=== PATIENT | female | born 1960 | race Caucasian/White ===

== ENCOUNTER 2018-07-13 13:36 | Inpatient (IN) | payer MEDICARE, MEDICAID, SELFPAY ==
[2018-07-13 13:36] VITALS: BP 154/79; PULSE 78; RESP 18; TEMP 36.9; O2SAT 96
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
[2018-07-13 14:16] LABS: Lactate 0.9 mmol/L (0.6-1.4)
[2018-07-13 14:20] LABS: Abs Immature Grans 0.14 k/cumm (0.0-0.09); Basophils % 0.2; Eosinophils % 0.2; HCT 35.4 % (36.0-46.0); HGB 11.7 g/dL (12.0-15.5); Immature Grans % 0.6; Lymphocytes % 11.1; Mean Corp. HGB Concentration 33.1 g/dL (32.0-36.0); Mean Corpuscular Volume 99.7 fL (80-95); Mean Platelet Volume 8.8 fL (8.0-11.0); Monocytes % 10.9; Platelet Count 341 x1000/uL (130-400); RBC 3.55 m/cumm (4.00-5.20); RBC Distribution Width 13.1 % (11.7-14.6); White Blood Cell Count 23.68 k/cumm (4.4-10.8)
[2018-07-13] MEDS: PIPERACILLIN/TAZO 4.5 GM in Normal Saline 100 ML IVPB ×2 (14:21→21:20)
[2018-07-13] MEDS: Lactated Ringers 1,000 ML 125 ML IV (14:23)
[2018-07-13 14:24] LABS: Absolute Basophil Count 0.05 k/cumm (0.0-0.2); Absolute Eosinophil Count 0.05 k/cumm (0.0-0.7); Absolute Lymphocyte Count 2.63 k/cumm (1.2-3.4); Absolute Monocyte Count 2.58 k/cumm (0.11-0.7); Absolute Neutrophil Count 18.23 k/cumm (1.2-6.7)
[2018-07-13 14:36] LABS: ALT 14 U/L (12-78); AST 18 U/L (15-37); Albumin 2.7 g/dL (3.4-5.0); Alkaline Phosphatase 120 U/L (46-116); Anion Gap 8.6 mmol/L (3-11); BUN 14 mg/dL (7-18); Bilirubin, Total 0.6 mg/dL (0.2-1.0); CO2 25.4 mmol/L (21.0-32.0); CREATININE 0.79 mg/dL (0.55-1.02); Calcium 9.2 mg/dL (8.5-10.1); Chloride 97 mmol/L (98-107); Glucose 100 mg/dL (70-100); Potassium 4.4 mmol/L (3.5-5.1); Sodium 131 mmol/L (136-145); Total Protein 6.9 g/dL (6.4-8.2)
[2018-07-13 14:39] LABS: Diff Comment Agrees w/ Instrument
[2018-07-13] MEDS: VANCOMYCIN 1,500 MG in Normal Saline 500 ML 333.333 MG IVPB (14:58)
[2018-07-13 15:01] VITALS: BP 103/70; PULSE 71; RESP 18; TEMP 37.3; O2SAT 95
--- NOTE | 2018-07-13 15:22 | NUR.NOTE ---
Nursing Note: pt resting in bed listening to provided music by volunteers. no acute distress. IV abx infusing. awaiting bed placement inpatient.
[2018-07-13 15:29] VITALS: BP 103/70; PULSE 71; RESP 18; TEMP 37.3; O2SAT 95
[2018-07-13 16:02] VITALS: BP 131/92; PULSE 78; RESP 20; TEMP 37.3; O2SAT 97
[2018-07-13] MEDS: Acetaminophen 325 MG TAB PO (16:47)
[2018-07-13] MEDS: Enoxaparin 40 MG/0.4 ML SYR SC (16:48)
[2018-07-13] MEDS: Normal Saline Flush 10 ML SYR IVP ×4 (16:57→23:31)
[2018-07-13] MEDS: Normal Saline 1,000 ML 125 ML IV (17:40)
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
[2018-07-13] MEDS: Venlafaxine 75 MG TAB 150 MG PO (21:20)
[2018-07-13 23:47] VITALS: BP 148/106; PULSE 90; RESP 18; TEMP 37.4; O2SAT 94
[2018-07-14] VITALS (18 sets, daily range): BP systolic 86–135; BP diastolic 52–94; PULSE 73–92; RESP 13–20; TEMP 35.7–37.3; O2SAT 91–99
[2018-07-14] MEDS: Normal Saline Flush 10 ML SYR IVP ×6 (01:49→18:03)
--- NOTE | 2018-07-14 05:07 | NUR.NOTE ---
Nursing Note: 2245H 07/13/18 Informed patient about NPO. Patient stated she is constantly thirsty. Education regarding importance of NPO enforced, patient stated I will take my chances.
[2018-07-14] MEDS: PIPERACILLIN/TAZO 4.5 GM in Normal Saline 100 ML IVPB ×3 (05:50→22:15)
[2018-07-14 07:05] LABS: Abs Immature Grans 0.12 k/cumm (0.0-0.09); Absolute Eosinophil Count 0.08 k/cumm (0.0-0.7); Absolute Lymphocyte Count 2.37 k/cumm (1.2-3.4); Absolute Monocyte Count 1.98 k/cumm (0.11-0.7); Absolute Neutrophil Count 14.67 k/cumm (1.2-6.7); Basophils % 0.2; Eosinophils % 0.4; HCT 35.1 % (36.0-46.0); HGB 11.6 g/dL (12.0-15.5); Immature Grans % 0.6; Lymphocytes % 12.3; Mean Corpuscular Hemoglobin 32.9 pg (27.0-33.0); Mean Corpuscular Volume 99.4 fL (80-95); Mean Platelet Volume 9.4 fL (8.0-11.0); Monocytes % 10.3; Neutrophils % 76.2; Platelet Count 325 x1000/uL (130-400); RBC 3.53 m/cumm (4.00-5.20); White Blood Cell Count 19.25 k/cumm (4.4-10.8)
[2018-07-14 07:15] LABS: Absolute Basophil Count 0.04 k/cumm (0.0-0.2)
[2018-07-14 07:19] LABS: BUN 11 mg/dL (7-18); C-Reactive Protein 14.73 mg/dL (0.0-0.3); CREATININE 0.68 mg/dL (0.55-1.02); Chloride 96 mmol/L (98-107); Glucose 85 mg/dL (70-100); Magnesium 1.3 mg/dL (1.8-2.4); Potassium 3.9 mmol/L (3.5-5.1); Sodium 129 mmol/L (136-145)
--- NOTE | 2018-07-14 07:26 | MERGE_ITS ---
*[facility]* *[facility]* [address] [place] [address] Date of study: 07/14/2018 Transthoracic Echocardiography M-mode, complete 2D, complete spectral Doppler, and color Doppler *STUDY CONCLUSIONS* Impressions: No clear evidence of endocarditis, no significant valvular abnormality, murmur likely caused by AV sclerosis. Small mobile mass on MV, likely calcified chordae, cannot r/o vegetation. Summary: 1. Left ventricle: The cavity size was normal. Wall thickness was at the upper limits of normal. Systolic function was normal. The estimated ejection fraction was 60-65%. Wall motion was normal; there were no regional wall motion abnormalities. 2. Ascending aorta: The ascending aorta was at upper normal limits. 3. Mitral valve: There was a possible, small, multilobulated, echodense mobile mass on the atrial aspect of the anterior leaflet, associated with chordal structures. Likely calcified chordae, cannot rule out vegetation. 4. Right ventricle: The cavity size was at the upper limits of normal. Wall thickness was normal. Systolic function was normal. 5. Pulmonary arteries: Pulmonary systolic pressure was mildly increased. PA peak pressure: 38mm Hg (S). *PATIENT PRESENTATION* Height: 172.7cm ((68in) ) S/D Pressure: 116 / 84 Weight: 76.7kg ((168.6lb) ) BSA: 1.93m^2 Test start time: 07:35 AM. Test stop time: 08:20 AM. CONSULTING Laci Aquino PERFORMING Unknown PERFORMING [facility] [employer] TE[employer] RT Jessie (R)(CT), [facility] ORDERING KaliKatia Yelena A *PROCEDURE DATA* Procedure information: The patient was identified by two identifiers. This study was interpreted by [facility]. Pertinent images and digital data are archived for permanent storage and are available for subsequent review. No prior study was available for comparison. Study status: Routine. Transthoracic echocardiography. M-mode, complete 2D, complete spectral Doppler, and color Doppler. A Transthoracic Echocardiogram was performed. Scanning was performed from the parasternal, apical, subcostal, and suprasternal notch acoustic windows. Images were obtained using an [id number] cardiac ultrasound machine. Image quality was fair. Study completion: The patient tolerated the procedure well. History: PMH: Heart murmur. Suspected endocarditis. *CARDIAC ANATOMY* Left ventricle: The cavity size was normal. Wall thickness was at the upper limits of normal. There was a false tendon within the ventricle. Systolic function was normal. The estimated ejection fraction was 60-65%. Wall motion was normal; there were no regional wall motion abnormalities. Aortic valve: Trileaflet; mildly thickened leaflets. Mobility was not restricted. Doppler: Transvalvular velocity was within the normal range. There was no stenosis. There was no significant regurgitation. VTI ratio of LVOT to aortic valve: 0.75. Valve area (VTI): 2.4cm^2. Indexed valve area (VTI): 1.2cm^2/m^2. Peak velocity ratio of LVOT to aortic valve: 0.68. Valve area (Vmax): 2.2cm^2. Indexed valve area (Vmax): 1.1cm^2/m^2. Mean velocity ratio of LVOT to aortic valve: 0.8. Valve area (Vmean): 2.5cm^2. Indexed valve area (Vmean): 1.3cm^2/m^2. Mean gradient (S): 8.1mm Hg. Peak gradient (S): 17.7mm Hg. Aorta: Aortic root: The aortic root was at upper normal limits. Ascending aorta: The ascending aorta was at upper normal limits. Mitral valve: Mildly thickened leaflets. Mobility was not restricted. There was a possible, small, multilobulated, echodense mobile mass on the atrial aspect of the anterior leaflet, associated with chordal structures. Likely calcified chordae, cannot rule out vegetation. Doppler: Transvalvular velocity was within the normal range. There was no evidence for stenosis. There was trivial regurgitation. Valve area by pressure half-time: 4cm^2. Indexed valve area by pressure half-time: 2.1cm^2/m^2. Peak gradient (D): 4.5mm Hg. Left atrium: The atrium was at the upper limits of normal in size. Right ventricle: The cavity size was at the upper limits of normal. Wall thickness was normal. Systolic function was normal. Pulmonic valve: Poorly visualized. Doppler: Transvalvular velocity was within the normal range. There was no evidence for stenosis. There was no significant regurgitation. Peak gradient (S): 3.1mm Hg. Tricuspid valve: Structurally normal valve. Doppler: Transvalvular velocity was within the normal range. There was no evidence for stenosis. There was trivial regurgitation. Pulmonary artery: Poorly visualized. Pulmonary systolic pressure was mildly increased. Right atrium: The atrium was at the upper limits of normal in size. Pericardium: There was no pericardial effusion. Systemic veins: Inferior vena cava: Well visualized. The vessel was patent and normal in size. The respirophasic diameter changes were in the normal range (greater than or equal to 50%), consistent with normal central venous pressure. Baseline ECG: Normal sinus rhythm. Measurements Left ventricle Value Reference LV ID, ED, PLAX 5.2 cm 3.5 - 6.0 LV ID, ES, PLAX 3.2 cm 2.1 - 4.0 LV PW thickness, ED, PLAX 0.9 cm LV end-diastolic volume, 1-p A2C 82 ml LV ejection fraction, 1-p A2C 73 % LV end-diastolic volume, 1-p A4C 78 ml LV ejection fraction, 1-p A4C 71 % LV e', lateral 0.126 m/sec LV E/e', lateral 8 LV e', medial 0.104 m/sec LV E/e', medial 10 LV e', average 0.115 m/sec LV E/e', average 9 Ventricular septum Value Reference IVS thickness, ED, PLAX 1.0 cm LVOT Value Reference LVOT ID, A-P 2.0 cm LVOT area 3.2 cm^2 LVOT peak velocity, S 1.44 m/sec LVOT mean velocity, S 1.06 m/sec LVOT VTI, S 28.3 cm LVOT peak gradient, S 8.3 mm Hg LVOT mean gradient, S 5 mm Hg Stroke volume (SV), LVOT DP 90 ml Stroke index (SV/bsa), LVOT DP 46 ml/m^2 Aortic valve Value Reference Aortic valve peak velocity, S 2.1 m/sec Aortic valve mean velocity, S 1.33 m/sec Aortic valve VTI, S 38.0 cm Aortic mean gradient, S 8.1 mm Hg Aortic peak gradient, S 17.7 mm Hg VTI ratio, LVOT/AV 0.75 Aortic valve area, VTI 2.4 cm^2 Velocity ratio, peak, LVOT/AV 0.68 Aortic valve area, peak velocity 2.2 cm^2 Velocity ratio, mean, LVOT/AV 0.8 Aortic valve area, mean velocity 2.5 cm^2 Aortic valve area/bsa, mean velocity 1.3 cm^2/m^2 Aorta Value Reference Aortic root ID, ED 3.3 cm Ascending aorta ID, A-P, S 3.7 cm Left atrium Value Reference LA ID, A-P, ES 3.5 cm LA ID/bsa, A-P 1.8 cm/m^2 <=2.2 LA area, ES, A4C 19.3 cm^2 8.8 - 23.4 LA area, ES, A2C 16 cm^2 LA volume/bsa, ES, 1-p A4C 31 ml/m^2 LA volume, ES, 2-p 50 ml LA volume/bsa, ES, 2-p 26 ml/m^2 LA/aortic root ratio 1.05 Mitral valve Value Reference Mitral E-wave peak velocity 1.06 m/sec Mitral A-wave peak velocity 0.89 m/sec Mitral deceleration time 189 ms 150 - 230 Mitral pressure half-time 55 ms Mitral peak gradient, D 4.5 mm Hg Mitral E/A ratio, peak 1.19 Mitral valve area, PHT, DP 4 cm^2 Pulmonary veins Value Reference Pulmonary vein peak velocity, S 0.7 m/sec Pulmonary vein peak velocity, D 0.5 m/sec Pulmonary vein velocity ratio, peak, 1.41 S/D Pulmonary vein A-wave reversal peak 0.31 m/sec velocity Pulmonary vein A-wave reversal 130 ms duration Pulmonary arteries Value Reference PA pressure, S, DP (H) 38 mm Hg <=30 Tricuspid valve Value Reference Tricuspid regurg peak velocity 2.8 m/sec Tricuspid peak RV-RA gradient 31.3 mm Hg Right atrium Value Reference RA area, ES, A4C (H) 20.6 cm^2 8.3 - 19.5 Systemic veins Value Reference Estimated CVP 10 mm Hg Right ventricle Value Reference RV pressure, S, DP (H) 41 mm Hg <=30 Pulmonic valve Value Reference Pulmonic peak gradient, S 3.1 mm Hg Legend: (L) and (H) sandra values outside specified reference range. I have personally reviewed the images and have reviewed and edited the reported findings. Electronically signed by Edmond Appiah 07/14/2018 13:51
[2018-07-14 07:57] LABS: Diff Comment Agrees w/ Instrument; Polychromasia Present
[2018-07-14] MEDS: Normal Saline 1,000 ML 125 ML IV (08:51)
[2018-07-14] MEDS: Venlafaxine 75 MG TAB 150 MG PO ×2 (08:53→20:51)
[2018-07-14] MEDS: Acetaminophen 325 MG TAB PO ×2 (08:53→14:05)
[2018-07-14] MEDS: LORazepam 2 MG/ML VIAL 1 MG IVP (09:40)
--- NOTE | 2018-07-14 11:00 | DI.MRI_ITS ---
SYMPTOMS/DIAGNOSIS: TENOSYNOVITIS, SUSPECTED ABSCESS RT HAND/WRIST RIGHT HAND MRI: MRI examination of the hand was performed according to the usual protocol. There is marked motion artifact on all pulse sequences. The examination is nondiagnostic. On T 2 fat sat imaging there does appear to be diffuse increased signal in the region of the thenar eminence consistent with inflammatory process. Abscess neither excluded nor ruled in on this very limited examination.
[2018-07-14] MEDS: ELECTROLYTE-R SOLUTION 1,000 ML 30 ML IV (11:01)
--- NOTE | 2018-07-14 11:49 | NUR.NOTE ---
AT 1035 I CALLED MRI TO PLEASE BRING UP THE PT NOW AND DISCONTINUE THE MRI PER DR. TOLEDO. OR CALLED ME BACK ASKING FOR PT TO GO DIRECTLY FROM MRI TO THE OR. ADVISED THAT THE PRE-OP CHECKLIST AND CONSENT HAS NOT BEEN DONE DUE TO THE FACT THAT WE WERE NOT INFORMED OF AN OR TIME. IMMEDIATELY UPON PT RETURN TO UNIT, SENT PT TO OR REQUESTED. ADDIS FROM OR INFORMED THAT ANTIBIOTICS HAD BEEN PAUSED FOR THE MRI AND THAT PT HAD GOTTEN 1 MG OF LORAZEPAM FOR THE MRI. SHE WILL CHECK WITH MD ABOUT RESUMING THE ANTIBIOTICS ONCE SHE IS IN OR. Nursing Note:
--- NOTE | 2018-07-14 12:48 | ROE_ITS ---
DATE OF PROCEDURE: July 14, 2018 PREOPERATIVE DIAGNOSIS: Infectious flexor tenosynovitis, right thumb; possible deep space infection, right palm. POSTOPERATIVE DIAGNOSIS: Same. PROCEDURE: Incision and drainage of thumb, flexor tendon and deep space of the thumb and mid-palm of the right hand. ANESTHESIA: General, Dionisio Brown CRNA SURGEON: Blaine Cutler M.D. HOST/HOSTESS HEAD: Lulu Felton INDICATIONS: This is a 57-year-old white female who was admitted to the hospital yesterday because o f an infectious flexor tenosynovitis of the right thumb. I was concerned about extension to the deep spaces of the hand when I saw her in the Emergency Room yesterday. Despite double antibiotic admini stration overnight, she actually worsened. When I saw her earlier today she now had all of Kanavel's signs for her thumb. She was also experiencing significant pain with passive extension of her digit s, which was suggestive of extension of infection into the mid-palmar space of her right hand. Her w sandee blood cell count had also gone up overnight. I felt that her infection was progressing and need ed surgical drainage on an emergent basis. The risks and complications of the procedure were explain ed to the patient in detail preoperatively. PROCEDURE: The patient was taken to the Operating Room on 07/14/18. She was placed supine on the oper ating table and a general anesthetic was administered. The right hand was then prepped and draped f ree in the usual sterile fashion. I performed a Jennifer-type zigzag incision beginning over an area of drainage over the distal phalanx of the thumb, carried in a zigzag fashion across the flexion creases of the thumb, and then curved a round the ulnar side of the thenar eminence to the edge of the volar carpal ligament. Digital nerves were identified and protected. I gained access to the flexor sheath of the thumb. I incised the pr oximal andrae. I inserted an Angiocath into the sheath and then copiously irrigated the entire flexo r sheath of the thumb with Betadine and saline solution. Although there was not much pus that was ex pressed, there was a lot of necrotic tissue, especially around the distal draining sinus on the thumb . I debrided the necrotic tissue with a rongeur and sent a specimen for culture and sensitivity. I then developed the dissection further proximally into the palm. The deep thenar space was entered an d was clear of pus, but there was some boggy synovium found around the thumb flexor. I then entered the mid-palmar space; again boggy synovium around the flexor tendons, but no collection of pus. Both the thenar space and the deep mid-palmar space were copiously irrigated with Betadine and saline jason ution. The skin edges were then loosely approximated with interrupted #4-0 Nylon sutures. A bulky compressi ve dressing of fluff gauze 4x4's between her fingers and thumb was then applied and wrapped with a Ke rlix bandage. She was then placed in a volar fiberglass splint, held in place with a 3-inch Toan band age. She tolerated the procedure well. Her anesthesia was reversed without complications. She was discharged to the Recovery Room in good condition.
[2018-07-14] MEDS: MAGNESIUM SULFATE 4 GM/100 ML BAG IVPB (13:24)
--- NOTE | 2018-07-14 14:35 | CHAPLAIN ---
I had a short visit with Lisset. She had returned from the OR a short time ago and her hand was beginning to feel some pain in her hand. Angie said she doesn't know a lot of people in the area and her sister lives in [place]. I will check in with her again.
[2018-07-14] MEDS: Normal Saline 1,000 ML 1000 ML IV (16:13)
[2018-07-14 16:38] LABS: Vancomycin, Trough 22.5 ug/mL (10.0-20.0)
--- NOTE | 2018-07-14 17:56 | PDOC.CMIN ---
Care Management Initial Assess REASON FOR HOSPITALIZATION:: Tenosynovitis R Hand/Cellulitis Bilat Hands PAST MEDICAL HISTORY/PAST SURGICAL HISTORY:: Hypertension, TBI, appendectomy, previous section x2 PREVIOUS FUNCTIONAL STATUS/SOCIAL/FAMILY SUPPORTS:: Lisset resides alone in [place], [place]. She has a daughter, Doreen who resides in [place], [place]. CURRENT FUNCTIONAL STATUS:: Lisset was brought to the OR and unavailable for CM assessment. CM will continue to follow and review current status, and assess discharge considerations with Lisset when she is available. ADVANCE DIRECTIVES:: None on file at [facility]. Has patient been provided with information about the portal?: No Did the patient sign up for the portal?: No CODE STATUS:: Full Code INSURANCE COVERAGE / FINANCIAL ISSUES:: Medicaid. Medicare CURRENT HOME/COMMUNITY SERVICES/EQUIPMENT:: No current services or equipment. PRIMARY CARE PHYSICIAN:: Laci Aquino POTENTIAL DISCHARGE NEEDS:: Possible SNF coordination, OT/PT assessments, CM assessment, review of community based supports. Follow up appointments. PATIENT/FAMILY EDUCATION NEEDS:: Review of discharge instructions. ANTICIPATED BARRIERS TO DISCHARGE:: None identified. TRANSPORTATION:: TBD by disposition; likely private vehicle with family or [id number]. PLAN:: Lisset will continue to be monitored and assessed for further needs, CM will continue to follow and support discharge planning considerations.
[2018-07-14] MEDS: Ketorolac 30 MG/ML VIAL IVP ×2 (18:02→23:44)
--- NOTE | 2018-07-14 19:10 | INITIAL_ITS ---
Care Management Initial Assess REASON FOR HOSPITALIZATION:: Tenosynovitis R Hand/Cellulitis Bilat Hands PAST MEDICAL HISTORY/PAST SURGICAL HISTORY:: Hypertension, TBI, appendectomy, previous section x2 PREVIOUS FUNCTIONAL STATUS/SOCIAL/FAMILY SUPPORTS:: Lisset resides alone in [place], [place]. She has a daughter, Doreen who resides in [place], [place]. CURRENT FUNCTIONAL STATUS:: Lisset was brought to the OR and unavailable for CM assessment. CM will continue to follow and review current status, and assess discharge considerations with Lisset when she is available. ADVANCE DIRECTIVES:: None on file at [facility]. Has patient been provided with information about the portal?: No Did the patient sign up for the portal?: No CODE STATUS:: Full Code INSURANCE COVERAGE / FINANCIAL ISSUES:: Medicaid. Medicare CURRENT HOME/COMMUNITY SERVICES/EQUIPMENT:: No current services or equipment. PRIMARY CARE PHYSICIAN:: Laci Aquino POTENTIAL DISCHARGE NEEDS:: Possible SNF coordination, OT/PT assessments, CM assessment, review of community based supports. Follow up appointments. PATIENT/FAMILY EDUCATION NEEDS:: Review of discharge instructions. ANTICIPATED BARRIERS TO DISCHARGE:: None identified. TRANSPORTATION:: TBD by disposition; likely private vehicle with family or [id number]. PLAN:: Lisset will continue to be monitored and assessed for further needs, CM will continue to follow and support discharge planning considerations.
--- NOTE | 2018-07-14 21:24 | W.PM.PROGNOT ---
Date of Service Date of service: 07/14/18 Time of Service: 15:00 Assessment and Plan (1) Tenosynovitis of finger and hand: Current visit: Yes Status: Acute with cellulitis/disseminated skin infection, s/p I&D today. Defer wound care to Dr Cutler. Surprisingly, blood cultures show NGTD. Echo is suspicious for mitral valve vegetation. Continue vancomycin/zosyn (day 2) and IVF. Continue to trend CRP. (2) Endocarditis: Current visit: Yes Status: Suspected Murmur auscultated on exam - echo suspicious for mitral valve involvement. However, blood cultures have had no growth to date. Continue to monitor - and consider MARINA regardless. (3) Uncontrolled pain: Current visit: Yes Status: Acute Pain is better today. Continue toradol and prn moprhine. (4) Dehydration: Current visit: Yes Status: Acute Continue IVF (5) Leucocytosis: Current visit: Yes Status: Acute Improved today with antibiotics. Continue empiric vancomycin/zosyn. (6) Hypomagnesemia: Current visit: Yes Status: Acute Replete and monitor (7) Alcohol abuse: Current visit: Yes Status: Chronic On CIWA/vitamins. Monitor for withdrawal. (8) DVT prophylaxis: Current visit: Yes Status: Acute Lovenox (9) Discharge planning issues: Current visit: Yes Status: Acute Patient does not have electricity or hot water. Full code Subjective Interval history since last seen: Ms Carmichael is s/p emergent I&D of the R thumb, flexor tendon and deep space of the thumb and mid-palm of the R hand today. Post-operatively, she feels better, but continues to feel pain in the hand. She denies dizziness, chest pain, shortness of breath, nausea, vomiting. She states she feels stronger today and has less generalized pain. Exam Narrative Exam Narrative: General: Middle-aged female, looks much more comfortable today Neurological: A&Ox3, no focal deficits Psychiatric: calm, cooperative HEENT: EOMI, MMM Cardiovascular: RRR, + FELISA Lungs: CTAB Gastrointestinal: abdomen soft, nontender, nondistended Extremities: no e/c/c BLE's; R hand/wrist are dressed - c/d/i Objective Objective Clinical Data: Abnormal lab results 02/08/19 02/08/19 02/08/19 Range/Units 06:22 06:22 15:25 WBC 19.25 H (4.4-10.8) k/cumm RBC 3.53 L (4.00-5.20) m/cumm Hgb 11.6 L (12.0-15.5) g/dL Hct 35.1 L (36.0-46.0) % MCV 99.4 H (80-95) fL Absolute Neutrophils 14.67 H (1.2-6.7) k/cumm Absolute Monocytes 1.98 H (0.11-0.7) k/cumm Sodium 129 L (136-145) mmol/L Chloride 96 L (98-107) mmol/L Magnesium 1.3 L (1.8-2.4) mg/dL C-Reactive Protein 14.73 H (0.0-0.3) mg/dL Vancomycin Trough 22.5 H* (10.0-20.0) ug/mL Vital Signs Temperature 36.3 C L 07/14/18 19:55 Temperature Source Tympanic 07/14/18 19:55 Pulse 89 07/14/18 19:55 Pulse Rhythm Regular 07/14/18 08:30 Respiratory Rate 18 07/14/18 19:55 Respiratory Effort Non-Labored 07/14/18 08:30 Respiratory Depth Normal 07/14/18 08:30 Respiratory Pattern Normal 07/14/18 08:30 Blood Pressure 94/65 L 07/14/18 19:55 Blood Pressure Position Supine 07/13/18 13:36 Pulse Oximetry 97 07/14/18 19:55 Oxygen Delivery Method Room Air 07/14/18 19:55 Oxygen Flow Rate 0 07/14/18 19:55 Pain Level 6 07/14/18 18:03 Comment 07/14/18 15:30 Intake & Output 07/13/18 07/14/18 07/14/18 23:59 11:59 23:59 Intake Total 2420 / 2420 2546.250 / 5620.417 3074.167 / 5620.417 Output Total 1150 / 1150 2000 / 3300 1300 / 3300 Balance 1270 / 1270 546.250 / 2320.417 1774.167 / 2320.417 Weight 76.7 kg 75.8 kg Intake: IV 1630 / 1630 2046.250 / 3850.417 1804.167 / 3850.417 Oral 790 / 790 500 / 1770 1270 / 1770 Output: Urine 1150 / 1150 2000 / 3300 1300 / 3300 Other: Urine Color Yellow Yellow Yellow Urine Appearance Clear Clear Clear Urine Odor None Normal None Comment Void x1 in the toilet. Void x1 in the toilet. Emesis Description None Voiding Methods Toilet Toilet Toilet Laboratory Results WBC 19.25 k/cumm (4.4-10.8) H 07/14/18 06:22 RBC 3.53 m/cumm (4.00-5.20) L 07/14/18 06:22 Hgb 11.6 g/dL (12.0-15.5) L 07/14/18 06:22 Hct 35.1 % (36.0-46.0) L 07/14/18 06:22 MCV 99.4 fL (80-95) H 07/14/18 06:22 MCH 32.9 pg (27.0-33.0) 07/14/18 06:22 MCHC 33.0 g/dL (32.0-36.0) 07/14/18 06:22 RDW 13.0 % (11.7-14.6) 07/14/18 06:22 Plt Count 325 x1000/uL (130-400) 07/14/18 06:22 MPV 9.4 fL (8.0-11.0) 07/14/18 06:22 Immature Gran % 0.6 07/14/18 06:22 Neutrophils % 76.2 07/14/18 06:22 Lymphocytes % 12.3 07/14/18 06:22 Monocytes % 10.3 07/14/18 06:22 Eosinophils % 0.4 07/14/18 06:22 Basophils % 0.2 07/14/18 06:22 Absolute Neutrophils 14.67 k/cumm (1.2-6.7) H 07/14/18 06:22 Absolute Lymphocytes 2.37 k/cumm (1.2-3.4) 07/14/18 06:22 Absolute Monocytes 1.98 k/cumm (0.11-0.7) H 07/14/18 06:22 Absolute Eosinophils 0.08 k/cumm (0.0-0.7) 07/14/18 06:22 Absolute Basophils 0.04 k/cumm (0.0-0.2) 07/14/18 06:22 Differential Comment Agrees w/ instrument 07/14/18 06:22 RBC Morphology See below 07/14/18 06:22 Polychromasia Present 07/14/18 06:22 Sodium 129 mmol/L (136-145) L 07/14/18 06:22 Potassium 3.9 mmol/L (3.5-5.1) 07/14/18 06:22 Chloride 96 mmol/L (98-107) L 07/14/18 06:22 Carbon Dioxide 25.0 mmol/L (21.0-32.0) 07/14/18 06:22 Anion Gap 8.0 mmol/L (3-11) 07/14/18 06:22 BUN 11 mg/dL (7-18) 07/14/18 06:22 Creatinine 0.68 mg/dL (0.55-1.02) 07/14/18 06:22 Estimated GFR/1.73 m2 >= 60.00 (mL/min/1.73m2) 07/14/18 06:22 Glucose 85 mg/dL (70-100) 07/14/18 06:22 Lactate 0.9 mmol/L (0.6-1.4) 07/13/18 14:10 Calcium 9.0 mg/dL (8.5-10.1) 07/14/18 06:22 Magnesium 1.3 mg/dL (1.8-2.4) L 07/14/18 06:22 Total Bilirubin 0.6 mg/dL (0.2-1.0) 07/13/18 14:10 AST 18 U/L (15-37) 07/13/18 14:10 ALT 14 U/L (12-78) 07/13/18 14:10 Alkaline Phosphatase 120 U/L (46-116) H 07/13/18 14:10 C-Reactive Protein 14.73 mg/dL (0.0-0.3) H 07/14/18 06:22 Total Protein 6.9 g/dL (6.4-8.2) 07/13/18 14:10 Albumin 2.7 g/dL (3.4-5.0) L 07/13/18 14:10 Vancomycin Trough 22.5 ug/mL (10.0-20.0) H* 07/14/18 15:25 Echo: 1. Left ventricle: The cavity size was normal. Wall thickness was at the upper limits of normal. Systolic function was normal. The estimated ejection fraction was 60-65%. Wall motion was normal; there were no regional wall motion abnormalities. 2. Ascending aorta: The ascending aorta was at upper normal limits. 3. Mitral valve: There was a possible, small, multilobulated, echodense mobile mass on the atrial aspect of the anterior leaflet, associated with chordal structures. Likely calcified chordae, cannot rule out vegetation. 4. Right ventricle: The cavity size was at the upper limits of normal. Wall thickness was normal. Systolic function was normal. 5. Pulmonary arteries: Pulmonary systolic pressure was mildly increased. PA peak pressure: 38mm Hg (S).
[2018-07-15 03:40] VITALS: BP 116/80; PULSE 95; RESP 17; TEMP 36.8; O2SAT 98
[2018-07-15] MEDS: Ketorolac 30 MG/ML VIAL IVP ×3 (05:33→17:47)
[2018-07-15] MEDS: PIPERACILLIN/TAZO 4.5 GM in Normal Saline 100 ML IVPB ×3 (05:34→21:48)
[2018-07-15 07:54] LABS: Abs Immature Grans 0.06 k/cumm (0.0-0.09); Absolute Basophil Count 0.01 k/cumm (0.0-0.2); Absolute Eosinophil Count 0.06 k/cumm (0.0-0.7); Absolute Lymphocyte Count 1.44 k/cumm (1.2-3.4); Absolute Monocyte Count 0.94 k/cumm (0.11-0.7); Basophils % 0.1; Eosinophils % 0.6; HCT 32.2 % (36.0-46.0); HGB 10.5 g/dL (12.0-15.5); Immature Grans % 0.6; Lymphocytes % 14.1; Mean Corp. HGB Concentration 32.6 g/dL (32.0-36.0); Mean Corpuscular Hemoglobin 32.3 pg (27.0-33.0); Mean Corpuscular Volume 99.1 fL (80-95); Monocytes % 9.2; Neutrophils % 75.4; Platelet Count 326 x1000/uL (130-400); RBC 3.25 m/cumm (4.00-5.20); RBC Distribution Width 12.9 % (11.7-14.6); White Blood Cell Count 10.21 k/cumm (4.4-10.8)
[2018-07-15 08:14] LABS: Anion Gap 9.7 mmol/L (3-11); BUN 12 mg/dL (7-18); CO2 24.3 mmol/L (21.0-32.0); Calcium 8.4 mg/dL (8.5-10.1); Chloride 101 mmol/L (98-107); Glucose 93 mg/dL (70-100); Potassium 4.2 mmol/L (3.5-5.1); Sodium 135 mmol/L (136-145)
[2018-07-15 08:21] VITALS: BP 132/87; PULSE 89; RESP 18; TEMP 36.8; O2SAT 97
[2018-07-15 08:54] LABS: Folate 17.7 ng/mL (8.6-20.0); Vitamin B12 266 pg/mL (193-986)
[2018-07-15] MEDS: Venlafaxine 75 MG TAB 150 MG PO ×2 (09:08→19:19)
[2018-07-15] MEDS: Acetaminophen 325 MG TAB PO (09:08)
[2018-07-15] MEDS: Folic Acid 1 MG TAB PO (09:09)
[2018-07-15] MEDS: Multivitamin TAB 1 TAB PO (09:10)
[2018-07-15] MEDS: Thiamine 100 MG TAB PO (09:10)
[2018-07-15] MEDS: Docusate Sodium 100 MG CAP PO ×2 (09:10→19:20)
[2018-07-15] MEDS: Normal Saline Flush 10 ML SYR IVP ×6 (09:11→19:29)
--- NOTE | 2018-07-15 09:30 | PHARADMIT ---
Addendum entered by Ernst Ko III 07/21/18 16:11: Patient to go to [facility] later today. Original Note: Addendum entered by Ernst Ko III 07/20/18 16:07: Pharmacy Note Subjective [employer] noted no Endocarditis on MARINA. Objective BP-165/98 HR-93 K+3.6 WBC-11.02 H&H,Plts-OK Wgt-75.3 kg Assessment No med changes Plan May transfer to [facility] until a safe discharge paln can be determined. Original Note: Addendum entered by Ernst Ko III 07/19/18 13:57: Pharmacy Note Subjective Patient NPO tonight for a MARINA tomorrow, potential mass on mitral valve vs vegetation. Currently on Day#2 of Ancef 2gm following 4 days of Vanco/Zosyn. No growth from blood cullture x 120hrs. CIWA protocol has been dc'd. Right Hand continues to improve on Ancef per Objective VS-OK Pain: 8/10, K+4.5 H&H,Plts,WBC,SCr-OK Assessment CIWA vitamins continued Plan Patients' living situation may be an issue, CM working on the problem. Watch for MARINA results Original Note: Admission Pharmacy Clinical Review tenosynovitis R hand/cellulitis B hands Code Status Full Code Current Weight 75.7 kg Renally Cleared and Narrow Therapeutic Index Meds Crcl ~ 77.32 mL/min current meds okay QTc Value / Action Taken n/a BP Control, Fever BP 132/87 afebrile Electrolytes reviewed Na 135 DVT Prophylaxis enoxaparin is on hold until tomorrow, pt went to OR Opiate Usage / Scheduled Bowel Regimen Ordered PRN/ cherie docusate Plt/SCr for Heparin / Enoxaparin plt 326 SCr 0.70 INR for Warfarin n/a H/H stable, WBC/Bands h/h 10.5/32.2 wbc 10.21(much improved) Antibiotic appropriateness vanco and zosyn (day 3 starts this afternoon) Cultures and Sensitivities blood cultures- no growth @24hours sputum culture pending, gram stain had rare gram+ cocci in pairs Surgical ABX d/c within 24 hr n/a DM control / Insulin Dosing BG 93 none Heart Failure (Check EF%) (CAILIN's, B-Block, Diuretics) home meds (not ordered right now) IV to PO Switch n/a Home Meds Reviewed yes Home Meds Not Ordered amlodipine, atenolol, cephalexin(has other abx ordered), ergocalciferol, losartan Comments
[2018-07-15 16:14] VITALS: BP 147/91; PULSE 95; RESP 19; TEMP 35.4; O2SAT 97
--- NOTE | 2018-07-15 18:27 | PGE_ITS ---
Date of Service Date of service: 07/15/18 Time of Service: 18:16 Assessment and Plan (1) Tenosynovitis of finger and hand: Current visit: Yes Status: Acute S/p I&D on 07/14, with wound cultures positive for Group A Strep. For now continue broad spectrum antibiotics with Vancomycin and Zosyn day #3, continue to monitor culture results, and consider MARINA prior to finalizing antibiotic regimen and duration. Continue wound care as well. Monitor CRP. Pain control. 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 potential vegetation. Given patient's history and significance of her infection may benefit from MARINA. However, blood cultures remain negative. Plan on discussing with ID and Cardiology soon. (3) Leucocytosis: Current visit: Yes Status: Acute Resolved with debridement of wound and on antibiotic therapy. (4) Alcohol abuse: Current visit: No Status: Chronic Continue on CIWA protocol. Initiate standing Oxazepam. Ensure PPI therapy. Continue supplements with FA and thiamine as well. (5) DVT prophylaxis: Current visit: Yes Status: Acute Continue SC Lovenox. (6) Discharge planning issues: Current visit: Yes Status: Acute Needs follow-up with care management as patient lives in home without running water or electricity. Subjective Interval history since last seen: 57 year old female with a prior history of HTN and TBI, admitted from [facility] on 07/13 with a diagnosis of cellulitis of the hand. Ms. Abel presented to the ED with complaints of significant right hand, wrist, and arm pain. She reports that about 3 weeks prior she noticed a couple of splinters from firewood in the fingers of her left hand, which she was able to excise. She states she sterilized the blade prior to doing this. Since then, she noticed boils appearing on her right hand (5 in total) about 10 days ago. She started to see more of these boils appear on her Left hand - 4-5 days prior to her admission. She has been lancing them and putting neosporine on them. In t otal, she states she has lanced 7 of these boils. She reported onset of chills and myalgias, with extreme fatigue for approximately one week prior to being seen in the ED. Her initial evaluation revealed evidence of significant leukocytosis. She underwent an I&D by ortho of the right thumb, flexor tendor, and surrounding soft tissue, with noted necrosis of the area without significant purulence. Her wound culture is now growing Group A Strep, with Blood cultures that have remained negative. The patient appears improved. Owing to a slight murmur a TTE was obtained and with evidence of a possible small mobile mass on the mitral valve, interpreted as likely calcified chordae but without exclusion of a vegetation. MRI of the hand was limited due to motion. She remains afebrile. Exam Narrative Exam Narrative: General: Patient appears comfortable, NAD Neck: Supple CV: Regular, nontachycardic, S1S2, No rubs or gallops. 2-3/6 LLSB murmur appreciated. Pulmonary: Clear to auscultation bilaterally, no crackles, wheezing, or rhonchi Abdomen: + Bowel Sounds, soft, nontender, nondistended Vascular: No lower extremity edema Psych: Normal mood and affect. Objective Objective Clinical Data: Abnormal lab results 07/15/18 07/15/18 Range/Units 07:15 07:15 RBC 3.25 L (4.00-5.20) m/cumm Hgb 10.5 L (12.0-15.5) g/dL Hct 32.2 L (36.0-46.0) % MCV 99.1 H (80-95) fL Absolute Neutrophils 7.70 H (1.2-6.7) k/cumm Absolute Monocytes 0.94 H (0.11-0.7) k/cumm Sodium 135 L (136-145) mmol/L Calcium 8.4 L (8.5-10.1) mg/dL C-Reactive Protein 12.00 H (0.0-0.3) mg/dL Vital Signs Temperature 35.4 C L 07/15/18 16:14 Temperature Source Tympanic 07/15/18 16:14 Pulse 95 H 07/15/18 16:14 Pulse Rhythm Regular 07/15/18 08:10 Respiratory Rate 07/15/18 16:14 Respiratory Effort Non-Labored 07/15/18 08:10 Respiratory Depth Normal 07/15/18 08:10 Respiratory Pattern Normal 07/15/18 08:10 Blood Pressure 147/91 H 07/15/18 16:14 Blood Pressure Position Supine 07/13/18 13:36 Pulse Oximetry 97 07/15/18 16:14 Oxygen Delivery Method Room Air 07/15/18 16:14 Oxygen Flow Rate 0 07/15/18 16:14 Pain Level 8 07/15/18 17:47 Comment 07/14/18 15:30 Intake & Output 07/14/18 07/15/18 07/15/18 23:59 11:59 23:59 Intake Total 3074.167 / 5620.417 1856.25 / 2136.25 280 / 2136.25 Output Total 1300 / 3300 2400 / 2400 Balance 1774.167 / 2320.417 -543.75 / -263.75 280 / -263.75 Weight 75.7 kg Intake: IV 1804.167 / 3850.417 1156.25 / 1196.25 40 / 1196.25 Oral 1270 / 1770 700 / 940 240 / 940 Output: Urine 1300 / 3300 2400 / 2400 Other: Urine Color Yellow Yellow Urine Appearance Clear Clear Urine Odor None Normal Comment Void x1 in the toilet. Emesis Description None Voiding Methods Toilet Toilet Laboratory Results WBC 10.21 k/cumm (4.4-10.8) D 07/15/18 07:15 RBC 3.25 m/cumm (4.00-5.20) L 07/15/18 07:15 Hgb 10.5 g/dL (12.0-15.5) L 07/15/18 07:15 Hct 32.2 % (36.0-46.0) L 07/15/18 07:15 MCV 99.1 fL (80-95) H 07/15/18 07:15 MCH 32.3 pg (27.0-33.0) 07/15/18 07:15 MCHC 32.6 g/dL (32.0-36.0) 07/15/18 07:15 RDW 12.9 % (11.7-14.6) 07/15/18 07:15 Plt Count 326 x1000/uL (130-400) 07/15/18 07:15 MPV 9.0 fL (8.0-11.0) 07/15/18 07:15 Immature Gran % 0.6 07/15/18 07:15 Neutrophils % 75.4 07/15/18 07:15 Lymphocytes % 14.1 07/15/18 07:15 Monocytes % 9.2 07/15/18 07:15 Eosinophils % 0.6 07/15/18 07:15 Basophils % 0.1 07/15/18 07:15 Absolute Neutrophils 7.70 k/cumm (1.2-6.7) H 07/15/18 07:15 Absolute Lymphocytes 1.44 k/cumm (1.2-3.4) 07/15/18 07:15 Absolute Monocytes 0.94 k/cumm (0.11-0.7) H 07/15/18 07:15 Absolute Eosinophils 0.06 k/cumm (0.0-0.7) 07/15/18 07:15 Absolute Basophils 0.01 k/cumm (0.0-0.2) 07/15/18 07:15 Differential Comment Agrees w/ instrument 07/14/18 06:22 RBC Morphology See below 07/14/18 06:22 Polychromasia Present 07/14/18 06:22 Sodium 135 mmol/L (136-145) L 07/15/18 07:15 Potassium 4.2 mmol/L (3.5-5.1) 07/15/18 07:15 Chloride 101 mmol/L (98-107) 07/15/18 07:15 Carbon Dioxide 24.3 mmol/L (21.0-32.0) 07/15/18 07:15 Anion Gap 9.7 mmol/L (3-11) 07/15/18 07:15 BUN 12 mg/dL (7-18) 07/15/18 07:15 Creatinine 0.70 mg/dL (0.55-1.02) 07/15/18 07:15 Estimated GFR/1.73 m2 >= 60.00 (mL/min/1.73m2) 07/15/18 07:15 Glucose 93 mg/dL (70-100) 07/15/18 07:15 Lactate 0.9 mmol/L (0.6-1.4) 07/13/18 14:10 Calcium 8.4 mg/dL (8.5-10.1) L 07/15/18 07:15 Magnesium 2.0 mg/dL (1.8-2.4) 07/15/18 07:15 Total Bilirubin 0.6 mg/dL (0.2-1.0) 07/13/18 14:10 AST 18 U/L (15-37) 07/13/18 14:10 ALT 14 U/L (12-78) 07/13/18 14:10 Alkaline Phosphatase 120 U/L (46-116) H 07/13/18 14:10 C-Reactive Protein 12.00 mg/dL (0.0-0.3) H 07/15/18 07:15 Total Protein 6.9 g/dL (6.4-8.2) 07/13/18 14:10 Albumin 2.7 g/dL (3.4-5.0) L 07/13/18 14:10 Vitamin B12 266 pg/mL (193-986) 07/15/18 07:15 Folate 17.7 ng/mL (8.6-20.0) 07/15/18 07:15 Vancomycin Trough 22.5 ug/mL (10.0-20.0) H* 07/14/18 15:25
[2018-07-15] MEDS: Normal Saline 1,000 ML 125 ML IV (18:50)
[2018-07-15 19:07] VITALS: BP 126/82; PULSE 98; RESP 19; TEMP 36.7; O2SAT 97
--- NOTE | 2018-07-15 20:00 | PDOC.CMPRO ---
Care Management Progress Note S/O: Lisset was lying in bed when CM met with her, she engaged easily and was more than forthcoming with information. She reported her current situation at home; she has been struggling drastically to meet her basic needs, and after injuring herself it became impossible and she reports feeling she put herself in grave danger continuing to try and manage on her own. Lisset has a piece of land in [facility] she has been attempting to develop for years. Prior to moving to [place], she lived in [place] where she had built her own cabin on her own land that she owned. She sold her home and uprooted to [place] with the same premise in mind; to live off the grid. 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 She has a landline phone and rechargeable batteries with a generator and a small solar panel. She boils snow for water on her wood stove and accidentally spilt boiling water on herself resulting in her rudd. 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 Her last spent most of her assets and she reports only having her land now and struggles to pay her taxes. 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 Lisset has two daughters, Tila who resides in [place] and Doreen who resides in [place] but is currently in [place]. She has not seen Tila for three years and has not spoken to Logan since before Thanks. Lisset reviews a long list of what she calls bad decisions she reports being able to clearly see where she has made errors resulting in her current situation. She appears honest, overwhelmed and fearful. CM began an Ecomap and Genogram to help Lisset categorize her support network, financial stressors/supports, and identify service connection. BERNARD will continue this process with Lisset. Lisset was so pleased to have a shower, clean up, return to a clean bed and feel human again. She was gracious and appreciative for her care and having her pain managed as she reports being in agony for weeks. She was emotional-often crying as well as laughing appropriately and used good humor, well. A: 57 year old female admitted to [facility] 07/13/18 for Tenosynovitis R Hand/Cellulitis Bilat Hands P: Lisset will continue to be treated with IV ABX and closely monitored. She will have PT/OT consults as well. CM will continue to follow and work with Lisset on creating a comprehensive discharge plan; undetermined at this time. Lisset is agreeable to SNF if recommended as well as increased service supports at home.
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
[2018-07-15 23:16] VITALS: BP 119/85; PULSE 98; RESP 18; TEMP 36.3; O2SAT 96
[2018-07-16 03:42] VITALS: BP 131/88; PULSE 98; RESP 16; TEMP 36.5; O2SAT 97
[2018-07-16] MEDS: PIPERACILLIN/TAZO 4.5 GM in Normal Saline 100 ML IVPB ×3 (05:44→22:36)
[2018-07-16 07:18] LABS: Abs Immature Grans 0.05 k/cumm (0.0-0.09); Absolute Basophil Count 0.02 k/cumm (0.0-0.2); Absolute Eosinophil Count 0.13 k/cumm (0.0-0.7); Absolute Lymphocyte Count 1.71 k/cumm (1.2-3.4); Absolute Monocyte Count 1.01 k/cumm (0.11-0.7); Absolute Neutrophil Count 7.59 k/cumm (1.2-6.7); Basophils % 0.2; Eosinophils % 1.2; HCT 34.4 % (36.0-46.0); HGB 11.4 g/dL (12.0-15.5); Immature Grans % 0.5; Lymphocytes % 16.3; Mean Corp. HGB Concentration 33.1 g/dL (32.0-36.0); Mean Corpuscular Hemoglobin 32.9 pg (27.0-33.0); Mean Corpuscular Volume 99.4 fL (80-95); Mean Platelet Volume 8.7 fL (8.0-11.0); Monocytes % 9.6; Neutrophils % 72.2; Platelet Count 377 x1000/uL (130-400); RBC 3.46 m/cumm (4.00-5.20); White Blood Cell Count 10.51 k/cumm (4.4-10.8)
[2018-07-16 07:20] LABS: Anion Gap 8.8 mmol/L (3-11); BUN 8 mg/dL (7-18); CO2 26.2 mmol/L (21.0-32.0); CREATININE 0.68 mg/dL (0.55-1.02); Calcium 9.3 mg/dL (8.5-10.1); Chloride 101 mmol/L (98-107); Glucose 92 mg/dL (70-100); Magnesium 1.5 mg/dL (1.8-2.4); Potassium 4.2 mmol/L (3.5-5.1); Sodium 136 mmol/L (136-145)
[2018-07-16 07:45] VITALS: BP 136/89; PULSE 97; RESP 21; TEMP 37.6; O2SAT 95
[2018-07-16] MEDS: Docusate Sodium 100 MG CAP PO (07:51)
[2018-07-16] MEDS: Thiamine 100 MG TAB PO (07:57)
[2018-07-16] MEDS: Venlafaxine 75 MG TAB 150 MG PO ×2 (07:57→20:24)
[2018-07-16] MEDS: Multivitamin TAB 1 TAB PO (07:58)
[2018-07-16] MEDS: Pantoprazole 40 MG VIAL IVP (07:58)
[2018-07-16] MEDS: Normal Saline Flush 10 ML SYR IVP ×6 (07:59→21:38)
[2018-07-16] MEDS: Folic Acid 1 MG TAB PO (07:59)
[2018-07-16] MEDS: MAGNESIUM SULFATE 2 GM/50 ML BAG IVPB (09:35)
[2018-07-16 09:52] LABS: Vancomycin, Trough 20.8 ug/mL (10.0-20.0)
[2018-07-16 11:10] VITALS: BP 115/87; PULSE 103; RESP 18; TEMP 37.1; O2SAT 98
[2018-07-16] MEDS: Acetaminophen 325 MG TAB PO (15:07)
[2018-07-16] MEDS: Enoxaparin 40 MG/0.4 ML SYR SC (15:07)
[2018-07-16] MEDS: traMADol 50 MG TAB PO (15:22)
[2018-07-16 15:25] VITALS: BP 119/88; PULSE 90; RESP 18; TEMP 36.7; O2SAT 98
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
[2018-07-16] MEDS: Normal Saline 1,000 ML 20 ML IV (18:07)
--- NOTE | 2018-07-16 19:09 | PDOC.CMPRO ---
Care Management Progress Note S/O: Lisset continues to process her current home situation and needs. CM helped to organize Lisset's thoughts on paper and her white board. Lisset identified her top worry as coordinating a place for her dog, Dougie while she recovers. She reports that she has a friend checking on him a few times a day at this time. She also identified recently purchasing perishable foods that are in coolers outside of her home, and wanting to make a plan so they do not go to waste. She made a list of to do items central to securing her home as well as an item list of belongings she would want to bring with her in the event she goes to a SNF. CM reviewed need for continued IV ABX at this time and continued monitoring as well as likely PT/OT consults. CM will continue to follow. A: 57 year old female admitted to [facility] 07/13/18 for Tenosynovitis R Hand/Cellulitis Bilat Hands P: Lisset will continue to be treated with IV ABX and closely monitored. She will have PT/OT consults as well. CM will continue to follow and work with Lisset on creating a comprehensive discharge plan; undetermined at this time. Lisset is agreeable to SNF if recommended as well as increased service supports at home.
--- NOTE | 2018-07-16 19:13 | CMPROGNOTE_ITS ---
Care Management Progress Note S/O: Lisset continues to process her current home situation and needs. CM helped to organize Lisset's thoughts on paper and her white board. Lisset identified her top worry as coordinating a place for her dog, Dougie while she recovers. She reports that she has a friend checking on him a few times a day at this time. She also identified recently purchasing perishable foods that are in coolers outside of her home, and wanting to make a plan so they do not go to waste. She made a list of to do items central to securing her home as well as an item list of belongings she would want to bring with her in the event she goes to a SNF. CM reviewed need for continued IV ABX at this time and continued monitoring as well as likely PT/OT consults. CM will continue to follow. A: 57 year old female admitted to [facility] 07/13/18 for Tenosynovitis R Hand/Cellulitis Bilat Hands P: Lisset will continue to be treated with IV ABX and closely monitored. She will have PT/OT consults as well. CM will continue to follow and work with Lisset on creating a comprehensive discharge plan; undetermined at this time. Lisset is agreeable to SNF if recommended as well as increased service supports at home.
[2018-07-16 19:44] VITALS: BP 105/69; PULSE 105; RESP 17; TEMP 36.8; O2SAT 98
[2018-07-17 00:05] VITALS: BP 122/86; PULSE 106; RESP 19; TEMP 36.6; O2SAT 97
[2018-07-17] MEDS: Normal Saline Flush 10 ML SYR IVP ×7 (00:44→20:45)
[2018-07-17 03:30] VITALS: BP 133/84; PULSE 108; RESP 20; TEMP 36.5; O2SAT 97
[2018-07-17] MEDS: PIPERACILLIN/TAZO 4.5 GM in Normal Saline 100 ML IVPB ×2 (06:05→14:51)
[2018-07-17 07:18] LABS: Abs Immature Grans 0.06 k/cumm (0.0-0.09); Absolute Basophil Count 0.04 k/cumm (0.0-0.2); Absolute Eosinophil Count 0.16 k/cumm (0.0-0.7); Absolute Lymphocyte Count 1.93 k/cumm (1.2-3.4); Absolute Monocyte Count 1.02 k/cumm (0.11-0.7); Absolute Neutrophil Count 4.95 k/cumm (1.2-6.7); Basophils % 0.5; HCT 33.7 % (36.0-46.0); Immature Grans % 0.7; Lymphocytes % 23.7; Mean Corp. HGB Concentration 32.6 g/dL (32.0-36.0); Mean Corpuscular Hemoglobin 32.5 pg (27.0-33.0); Mean Corpuscular Volume 99.7 fL (80-95); Mean Platelet Volume 8.4 fL (8.0-11.0); Monocytes % 12.5; Neutrophils % 60.6; Platelet Count 359 x1000/uL (130-400); RBC 3.38 m/cumm (4.00-5.20); White Blood Cell Count 8.16 k/cumm (4.4-10.8)
[2018-07-17 07:25] VITALS: BP 136/93; PULSE 92; RESP 18; TEMP 37.1; O2SAT 98
[2018-07-17 07:32] LABS: Anion Gap 6.3 mmol/L (3-11); BUN 8 mg/dL (7-18); C-Reactive Protein 4.01 mg/dL (0.0-0.3); CO2 27.7 mmol/L (21.0-32.0); CREATININE 0.77 mg/dL (0.55-1.02); Calcium 9.1 mg/dL (8.5-10.1); Chloride 103 mmol/L (98-107); Glucose 96 mg/dL (70-100); Magnesium 1.8 mg/dL (1.8-2.4); Potassium 3.9 mmol/L (3.5-5.1); Sodium 137 mmol/L (136-145)
[2018-07-17] MEDS: Pantoprazole 40 MG VIAL IVP (08:40)
--- NOTE | 2018-07-17 09:19 | NUR.NOTE ---
pt is NPO for MARINA. vitamins and once time Potassium and magnesium will be given once pt is done with MARINA. Charge nurse is aware. Nursing Note:
[2018-07-17] MEDS: Thiamine 100 MG TAB PO (10:58)
[2018-07-17] MEDS: Multivitamin TAB 1 TAB PO (10:58)
[2018-07-17] MEDS: Magnesium Oxide 400 MG TAB PO (10:58)
[2018-07-17] MEDS: Potassium Chloride 20 MEQ TABCR PO (10:58)
[2018-07-17] MEDS: Folic Acid 1 MG TAB PO (10:58)
[2018-07-17] MEDS: traMADol 50 MG TAB PO ×2 (11:04→17:52)
[2018-07-17 11:19] VITALS: BP 133/76; PULSE 75; RESP 18; TEMP 37.3; O2SAT 99
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
[2018-07-17] MEDS: Enoxaparin 40 MG/0.4 ML SYR SC (15:25)
[2018-07-17 16:01] VITALS: BP 116/86; PULSE 107; RESP 20; TEMP 36.8; O2SAT 98
--- NOTE | 2018-07-17 16:25 | W.PM.PROGNOT ---
Date of Service Date of service: 07/17/18 Time of Service: 16:25 Assessment and Plan (1) Tenosynovitis of finger and hand: Current visit: Yes Status: Acute Assessment: Infectious flexor tenosynovitis of the thumb and fingers of the right hand, dramatically improved following incision and drainage. Cultures taken intraoperatively are growing group A strep. She does not need double antibiotics anymore, now that we have grown the offending organism. She should do fine with Ancef. Plan: Discontinue vancomycin and Zosyn. Will start Ancef 2 g every 8 hours. If she has no setbacks I think she can be transitioned to p.o. antibiotics over the next few days. I applied new dressings today a Xeroform gauze fluffed gauze 4 x 4's wrapped with a 4 inch Kerlix bandage. I applied a 3 inch Toan bandage but did not reapply the splint since she was moving her fingers and wrists are well. We will continue to follow with you. Subjective Interval history since last seen: Lisset is feeling dramatically better compared to Tuesday. She has some mild generalized soreness basically across her incisional line, but it is much less and the pain she had preop. She is able to move her fingers actively now without pain. Exam Narrative Exam Narrative: I remove her splint and dressings. There is been dramatic improvement in the appearance of her hand. There is no swelling in her fingers. The swelling in her thumb is reduced by at least 50% compared to preop. The incisional line is dry and clean. There is no drainage. Erythema in her thumb is essentially resolved. Swelling in her distal forearm and palm are gone. She had some transient numbness in the thumb and index finger postop but today sensation to light touch over the thumb and index finger is normal. Intraoperative cultures from 07/14/2018 are growing group A strep. White blood cell count is 8160 today. CRP has dropped from 14.73-4.01. Objective Objective Clinical Data: Abnormal lab results 07/17/18 07/17/18 Range/Units 06:54 06:54 RBC 3.38 L (4.00-5.20) m/cumm Hgb 11.0 L (12.0-15.5) g/dL Hct 33.7 L (36.0-46.0) % MCV 99.7 H (80-95) fL Absolute Monocytes 1.02 H (0.11-0.7) k/cumm C-Reactive Protein 4.01 H (0.0-0.3) mg/dL Vital Signs Temperature 36.8 C 07/17/18 16:01 Temperature Source Tympanic 07/17/18 16:01 Pulse 107 H 07/17/18 16:01 Pulse Rhythm Regular 07/17/18 09:06 Respiratory Rate 20 07/17/18 16:01 Respiratory Effort Non-Labored 07/17/18 09:06 Respiratory Depth Normal 07/17/18 09:06 Respiratory Pattern Normal 07/17/18 09:06 Blood Pressure 116/86 07/17/18 16:01 Blood Pressure Position Supine 07/13/18 13:36 Pulse Oximetry 98 07/17/18 16:01 Oxygen Delivery Method Room Air 07/17/18 16:01 Oxygen Flow Rate 0 07/17/18 16:01 Pain Level 8 07/17/18 13:37 Comment 07/17/18 03:30 Intake & Output 07/16/18 07/17/18 07/17/18 23:59 11:59 23:59 Intake Total 1532.834 / 2882.834 600 / 600 Output Total 400 / 2400 2700 / 2700 Balance 1132.834 / 482.834 -2100 / -2100 Weight 82.3 kg Intake: IV 652.834 / 1352.834 600 / 600 Oral 880 / 1530 Output: Urine 400 / 2400 2700 / 2700 Other: Urine Color Yellow Yellow Urine Appearance Clear Clear Urine Odor Normal Normal Comment pt gets up AD ADRIÁN to void. Stool Size Moderate Stool Characteristics Formed Brown Voiding Methods Toilet Toilet Toilet Laboratory Results WBC 8.16 k/cumm (4.4-10.8) 07/17/18 06:54 RBC 3.38 m/cumm (4.00-5.20) L 07/17/18 06:54 Hgb 11.0 g/dL (12.0-15.5) L 07/17/18 06:54 Hct 33.7 % (36.0-46.0) L 07/17/18 06:54 MCV 99.7 fL (80-95) H 07/17/18 06:54 MCH 32.5 pg (27.0-33.0) 07/17/18 06:54 MCHC 32.6 g/dL (32.0-36.0) 07/17/18 06:54 RDW 13.0 % (11.7-14.6) 07/17/18 06:54 Plt Count 359 x1000/uL (130-400) 07/17/18 06:54 MPV 8.4 fL (8.0-11.0) 07/17/18 06:54 Immature Gran % 0.7 07/17/18 06:54 Neutrophils % 60.6 07/17/18 06:54 Lymphocytes % 23.7 07/17/18 06:54 Monocytes % 12.5 07/17/18 06:54 Eosinophils % 2.0 07/17/18 06:54 Basophils % 0.5 07/17/18 06:54 Absolute Neutrophils 4.95 k/cumm (1.2-6.7) 07/17/18 06:54 Absolute Lymphocytes 1.93 k/cumm (1.2-3.4) 07/17/18 06:54 Absolute Monocytes 1.02 k/cumm (0.11-0.7) H 07/17/18 06:54 Absolute Eosinophils 0.16 k/cumm (0.0-0.7) 07/17/18 06:54 Absolute Basophils 0.04 k/cumm (0.0-0.2) 07/17/18 06:54 Differential Comment Agrees w/ instrument 07/14/18 06:22 RBC Morphology See below 07/14/18 06:22 Polychromasia Present 07/14/18 06:22 Sodium 137 mmol/L (136-145) 07/17/18 06:54 Potassium 3.9 mmol/L (3.5-5.1) 07/17/18 06:54 Chloride 103 mmol/L (98-107) 07/17/18 06:54 Carbon Dioxide 27.7 mmol/L (21.0-32.0) 07/17/18 06:54 Anion Gap 6.3 mmol/L (3-11) 07/17/18 06:54 BUN 8 mg/dL (7-18) 07/17/18 06:54 Creatinine 0.77 mg/dL (0.55-1.02) 07/17/18 06:54 Estimated GFR/1.73 m2 >= 60.00 (mL/min/1.73m2) 07/17/18 06:54 Glucose 96 mg/dL (70-100) 07/17/18 06:54 Lactate 0.9 mmol/L (0.6-1.4) 07/13/18 14:10 Calcium 9.1 mg/dL (8.5-10.1) 07/17/18 06:54 Magnesium 1.8 mg/dL (1.8-2.4) 07/17/18 06:54 Total Bilirubin 0.6 mg/dL (0.2-1.0) 07/13/18 14:10 AST 18 U/L (15-37) 07/13/18 14:10 ALT 14 U/L (12-78) 07/13/18 14:10 Alkaline Phosphatase 120 U/L (46-116) H 07/13/18 14:10 C-Reactive Protein 4.01 mg/dL (0.0-0.3) H 07/17/18 06:54 Total Protein 6.9 g/dL (6.4-8.2) 07/13/18 14:10 Albumin 2.7 g/dL (3.4-5.0) L 07/13/18 14:10 Vitamin B12 266 pg/mL (193-986) 07/15/18 07:15 Folate 17.7 ng/mL (8.6-20.0) 07/15/18 07:15 Vancomycin Trough 20.8 ug/mL (10.0-20.0) H* 07/16/18 09:25
--- NOTE | 2018-07-17 17:55 | PGE_ITS ---
Date of Service Date of service: 07/17/18 Time of Service: 17:54 Assessment and Plan (1) Tenosynovitis of finger and hand: Current visit: Yes Status: Acute S/p I&D on 07/14, with wound cultures positive for Group A Strep. Initially on Vancomycin and Zosyn for 4 days, changed to Ancef today by Ortho, which is appropriate. However, she will need a MARINA prior to finalizing antibiotic regimen and duration. Continue wound care. Monitor CRP. Pain control. 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 potential vegetation. Given patient's history and significance of her infection may benefit from MARINA. Blood cultures remain negative, which is unsual in a Group A Strep infection, especially with the severity of her case. Have discussed with ID who agrees to need for MARINA. Plan will be for 2 weeks of antibiotics if MARINA is negative. (3) Leucocytosis: Current visit: Yes Status: Acute Resolved with debridement of wound and on antibiotic therapy. (4) Alcohol abuse: Current visit: No Status: Chronic Continue on CIWA protocol. Initiated standing Oxazepam. On PPI therapy. Continue supplements with FA and thiamine as well. Patient reports heavy prior use, with current 2 glasses of wine or beer nightly. (5) DVT prophylaxis: Current visit: Yes Status: Acute Continue SC Lovenox. (6) Discharge planning issues: Current visit: Yes Status: Acute Needs follow-up with care management as patient lives in home without running water or electricity. Subjective Interval history since last seen: 57 year old female with a prior history of HTN and TBI, admitted from [facility] on 07/13 with a diagnosis of cellulitis of the hand. Ms. Abel presented to the ED with complaints of significant right hand, wrist, and arm pain. She reports that about 3 weeks prior she had noticed a couple of splinters from firewood in the fingers of her left hand, which she was able to excise. She states she sterilized the blade prior to doing this. Since then she has noticed boils appearing on her hands bilaterally, and had been lancing them and applying topical antibiotic ointment. In total, she states she has lanced 7 of these boils. She reported onset of chills and myalgias at home, with extreme fatigue for approximately one week prior to being seen in the ED. Her initial evaluation revealed evidence of significant leukocytosis, and likely cellulitis of the right hand. She underwent an I&D by ortho of the right thumb, flexor tendor, and surrounding soft tissue on 07/14, with noted necrosis of the area without significant purulence. Her wound culture is now growing Group A Strep, with Blood cultures that have remained negative. The patient appears overall improved but with continued pain. Owing to a slight murmur a TTE was obtained and with evidence of a possible small mobile mass on the mitral valve, interpreted as likely calcified chordae but without exclusion of a vegetation. MRI of the hand was limited due to motion. Surgical cultures are positive for Group A Strep. She remains afebrile. Exam Narrative Exam Narrative: General: Patient appears comfortable, NAD Neck: Supple CV: Regular, nontachycardic, S1S2, No rubs or gallops. 2-3/6 LLSB murmur appreciated. Pulmonary: Clear to auscultation bilaterally, no crackles, wheezing, or rhonchi Abdomen: + Bowel Sounds, soft, nontender, nondistended Vascular: No lower extremity edema Skin: Right hand with bandage in place, appears c/d/i Psych: Normal mood and affect. Objective Objective Clinical Data: Abnormal lab results 07/17/18 07/17/18 Range/Units 06:54 06:54 RBC 3.38 L (4.00-5.20) m/cumm Hgb 11.0 L (12.0-15.5) g/dL Hct 33.7 L (36.0-46.0) % MCV 99.7 H (80-95) fL Absolute Monocytes 1.02 H (0.11-0.7) k/cumm C-Reactive Protein 4.01 H (0.0-0.3) mg/dL Vital Signs Temperature 36.8 C 07/17/18 16:01 Temperature Source Tympanic 07/17/18 16:01 Pulse 107 H 07/17/18 16:01 Pulse Rhythm Regular 07/17/18 09:06 Respiratory Rate 20 07/17/18 16:01 Respiratory Effort Non-Labored 07/17/18 09:06 Respiratory Depth Normal 07/17/18 09:06 Respiratory Pattern Normal 07/17/18 09:06 Blood Pressure 116/86 07/17/18 16:01 Blood Pressure Position Supine 07/13/18 13:36 Pulse Oximetry 98 07/17/18 16:01 Oxygen Delivery Method Room Air 07/17/18 16:01 Oxygen Flow Rate 0 07/17/18 16:01 Pain Level 7 07/17/18 17:52 Comment 07/17/18 03:30 Intake & Output 07/16/18 07/17/18 07/17/18 23:59 11:59 23:59 Intake Total 1532.834 / 2882.834 600 / 651.667 51.667 / 651.667 Output Total 400 / 2400 2700 / 2700 Balance 1132.834 / 482.834 -2100 / -2048.333 51.667 / -2048.333 Weight 82.3 kg Intake: IV 652.834 / 1352.834 600 / 651.667 51.667 / 651.667 Oral 880 / 1530 Output: Urine 400 / 2400 2700 / 2700 Other: Urine Color Yellow Yellow Urine Appearance Clear Clear Urine Odor Normal Normal Comment pt gets up AD ADRIÁN to void. Stool Size Moderate Stool Characteristics Formed Brown Voiding Methods Toilet Toilet Toilet Laboratory Results WBC 8.16 k/cumm (4.4-10.8) 07/17/18 06:54 RBC 3.38 m/cumm (4.00-5.20) L 07/17/18 06:54 Hgb 11.0 g/dL (12.0-15.5) L 07/17/18 06:54 Hct 33.7 % (36.0-46.0) L 07/17/18 06:54 MCV 99.7 fL (80-95) H 07/17/18 06:54 MCH 32.5 pg (27.0-33.0) 07/17/18 06:54 MCHC 32.6 g/dL (32.0-36.0) 07/17/18 06:54 RDW 13.0 % (11.7-14.6) 07/17/18 06:54 Plt Count 359 x1000/uL (130-400) 07/17/18 06:54 MPV 8.4 fL (8.0-11.0) 07/17/18 06:54 Immature Gran % 0.7 07/17/18 06:54 Neutrophils % 60.6 07/17/18 06:54 Lymphocytes % 23.7 07/17/18 06:54 Monocytes % 12.5 07/17/18 06:54 Eosinophils % 2.0 07/17/18 06:54 Basophils % 0.5 07/17/18 06:54 Absolute Neutrophils 4.95 k/cumm (1.2-6.7) 07/17/18 06:54 Absolute Lymphocytes 1.93 k/cumm (1.2-3.4) 07/17/18 06:54 Absolute Monocytes 1.02 k/cumm (0.11-0.7) H 07/17/18 06:54 Absolute Eosinophils 0.16 k/cumm (0.0-0.7) 07/17/18 06:54 Absolute Basophils 0.04 k/cumm (0.0-0.2) 07/17/18 06:54 Differential Comment Agrees w/ instrument 07/14/18 06:22 RBC Morphology See below 07/14/18 06:22 Polychromasia Present 07/14/18 06:22 Sodium 137 mmol/L (136-145) 07/17/18 06:54 Potassium 3.9 mmol/L (3.5-5.1) 07/17/18 06:54 Chloride 103 mmol/L (98-107) 07/17/18 06:54 Carbon Dioxide 27.7 mmol/L (21.0-32.0) 07/17/18 06:54 Anion Gap 6.3 mmol/L (3-11) 07/17/18 06:54 BUN 8 mg/dL (7-18) 07/17/18 06:54 Creatinine 0.77 mg/dL (0.55-1.02) 07/17/18 06:54 Estimated GFR/1.73 m2 >= 60.00 (mL/min/1.73m2) 07/17/18 06:54 Glucose 96 mg/dL (70-100) 07/17/18 06:54 Lactate 0.9 mmol/L (0.6-1.4) 07/13/18 14:10 Calcium 9.1 mg/dL (8.5-10.1) 07/17/18 06:54 Magnesium 1.8 mg/dL (1.8-2.4) 07/17/18 06:54 Total Bilirubin 0.6 mg/dL (0.2-1.0) 07/13/18 14:10 AST 18 U/L (15-37) 07/13/18 14:10 ALT 14 U/L (12-78) 07/13/18 14:10 Alkaline Phosphatase 120 U/L (46-116) H 07/13/18 14:10 C-Reactive Protein 4.01 mg/dL (0.0-0.3) H 07/17/18 06:54 Total Protein 6.9 g/dL (6.4-8.2) 07/13/18 14:10 Albumin 2.7 g/dL (3.4-5.0) L 07/13/18 14:10 Vitamin B12 266 pg/mL (193-986) 07/15/18 07:15 Folate 17.7 ng/mL (8.6-20.0) 07/15/18 07:15 Vancomycin Trough 20.8 ug/mL (10.0-20.0) H* 07/16/18 09:25
--- NOTE | 2018-07-17 18:31 | PDOC.CMPRO ---
Care Management Progress Note S/O: Lisset was sleeping when CM attempted to meet with her; CM left message on the white board. Hong; RN reports Lisset completed a few of her tasks including asking a friend to care for her dog, and starting to figure out disposition options such as possibly staying with a friend. Dr. Cutler changed her dressing today, which Hong reported she was happy with. She was listening to music on her hospital labtop, sleeping-CM did not disturb her and will continue to follow. A: 57 year old female admitted to [facility] 07/13/18 for Tenosynovitis R Hand/Cellulitis Bilat Hands P: Lisset will continue to be treated with IV ABX and closely monitored. CM will continue to follow and work with Lisset on creating a comprehensive discharge plan; undetermined at this time.
[2018-07-17 19:33] VITALS: BP 111/72; PULSE 119; RESP 18; TEMP 37.5; O2SAT 97
[2018-07-17] MEDS: Venlafaxine 75 MG TAB 150 MG PO (20:01)
[2018-07-17] MEDS: Docusate Sodium 100 MG CAP PO (20:01)
[2018-07-18] VITALS (7 sets, daily range): BP systolic 124–143; BP diastolic 67–101; PULSE 43–114; RESP 15–19; TEMP 36.6–37.2; O2SAT 95–98
[2018-07-18] MEDS: Normal Saline Flush 10 ML SYR IVP ×4 (01:04→18:10)
[2018-07-18] MEDS: traMADol 50 MG TAB PO ×3 (04:50→20:10)
[2018-07-18] MEDS: Pantoprazole 40 MG VIAL IVP (07:20)
[2018-07-18] MEDS: Multivitamin TAB 1 TAB PO (07:24)
[2018-07-18] MEDS: Thiamine 100 MG TAB PO (07:25)
[2018-07-18] MEDS: Folic Acid 1 MG TAB PO (07:25)
[2018-07-18] MEDS: Venlafaxine 75 MG TAB 150 MG PO ×2 (07:25→20:10)
[2018-07-18] MEDS: Docusate Sodium 100 MG CAP PO ×2 (07:25→20:10)
[2018-07-18 07:32] LABS: Abs Immature Grans 0.09 k/cumm (0.0-0.09); Absolute Basophil Count 0.04 k/cumm (0.0-0.2); Absolute Eosinophil Count 0.14 k/cumm (0.0-0.7); Absolute Monocyte Count 0.95 k/cumm (0.11-0.7); Absolute Neutrophil Count 3.99 k/cumm (1.2-6.7); Basophils % 0.5; Eosinophils % 1.8; HCT 35.9 % (36.0-46.0); HGB 11.7 g/dL (12.0-15.5); Immature Grans % 1.2; Lymphocytes % 32.4; Mean Corp. HGB Concentration 32.6 g/dL (32.0-36.0); Mean Corpuscular Hemoglobin 32.5 pg (27.0-33.0); Mean Corpuscular Volume 99.7 fL (80-95); Mean Platelet Volume 8.5 fL (8.0-11.0); Monocytes % 12.3; Neutrophils % 51.8; Platelet Count 416 x1000/uL (130-400); White Blood Cell Count 7.71 k/cumm (4.4-10.8)
[2018-07-18 07:35] LABS: Anion Gap 9.7 mmol/L (3-11); BUN 7 mg/dL (7-18); CO2 25.3 mmol/L (21.0-32.0); CREATININE 0.78 mg/dL (0.55-1.02); Calcium 9.6 mg/dL (8.5-10.1); Chloride 104 mmol/L (98-107); Glucose 122 mg/dL (70-100); Magnesium 1.8 mg/dL (1.8-2.4); Potassium 4.5 mmol/L (3.5-5.1); Sodium 139 mmol/L (136-145)
--- NOTE | 2018-07-18 10:00 | PDOC.CMPRO ---
Care Management Progress Note S/O: A: 57 year old female admitted to [facility] 07/13/18 for Tenosynovitis R Hand/Cellulitis Bilat Hands P: Lisset will continue to be treated with IV ABX and closely monitored. CM will continue to follow and work with Lisset on creating a comprehensive discharge plan; undetermined at this time.
--- NOTE | 2018-07-18 10:04 | CMPROGNOTE_ITS ---
Care Management Progress Note S/O: CM met with Lisset for an extended period of time, she struggled to regulate and became weepy talking about her situation. She shared fears of having return home, and how traumatic it was for her the last few weeks struggling at home. CM supported Lisset, providing supportive listening and encouraging coping mechanisms. Lisset will benefit from a period of stability where her basic needs are met to enable her to manage the other facets of her life. CM left VM for Gregorio at [facility] requesting housing options as well. Lisset will have a MARINA scheduled for , per MD. This will inform needs of further treatment including IV ABX Tx. Initially on Vancomycin and Zosyn for 4 days, changed to Ancef today by Ortho, which is appropriate. However, she will need a MARINA prior to finalizing antibiotic regimen and duration. Continue wound care. Monitor CRP. Pain control. Blood cultures remain negative, which is unusual in a Group A Strep infection, especially with the severity of her case. Have discussed with ID who agrees to need for MARINA. A: 57 year old female admitted to [facility] 07/13/18 for Tenosynovitis R Hand/Celluliti s Bilat Hands P: Lisset will continue to be treated with IV ABX and closely monitored. CM will continue to follow and work with Lisset on creating a comprehensive discharge plan; undetermined at this time.
[2018-07-18] MEDS: Magnesium Oxide 400 MG TAB PO (10:24)
--- NOTE | 2018-07-18 10:44 | CMPROGNOTE_ITS ---
Care Management Progress Note S/O: A: 57 year old female admitted to [facility] 07/13/18 for Tenosynovitis R Hand/Cellulitis Bilat Hands P: Lisset will continue to be treated with IV ABX and closely monitored. CM will continue to follow and work with Lisset on creating a comprehensive discharge plan; undetermined at this time.
--- NOTE | 2018-07-18 14:29 | W.PM.PROGNOT ---
Date of Service Date of service: 07/18/18 Time of Service: 14:29 Assessment and Plan (1) Tenosynovitis of finger and hand: Current visit: Yes Status: Acute Assessment: Continued improvement following I&D of the deep spaces of the right hand. Has had no relapse since she was placed on Ancef. She is awaiting transesophageal echo on to better assess her heart valves. Plan: Continue present treatment. I will check her wound tomorrow. Subjective Patient reports: no new complaints, feels better and pain is less Exam Narrative Exam Narrative: She has good sensation to her fingers and thumb of the right hand.She has good active flexion of her fingers and thumbwithin the limits of her dressings. There is no breakthrough bleeding to the dressings. White blood cell count 7710 today. She has been afebrile for the last 2 days. Objective Objective Clinical Data: Abnormal lab results 07/18/18 07/18/18 Range/Units 07:10 07:10 RBC 3.60 L (4.00-5.20) m/cumm Hgb 11.7 L (12.0-15.5) g/dL Hct 35.9 L (36.0-46.0) % MCV 99.7 H (80-95) fL Plt Count 416 H (130-400) x1000/uL Absolute Monocytes 0.95 H (0.11-0.7) k/cumm Glucose 122 H (70-100) mg/dL Vital Signs Temperature 37.2 C 07/18/18 11:40 Temperature Source Tympanic 07/18/18 11:40 Pulse 100 H 07/18/18 11:40 Pulse Rhythm Regular 07/18/18 07:38 Respiratory Rate 18 07/18/18 11:40 Respiratory Effort Non-Labored 07/18/18 07:38 Respiratory Depth Normal 07/18/18 07:38 Respiratory Pattern Normal 07/18/18 07:38 Blood Pressure 140/90 07/18/18 11:40 Blood Pressure Position Supine 07/13/18 13:36 Pulse Oximetry 95 07/18/18 11:40 Oxygen Delivery Method Room Air 07/18/18 11:40 Oxygen Flow Rate 0 07/18/18 11:40 Pain Level 5 07/18/18 12:31 Comment 07/17/18 03:30 Intake & Output 07/17/18 07/18/18 07/18/18 23:59 11:59 23:59 Intake Total 871.667 / 1471.667 710 / 810 100 / 810 Output Total 800 / 3500 400 / 400 Balance 71.667 / -2028.333 310 / 410 100 / 410 Weight 77.5 kg Intake: IV 151.667 / 751.667 220 / 220 Oral 720 / 720 490 / 590 100 / 590 Output: Urine 800 / 3500 400 / 400 Other: Urine Color Light Rachel Yellow Urine Appearance Clear Clear Voiding Methods Toilet Toilet Laboratory Results WBC 7.71 k/cumm (4.4-10.8) 07/18/18 07:10 RBC 3.60 m/cumm (4.00-5.20) L 07/18/18 07:10 Hgb 11.7 g/dL (12.0-15.5) L 07/18/18 07:10 Hct 35.9 % (36.0-46.0) L 07/18/18 07:10 MCV 99.7 fL (80-95) H 07/18/18 07:10 MCH 32.5 pg (27.0-33.0) 07/18/18 07:10 MCHC 32.6 g/dL (32.0-36.0) 07/18/18 07:10 RDW 13.0 % (11.7-14.6) 07/18/18 07:10 Plt Count 416 x1000/uL (130-400) H 07/18/18 07:10 MPV 8.5 fL (8.0-11.0) 07/18/18 07:10 Immature Gran % 1.2 07/18/18 07:10 Neutrophils % 51.8 07/18/18 07:10 Lymphocytes % 32.4 07/18/18 07:10 Monocytes % 12.3 07/18/18 07:10 Eosinophils % 1.8 07/18/18 07:10 Basophils % 0.5 07/18/18 07:10 Absolute Neutrophils 3.99 k/cumm (1.2-6.7) 07/18/18 07:10 Absolute Lymphocytes 2.50 k/cumm (1.2-3.4) 07/18/18 07:10 Absolute Monocytes 0.95 k/cumm (0.11-0.7) H 07/18/18 07:10 Absolute Eosinophils 0.14 k/cumm (0.0-0.7) 07/18/18 07:10 Absolute Basophils 0.04 k/cumm (0.0-0.2) 07/18/18 07:10 Differential Comment Agrees w/ instrument 07/14/18 06:22 RBC Morphology See below 07/14/18 06:22 Polychromasia Present 07/14/18 06:22 Sodium 139 mmol/L (136-145) 07/18/18 07:10 Potassium 4.5 mmol/L (3.5-5.1) 07/18/18 07:10 Chloride 104 mmol/L (98-107) 07/18/18 07:10 Carbon Dioxide 25.3 mmol/L (21.0-32.0) 07/18/18 07:10 Anion Gap 9.7 mmol/L (3-11) 07/18/18 07:10 BUN 7 mg/dL (7-18) 07/18/18 07:10 Creatinine 0.78 mg/dL (0.55-1.02) 07/18/18 07:10 Estimated GFR/1.73 m2 >= 60.00 (mL/min/1.73m2) 07/18/18 07:10 Glucose 122 mg/dL (70-100) H 07/18/18 07:10 Lactate 0.9 mmol/L (0.6-1.4) 07/13/18 14:10 Calcium 9.6 mg/dL (8.5-10.1) 07/18/18 07:10 Magnesium 1.8 mg/dL (1.8-2.4) 07/18/18 07:10 Total Bilirubin 0.6 mg/dL (0.2-1.0) 07/13/18 14:10 AST 18 U/L (15-37) 07/13/18 14:10 ALT 14 U/L (12-78) 07/13/18 14:10 Alkaline Phosphatase 120 U/L (46-116) H 07/13/18 14:10 C-Reactive Protein 4.01 mg/dL (0.0-0.3) H 07/17/18 06:54 Total Protein 6.9 g/dL (6.4-8.2) 07/13/18 14:10 Albumin 2.7 g/dL (3.4-5.0) L 07/13/18 14:10 Vitamin B12 266 pg/mL (193-986) 07/15/18 07:15 Folate 17.7 ng/mL (8.6-20.0) 07/15/18 07:15 Vancomycin Trough 20.8 ug/mL (10.0-20.0) H* 07/16/18 09:25
--- NOTE | 2018-07-18 14:42 | PGE_ITS ---
Date of Service Date of service: 07/18/18 Time of Service: 14:39 Assessment and Plan (1) Tenosynovitis of finger and hand: Current visit: Yes Status: Acute S/p I&D on 07/[address] Cutler, with wound cultures positive for Group A Strep. Blood cultures remain negative at 96 hours. Initially on Vanco and Zosyn x4 days. Currenlty on day #2 of Ancef. MARINA pending, to be done 07/20/18. Antib iotic regimen will be finalized when MARINA results available. Continue IV Ancef, labs, trend CRP. 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 potential vegetation. Given patient's history and significance of her infection may benefit from MARINA. Blood cultures remain negative at 96 hours. MARINA as above. (3) Leucocytosis: Current visit: Yes Status: Acute Resolved with debridement of wound and on antibiotic therapy. (4) Alcohol abuse: Current visit: No Status: Chronic She has not been scoring on the CIWA protocol. Currently on scheduled Oxazepam. Continue PPI, Folate, and thiamine. Consider discontinuing CIWA within the next 24 hours as she does not appear to be experiencing withdrawal. (5) DVT prophylaxis: Current visit: Yes Status: Acute Continue SC Lovenox. (6) Discharge planning issues: Current visit: Yes Status: Acute She is a FULL CODE. Care management is involved and working on a safe discharge plan. This case was discussed with Dr. Perez who is in agreement. Subjective Interval history since last seen: Lisset Abel is a 57 year old female with a prior history of HTN and TBI, admitted from [facility] on 07/13 with a diagnosis of cellulitis of the hand. Ms. Abel presented to the ED with complaints of significant right hand, wrist, and arm pain. She reports that about 3 weeks prior she had noticed a couple of splinters from firewood in the fingers of her left hand, which she was able to excise. She states she sterilized the blade prior to doing this. Since then she has noticed boils appearing on her hands bilaterally, and had been lancing them and applying topical antibiotic ointment. In total, she states she has lanced 7 of these boils. She reported onset of chills and myalgias at home, with extreme fatigue for approximately one week prior to being seen in the ED. Her initial evaluation revealed evidence of significant leukocytosis, and likely cellulitis of the right hand. She underwent an I&D by ortho of the right thumb, flexor tendor, and surrounding soft tissue on 07/14, with noted necrosis of the area without significant purulence. Her wound culture is now growing Group A Strep, with Blood cultures that have remained negative. Today, she continues to have pain in her right hand, the morphine helps, she reports the pain is 7/10 at this time. She is otherwise doing well. She notices improvement in the swelling and erythema in her right hand. She denies fever, chills, diaphoresis, shortness of breath, coughing, wheezing, chest pain/pressure, palpitations. She is eating and drinking, no nausea, vomiting, diarrhea, no tremors or hallucinations. Exam Narrative Exam Narrative: General: Patient appears comfortable, sitting up in bed with RUE elevated, in NAD Neck: Supple, no JVD. CV: Regular, nontachycardic, S1S2, No rubs or gallops. 2-3/6 murmur at LLSB appreciated. Pulmonary: Respirations even and unlabored. lung sounds clear to auscultation bilaterally, no crackles, wheezing, or rhonchi Abdomen: + Bowel Sounds x4 quadrants, abdomen soft, nontender, nondistended, no masses appreciated. Skin: Right hand with bandage in place, appears c/d/i, some edema surrounding right thumb noted, erythema appears to have receded from ink border. Extremities: well perfused, no lower extremity edema, pedal pulses palpable. Psych: Normal mood and affect. Objective Objective Clinical Data: Abnormal lab results 07/18/18 07/18/18 Range/Units 07:10 07:10 RBC 3.60 L (4.00-5.20) m/cumm Hgb 11.7 L (12.0-15.5) g/dL Hct 35.9 L (36.0-46.0) % MCV 99.7 H (80-95) fL Plt Count 416 H (130-400) x1000/uL Absolute Monocytes 0.95 H (0.11-0.7) k/cumm Glucose 122 H (70-100) mg/dL Vital Signs Temperature 37.2 C 07/18/18 11:40 Temperature Source Tympanic 07/18/18 11:40 Pulse 100 H 07/18/18 11:40 Pulse Rhythm Regular 07/18/18 07:38 Respiratory Rate 18 07/18/18 11:40 Respiratory Effort Non-Labored 07/18/18 07:38 Respiratory Depth Normal 07/18/18 07:38 Respiratory Pattern Normal 07/18/18 07:38 Blood Pressure 140/90 07/18/18 11:40 Blood Pressure Position Supine 07/13/18 13:36 Pulse Oximetry 95 07/18/18 11:40 Oxygen Delivery Method Room Air 07/18/18 11:40 Oxygen Flow Rate 0 07/18/18 11:40 Pain Level 5 07/18/18 12:31 Comment 07/17/18 03:30 Intake & Output 07/17/18 07/18/18 07/18/18 23:59 11:59 23:59 Intake Total 871.667 / 1471.667 710 / 810 100 / 810 Output Total 800 / 3500 1000 / 1000 Balance 71.667 / -2028.333 -290 / -190 100 / -190 Weight 77.5 kg Intake: IV 151.667 / 751.667 220 / 220 Oral 720 / 720 490 / 590 100 / 590 Output: Urine 800 / 3500 1000 / 1000 Other: Urine Color Light Rachel Yellow Urine Appearance Clear Clear Voiding Methods Toilet Toilet Laboratory Results WBC 7.71 k/cumm (4.4-10.8) 07/18/18 07:10 RBC 3.60 m/cumm (4.00-5.20) L 07/18/18 07:10 Hgb 11.7 g/dL (12.0-15.5) L 07/18/18 07:10 Hct 35.9 % (36.0-46.0) L 07/18/18 07:10 MCV 99.7 fL (80-95) H 07/18/18 07:10 MCH 32.5 pg (27.0-33.0) 07/18/18 07:10 MCHC 32.6 g/dL (32.0-36.0) 07/18/18 07:10 RDW 13.0 % (11.7-14.6) 07/18/18 07:10 Plt Count 416 x1000/uL (130-400) H 07/18/18 07:10 MPV 8.5 fL (8.0-11.0) 07/18/18 07:10 Immature Gran % 1.2 07/18/18 07:10 Neutrophils % 51.8 07/18/18 07:10 Lymphocytes % 32.4 07/18/18 07:10 Monocytes % 12.3 07/18/18 07:10 Eosinophils % 1.8 07/18/18 07:10 Basophils % 0.5 07/18/18 07:10 Absolute Neutrophils 3.99 k/cumm (1.2-6.7) 07/18/18 07:10 Absolute Lymphocytes 2.50 k/cumm (1.2-3.4) 07/18/18 07:10 Absolute Monocytes 0.95 k/cumm (0.11-0.7) H 07/18/18 07:10 Absolute Eosinophils 0.14 k/cumm (0.0-0.7) 07/18/18 07:10 Absolute Basophils 0.04 k/cumm (0.0-0.2) 07/18/18 07:10 Differential Comment Agrees w/ instrument 07/14/18 06:22 RBC Morphology See below 07/14/18 06:22 Polychromasia Present 07/14/18 06:22 Sodium 139 mmol/L (136-145) 07/18/18 07:10 Potassium 4.5 mmol/L (3.5-5.1) 07/18/18 07:10 Chloride 104 mmol/L (98-107) 07/18/18 07:10 Carbon Dioxide 25.3 mmol/L (21.0-32.0) 07/18/18 07:10 Anion Gap 9.7 mmol/L (3-11) 07/18/18 07:10 BUN 7 mg/dL (7-18) 07/18/18 07:10 Creatinine 0.78 mg/dL (0.55-1.02) 07/18/18 07:10 Estimated GFR/1.73 m2 >= 60.00 (mL/min/1.73m2) 07/18/18 07:10 Glucose 122 mg/dL (70-100) H 07/18/18 07:10 Lactate 0.9 mmol/L (0.6-1.4) 07/13/18 14:10 Calcium 9.6 mg/dL (8.5-10.1) 07/18/18 07:10 Magnesium 1.8 mg/dL (1.8-2.4) 07/18/18 07:10 Total Bilirubin 0.6 mg/dL (0.2-1.0) 07/13/18 14:10 AST 18 U/L (15-37) 07/13/18 14:10 ALT 14 U/L (12-78) 07/13/18 14:10 Alkaline Phosphatase 120 U/L (46-116) H 07/13/18 14:10 C-Reactive Protein 4.01 mg/dL (0.0-0.3) H 07/17/18 06:54 Total Protein 6.9 g/dL (6.4-8.2) 07/13/18 14:10 Albumin 2.7 g/dL (3.4-5.0) L 07/13/18 14:10 Vitamin B12 266 pg/mL (193-986) 07/15/18 07:15 Folate 17.7 ng/mL (8.6-20.0) 07/15/18 07:15 Vancomycin Trough 20.8 ug/mL (10.0-20.0) H* 07/16/18 09:25
--- NOTE | 2018-07-18 15:03 | CHAPLAIN ---
Lisset was sitting up in bed when I visited. She showed me her changed bandage on her right wrist. She talked about looking on line at [employer] to begin looking into possibly selling her [address] [place] [address]. 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 She said she believes that going to a rehab center will give her some time to think through what her next steps should be. Lisset was very appreciative receiving purple prayer shawl. I didn't do anything to deserve this, she said. I explained that she didn't need to do anything to receive the shawl as a gift.
[2018-07-18] MEDS: Enoxaparin 40 MG/0.4 ML SYR SC (15:32)
[2018-07-18] MEDS: Atenolol 50 MG TAB PO (18:17)
[2018-07-19] VITALS (7 sets, daily range): BP systolic 98–139; BP diastolic 64–88; PULSE 82–94; RESP 16–20; TEMP 36.6–37.4; O2SAT 93–97
[2018-07-19] MEDS: Normal Saline Flush 10 ML SYR IVP ×5 (02:05→17:37)
[2018-07-19] MEDS: traMADol 50 MG TAB PO ×3 (02:05→19:30)
[2018-07-19 07:18] LABS: Abs Immature Grans 0.16 k/cumm (0.0-0.09); Absolute Basophil Count 0.07 k/cumm (0.0-0.2); Absolute Eosinophil Count 0.25 k/cumm (0.0-0.7); Absolute Monocyte Count 1.04 k/cumm (0.11-0.7); Absolute Neutrophil Count 5.66 k/cumm (1.2-6.7); Basophils % 0.7; Eosinophils % 2.3; HGB 11.4 g/dL (12.0-15.5); Immature Grans % 1.5; Lymphocytes % 32.8; Mean Corp. HGB Concentration 32.6 g/dL (32.0-36.0); Mean Corpuscular Hemoglobin 32.5 pg (27.0-33.0); Mean Corpuscular Volume 99.7 fL (80-95); Mean Platelet Volume 8.6 fL (8.0-11.0); Monocytes % 9.7; Platelet Count 412 x1000/uL (130-400); RBC 3.51 m/cumm (4.00-5.20); White Blood Cell Count 10.68 k/cumm (4.4-10.8)
[2018-07-19 07:35] LABS: Anion Gap 9.3 mmol/L (3-11); BUN 10 mg/dL (7-18); CO2 26.7 mmol/L (21.0-32.0); Calcium 9.4 mg/dL (8.5-10.1); Chloride 102 mmol/L (98-107); Glucose 94 mg/dL (70-100); Potassium 4.5 mmol/L (3.5-5.1); Sodium 138 mmol/L (136-145)
[2018-07-19 07:42] LABS: C-Reactive Protein 2.12 mg/dL (0.0-0.3)
[2018-07-19] MEDS: Pantoprazole 40 MG VIAL IVP (08:17)
[2018-07-19] MEDS: Venlafaxine 75 MG TAB 150 MG PO ×2 (08:26→19:30)
[2018-07-19] MEDS: Multivitamin TAB 1 TAB PO (08:27)
[2018-07-19] MEDS: Thiamine 100 MG TAB PO (08:27)
[2018-07-19] MEDS: Folic Acid 1 MG TAB PO (08:27)
[2018-07-19] MEDS: Docusate Sodium 100 MG CAP PO ×2 (08:27→19:31)
[2018-07-19] MEDS: Atenolol 50 MG TAB PO (08:27)
--- NOTE | 2018-07-19 12:36 | W.PM.PROGNOT ---
Date of Service Date of service: 07/19/18 Time of Service: 12:37 Assessment and Plan (1) Tenosynovitis of finger and hand: Current visit: Yes Status: Acute S/p I&D on 07/[address] Cutler, with wound cultures positive for Group A Strep. Blood cultures remain negative at 120 hours. CRP down to 2.12 today. Initially on Vanco and Zosyn x4 days. Currenlty on day #2 of Ancef (day #7 of total antibiotic course). MARINA pending, to be done 07/20/18. NPO after midnight. Antibiotic regimen will be finalized when MARINA results available. Continue IV Ancef, labs, trend CRP. 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 potential vegetation. Given patient's history and significance of her infection may benefit from MARINA. Blood cultures remain negative at 120 hours. MARINA as above. (3) Leucocytosis: Current visit: Yes Status: Acute Resolved with debridement of wound and on antibiotic therapy. Continue to monitor. (4) Alcohol abuse: Current visit: No Status: Chronic She has not been scoring on the CIWA protocol. Currently on scheduled Oxazepam, decrease from TID to HS. Continue PPI, Folate, and thiamine. Discontinue CIWA as she is not showing any signs of withdrawal. (5) DVT prophylaxis: Current visit: Yes Status: Acute Continue SC Lovenox. (6) Discharge planning issues: Current visit: Yes Status: Acute She is a FULL CODE. Care management is involved and working on a safe discharge plan. This case was discussed with Dr. Perez who is in agreement. Subjective Interval history since last seen: Lisset Abel is a 57 year old female with a prior history of HTN and TBI, admitted from [facility] on 07/13 with a diagnosis of cellulitis of the hand. Ms. Abel presented to the ED with complaints of significant right hand, wrist, and arm pain. She reports that about 3 weeks prior she had noticed a couple of splinters from firewood in the fingers of her left hand, which she was able to excise. She states she sterilized the blade prior to doing this. Since then she has noticed boils appearing on her hands bilaterally, and had been lancing them and applying topical antibiotic ointment. In total, she states she has lanced 7 of these boils. She reported onset of chills and myalgias at home, with extreme fatigue for approximately one week prior to being seen in the ED. Her initial evaluation revealed evidence of significant leukocytosis, and likely cellulitis of the right hand. She underwent an I&D by ortho of the right thumb, flexor tendor, and surrounding soft tissue on 07/14, with noted necrosis of the area without significant purulence. Her wound culture is now growing Group A Strep, with Blood cultures that have remained negative. Lisset is very tearful today, she is worried that she will have to return home to her trailer with no electricity and no running water, she does not know how she will get by at home with only 1 functioning hand. She continues to have pain in her right hand but she reports improvement. She notes that the swelling has improved. Other than her hand, she feels fine. She denies fever, chills, diaphoresis, shortness of breath, coughing, wheezing, chest pain/pressure, palpitations. She is eating and drinking, no nausea, vomiting, diarrhea, no tremors or hallucinations. Exam Narrative Exam Narrative: General: Patient appears comfortable, sitting up in bed with RUE elevated, in NAD Neck: Supple, no JVD. CV: Regular, nontachycardic, S1S2, No rubs or gallops. 2-3/6 murmur at LLSB appreciated. Pulmonary: Respirations even and unlabored. lung sounds clear to auscultation bilaterally, no rales, wheezing, or rhonchi Abdomen: + Bowel Sounds x4 quadrants, abdomen soft, nontender, nondistended, no masses appreciated. Skin: Right hand with bandage in place, c/d/i, no edema or erythema to fingers on right hand, capillary refill less than 3 seconds. Extremities: well perfused, no lower extremity edema, pedal pulses palpable. Psych: tearful. Objective Objective Clinical Data: Abnormal lab results 07/19/18 07/19/18 Range/Units 06:15 06:15 RBC 3.51 L (4.00-5.20) m/cumm Hgb 11.4 L (12.0-15.5) g/dL Hct 35.0 L (36.0-46.0) % MCV 99.7 H (80-95) fL Plt Count 412 H (130-400) x1000/uL Absolute Lymphocytes 3.50 H (1.2-3.4) k/cumm Absolute Monocytes 1.04 H (0.11-0.7) k/cumm C-Reactive Protein 2.12 H (0.0-0.3) mg/dL Vital Signs Temperature 36.6 C 07/19/18 07:35 Temperature Source Tympanic 07/19/18 07:35 Pulse 87 07/19/18 07:35 Pulse Rhythm Regular 07/19/18 07:45 Respiratory Rate 20 07/19/18 07:35 Respiratory Effort Non-Labored 07/19/18 07:45 Respiratory Depth Normal 07/19/18 07:45 Respiratory Pattern Normal 07/19/18 07:45 Blood Pressure 122/84 07/19/18 07:35 Blood Pressure Position Supine 07/13/18 13:36 Pulse Oximetry 96 07/19/18 07:35 Oxygen Delivery Method Room Air 07/19/18 07:35 Oxygen Flow Rate 0 07/19/18 07:35 Pain Level 8 07/19/18 10:36 Comment 07/17/18 03:30 Intake & Output 07/18/18 07/19/18 07/19/18 23:59 11:59 23:59 Intake Total 980 / 2710 780 / 1140 360 / 1140 Output Total 500 / 1500 1700 / 1700 Balance 480 / 1210 -920 / -560 360 / -560 Weight 75.9 kg Intake: IV 100 / 320 140 / 140 Oral 880 / 2390 640 / 1000 360 / 1000 Output: Urine 500 / 1500 1700 / 1700 Other: Urine Color Yellow Pale Yellow Urine Appearance Clear Clear Urine Odor Normal Normal Voiding Methods Toilet Toilet Laboratory Results WBC 10.68 k/cumm (4.4-10.8) D 07/19/18 06:15 RBC 3.51 m/cumm (4.00-5.20) L 07/19/18 06:15 Hgb 11.4 g/dL (12.0-15.5) L 07/19/18 06:15 Hct 35.0 % (36.0-46.0) L 07/19/18 06:15 MCV 99.7 fL (80-95) H 07/19/18 06:15 MCH 32.5 pg (27.0-33.0) 07/19/18 06:15 MCHC 32.6 g/dL (32.0-36.0) 07/19/18 06:15 RDW 13.0 % (11.7-14.6) 07/19/18 06:15 Plt Count 412 x1000/uL (130-400) H 07/19/18 06:15 MPV 8.6 fL (8.0-11.0) 07/19/18 06:15 Immature Gran % 1.5 07/19/18 06:15 Neutrophils % 53.0 07/19/18 06:15 Lymphocytes % 32.8 07/19/18 06:15 Monocytes % 9.7 07/19/18 06:15 Eosinophils % 2.3 07/19/18 06:15 Basophils % 0.7 07/19/18 06:15 Absolute Neutrophils 5.66 k/cumm (1.2-6.7) 07/19/18 06:15 Absolute Lymphocytes 3.50 k/cumm (1.2-3.4) H 07/19/18 06:15 Absolute Monocytes 1.04 k/cumm (0.11-0.7) H 07/19/18 06:15 Absolute Eosinophils 0.25 k/cumm (0.0-0.7) 07/19/18 06:15 Absolute Basophils 0.07 k/cumm (0.0-0.2) 07/19/18 06:15 Differential Comment Agrees w/ instrument 07/14/18 06:22 RBC Morphology See below 07/14/18 06:22 Polychromasia Present 07/14/18 06:22 Sodium 138 mmol/L (136-145) 07/19/18 06:15 Potassium 4.5 mmol/L (3.5-5.1) 07/19/18 06:15 Chloride 102 mmol/L (98-107) 07/19/18 06:15 Carbon Dioxide 26.7 mmol/L (21.0-32.0) 07/19/18 06:15 Anion Gap 9.3 mmol/L (3-11) 07/19/18 06:15 BUN 10 mg/dL (7-18) 07/19/18 06:15 Creatinine 0.80 mg/dL (0.55-1.02) 07/19/18 06:15 Estimated GFR/1.73 m2 >= 60.00 (mL/min/1.73m2) 07/19/18 06:15 Glucose 94 mg/dL (70-100) 07/19/18 06:15 Lactate 0.9 mmol/L (0.6-1.4) 07/13/18 14:10 Calcium 9.4 mg/dL (8.5-10.1) 07/19/18 06:15 Magnesium 2.0 mg/dL (1.8-2.4) 07/19/18 06:15 Total Bilirubin 0.6 mg/dL (0.2-1.0) 07/13/18 14:10 AST 18 U/L (15-37) 07/13/18 14:10 ALT 14 U/L (12-78) 07/13/18 14:10 Alkaline Phosphatase 120 U/L (46-116) H 07/13/18 14:10 C-Reactive Protein 2.12 mg/dL (0.0-0.3) H 07/19/18 06:15 Total Protein 6.9 g/dL (6.4-8.2) 07/13/18 14:10 Albumin 2.7 g/dL (3.4-5.0) L 07/13/18 14:10 Vitamin B12 266 pg/mL (193-986) 07/15/18 07:15 Folate 17.7 ng/mL (8.6-20.0) 07/15/18 07:15 Vancomycin Trough 20.8 ug/mL (10.0-20.0) H* 07/16/18 09:25
--- NOTE | 2018-07-19 14:00 | PDOC.CMPRO ---
- If Service Date Differs Date of service: 07/19/18 Time of Service: 14:00 Care Management Progress Note S/O: CM met with patient at the bedside she is alert and engaged. She will have a MARINA on which will determine length of antibiotic treatment. Referral to critical access hospital for assistance with housing. A: 57 year old female admitted to [facility] 07/13/18 for Tenosynovitis R Hand/Cellulitis Bilat Hands P: Lisset remains acute and will continue to be treated with IV ABX. Length of antibiotic therapy to be determine, MARINA to rule endocarditis on . Anticipate she will transition to SB1 vs SB2 pending type of antibiotic length of therapy and IV vs oral.
--- NOTE | 2018-07-19 14:17 | CMPROGNOTE_ITS ---
- If Service Date Differs Date of service: 07/19/18 Time of Service: 14:00 Care Management Progress Note S/O: CM met with patient at the bedside she is alert and engaged. She will have a MARINA on which will determine length of antibiotic treatment. Referral to [facility] for assistance with housing. A: 57 year old female admitted to [facility] 07/13/18 for Tenosynovitis R Hand/Cellulitis Bilat Hands P: Lisset remains acute and will continue to be treated with IV ABX. Length of antibiotic therapy to be determine, MARINA to rule endocarditis on . Anticipate she will transition to SB1 vs SB2 pending type of antibiotic length of therapy and IV vs oral.
[2018-07-19] MEDS: Enoxaparin 40 MG/0.4 ML SYR SC (17:15)
[2018-07-19] MEDS: Normal Saline 500 ML IV (17:34)
[2018-07-20] VITALS (11 sets, daily range): BP systolic 90–177; BP diastolic 61–126; PULSE 85–107; RESP 15–23; TEMP 36.1–37.3; O2SAT 93–98
[2018-07-20] MEDS: Normal Saline Flush 10 ML SYR IVP ×4 (00:17→14:45)
--- NOTE | 2018-07-20 02:58 | NUR.NOTE ---
Patient state she accidentally pulled her IV out while going to the bathroom, and she slide in her urgency to use the bathroom and hit her forehead to the door. On assessment patient is conscious alert, rational, oriented. Pt state we are making a big deal out of anything. Same reported to the charge nurse
--- NOTE | 2018-07-20 03:04 | NUR.NOTE ---
Patient is NPO for procedure in the morning protocol was explained and discussed with pt. Pt state she wants water to drink it was re-emphasis to her about her NPO status she state she understand what was explained but she still wants the water, and if same was not given to her she will go to the bathroom and drink it. Same was reported to the charge nurse. Patient was observe going to the bathroom and drinking water.
[2018-07-20 07:36] LABS: Abs Immature Grans 0.16 k/cumm (0.0-0.09); Absolute Basophil Count 0.08 k/cumm (0.0-0.2); Absolute Eosinophil Count 0.21 k/cumm (0.0-0.7); Absolute Lymphocyte Count 4.07 k/cumm (1.2-3.4); Absolute Monocyte Count 0.79 k/cumm (0.11-0.7); Absolute Neutrophil Count 5.71 k/cumm (1.2-6.7); Basophils % 0.7; Eosinophils % 1.9; HCT 36.6 % (36.0-46.0); HGB 11.8 g/dL (12.0-15.5); Immature Grans % 1.5; Lymphocytes % 36.9; Mean Corp. HGB Concentration 32.2 g/dL (32.0-36.0); Mean Corpuscular Hemoglobin 32.2 pg (27.0-33.0); Mean Corpuscular Volume 99.7 fL (80-95); Mean Platelet Volume 8.7 fL (8.0-11.0); Monocytes % 7.2; Neutrophils % 51.8; Platelet Count 404 x1000/uL (130-400); RBC 3.67 m/cumm (4.00-5.20); White Blood Cell Count 11.02 k/cumm (4.4-10.8)
[2018-07-20 07:50] LABS: BUN 10 mg/dL (7-18); CREATININE 0.87 mg/dL (0.55-1.02); Chloride 105 mmol/L (98-107); Glucose 103 mg/dL (70-100); Magnesium 1.7 mg/dL (1.8-2.4); Potassium 3.6 mmol/L (3.5-5.1); Sodium 143 mmol/L (136-145)
[2018-07-20] MEDS: Pantoprazole 40 MG VIAL IVP (09:45)
[2018-07-20] MEDS: Normal Saline 1,000 ML 150 ML IV ×3 (09:54→22:51)
--- NOTE | 2018-07-20 13:00 | MERGE_ITS ---
*[facility]* *[facility]* [address] [place] [address] Date of study: 07/20/2018 Transesophageal Echocardiography 2D, spectral Doppler, and color Doppler *STUDY CONCLUSIONS* Impressions: No evidence of endocarditis. Summary: 1. Left ventricle: Systolic function was normal. The estimated ejection fraction was 60-65%. Wall motion was normal; there were no regional wall motion abnormalities. 2. Right ventricle: The cavity size was normal. Systolic function was normal. *PATIENT PRESENTATION* Height: 172.7cm ((68in) ) S/D Pressure: 146 / 90 Weight: 75.8kg ((166.7lb) ) BSA: 1.92m^2 CONSULTING Laci Aquino PERFORMING Unknown PERFORMING [facility] RADIOPHONE OPERATOR RT Jessie (Mariia)(CT), [facility] ORDERING Katia Bass REFERRING Katia Bass *PROCEDURE DATA* Procedure information: The patient was identified by two identifiers. This study was interpreted by [facility]. Pertinent images and digital data are archived for permanent storage and are available for subsequent review. Study status: Routine. Diagnostic transesophageal echocardiography. 2D, spectral Doppler, and color Doppler. Consent: The risks, benefits, and alternatives to the procedure were explained to the patient and consent was verbally obtained. Barriers to education: No barriers to education identified. Initial setup. The patient was brought to the laboratory in the fasting state. Surface ECG leads, blood pressure measurements, and pulse oximetric signals were monitored. Sedation. Moderate sedation was administered by Anesthesiology. A Transesophageal echocardiogram was performed for endocarditis evaluation. Topical anesthesia was obtained using viscous lidocaine. A transesophageal probe was inserted without difficulty. Image quality was adequate. The transesophageal probe was removed. Study completion: The patient tolerated the procedure well. There was no blood loss or specimens removed during the procedure. There were no complications. History: PMH: Gas soft tissue infection. Mass on TTE. *CARDIAC ANATOMY* Left ventricle: Systolic function was normal. The estimated ejection fraction was 60-65%. Wall motion was normal; there were no regional wall motion abnormalities. Aortic valve: Trileaflet; mildly thickened leaflets. Cusp separation was normal. No evidence of vegetation. Doppler: There was no stenosis. There was no significant regurgitation. Aorta: There was no atheroma. There was no evidence for dissection. Aortic root: The aortic root was not dilated. Ascending aorta: The ascending aorta was normal in size. Aortic arch: The aortic arch was normal in size. Descending aorta: The descending aorta was normal in size. Mitral valve: Structurally normal valve. Leaflet separation was normal. No evidence of vegetation. Doppler: There was no evidence for stenosis. There was trivial regurgitation. Left atrium: The atrium was normal in size. No evidence of thrombus in the atrial cavity or appendage. The appendage was morphologically a left appendage, multilobulated, and of normal size. Emptying velocity was normal. Right ventricle: The cavity size was normal. Systolic function was normal. Pulmonic valve: Structurally normal valve. No evidence of vegetation. Doppler: There was no evidence for stenosis. There was no significant regurgitation. Tricuspid valve: Poorly visualized. Structurally normal valve. Leaflet separation was normal. No evidence of vegetation. Pulmonary artery: The main pulmonary artery was normal-sized. Right atrium: The atrium was normal in size. Pericardium: There was no pericardial effusion. I have personally reviewed the images and have reviewed and edited the reported findings. Electronically signed by Duy Rose 07/20/2018 14:10
--- NOTE | 2018-07-20 13:59 | W.PM.ENDDOP ---
Date of service: 07/20/18 Time of Service: 13:59 Endoscopy Report DATE OF PROCEDURE: 07/20/18 PRE-OP DIAGNOSIS: Endocarditis? POST-OP DIAGNOSIS: other (No endocarditis identified.) PROCEDURE: Transesophageal echo
--- NOTE | 2018-07-20 14:03 | W.PROCNOTE ---
Date of service: 07/20/18 Time of Service: 14:03 Procedure Note Date of procedure: 07/20/18 Procedure: Transesophageal echo Procedure Diagnosis: Endocarditis? Procedure Indications: Rule out endocarditis. Procedure Description: Informed consent obtained. Nursing and anesthesia present throughout procedure. Sedation as per anesthesia. Patient monitored hemodynamically as well procedure. No complications during or after procedure. No evidence of infective endocarditis noted. Please see full report in MERGE.
[2018-07-20] MEDS: Atenolol 50 MG TAB PO (14:46)
--- NOTE | 2018-07-20 15:58 | PDOC.CMPRO ---
Care Management Progress Note S/O: Lisset had MARINA completed today with findings; no evidence of infective endocarditis noted. She will likely enter [facility] with hope to coordinate safe discharge plan prior to discharge as she is unable to manage her home needs in her current condition. CM spoke with Psychiatry regarding Lisset's emotional response to her current situation; Dr. Mosher reported she would be agreeable to consult and could complete on 07/24/18. CM will continue to follow. Lisset continues to struggle emotionally to manage the complexities of her social situation, especially in relation to her medical condition. She is friendly in interaction though becomes forlorn when discussing planning. CM continues to support Lisset to categorize her worries and tasks needed to return to stability. CM requested Inpatient LARISA support 07/18/18 and 07/19/18 without response at this time. A: 57 year old female admitted to [facility] 07/13/18 for Tenosynovitis R Hand/Cellulitis Bilat Hands P: Lisset remains acute and will continue to be treated with IV ABX, she will transition to SB1 vs SB2 pending type of antibiotic, duration and frequency of therapy and IV-vs-Oral.
--- NOTE | 2018-07-20 16:00 | NUR.NOTE ---
Nursing Note: 07/20/18 @ 1425- A&Ox3. Returned from [facility]. Sipping on clears. States is hungry. Will order lunch. LS clear and denies nausea. Will medicated for pain in RT hand cellulitis. Wanting to play on computer. Currently sitting up in bed. See VS interevention. Will give Atenolol which was held this AM since was NPO for MARINA.
--- NOTE | 2018-07-20 16:05 | CMPROGNOTE_ITS ---
Care Management Progress Note S/O: Lisset had MARINA completed today with findings; no evidence of infective endocarditis noted. She will likely enter [facility] with hope to coordinate safe discharge plan prior to discharge as she is unable to manage her home needs in her current condition. CM spoke with Psychiatry regarding Lisset's emotional response to her current situation; Dr. Mosher reported she would be agreeable to consult and could complete on 07/24/18. CM will continue to follow. Lisset continues to struggle emotionally to manage the complexities of her social situation, especially in relation to her medical condition. She is friendly in interaction though becomes forlorn when discussing planning. CM continues to support Lisset to categorize her worries and tasks needed to return to stability. CM requested Inpatient LARISA support 07/18/18 and 07/19/18 without response at this time. A: 57 year old female admitted to [facility] 07/13/18 for Tenosynovitis R Hand/Cellulitis Bilat Hands P: Lisset remains acute and will continue to be treated with IV ABX, she will transition to SB1 vs SB2 pending type of antibiotic, duration and frequency of therapy and IV-vs-Oral.
--- NOTE | 2018-07-20 16:07 | PGE_ITS ---
Date of Service Date of service: 07/20/18 Time of Service: 16:06 Assessment and Plan (1) Tenosynovitis of finger and hand: Current visit: Yes Status: Acute S/p I&D on 07/[address] Cutler, with wound cultures positive for Group A Strep. Blood cultures negative. CRP trending down. Initially on Vanco and Zosyn x4 days. Currenlty on day #3 of Ancef (day #8 of total antibiotic course). MARINA shows no vegetation. Transition to oral antibiotics, will need 2 week course. Continue to trend CRP. 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 potential vegetation on TTE. Blood cultures negative. MARINA negative as above. (3) Leucocytosis: Current visit: Yes Status: Acute Resolved with debridement of wound and on antibiotic therapy. Continue to monitor. (4) Alcohol abuse: Current visit: No Status: Chronic She did not score on the CIWA protocol. CIWA discontinued. Oxazepam decreased to HS. Continue PPI, Folate, and thiamine. (5) DVT prophylaxis: Current visit: Yes Status: Acute Continue SC Lovenox. (6) Discharge planning issues: Current visit: Yes Status: Acute She is a FULL CODE. Care management is involved and working on a safe discharge plan. She will likely need to transition to a swing bed status prior to discharge home. This case was discussed with Dr. Perez who is in agreement. Subjective Interval history since last seen: Lisset Abel is a 57 year old female with a prior history of HTN and TBI, admitted from [facility] Emergency Dep[facility] on 07/13 with a diagnosis of cellulitis of the hand. Ms. Abel presented to the ED with complaints of significant right hand, wrist, and arm pain. She reports that about 3 weeks prior she had noticed a couple of splinters from firewood in the fingers of her left hand, which she was able to excise. She states she sterilized the blade prior to doing this. Since then she has noticed boils appearing on her hands bilaterally, and had been lancing them and applying topical antibiotic ointment. In total, she states she has lanced 7 of these boils. She reported onset of chills and myalgias at home, with extreme fatigue for approximately one week prior to being seen in the ED. Her initial evaluation revealed evidence of significant leukocytosis, and likely cellulitis of the right hand. She underwent an I&D by ortho of the right thumb, flexor tendor, and surrounding soft tissue on 07/14, with noted necrosis of the area without significant purulence. Her wound culture is now growing Group A Strep, with Blood cultures that have remained negative. Lisset was in better spirits today. She was awaiting her MARINA, which will determine her antibiotic course. She continues to have pain in her right hand, it has improved somewhat, she cannot use the right hand, the swelling has improved. She has healed scabs on the left hand from previous boils. She denies fever, chills, diaphoresis, shortness of breath, coughing, wheezing, chest pain/pressure, palpitations. She is eating and drinking, no nausea, vomiting, diarrhea, no tremors or hallucinations. Exam Narrative Exam Narrative: General: Patient appears comfortable, sitting up in bed with RUE elevated, in NAD Neck: Supple, no JVD. CV: Regular, nontachycardic, S1S2, No rubs or gallops. 2-3/6 murmur at LLSB appreciated. Pulmonary: Respirations even and unlabored. lung sounds clear to auscultation bilaterally, no rales, wheezing, or rhonchi Abdomen: + Bowel Sounds x4 quadrants, abdomen soft, nontender, nondistended, no masses appreciated. Skin: Right hand with bandage in place, c/d/i, no edema or erythema to fingers on right hand, capillary refill less than 3 seconds. Left hand with healing wounds. Extremities: well perfused, no lower extremity edema, pedal pulses palpable. Psych: appropriate mood and affect. Objective Objective Clinical Data: Abnormal lab results 07/20/18 07/20/18 Range/Units 07:10 07:10 WBC 11.02 H (4.4-10.8) k/cumm RBC 3.67 L (4.00-5.20) m/cumm Hgb 11.8 L (12.0-15.5) g/dL MCV 99.7 H (80-95) fL Plt Count 404 H (130-400) x1000/uL Absolute Lymphocytes 4.07 H (1.2-3.4) k/cumm Absolute Monocytes 0.79 H (0.11-0.7) k/cumm Anion Gap 14.0 H (3-11) mmol/L Glucose 103 H (70-100) mg/dL Magnesium 1.7 L (1.8-2.4) mg/dL Vital Signs Temperature 37.3 C 07/20/18 15:09 Temperature Source Tympanic 07/20/18 15:09 Pulse 93 H 07/20/18 15:09 Pulse Rhythm Regular 07/20/18 07:50 Respiratory Rate 20 07/20/18 15:09 Respiratory Effort Non-Labored 07/20/18 07:50 Respiratory Depth Normal 07/20/18 07:50 Respiratory Pattern Normal 07/20/18 07:50 Blood Pressure 165/98 H 07/20/18 15:09 Blood Pressure Position Supine 07/13/18 13:36 Pulse Oximetry 98 07/20/18 15:09 Oxygen Delivery Method Room Air 07/20/18 15:09 Oxygen Flow Rate 0 07/20/18 15:09 Pain Level 7 07/20/18 14:46 Comment 07/17/18 03:30 Intake & Output 07/19/18 07/20/18 07/20/18 23:59 11:59 23:59 Intake Total 1310.007 / 2090.007 120 / 975 855 / 975 Balance 1310.007 / 390.007 120 / 975 855 / 975 Weight 75.3 kg Intake: IV 270.007 / 410.007 120 / 845 725 / 845 Oral 1040 / 1680 130 / 130 Other: Urine Color Yellow Urine Appearance Clear Clear Urine Odor None Comment Pt voids ind. voided preop at 1250 Emesis Description None Voiding Methods Toilet Toilet Laboratory Results WBC 11.02 k/cumm (4.4-10.8) H 07/20/18 07:10 RBC 3.67 m/cumm (4.00-5.20) L 07/20/18 07:10 Hgb 11.8 g/dL (12.0-15.5) L 07/20/18 07:10 Hct 36.6 % (36.0-46.0) 07/20/18 07:10 MCV 99.7 fL (80-95) H 07/20/18 07:10 MCH 32.2 pg (27.0-33.0) 07/20/18 07:10 MCHC 32.2 g/dL (32.0-36.0) 07/20/18 07:10 RDW 13.0 % (11.7-14.6) 07/20/18 07:10 Plt Count 404 x1000/uL (130-400) H 07/20/18 07:10 MPV 8.7 fL (8.0-11.0) 07/20/18 07:10 Immature Gran % 1.5 07/20/18 07:10 Neutrophils % 51.8 07/20/18 07:10 Lymphocytes % 36.9 07/20/18 07:10 Monocytes % 7.2 07/20/18 07:10 Eosinophils % 1.9 07/20/18 07:10 Basophils % 0.7 07/20/18 07:10 Absolute Neutrophils 5.71 k/cumm (1.2-6.7) 07/20/18 07:10 Absolute Lymphocytes 4.07 k/cumm (1.2-3.4) H 07/20/18 07:10 Absolute Monocytes 0.79 k/cumm (0.11-0.7) H 07/20/18 07:10 Absolute Eosinophils 0.21 k/cumm (0.0-0.7) 07/20/18 07:10 Absolute Basophils 0.08 k/cumm (0.0-0.2) 07/20/18 07:10 Differential Comment Agrees w/ instrument 07/14/18 06:22 RBC Morphology See below 07/14/18 06:22 Polychromasia Present 07/14/18 06:22 Sodium 143 mmol/L (136-145) 07/20/18 07:10 Potassium 3.6 mmol/L (3.5-5.1) 07/20/18 07:10 Chloride 105 mmol/L (98-107) 07/20/18 07:10 Carbon Dioxide 24.0 mmol/L (21.0-32.0) 07/20/18 07:10 Anion Gap 14.0 mmol/L (3-11) H 07/20/18 07:10 BUN 10 mg/dL (7-18) 07/20/18 07:10 Creatinine 0.87 mg/dL (0.55-1.02) 07/20/18 07:10 Estimated GFR/1.73 m2 >= 60.00 (mL/min/1.73m2) 07/20/18 07:10 Glucose 103 mg/dL (70-100) H 07/20/18 07:10 Lactate 0.9 mmol/L (0.6-1.4) 07/13/18 14:10 Calcium 9.0 mg/dL (8.5-10.1) 07/20/18 07:10 Magnesium 1.7 mg/dL (1.8-2.4) L 07/20/18 07:10 Total Bilirubin 0.6 mg/dL (0.2-1.0) 07/13/18 14:10 AST 18 U/L (15-37) 07/13/18 14:10 ALT 14 U/L (12-78) 07/13/18 14:10 Alkaline Phosphatase 120 U/L (46-116) H 07/13/18 14:10 C-Reactive Protein 2.12 mg/dL (0.0-0.3) H 07/19/18 06:15 Total Protein 6.9 g/dL (6.4-8.2) 07/13/18 14:10 Albumin 2.7 g/dL (3.4-5.0) L 07/13/18 14:10 Vitamin B12 266 pg/mL (193-986) 07/15/18 07:15 Folate 17.7 ng/mL (8.6-20.0) 07/15/18 07:15 Vancomycin Trough 20.8 ug/mL (10.0-20.0) H* 07/16/18 09:25
[2018-07-20] MEDS: traMADol 50 MG TAB PO ×2 (16:16→22:03)
[2018-07-20] MEDS: Magnesium Oxide 400 MG TAB PO (16:17)
[2018-07-20] MEDS: Potassium Chloride 20 MEQ TABCR 40 MEQ PO (16:17)
[2018-07-20] MEDS: Enoxaparin 40 MG/0.4 ML SYR SC (16:18)
[2018-07-20] MEDS: Penicillin V POTASSIUM 500 MG TAB PO ×2 (17:23→23:25)
[2018-07-20] MEDS: Venlafaxine 75 MG TAB 150 MG PO (20:50)
[2018-07-21 00:05] VITALS: BP 137/90; PULSE 82; RESP 18; TEMP 37.2; O2SAT 98
[2018-07-21 03:35] VITALS: BP 122/80; PULSE 90; RESP 18; TEMP 37.2; O2SAT 97
[2018-07-21] MEDS: traMADol 50 MG TAB PO ×2 (05:02→13:29)
[2018-07-21] MEDS: Penicillin V POTASSIUM 500 MG TAB PO ×2 (05:03→11:04)
[2018-07-21] MEDS: Normal Saline 1,000 ML 150 ML IV ×2 (05:03→11:05)
[2018-07-21 07:19] LABS: Abs Immature Grans 0.12 k/cumm (0.0-0.09); Absolute Basophil Count 0.06 k/cumm (0.0-0.2); Absolute Eosinophil Count 0.19 k/cumm (0.0-0.7); Absolute Lymphocyte Count 3.46 k/cumm (1.2-3.4); Absolute Monocyte Count 0.99 k/cumm (0.11-0.7); Basophils % 0.6; HGB 11.2 g/dL (12.0-15.5); Immature Grans % 1.3; Lymphocytes % 36.7; Mean Corpuscular Hemoglobin 32.1 pg (27.0-33.0); Mean Corpuscular Volume 100.3 fL (80-95); Mean Platelet Volume 8.8 fL (8.0-11.0); Monocytes % 10.5; Neutrophils % 48.9; Platelet Count 405 x1000/uL (130-400); RBC 3.49 m/cumm (4.00-5.20); White Blood Cell Count 9.42 k/cumm (4.4-10.8)
[2018-07-21 07:42] LABS: Anion Gap 10.4 mmol/L (3-11); BUN 7 mg/dL (7-18); C-Reactive Protein 0.79 mg/dL (0.0-0.3); CO2 24.6 mmol/L (21.0-32.0); CREATININE 0.69 mg/dL (0.55-1.02); Chloride 105 mmol/L (98-107); Glucose 105 mg/dL (70-100); Magnesium 1.8 mg/dL (1.8-2.4); Potassium 4.6 mmol/L (3.5-5.1); Sodium 140 mmol/L (136-145)
[2018-07-21 07:44] VITALS: BP 106/65; PULSE 94; RESP 18; TEMP 36.1; O2SAT 97
[2018-07-21] MEDS: Pantoprazole 40 MG VIAL IVP (07:57)
[2018-07-21] MEDS: Normal Saline Flush 10 ML SYR IVP ×2 (07:58→16:19)
[2018-07-21] MEDS: Venlafaxine 75 MG TAB 150 MG PO (07:59)
[2018-07-21] MEDS: Atenolol 50 MG TAB PO (07:59)
[2018-07-21] MEDS: Multivitamin TAB 1 TAB PO (07:59)
[2018-07-21] MEDS: Thiamine 100 MG TAB PO (07:59)
[2018-07-21] MEDS: Folic Acid 1 MG TAB PO (07:59)
[2018-07-21] MEDS: Docusate Sodium 100 MG CAP PO (07:59)
[2018-07-21] MEDS: Magnesium Oxide 400 MG TAB PO (11:04)
[2018-07-21 11:34] VITALS: BP 94/66; PULSE 80; RESP 18; TEMP 36.5; O2SAT 93
--- NOTE | 2018-07-21 12:23 | W.PM.PROGNOT ---
Date of Service Date of service: 07/21/18 Time of Service: 12:23 Assessment and Plan (1) Tenosynovitis of finger and hand: Current visit: Yes Status: Acute Assessment: Flexor Tenosynovitis of the fingers and thumb of her right hand improving daily. She is now 1 week postop and I think the sutures can come out in a few days. If she still in the hospital on Tuesday I will take them out. Plan: Remove her sutures if she is still here Tuesday, otherwise will take them out in my office next week. Should continue p.o. antibiotics until her CRP is normal. Encouraged her to continue to mobilize her fingers. Subjective Patient reports: feels better and pain is less Exam Narrative Exam Narrative: Decision her right hand is healing well. Incision is dry. Flexion of her fingers is excellent.. Her thumb is still mildly swollen but the active flexion is improving. She can now do a pinch with the index finger. She has been converted to p.o. antibiotics. CRP is now down to 0.79 Objective Objective Clinical Data: Abnormal lab results 07/21/18 07/21/18 Range/Units 06:40 06:40 RBC 3.49 L (4.00-5.20) m/cumm Hgb 11.2 L (12.0-15.5) g/dL Hct 35.0 L (36.0-46.0) % MCV 100.3 H (80-95) fL Plt Count 405 H (130-400) x1000/uL Absolute Lymphocytes 3.46 H (1.2-3.4) k/cumm Absolute Monocytes 0.99 H (0.11-0.7) k/cumm Glucose 105 H (70-100) mg/dL C-Reactive Protein 0.79 H (0.0-0.3) mg/dL Vital Signs Temperature 36.1 C L 07/21/18 07:44 Temperature Source Tympanic 07/21/18 07:44 Pulse 94 H 07/21/18 07:44 Pulse Rhythm Regular 07/21/18 07:45 Respiratory Rate 18 07/21/18 07:44 Respiratory Effort 07/21/18 07:45 Respiratory Depth Normal 07/21/18 07:45 Respiratory Pattern Normal 07/21/18 07:45 Blood Pressure 106/65 07/21/18 07:44 Blood Pressure Position Supine 07/13/18 13:36 Pulse Oximetry 97 07/21/18 07:44 Oxygen Delivery Method Room Air 07/21/18 07:44 Oxygen Flow Rate 0 07/21/18 07:44 Pain Level 5 07/21/18 07:44 Comment 07/21/18 03:35 Intake & Output 07/20/18 07/21/18 07/21/18 23:59 11:59 23:59 Intake Total 2825 / 3045 2555 / 2555 Balance 2825 / 3045 2555 / 2555 Weight 78.7 kg Intake: IV 1974 / 2194 1835 / 1835 Oral 850 / 850 720 / 720 Other: Comment pt voiding independently in the toilet Denies difficulties. Voiding indep, flushing, urine not seen Stool Size Moderate Stool Characteristics Formed Brown Emesis Description None Voiding Methods Toilet Toilet Laboratory Results WBC 9.42 k/cumm (4.4-10.8) 07/21/18 06:40 RBC 3.49 m/cumm (4.00-5.20) L 07/21/18 06:40 Hgb 11.2 g/dL (12.0-15.5) L 07/21/18 06:40 Hct 35.0 % (36.0-46.0) L 07/21/18 06:40 MCV 100.3 fL (80-95) H 07/21/18 06:40 MCH 32.1 pg (27.0-33.0) 07/21/18 06:40 MCHC 32.0 g/dL (32.0-36.0) 07/21/18 06:40 RDW 13.0 % (11.7-14.6) 07/21/18 06:40 Plt Count 405 x1000/uL (130-400) H 07/21/18 06:40 MPV 8.8 fL (8.0-11.0) 07/21/18 06:40 Immature Gran % 1.3 07/21/18 06:40 Neutrophils % 48.9 07/21/18 06:40 Lymphocytes % 36.7 07/21/18 06:40 Monocytes % 10.5 07/21/18 06:40 Eosinophils % 2.0 07/21/18 06:40 Basophils % 0.6 07/21/18 06:40 Absolute Neutrophils 4.60 k/cumm (1.2-6.7) 07/21/18 06:40 Absolute Lymphocytes 3.46 k/cumm (1.2-3.4) H 07/21/18 06:40 Absolute Monocytes 0.99 k/cumm (0.11-0.7) H 07/21/18 06:40 Absolute Eosinophils 0.19 k/cumm (0.0-0.7) 07/21/18 06:40 Absolute Basophils 0.06 k/cumm (0.0-0.2) 07/21/18 06:40 Differential Comment Agrees w/ instrument 07/14/18 06:22 RBC Morphology See below 07/14/18 06:22 Polychromasia Present 07/14/18 06:22 Sodium 140 mmol/L (136-145) 07/21/18 06:40 Potassium 4.6 mmol/L (3.5-5.1) D 07/21/18 06:40 Chloride 105 mmol/L (98-107) 07/21/18 06:40 Carbon Dioxide 24.6 mmol/L (21.0-32.0) 07/21/18 06:40 Anion Gap 10.4 mmol/L (3-11) 07/21/18 06:40 BUN 7 mg/dL (7-18) 07/21/18 06:40 Creatinine 0.69 mg/dL (0.55-1.02) 07/21/18 06:40 Estimated GFR/1.73 m2 >= 60.00 (mL/min/1.73m2) 07/21/18 06:40 Glucose 105 mg/dL (70-100) H 07/21/18 06:40 Lactate 0.9 mmol/L (0.6-1.4) 07/13/18 14:10 Calcium 9.0 mg/dL (8.5-10.1) 07/21/18 06:40 Magnesium 1.8 mg/dL (1.8-2.4) 07/21/18 06:40 Total Bilirubin 0.6 mg/dL (0.2-1.0) 07/13/18 14:10 AST 18 U/L (15-37) 07/13/18 14:10 ALT 14 U/L (12-78) 07/13/18 14:10 Alkaline Phosphatase 120 U/L (46-116) H 07/13/18 14:10 C-Reactive Protein 0.79 mg/dL (0.0-0.3) H 07/21/18 06:40 Total Protein 6.9 g/dL (6.4-8.2) 07/13/18 14:10 Albumin 2.7 g/dL (3.4-5.0) L 07/13/18 14:10 Vitamin B12 266 pg/mL (193-986) 07/15/18 07:15 Folate 17.7 ng/mL (8.6-20.0) 07/15/18 07:15 Vancomycin Trough 20.8 ug/mL (10.0-20.0) H* 07/16/18 09:25
--- NOTE | 2018-07-21 15:39 | W.PM.DS.N ---
Date of service: 07/21/18 Time of Service: 15:41 DS: Diagnosis Discharge Diagnosis (1) Tenosynovitis of finger and hand: Status: Acute Discharge Plan Disposition Patient Disposition: [facility] SWING BED LEVEL 2 Condition: Improving Discharge Details Reason For Visit: TENOSYNOVITIS R HAND/CELLULITIS B HANDS Admit Date/Time: 07/13/18 14:52 Admit Provider: Katia Bass Attending Provider: Katia Bass Primary Care Provider: Laci Aquino [facility] Course Hospital Course: Lisset Abel is a 57 year old female with a prior history of HTN and TBI, admitted from [facility] Emergency Deparment on 07/13 with a diagnosis of cellulitis of the hand. Ms. Abel presented to the ED with complaints of significant right hand, wrist, and arm pain. She reports that about 3 weeks prior she had noticed a couple of splinters from firewood in the fingers of her left hand, which she was able to excise. She states she sterilized the blade prior to doing this. Since then she noticed boils appearing on her hands bilaterally, and had been lancing them and applying topical antibiotic ointment. In total, she states she has lanced 7 of these boils. She reported onset of chills and myalgias at home, with extreme fatigue for approximately one week prior to being seen in the ED. Her initial evaluation revealed evidence of significant leukocytosis, and likely cellulitis of the right hand. She underwent an I&D by Dr. Cutler ([facility]) of the right thumb, flexor tendor, and surrounding soft tissue on 07/14, with noted necrosis of the area without significant purulence. Her wound culture is now growing Group A Strep, with Blood cultures that have remained negative. She was initially treated with vancomycin and Zosyn, she transitioned to Ancef based on culture results. She had a TTE which made note of a potential mass that may be on the basis of a calcified chordae on the mitral valve vs. potential vegetation. She went on to have a MARINA which did not show vegetation. At that point, she transition to oral penicillin. She will need to complete a 14-day course of penicillin, she is currently on day #8. She was initially monitored on the CIWA protocol, she did not score for alcohol withdrawal. She was initially placed on standing Serax 3 times daily, this was decreased to just at bedtime and is now discontinued altogether. Lisset lives in a trailer with no running water, no electricity, and uses a wood stove for heat. It has been determined that it is an unsafe living situation for her to go back to, especially in the winter and with her right hand in its current condition. Of note, she recently was boiling 5 gallons of water for a bath and accidentally spilled it on herself, sustaining second and third-degree rudd which were successfully treated at home. The rudd along her left side and left leg are completely healed without signs of infection. Lisset will transition to swing bed level 2 while her management helps to assist her in finding an alternative living situation that is safe. She is followed by orthopedics, Dr. Cutler saw her today and notes improvement in her swelling of her right hand. He does note that her right thumb continues to have some swelling. He plans to remove her sutures on 07/24/2018. Her leukocytosis has resolved, her CRP is trending down very nicely. We will continue to trend her CRP on swing bed status. She transitions to swing bed status today. Home Meds and New Rx's Prescriptions: No Action atenolol 100 mg Tablet 100 mg PO DAILY RF: 0 amlodipine 10 mg Tablet 10 mg PO DAILY RF: 0 ergocalciferol (vitamin D2) [Vitamin D2] 50,000 unit Capsule 1.25 mg PO QWEEK RF: 0 losartan 100 mg Tablet 100 mg PO DAILY RF: 0 venlafaxine 25 MG tablet 150 mg PO BID RF: 0 Discharge Instructions Activity:: Activity as Tolerated Equipment/Supplies:: No Equipment Needed Diet:: heart healthy Exam Narrative Exam Narrative: General: Patient appears comfortable, sitting up in bed with RUE elevated, in NAD Neck: Supple, no JVD. CV: Regular, nontachycardic, S1S2, No rubs or gallops. 2-3/6 murmur at LLSB appreciated. Pulmonary: Respirations even and unlabored. lung sounds clear to auscultation bilaterally, no rales, wheezing, or rhonchi Abdomen: + Bowel Sounds x4 quadrants, abdomen soft, nontender, nondistended, no masses appreciated. Skin: Right hand with bandage in place, c/d/i, no edema or erythema to fingers on right hand, right thumb with mild edema, capillary refill less than 3 seconds. Left hand with healing wounds. Extremities: well perfused, no lower extremity edema, pedal pulses palpable. Psych: appropriate mood and affect. DS: Data Vitals/I&O Vitals and I&O: Vital Signs Temperature 36.5 C 07/21/18 11:34 Temperature Source Tympanic 07/21/18 11:34 Pulse 80 07/21/18 11:34 Pulse Rhythm Regular 07/21/18 07:45 Respiratory Rate 18 07/21/18 11:34 Respiratory Effort 07/21/18 07:45 Respiratory Depth Normal 07/21/18 07:45 Respiratory Pattern Normal 07/21/18 07:45 Blood Pressure 94/66 L 07/21/18 11:34 Blood Pressure Position Supine 07/13/18 13:36 Pulse Oximetry 93 L 07/21/18 11:34 Oxygen Delivery Method Room Air 07/21/18 11:34 Oxygen Flow Rate 0 07/21/18 11:34 Pain Level 6 07/21/18 13:29 Comment 07/21/18 03:35 Intake & Output 07/20/18 07/21/18 07/21/18 23:59 11:59 23:59 Intake Total 2825 / 3045 2555 / 3267.5 712.5 / 3267.5 Balance 2825 / 3045 2555 / 3267.5 712.5 / 3267.5 Weight 78.7 kg Intake: IV 1974 1835 / 1997.5 162.5 / 1997.5 Oral 850 / 850 720 / 1270 550 / 1270 Other: Comment pt voiding independently in the toilet Denies difficulties. Voiding indep, flushing, urine not seen Stool Size Moderate Stool Characteristics Formed Brown Emesis Description None Voiding Methods Toilet Toilet Completed studies during hospitalization [Text1]: 07/14/2018: mpressions: No clear evidence of endocarditis, no significant valvular abnormality, murmur likely caused by AV sclerosis. Small mobile mass on MV, likely calcified chordae, cannot r/o vegetation. Summary: 1. Left ventricle: The cavity size was normal. Wall thickness was at the upper limits of normal. Systolic function was normal. The estimated ejection fraction was 60-65%. Wall motion was normal; there were no regional wall motion abnormalities. 2. Ascending aorta: The ascending aorta was at upper normal limits. 3. Mitral valve: There was a possible, small, multilobulated, echodense mobile mass on the atrial aspect of the anterior leaflet, associated with chordal structures. Likely calcified chordae, cannot rule out vegetation. 4. Right ventricle: The cavity size was at the upper limits of normal. Wall thickness was normal. Systolic function was normal. 5. Pulmonary arteries: Pulmonary systolic pressure was mildly increased. PA peak pressure: 38mm Hg (S). RIGHT HAND MRI: MRI examination of the hand was performed according to the usual protocol. There is marked motion artifact on all pulse sequences. The examination is nondiagnostic. On T 2 fat sat imaging there does appear to be diffuse increased signal in the region of the thenar eminence consistent with inflammatory process. Abscess neither excluded nor ruled in on this very limited examination. 07/20/2018 MARINA: Impressions: No evidence of endocarditis. Summary: 1. Left ventricle: Systolic function was normal. The estimated ejection fraction was 60-65%. Wall motion was normal; there were no regional wall motion abnormalities. 2. Right ventricle: The cavity size was normal. Systolic function was normal. Labs on day of discharge: Labs from last 24 hours 07/21/18 07/21/18 06:40 06:40 WBC 9.42 RBC 3.49 L Hgb 11.2 L Hct 35.0 L MCV 100.3 H MCH 32.1 MCHC 32.0 RDW 13.0 Plt Count 405 H MPV 8.8 Immature Gran % 1.3 Neutrophils % 48.9 Lymphocytes % 36.7 Monocytes % 10.5 Eosinophils % 2.0 Basophils % 0.6 Absolute Neutrophils 4.60 Absolute Lymphocytes 3.46 H Absolute Monocytes 0.99 H Absolute Eosinophils 0.19 Absolute Basophils 0.06 Sodium 140 Potassium 4.6 D Chloride 105 Carbon Dioxide 24.6 Anion Gap 10.4 BUN 7 Creatinine 0.69 Estimated GFR/1.73 m2 >= 60.00 Glucose 105 H Calcium 9.0 Magnesium 1.8 C-Reactive Protein 0.79 H PFSH Medical History Hypertension (Chronic) TBI (traumatic brain injury) (Chronic) Surgical History Hx of appendectomy (Chronic) Previous section (Chronic) Family History Brother Stroke Mother Diabetes Lung cancer Father Hypertension Social History Smoking and Tabacco status: Never alcohol intake: current alcohol intake frequency: 0-2 drinks per day Alcohol type: beer and wine details: never had withdrawal or seizures substance use type: marijuana
--- NOTE | 2018-07-21 15:48 | PDOC.CMPRO ---
Care Management Progress Note Lisset will enter [facility] for OT to support regaining baseline functioning. Also with hope to coordinate safe discharge plan prior to discharge as she is unable to manage her home needs in her current condition. CM spoke with Psychiatry regarding Lisset's emotional response to her current situation; Dr. Mosher reported she would be agreeable to consult and could complete on 07/24/18. CM will continue to follow.
--- NOTE | 2018-07-21 15:54 | CMPROGNOTE_ITS ---
Care Management Progress Note Lisset will enter [facility] for OT to support regaining baseline functioning. Also with hope to coordinate safe discharge plan prior to discharge as she is unable to manage her home needs in her current condition. CM spoke with Psychiatry regarding Lisset's emotional response to her current situation; Dr. Mosher reported she would be agreeable to consult and could complete on 07/24/18. CM will continue to follow.
[2018-07-21 15:56] VITALS: BP 104/59; PULSE 90; RESP 18; TEMP 36.9; O2SAT 94
[2018-07-21] MEDS: Enoxaparin 40 MG/0.4 ML SYR SC (16:20)
--- NOTE | 2018-07-21 17:10 | NUR.NOTE ---
Nursing Note: patient was discharged to swing bed status
== END 2018-07-21 16:46 | disposition swing bed (61) | DRG 603 ==
LOC: ER 15:45 → MS 16:01
PROVIDERS: Internal Medicine Cardiovascular Disease; Nurse Practitioner; Orthopaedic Surgery; Admitting Provider Internal Medicine; Emergency Provider Student in an Organized Health Care Education/Training Program; PCP Internal Medicine; Visit Provider Internal Medicine
PROC: 0J9J0ZX Drainage of Right Hand Subcutaneous Tissue and Fascia, Open Approach, Diagnostic (ICD-10-PCS; CPT 26020; principal; 2018-07-14 10:00)
PROC: B246ZZ4 Ultrasonography of Right and Left Heart, Transesophageal (ICD-10-PCS; CPT 93312; principal; 2018-07-20 14:00)
DX: L03.115 Cellulitis of right lower limb (principal); M65.842 Other synovitis and tenosynovitis, left hand; B95.0 Streptococcus, group A, as the cause of diseases classified elsewhere; E86.0 Dehydration; M79.642 Pain in left hand; I10 Essential (primary) hypertension; Z87.820 Personal history of traumatic brain injury; R68.83 Chills (without fever); Z59.1 Inadequate housing; E83.42 Hypomagnesemia; F10.10 Alcohol abuse, uncomplicated
CPT/HCPCS: 26020; 29125; 93312; 36415; 80048; 80053; 87040; 87077; 93306; 96361; 96365; 96368; 99223; 99232; 99233; 99239; 99285; J1650; NC; 73218; 80202; 82607; 82746; 83605; 83735; 85025; 86140; 87070; 87205; 93320; 93325; 99284; J0690; J1885; J2060; J2405; J2543; J3475

== ENCOUNTER → 2018-07-17 11:00 | Outpatient (BNVA) | payer MEDICARE, MEDICAID, SELFPAY | PROVIDERS: PCP Internal Medicine; Visit Provider Internal Medicine Cardiovascular Disease | DX: R69 Illness, unspecified (principal) ==

== ENCOUNTER 2018-07-21 16:34 | Inpatient (IN) | payer MEDICARE, MEDICAID, SELFPAY ==
--- NOTE | 2018-07-21 14:01 | CM.SBPSYCH ---
SB Psychosocial/Act.Assessment - Hospital Admission Admission Date: 07/13/18 Admission From:: Home Diagnosis:: Tenosynovitis R Hand, Cellulitis Bilateral Hands - Swing Bed Admission Swing Bed Admit Date:: 07/21/18 Swing Bed Level of Care: Level 2/ICF (OT and Discharge planning needs) - Social Supports PREVIOUS FUNCTIONAL STATUS/SOCIAL/FAMILY SUPPORTS:: Lisset resides alone in [place], [place]. Lisset reports a support network of friends in [place] but none in [place]. Lisset has two daughters, Tila who resides in [place] and Doreen who resides in [place] but is currently in [facility]. She has not seen Tila for three years and has not spoken to Doreen since before . Lisset reviews a long list of what she calls bad decisions she reports being able to clearly see where she has made errors resulting in her current situation. - Prior to Admission Living Arrangements/Environment Prior to Admission:: Alone in trailer on her owned [place] in [place], [place]. Wood Heat, no electricity, no transportation, reports severe struggle to meet basic needs. - Education Highest Grade Completed:: Not assessed. 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 - : No 's Spouse: No - Benefits Financial: Medicare, Medicaid - Congregation Active Spiritism Member:: No Will Spiritism Members or Environmental Analyst Visit:: No - Advance Directives for Healthcare If no AD, do you want more information:: No - Community Community Supports/Involvement: None currently. - Interests Outdoor Activities:: Clearing land, fire wood, growing gardens; flower and food. Chores for her horse; [place]. 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 - Present Functional Status Communication:: Appropriate, A&Ox3 Behavior:: Forlorn, depressed. - Medical History PAST MEDICAL HISTORY/PAST SURGICAL HISTORY:: Hypertension, TBI, appendectomy, previous section x2 Past Psychiatric Treatment:: None known. - Admission Data Reason for Swing Bed Admission:: Recent accident effecting current level of functioning requring OT support. Stability complicated by past trauma, TBI and instability in relationships. Unsafe living environment-Lisset requires assistance in stabilization and planning for community based interventions. Discharge Plan:: LARISA, COA: Case Management support and attaching to community based services. Lisset will have Psychiatric Consult with Dr. Mosher. Plan will be to increase service supports and develop safety plan for discharge including exploring different residential/living options. Assessment: Appropriate for SWB2 due to complex medical/social situation and home setting. Fuel Conversion Technician: Racheal Michel Date Assessment was completed:: 07/21/18
--- NOTE | 2018-07-21 14:05 | CMSA_ITS ---
SB Psychosocial/Act.Assessment - Hospital Admission Admission Date: 07/13/18 Admission From:: Home Diagnosis:: Tenosynovitis R Hand, Cellulitis Bilateral Hands - Swing Bed Admission Swing Bed Admit Date:: 07/21/18 Swing Bed Level of Care: Level 2/ICF (OT and Discharge planning needs) - Social Supports PREVIOUS FUNCTIONAL STATUS/SOCIAL/FAMILY SUPPORTS:: Lisset resides alone in [place], [place]. Lisset reports a support network of friends in [place] but none in [place]. Lisset has two daughters, Tial who resides in [place] and oDreen who resides in [place] but is currently in [facility]. She has not seen Tila for three years and has not spoken to Doreen since before . Lisset reviews a long list of what she calls bad decisions she reports being able to clearly see where she has made errors resulting in her current situation. - Prior to Admission Living Arrangements/Environment Prior to Admission:: Alone in trailer on her owned [place] [address] [place] in [place], [place]. Wood Heat, no electricity, no transportation, reports severe struggle to meet basic needs. - Education Highest Grade Completed:: Not assessed. 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 - : No 's Spouse: No - Benefits Financial: Medicare, Medicaid - Zoroastrianism Active Shinto Member:: No Will Shinto Members or Food Clerk Visit:: No - Advance Directives for Healthcare If no AD, do you want more information:: No - Community Community Supports/Involvement: None currently. - Interests Outdoor Activities:: Clearing land, fire wood, growing gardens; flower and food. Chores for her horse; [place]. 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 - Present Functional Status Communication:: Appropriate, A&Ox3 Behavior:: Forlorn, depressed. - Medical History PAST MEDICAL HISTORY/PAST SURGICAL HISTORY:: Hypertension, TBI, appendectomy, previous section x2 Past Psychiatric Treatment:: None known. - Admission Data Reason for Swing Bed Admission:: Recent accident effecting current level of func tioning requring OT support. Stability complicated by past trauma, TBI and instability in relationships. Unsafe living environment-Lisset requires assistance in stabilization and planning for community based interventions. Discharge Plan:: LARSIA, COA: Case Management support and attaching to community based services. Lisset will have Psychiatric Consult with Dr. Mosher. Plan will be to increase service supports and develop safety plan for discharge including exploring different residential/living options. Assessment: Appropriate for SWB2 due to complex medical/social situation and home setting. Flight Control Manager: Racheal Michel Date Assessment was completed:: 07/21/18
--- NOTE | 2018-07-21 14:05 | CM.SWINGPC ---
Swingbed Plan of Care Plan of care: SWING BED PROGRAM ACTIVITIES/DISCHARGE PLAN OF CARE ACTIVITIES PLAN Date: 07/21/18 Identified Need: Community based service supports with specific attention to barriers. Intervention/Plan: LARISA construction ironworker meeting scheduled 07/24/18, COA, CHT meeting, possible presentation of patient to community partners Initials: [facility] DISCHARGE PLAN Date:07/21/18 Identified Need: Medication recommendations for management of emotional response. Intervention/Plan: Psychiatric Evaluation Initials: J LUIS
--- NOTE | 2018-07-21 14:11 | CMSCP_ITS ---
Swingbed Plan of Care Plan of care: SWING BED PROGRAM ACTIVITIES/DISCHARGE PLAN OF CARE ACTIVITIES PLAN Date: 07/21/18 Identified Need: Community based service supports with specific attention to barriers. Intervention/Plan: LARISA office worker meeting scheduled 07/24/18, COA, CHT meeting, possible presentation of patient to community partners Initials: [facility] DISCHARGE PLAN Date:07/21/18 Identified Need: Medication recommendations for management of emotional response. Intervention/Plan: Psychiatric Evaluation Initials: J LUIS
[2018-07-21 15:41] VITALS: BP 104/59; PULSE 90; RESP 20; TEMP 36.9; O2SAT 94
--- NOTE | 2018-07-21 16:00 | W.PM.HP.N ---
Date of service: 07/21/18 Time of Service: 16:00 Assessment and Plan (1) Tenosynovitis of finger and hand: Current visit: Yes Status: Acute Improving. S/p I&D on 07/[address] Cutler, with wound cultures positive for Group A Strep. Blood cultures negative. CRP trending down. She was initially treated with Vancomycin and Zosyn, transitioned to Ancef. After negative MARINA, she transitioned to oral penicillin and will require a full 14 day course of antibiotics, currently on day #8. Dr. Omayra templetonues to follow, he plans to remove sutures on 07/24/18. Continue current treatment. (2) DVT prophylaxis: Current visit: Yes Status: Acute Subcutaneous Lovenox. (3) Discharge planning issues: Current visit: Yes Status: Acute She is a FULL CODE. She will remain on swing bed 2 status while care management works on a safe disposition. This case was discussed with Dr. Perez who is in agreement. History of Present Illness Chief Complaint: Right hand pain Narrative: Lisset Abel is a 57 year old female with a prior history of HTN and TBI, admitted from [facility] Emergency Deparment on 07/13 with a diagnosis of cellulitis of the hand. Ms. Abel presented to the ED with complaints of significant right hand, wrist, and arm pain. She reports that about 3 weeks prior she had noticed a couple of splinters from firewood in the fingers of her left hand, which she was able to excise. She states she sterilized the blade prior to doing this. Since then she noticed boils appearing on her hands bilaterally, and had been lancing them and applying topical antibiotic ointment. In total, she states she has lanced 7 of these boils. She reported onset of chills and myalgias at home, with extreme fatigue for approximately one week prior to being seen in the ED. Her initial evaluation revealed evidence of significant leukocytosis, and likely cellulitis of the right hand. She underwent an I&D by Dr. Cutler ([facility]) of the right thumb, flexor tendor, and surrounding soft tissue on 07/14, with noted necrosis of the area without significant purulence. Her wound culture is now growing Group A Strep, with Blood cultures that have remained negative. She was initially treated with vancomycin and Zosyn, she transitioned to Ancef based on culture results. She had a TTE which made note of a potential mass that may be on the basis of a calcified chordae on the mitral valve vs. potential vegetation. She went on to have a MARINA which did not show vegetation. At that point, she transition to oral penicillin. She will need to complete a 14-day course of penicillin, she is currently on day #8. She was initially monitored on the CIWA protocol, she did not score for alcohol withdrawal. She was initially placed on standing Serax 3 times daily, this was decreased to just at bedtime and is now discontinued altogether. Lisset lives in a trailer with no running water, no electricity, and uses a wood stove for heat. It has been determined that it is an unsafe living situation for her to go back to, especially in the winter and with her right hand in its current condition. Of note, she recently was boiling 5 gallons of water for a bath and accidentally spilled it on herself, sustaining second and third-degree rudd which were successfully treated at home. The rudd along her left side and left leg are completely healed without signs of infection. Lisset will transition to swing bed level 2 while her management helps to assist her in finding an alternative living situation that is safe. She is followed by orthopedics, Dr. Cutler saw her today and notes improvement in her swelling of her right hand. He does note that her right thumb continues to have some swelling. He plans to remove her sutures on 07/24/2018. Her leukocytosis has resolved, her CRP is trending down very nicely. We will continue to trend her CRP on swing bed status. She transitions to swing bed status today. Review of Systems Review of Systems She continues to report some discomfort in her right hand, she reports the pain is improving. She denies any other concerns, no fever, chills, shortness of breath, coughing, wheezing, chest pain/pressure, palpitations, she is eating and drinking and tolerating her diet, no vomiting, diarrhea, nausea, constipation. She denies any lower extremity edema. Her only other concern is going back to her living situation, she is very fearful of returning to her home, she is aware that care management will continue to work with her on a safe disposition. [facility] Medical History Hypertension (Chronic) TBI (traumatic brain injury) (Chronic) Surgical History Hx of appendectomy (Chronic) Previous section (Chronic) Family History Brother Stroke Mother Diabetes Lung cancer Father Hypertension Social History Smoking and Tabacco status: Never alcohol intake: current alcohol intake frequency: 0-2 drinks per day Alcohol type: beer and wine details: never had withdrawal or seizures substance use type: marijuana Meds Home Medications Medication Instructions Recorded Confirmed Type venlafaxine 150 mg PO BID 11/06/17 07/21/18 History amlodipine 10 mg PO DAILY 07/13/18 07/21/18 History atenolol 100 mg PO DAILY 07/13/18 07/21/18 History ergocalciferol (vitamin D2) 1.25 mg PO QWEEK 07/13/18 07/21/18 History [Vitamin D2] losartan 100 mg PO DAILY 07/13/18 07/21/18 History Allergies Allergy/AdvReac Type Severity Reaction Status Date / Time No Known Allergies Allergy Unverified 11/06/17 10:47 Exam Narrative Exam Narrative: General: Patient appears comfortable, sitting up in bed with RUE elevated, in NAD Neck: Supple, no JVD. CV: Regular, nontachycardic, S1S2, No rubs or gallops. 2-3/6 murmur at LLSB appreciated. Pulmonary: Respirations even and unlabored. lung sounds clear to auscultation bilaterally, no rales, wheezing, or rhonchi Abdomen: + Bowel Sounds x4 quadrants, abdomen soft, nontender, nondistended, no masses appreciated. Skin: Right hand with bandage in place, c/d/i, no edema or erythema to fingers on right hand, right thumb with mild edema, capillary refill less than 3 seconds. Left hand with healing wounds. Extremities: well perfused, no lower extremity edema, pedal pulses palpable. Psych: appropriate mood and affect.
[2018-07-21] MEDS: Penicillin V POTASSIUM 500 MG TAB PO (17:43)
--- NOTE | 2018-07-21 19:15 | NUR.NOTE ---
Nursing Note: Assumed care of patient at 1500 this afternoon, When i went in to assess patient I knocked and introduced myself , she stated don't bother to knock, barge on in , wait your male, you are afraid you might see my T-t. This made me feel uncomfortable, rather than find another person to accompany me Josee Avendaño performed 1800 med pass for me.
[2018-07-21] MEDS: Docusate Sodium 100 MG CAP PO (20:08)
[2018-07-21] MEDS: Venlafaxine 75 MG TAB 150 MG PO (20:08)
[2018-07-22] MEDS: Penicillin V POTASSIUM 500 MG TAB PO ×4 (00:16→18:16)
[2018-07-22] MEDS: traMADol 50 MG TAB PO ×3 (02:56→16:20)
[2018-07-22] MEDS: Acetaminophen 325 MG TAB PO ×2 (06:29→18:16)
[2018-07-22 07:25] VITALS: BP 100/64; PULSE 88; RESP 18; TEMP 36; O2SAT 93
[2018-07-22] MEDS: Omeprazole 20 MG CAPCR PO (08:32)
[2018-07-22] MEDS: Venlafaxine 75 MG TAB 150 MG PO ×2 (08:32→20:56)
[2018-07-22] MEDS: Docusate Sodium 100 MG CAP PO ×2 (08:32→20:57)
[2018-07-22] MEDS: Atenolol 50 MG TAB PO (08:33)
[2018-07-22 16:11] VITALS: BP 124/63; PULSE 86; RESP 16; TEMP 36.8; O2SAT 96
[2018-07-22] MEDS: Enoxaparin 40 MG/0.4 ML SYR SC (16:16)
[2018-07-23] VITALS (8 sets, daily range): BP systolic 131–173; BP diastolic 92–114; PULSE 90–117; RESP 16–20; TEMP 36.4–37.4; O2SAT 94–100
[2018-07-23] MEDS: Penicillin V POTASSIUM 500 MG TAB PO ×3 (00:34→11:53)
[2018-07-23] MEDS: traMADol 50 MG TAB PO ×3 (00:34→23:49)
[2018-07-23] MEDS: Atenolol 50 MG TAB PO (09:12)
[2018-07-23] MEDS: Venlafaxine 75 MG TAB 150 MG PO ×2 (09:12→20:10)
[2018-07-23] MEDS: Docusate Sodium 100 MG CAP PO ×2 (09:12→20:10)
[2018-07-23] MEDS: Acetaminophen 325 MG TAB PO ×4 (09:13→23:49)
[2018-07-23] MEDS: Omeprazole 20 MG CAPCR PO (09:13)
[2018-07-23] MEDS: Ondansetron 4 MG/2 ML VIAL IVP (11:01)
[2018-07-23] MEDS: Normal Saline Flush 10 ML SYR ×2 (11:02→14:34)
[2018-07-23 11:16] LABS: Abs Immature Grans 0.11 k/cumm (0.0-0.09); Absolute Basophil Count 0.06 k/cumm (0.0-0.2); Absolute Eosinophil Count 0.22 k/cumm (0.0-0.7); Absolute Lymphocyte Count 1.44 k/cumm (1.2-3.4); Absolute Monocyte Count 0.86 k/cumm (0.11-0.7); Basophils % 0.5; HCT 38.5 % (36.0-46.0); HGB 12.7 g/dL (12.0-15.5); Mean Corpuscular Hemoglobin 32.7 pg (27.0-33.0); Mean Corpuscular Volume 99.2 fL (80-95); Mean Platelet Volume 8.8 fL (8.0-11.0); Monocytes % 7.8; Neutrophils % 75.7; Platelet Count 396 x1000/uL (130-400); RBC 3.88 m/cumm (4.00-5.20); RBC Distribution Width 12.8 % (11.7-14.6); White Blood Cell Count 11.04 k/cumm (4.4-10.8)
[2018-07-23 11:19] LABS: Absolute Neutrophil Count 8.36 k/cumm (1.2-6.7)
[2018-07-23 11:24] LABS: Anion Gap 9.5 mmol/L (3-11); BUN 12 mg/dL (7-18); CO2 29.5 mmol/L (21.0-32.0); CREATININE 0.86 mg/dL (0.55-1.02); Calcium 9.5 mg/dL (8.5-10.1); Chloride 101 mmol/L (98-107); Glucose 92 mg/dL (70-100); Magnesium 1.6 mg/dL (1.8-2.4); Potassium 4.4 mmol/L (3.5-5.1); Sodium 140 mmol/L (136-145)
[2018-07-23] MEDS: Mylanta Suspension 30 ML CUP PO (13:49)
[2018-07-23] MEDS: Lidocaine 2% Viscous 15 ML CUP PO (13:50)
[2018-07-23 14:17] LABS: Anion Gap 10.1 mmol/L (3-11); BUN 12 mg/dL (7-18); CO2 27.9 mmol/L (21.0-32.0); CREATININE 0.84 mg/dL (0.55-1.02); Chloride 100 mmol/L (98-107); Glucose 104 mg/dL (70-100); Potassium 4.8 mmol/L (3.5-5.1); Sodium 138 mmol/L (136-145)
[2018-07-23 14:18] LABS: Troponin I < 0.02 ng/mL (0.00-0.06)
[2018-07-23] MEDS: Pantoprazole 40 MG VIAL IVP (14:33)
--- NOTE | 2018-07-23 15:48 | W.PM.PROGNOT ---
Date of Service Date of service: 07/23/18 Time of Service: 15:50 Assessment and Plan (1) Atypical chest pain: Current visit: Yes Status: Acute My impression is that this is due to esophageal spasm (given nausea/vomiting), which nitroglycerin would have helped. I do not see any evidence of ischemia on EKG and patient's symptoms seem to correspond more with GI etiology. Just in case, we will recheck her troponin in am. For now, patient was placed on a PPI, GI cocktail Rx'ed; antiemetics rx'ed. N/v is possibly due to penicillin VK. (2) Tenosynovitis of finger and hand: Current visit: No Status: Acute Antibiotics are being changed to ceftin as it is possible that patient is not tolerating Pen VK. (3) Hypomagnesemia: Current visit: No Status: Acute Replete (4) Leucocytosis: Current visit: No Status: Acute Likely due to ongoing cellulitis of the hand. CRP is being repleted (5) Nausea & vomiting: Current visit: Yes Status: Acute As above Subjective Interval history since last seen: Ms Carmichael has been having diaphoresis, nausea, and vomiting today. She also reports dull chest pain substernally going up to her throat, but it felt different than reflux. It got better with nitroglycerin. She denies dizziness, shortness of breath, abdominal pain. She did have tremors today. Exam Narrative Exam Narrative: General: tremulous/anxious female, vomiting in front of me HEENT: EOMI, MMM Heart: RRR, +FELISA Lungs: very quiet rhonchi B GI: abdomen is soft, nontender, nondistended Extremities: no e/c/c BLE's; R wrist dressed - c/d/i Objective Objective Clinical Data: Abnormal lab results 07/23/18 07/23/18 07/23/18 Range/Units 11:10 11:10 13:58 WBC 11.04 H (4.4-10.8) k/cumm RBC 3.88 L (4.00-5.20) m/cumm MCV 99.2 H (80-95) fL Absolute Neutrophils 8.36 H (1.2-6.7) k/cumm Absolute Monocytes 0.86 H (0.11-0.7) k/cumm Glucose 104 H (70-100) mg/dL Magnesium 1.6 L (1.8-2.4) mg/dL Vital Signs Temperature 37.1 C 07/23/18 13:27 Temperature Source Tympanic 07/23/18 13:27 Pulse 114 H 07/23/18 13:27 Pulse Rhythm Regular 07/23/18 02:32 Respiratory Rate 16 07/23/18 11:22 Respiratory Effort 07/23/18 02:32 Respiratory Depth Normal 07/23/18 02:32 Respiratory Pattern Normal 07/23/18 02:32 Blood Pressure 160/96 H 07/23/18 13:27 Pulse Oximetry 98 07/23/18 13:27 Oxygen Delivery Method Room Air 07/23/18 13:27 Oxygen Flow Rate 0 07/23/18 13:27 Pain Level 4 07/23/18 14:33 Comment 07/23/18 13:27 Intake & Output 07/22/18 07/23/18 07/23/18 23:59 11:59 23:59 Intake Total 480 / 880 Output Total 650 / 1225 575 / 1225 Balance 480 / 430 -650 / -1225 -575 / -1225 Intake: Oral 480 / 880 Output: Urine 450 / 800 350 / 800 Emesis 200 / 425 225 / 425 Other: Urine Color Yellow Yellow Urine Appearance Clear Clear Clear Urine Odor None Comment Void x1 in the toilet. Stool Size Moderate Stool Characteristics Soft Formed Brown Emesis Description Bile Bile Mucous Mucous Voiding Methods Toilet Toilet Laboratory Results WBC 11.04 k/cumm (4.4-10.8) H 07/23/18 11:10 RBC 3.88 m/cumm (4.00-5.20) L 07/23/18 11:10 Hgb 12.7 g/dL (12.0-15.5) 07/23/18 11:10 Hct 38.5 % (36.0-46.0) 07/23/18 11:10 MCV 99.2 fL (80-95) H 07/23/18 11:10 MCH 32.7 pg (27.0-33.0) 07/23/18 11:10 MCHC 33.0 g/dL (32.0-36.0) 07/23/18 11:10 RDW 12.8 % (11.7-14.6) 07/23/18 11:10 Plt Count 396 x1000/uL (130-400) 07/23/18 11:10 MPV 8.8 fL (8.0-11.0) 07/23/18 11:10 Immature Gran % 1.0 07/23/18 11:10 Neutrophils % 75.7 07/23/18 11:10 Lymphocytes % 13.0 07/23/18 11:10 Monocytes % 7.8 07/23/18 11:10 Eosinophils % 2.0 07/23/18 11:10 Basophils % 0.5 07/23/18 11:10 Absolute Neutrophils 8.36 k/cumm (1.2-6.7) H 07/23/18 11:10 Absolute Lymphocytes 1.44 k/cumm (1.2-3.4) 07/23/18 11:10 Absolute Monocytes 0.86 k/cumm (0.11-0.7) H 07/23/18 11:10 Absolute Eosinophils 0.22 k/cumm (0.0-0.7) 07/23/18 11:10 Absolute Basophils 0.06 k/cumm (0.0-0.2) 07/23/18 11:10 Sodium 138 mmol/L (136-145) 07/23/18 13:58 Potassium 4.8 mmol/L (3.5-5.1) 07/23/18 13:58 Chloride 100 mmol/L (98-107) 07/23/18 13:58 Carbon Dioxide 27.9 mmol/L (21.0-32.0) 07/23/18 13:58 Anion Gap 10.1 mmol/L (3-11) 07/23/18 13:58 BUN 12 mg/dL (7-18) 07/23/18 13:58 Creatinine 0.84 mg/dL (0.55-1.02) 07/23/18 13:58 Estimated GFR/1.73 m2 >= 60.00 (mL/min/1.73m2) 07/23/18 13:58 Glucose 104 mg/dL (70-100) H 07/23/18 13:58 Calcium 10.0 mg/dL (8.5-10.1) 07/23/18 13:58 Magnesium 1.6 mg/dL (1.8-2.4) L 07/23/18 11:10 Troponin I < 0.02 ng/mL (0.00-0.06) 07/23/18 13:58 EKG: Sinus tachycardia, HR 114, peaked T weaves, no acute ischemia
[2018-07-23] MEDS: Magnesium Chloride 64 MG TABCR PO (20:10)
[2018-07-23] MEDS: Cefuroxime 500 MG TAB PO (20:10)
[2018-07-24] MEDS: traMADol 50 MG TAB PO ×2 (06:35→23:21)
[2018-07-24] MEDS: Acetaminophen 325 MG TAB PO ×2 (06:35→23:21)
[2018-07-24 07:26] LABS: C-Reactive Protein 1.18 mg/dL (0.0-0.3)
[2018-07-24 07:35] VITALS: BP 151/108; PULSE 103; RESP 20; TEMP 37.1; O2SAT 98
[2018-07-24] MEDS: Pantoprazole 40 MG VIAL IVP (10:02)
[2018-07-24] MEDS: Cefuroxime 500 MG TAB PO ×2 (10:03→20:12)
[2018-07-24] MEDS: Atenolol 50 MG TAB PO (10:03)
[2018-07-24] MEDS: Venlafaxine 75 MG TAB 150 MG PO ×2 (10:03→20:12)
[2018-07-24] MEDS: Magnesium Chloride 64 MG TABCR PO ×2 (10:03→20:11)
[2018-07-24] MEDS: Docusate Sodium 100 MG CAP PO ×2 (10:03→20:12)
--- NOTE | 2018-07-24 12:24 | PHARADMIT ---
Addendum entered by Ernst Ko III 07/26/18 12:42: Patient is ready for discharge, save some wound care, but is homeless. Care managers actively searching for a solution. VS-OK No labs BM yesterday. Original Note: Addendum entered by Ernst Ko III 07/25/18 10:36: Pharmacy Note Subjective Sutures have been removed, patient working with OT. OT notes patient is still unable to perform ADLs. Objective VS-OK No Labs Assessment PO Ceftin continues Plan CM working on housing issue, she has nowhere to live presently. Original Note: Addendum entered by Anastacia De La Cruz 07/24/18 12:29: Pharmacy Note Subjective Objective BP-151/108 HR-103 no labs Assessment penicillin changed to cefuroxime yesterday do to possible intolerance to penicillin (n/v?) Plan housing applications are being worked on per CM Original Note: pt changed to swingbed status the following information is from inpatient account prior to swinging: YUSEF AGEE Female : 1960 MedRec# [id number] 07/15/18 09:30 - Pharmacy Review by Anastacia De La Cruz Acct Num: [id number] : 1960 Patient Age: 57 Addendum entered by Ernst Ko III 07/21/18 16:11: Patient to go to SWING BED later today. Original Note: Addendum entered by Ernst Ko III 07/20/18 16:07: Pharmacy Note Subjective Cotton Tier noted no Endocarditis on MARINA. Objective BP-165/98 HR-93 K+3.6 WBC-11.02 H&H,Plts-OK Wgt-75.3 kg Assessment No med changes Plan May transfer to Swing Bed until a safe discharge paln can be determined. Original Note: Addendum entered by Ernst Ko III 07/19/18 13:57: Pharmacy Note Subjective Patient NPO tonight for a MARINA tomorrow, potential mass on mitral valve vs vegetation. Currently on Day#2 of Ancef 2gm following 4 days of Vanco/Zosyn. No growth from blood cullture x 120hrs. CIWA protocol has been dc'd. Right Hand continues to improve on Ancef per Objective VS-OK Pain: 8/10, K+4.5 H&H,Plts,WBC,SCr-OK Assessment CIWA vitamins continued Plan Patients' living situation may be an issue, CM working on the problem. Watch for MARINA results Original Note: Admission Pharmacy Clinical Review tenosynovitis R hand/cellulitis B hands Code Status Full Code Current Weight 75.7 kg Renally Cleared and Narrow Therapeutic Index Meds Crcl ~ 77.32 mL/min current meds okay QTc Value / Action Taken n/a BP Control, Fever BP 132/87 afebrile Electrolytes reviewed Na 135 DVT Prophylaxis enoxaparin is on hold until tomorrow, pt went to OR Opiate Usage / Scheduled Bowel Regimen Ordered PRN/ cherie docusate Plt/SCr for Heparin / Enoxaparin plt 326 SCr 0.70 INR for Warfarin n/a H/H stable, WBC/Bands h/h 10.5/32.2 wbc 10.21(much improved) Antibiotic appropriateness vanco and zosyn (day 3 starts this afternoon) Cultures and Sensitivities blood cultures- no growth @24hours sputum culture pending, gram stain had rare gram+ cocci in pairs Surgical ABX d/c within 24 hr n/a DM control / Insulin Dosing BG 93 none Heart Failure (Check EF%) (CAILIN's, B-Block, Diuretics) home meds (not ordered right now) IV to PO Switch n/a Home Meds Reviewed yes Home Meds Not Ordered amlodipine, atenolol, cephalexin(has other abx ordered), ergocalciferol, losartan Comments
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
--- NOTE | 2018-07-24 15:36 | CHAPLAIN ---
Lisset was sitting up, using the laptop when I visited. She said she was looking for a realtor as she believes she will sell her place and property in [facility] because it is becoming too difficult to live there without running water or electricity. Lisset meet with Sagrario Wilkins from [employer] and Lisset said she is being scheduled to meet with Dr. Mosher and someone from [place] [facility]. Lisset said she has decided she needs to now not operate out of fear, but begin to look forward to the changes she needs to make. She would like to return to [place] if possible, where she has some friends. She has lived alone on her property, without running water or electricity for seven years now, and she said it was never her intent to live here alone or to be without running water and electricity, but she was unable to build her cabin alone and her left shortly after they moved there.
[2018-07-25 05:55] VITALS: TEMP 36.3
[2018-07-25 07:48] VITALS: BP 117/83; PULSE 98; RESP 18; TEMP 36.7; O2SAT 93
[2018-07-25] MEDS: Docusate Sodium 100 MG CAP PO ×2 (09:10→20:03)
[2018-07-25] MEDS: Atenolol 50 MG TAB PO (09:10)
[2018-07-25] MEDS: Magnesium Chloride 64 MG TABCR PO ×2 (09:10→20:02)
[2018-07-25] MEDS: traMADol 50 MG TAB PO ×3 (09:10→21:18)
[2018-07-25] MEDS: Pantoprazole 40 MG TABCR PO (09:10)
[2018-07-25] MEDS: Acetaminophen 325 MG TAB PO ×3 (09:11→21:18)
[2018-07-25] MEDS: Venlafaxine 75 MG TAB 150 MG PO ×2 (09:11→20:02)
[2018-07-25] MEDS: Cefuroxime 500 MG TAB PO ×2 (09:20→20:02)
--- NOTE | 2018-07-25 10:06 | OT.INTREAT ---
Date of service: 07/25/18 Time of Service: 09:30 Occupational Therapy Notes Occupational Therapy Inpatient Treatment Note Date: 07/25/18 SUBJECTIVE: Pt was sitting in her bed working on her computer when OT arrived. She reports that she did not sleep well last night and that she had to change her sheets and clothes multiple times throughout the night. She was agreeable to OT session. OBJECTIVE: PAIN:no c/o pain FUNCTIONAL MOBILITY Rolling L/R: (I) Supine-sit: (I) Sit-supine: (I) Sit-stand: (I) Stand-sit: (I) Bed-Chair: (I) Chair-bed: (I) GROOMING: Standing at sink with decreased functional grasp in (R) hand OT provided pt with built up foam handle for toothbrush and pt was able to perform teeth brushing with (R) hand (I). She required min vc for grasp but was able to demonstrate this with increased (I). EATING: With use of built up foam handle pt was able to perform eating routine (I). ASSESSMENT: Pt is able to perform grooming and eating routine with increased (I) with built up foam handle. Pt would benefit from continued skilled OT intervention for initiation of (B) UE strengthening and functional activities for (R) hand. PLAN: Initiation of UE strengthening program TREATMENT CODES/TIME: [id number], 12 minutes (09:30) Annette Preston OTR/[facility]
--- NOTE | 2018-07-25 10:14 | OTTR_ITS ---
Date of service: 07/25/18 Time of Service: 09:30 Occupational Therapy Notes Occupational Therapy Inpatient Treatment Note Date: 07/25/18 SUBJECTIVE: Pt was sitting in her bed working on her computer when OT arrived. She reports that she did not sleep well last night and that she had to change her sheets and clothes multiple times throughout the night. She was agreeable to OT session. OBJECTIVE: PAIN:no c/o pain FUNCTIONAL MOBILITY Rolling L/R: (I) Supine-sit: (I) Sit-supine: (I) Sit-stand: (I) Stand-sit: (I) Bed-Chair: (I) Chair-bed: (I) GROOMING: Standing at sink with decreased functional grasp in (R) hand OT provided pt with built up foam handle for toothbrush and pt was able to perform teeth brushing with (R) hand (I). She required min vc for grasp but was able to demonstrate this with increased (I). EATING: With use of built up foam handle pt was able to perform eating routine (I). ASSESSMENT: Pt is able to perform grooming and eating routine with increased (I) with built up foam handle. Pt would benefit from continued skilled OT intervention for initiation of (B) UE strengthening and functional activities for (R) hand. PLAN: Initiation of UE strengthening program TREATMENT CODES/TIME: [id number], 12 minutes (09:30) Annette Preston OTR/[facility]
--- NOTE | 2018-07-25 11:57 | PDOC.CMPRO ---
Care Management Progress Note BERNARD faxed referral and discussed Lisset's case with Srinivas of [facility] to inquire if the facility could bill Lisset's insurance for services as recommended. Srinivas agreed to follow up with this tag writer tomorrow with a determination. Lisset reported anticipating a response from Sagrario from [employer] She reported leaving a message for Sagrario today and stated their meeting went well yesterday and she was hopeful [employer] could help connect her with resources and discuss other possible dispositions. [facility] reported Lisset's care through them has been primarily medical and she has not received any mental health or behavioral health services through her primary care provider; Laci Aquino MD. BERNARD notified Dr. Mosher who requested this information prior to consult.
--- NOTE | 2018-07-25 12:04 | CMPROGNOTE_ITS ---
Care Management Progress Note BERNARD faxed referral and discussed Lisset's case with Srinivas of [facility] to inquire if the facility could bill Lisset's insurance for services as recommended. Srinivas agreed to follow up with this health underwriter tomorrow with a determination. Lisset reported anticipating a response from Sagrario from [employer]. She reported leaving a message for Sagrario today and stated their meeting went well yesterday and she was hopeful [employer] could help connect her with resources and discuss other possible dispositions. [facility] reported Lisset's care through them has been primarily medical and she has not received any mental health or behavioral health services through her primary care provider; Laci Aquino MD. BERNARD notified Dr. Mosher who requested this information prior to consult.
[2018-07-25 20:18] VITALS: BP 134/100; PULSE 74; RESP 18; TEMP 36.5; O2SAT 93
--- NOTE | 2018-07-26 01:23 | NUR.NOTE ---
Nursing Note: Pt requested pain med , tylenol and tramadol given at 5 hrs. for pain rated 5 on her right hand. No further voiced complaints after. Pt able to moved affected hand in slow motion, which she reported of a big improvement. Will continue to observe.
[2018-07-26 07:35] VITALS: BP 116/83; PULSE 82; RESP 18; TEMP 37; O2SAT 99
[2018-07-26] MEDS: Acetaminophen 325 MG TAB PO ×2 (08:01→20:20)
[2018-07-26] MEDS: traMADol 50 MG TAB PO ×2 (08:01→20:20)
[2018-07-26 08:02] LABS: C-Reactive Protein 1.44 mg/dL (0.0-0.3)
[2018-07-26] MEDS: Magnesium Chloride 64 MG TABCR PO ×2 (08:02→20:19)
[2018-07-26] MEDS: Docusate Sodium 100 MG CAP PO ×2 (08:02→20:20)
[2018-07-26] MEDS: Venlafaxine 75 MG TAB 150 MG PO ×2 (08:02→20:20)
[2018-07-26] MEDS: Pantoprazole 40 MG TABCR PO (08:02)
[2018-07-26] MEDS: Cefuroxime 500 MG TAB PO ×2 (08:02→20:19)
[2018-07-26] MEDS: Atenolol 50 MG TAB PO (08:02)
--- NOTE | 2018-07-26 12:15 | OT.INTREAT ---
Date of service: 07/26/18 Time of Service: 11:50 Occupational Therapy Notes Occupational Therapy Inpatient Treatment Note Date: 07/26/18 SUBJECTIVE: Pt was walking around in room when OT arrived. She reports that she would like to leave the hospital and either go home or to a facility where she can receive outpatient care for her hand. OBJECTIVE: PAIN:no c/o pain THEREX: Pt performed the following therapeutic exercise regimen 10x each for (B) UE including: [place] foam cube squeezes bicep curls with 3# bicep curls with yellow thera band ER with scap retraction and yello wband standing bicep curls rows with yellow band extensions with yellow band ASSESSMENT/PLAN: Pt is functionally demonstrating (I) in ADL routines. She has decreased (R) thumb ROM which is limiting her functional grasp and release for (R) hand. OT educated pt on scar tissue mobilization and light edema reduction techniques for her (R) thumb. Due to weakness in pts (R) hand, OT does not feel that pt would be able to return home (I) and perform all functional activities in her home in a safe manner. Pt if she returns home would benefit from OT services for home assessment and outpatient referral for either OT/PT for (R) hand/thumb strengthening. Pt would benefit from strengthening to increases pts (I) in ADL/IADL routines. TREATMENT CODES/TIME: [id number], 12 minutes (11:50) Annette Preston OTR/[facility]
--- NOTE | 2018-07-26 12:25 | OTTR_ITS ---
Date of service: 07/26/18 Time of Service: 11:50 Occupational Therapy Notes Occupational Therapy Inpatient Treatment Note Date: 07/26/18 SUBJECTIVE: Pt was walking around in room when OT arrived. She reports that she would like to leave the hospital and either go home or to a facility where she can receive outpatient care for her hand. OBJECTIVE: PAIN:no c/o pain THEREX: Pt performed the following therapeutic exercise regimen 10x each for (B) UE including: [place] foam cube squeezes bicep curls with 3# bicep curls with yellow thera band ER with scap retraction and yello wband standing bicep curls rows with yellow band extensions with yellow band ASSESSMENT/PLAN: Pt is functionally demonstrating (I) in ADL routines. She has decreased (R) thumb ROM which is limiting her functional grasp and release for (R) hand. OT educated pt on scar tissue mobilization and light edema reduction techniques for her (R) thumb. Due to weakness in pts (R) hand, OT does not feel that pt would be able to return home (I) and perform all functional activities in her home in a safe manner. Pt if she returns home would benefit from OT services for home assessment and outpatient referral for either OT/PT for (R) hand/thumb strengthening. Pt would benefit from strengthening to increases pts (I) in ADL/IADL routines. TREATMENT CODES/TIME: [id number], 12 minutes (11:50) Annette Preston OTR/[facility]
--- NOTE | 2018-07-26 16:23 | PDOC.CMPRO ---
Care Management Progress Note CM provided official bed offer from [facility] to Lisset who thankfully accepted. She will transfer to the rehab for continued recovery tomorrow, 07/27/18 via RCT: tentatively planned for 1100. BERNARD spoke with Srinivas of Admissions who reported Lisset will be working with their social workers; Traci and Felicity. CM agreed to provide the following service planning for coordination of discharge considerations when Lisset returns home. Sagrario reported feeling Lisset would not be an appropriate fit for [facility] due to six month commitment. She did identify needs and appropriate services for discharge including MARCO A; listed below. -Options Counselor: COA: faxed referral [phone] -RCT: Under COA: twice monthly transportation for groceries, as well as medical appointments: needs coordination-will complete tomorrow morning when coordinating transport to H&R -MOW: VCIL: Packet provided-requires follow up for coordination upon discharge -[facility], PCP: [place] [facility] Coordination: Lisset (Currently at [facility] with Dr. Laci Iverson) completed release form-faxed to [place] and [facility] to provide new patient paperwork -Mariel In Action: Sagrario of [place] willing to outreach for wood stacking and shoveling when discharge plan in place -[facility]: Short term rehabilitation prior to returning home: 07/27/18 -Community Connections: Sagrario: [phone] -[facility] Care Management: Racheal: [phone]
--- NOTE | 2018-07-26 16:39 | CMPROGNOTE_ITS ---
Care Management Progress Note CM provided official bed offer from [facility] to Lisset who thankfully accepted. She will transfer to the rehab for continued recovery tomorrow, 07/27/18 via RCT: tentatively planned for 1100. BERNARD spoke with Srinivas of Admissions who reported Lisset will be working with their social workers; Traci and Felicity. CM agreed to provide the following service planning for coordination of discharge considerations when Lisset returns home. Sagrario reported feeling Lisset would not be an appropriate fit for [facility] due to six month commitment. She did identify needs and appropriate services for discharge including MARCO A; listed below. -Options Counselor: COA: faxed referral [phone] -RCT: Under COA: twice monthly transportation for groceries, as well as medical appointments: needs coordination-will complete tomorrow morning when coordinating transport to H&R -MOW: VCIL: Packet provided-requires follow up for coordination upon discharge -[facility], PCP: [place] [facility] Coordination: Lisset (Currently at [facility] with Dr. Laci Iverson) completed release form-faxed to [place] and [facility] to provide new patient paperwork -Mariel In Action: Sagrario of [place] willing to outreach for wood stacking and shoveling when discharge plan in place -[facility]: Short term rehabilitation prior to returning home: 07/27/18 -Community Connections: Sagrario: [phone] -[facility] Care Management: Racheal: [phone]
[2018-07-27 07:40] VITALS: BP 159/88; PULSE 87; RESP 20; TEMP 36.7; O2SAT 99
[2018-07-27] MEDS: Pantoprazole 40 MG TABCR PO (09:04)
[2018-07-27] MEDS: Venlafaxine 75 MG TAB 150 MG PO (09:04)
[2018-07-27] MEDS: Atenolol 50 MG TAB PO (09:04)
[2018-07-27] MEDS: Docusate Sodium 100 MG CAP PO (09:04)
[2018-07-27] MEDS: Magnesium Chloride 64 MG TABCR PO (09:05)
[2018-07-27] MEDS: Cefuroxime 500 MG TAB PO (09:05)
--- NOTE | 2018-07-27 09:25 | PDOC.CMDIS ---
LACE Index Scoring Tool - Questions: Length of Stay (in days): 14 or more Acuity (Admit via E.D.?): Yes E.D. Visits: 2 - Answers: Total Score: 12 Risk of Readmission: High Risk Care Management Discharge Reason for Hospitalization: Tenosynovitis of Right hand, Swing bed for recovery and stabilization. Discharge Plan: Lisset will transfer to [facility] for continued short term rehabiliation prior to returning home. CM relayed discharge planning needs, and coordinated increased service supports to begin now, and continue when Lisset returns home. CM provided MOW paperwork as well as Financial Asst packet. Options Counselor: COA: referral faxed. RCT: Under COA: twice monthly transportation for groceries, as well as medical appointments: need to coordinate. MOW: VCIL: Packet provided. [facility], PCP: [place] [facility] Coordination: Lisset (Currently at [facility] with Dr. Laci Iverson) completed release form to provide new patient paperwork and faxed to [place] and [facility]. Mariel In Action: Sagrario of [place]AR[place] willing to outreach for wood stacking and shoveling when discharge plan in place; notified Sagrario via email of discharge plan. Patient/Family Education Needs: Review of community based supports, discharge planning considerations, discussion around self care needs upon returning home. Services Needed at Discharge: Home Delivered Meals, Occupational Therapy, [facility] Facility ([facility] ), Transportation (RCT coordinated by this entry writer. )
--- NOTE | 2018-07-27 10:08 | CMDISCH_ITS ---
LACE Index Scoring Tool - Questions: Length of Stay (in days): 14 or more Acuity (Admit via E.D.?): Yes E.D. Visits: 2 - Answers: Total Score: 12 Risk of Readmission: High Risk Care Management Discharge Reason for Hospitalization: Tenosynovitis of Right hand, Swing bed for recovery and stabilization. Discharge Plan: Lisset will transfer to [facility] for continued short term rehabiliation prior to returning home. CM relayed discharge planning needs, and coordinated increased service supports to begin now, and continue when Lisset returns home. CM provided MOW paperwork as well as Financial Asst packet. Options Counselor: COA: referral faxed. RCT: Under COA: twice monthly transportation for groceries, as well as medical appointments: need to coordinate. MOW: VCIL: Packet provided. [facility], PCP: [place] [facility] Care Coordination: Lisset (Currently at [facility] with Dr. Laci Iverson) completed release form to provide new patient paperwork and faxed to [place] and [facility]. Mariel In Action: Sagrario of [place] willing to outreach for wood stacking and shoveling when discharge plan in place; notified Sagrario via email of discharge plan. Patient/Family Education Needs: Review of community based supports, discharge planning considerations, discussion around self care needs upon returning home. Services Needed at Discharge: Home Delivered Meals, Occupational Therapy, Assisted Facility ([facility] ), Transportation (RCT coordinated by this keno writer / runner. )
--- NOTE | 2018-07-27 11:22 | W.PM.DS.N ---
Date of service: 07/27/18 Time of Service: 11:23 DS: Diagnosis Discharge Diagnosis (1) Atypical chest pain: Status: Resolved Asessment and Plan: Due to esophagitis, noncardiac, resolved. (2) Tenosynovitis of finger and hand: Status: Acute Asessment and Plan: s/p I&D; wound cx with Group A Strep (3) Hypomagnesemia: Status: Resolved (4) Leucocytosis: Status: Acute (5) Nausea & vomiting: Status: Resolved Asessment and Plan: Self-limited; thought to be due to taking medications on empty stomach and possible intolerance of Penicillin VK. Discharge Plan Disposition Patient Disposition: SNF (LEVEL 1) [facility] Condition: Improving Discharge Details Reason For Visit: TENOSYNOVITIS OF RIGHT HAND Admit Date/Time: 07/21/18 16:34 Admit Provider: Sami Perez Attending Provider: Sami Perez Primary Care Provider: Laci Aquino [facility] Hospital Course: Ms Carmichael is a 58 year old female with PMHx of Hypertension, TBI, alcohol abuse, who was admitted to [facility] on 07/13/18 for tenosynovitis of R hand as well as multiple small abscesses throughout her B hands. She was initially treated with vancomycin and zosyn. She was evaluated by Dr Cutler of orthopedics and taken to the OR on 07/14/18 for I&D of her R hand/thumb. Her blood cultures remained negative, but the intraoperative cultures grew Group A strep. She had a TTE which was suspicious for a vegetation, though her blood cultures were negative. MARINA was obtained in follow up on 07/20/18 and was negative for endocarditis. Her antibiotics were then tailored to Ancef and then transitioned to oral Penicillin VK. She was admitted to [facility] level 2 on 07/21/18 while awaiting a safe disposition plan. Her antibiotics were changed to ceftin on 07/23 after she developed nausea, vomiting, and symptoms of esophagitis. She has not had a recurrence of symptoms since the change of antibiotics and there was no interruption in the antibiotic course. The sutures were removed on 07/24/18, revealing a nicely healing incision on R hand. She should remain on ceftin 500 mg PO BID until her CRP normalizes. We recommend that she have the next CRP checked in 07/31/18. She is being discharged to [facility] rehab for intensive OT. She is medically stable. She will need to follow up with Dr Cutler in 1 week. Home Meds and New Rx's Prescriptions: New acetaminophen [Tylenol] 325 mg Tablet 650 mg PO Q4H PRN PRN (Reason: fever or pain) Qty: 30 RF: 0 tramadol 50 mg Tablet 50 mg PO Q6H PRN PRNQty: 0 RF: 0 pantoprazole 40 mg Tablet,Delayed Release (Dr/Ec) 40 mg PO DAILY@0730 Qty: 0 RF: 0 docusate sodium [Colace] 100 mg Capsule 100 mg PO BID Qty: 60 RF: 0 cefuroxime axetil 500 mg Tablet 500 mg PO BID Qty: 0 RF: 0 magnesium chloride [Mag 64] 64 mg Tablet,Delayed Release (Dr/Ec) 64 mg PO BID Qty: 0 RF: 0 Continued atenolol 100 mg Tablet 100 mg PO DAILY RF: 0 amlodipine 10 mg Tablet 10 mg PO DAILY RF: 0 ergocalciferol (vitamin D2) [Vitamin D2] 50,000 unit Capsule 1.25 mg PO QWEEK RF: 0 venlafaxine 25 MG tablet 150 mg PO BID RF: 0 Discontinued losartan 100 mg Tablet 100 mg PO DAILY RF: 0 Discharge Instructions Instructions: Tenosynovitis (GEN) Additional Instructions: Continue antibiotics until told to stop by Dr Cutler. Follow up with Dr Cutler in 1 week. Labs on 07/31/18 to include CRP, CBC w/ diff, BMP, magnesium. Referrals: Blaine Cutler MD [ [facility] STAFF PHYSICIAN] - Activity:: Activity as Tolerated Equipment/Supplies:: No Equipment Needed Diet:: Low Sodium Discharge Orders Discharge Orders: Discharge Order (Routine); Ordered 07/27/18 Ordered By: Katia Bass Exam Narrative Exam Narrative: General: Middle aged female, very pleasant, sitting comfortably in bed HEENT: EOMI, MMM Heart: RRR, +FELISA Lungs: very quiet rhonchi B GI: abdomen is soft, nontender, nondistended Extremities: no e/c/c BLE's; R wrist without dressing - palmar incision healing nicely, very minimal redness noted; small abscesses on fingers and LLE completely resolved. DS: Data Vitals/I&O Vitals and I&O: Vital Signs Temperature 36.7 C 07/27/18 07:40 Temperature Source Temporal Artery Scan 07/27/18 07:40 Pulse 87 07/27/18 07:40 Pulse Rhythm Regular 07/27/18 09:29 Respiratory Rate 20 07/27/18 07:40 Respiratory Effort 07/27/18 09:29 Respiratory Depth Normal 07/27/18 09:29 Respiratory Pattern Normal 07/27/18 09:29 Blood Pressure 159/88 H 07/27/18 07:40 Pulse Oximetry 99 07/27/18 07:40 Oxygen Delivery Method Room Air 07/27/18 07:40 Oxygen Flow Rate 0 07/27/18 07:40 Pain Level 4 07/27/18 07:40 Comment 07/23/18 13:46 Intake & Output 07/26/18 07/26/18 07/27/18 11:59 23:59 11:59 Intake Total 1280 / 1280 250 / 250 Balance 1280 / 1280 250 / 250 Intake: Oral 1280 / 1280 250 / 250 Other: Urine Appearance Clear Comment Pt voiding independently in toilet. Voiding Methods Toilet MRI R hand 07/14/18: MRI examination of the hand was performed according to the usual protocol. There is marked motion artifact on all pulse sequences. The examination is nondiagnostic. On T 2 fat sat imaging there does appear to be diffuse increased signal in the region of the thenar eminence consistent with inflammatory process. Abscess neither excluded nor ruled in on this very limited examination. TTE 07/14/18: Impressions: No clear evidence of endocarditis, no significant valvular abnormality, murmur likely caused by AV sclerosis. Small mobile mass on MV, likely calcified chordae, cannot r/o vegetation. Summary: 1. Left ventricle: The cavity size was normal. Wall thickness was at the upper limits of normal. Systolic function was normal. The estimated ejection fraction was 60-65%. Wall motion was normal; there were no regional wall motion abnormalities. 2. Ascending aorta: The ascending aorta was at upper normal limits. 3. Mitral valve: There was a possible, small, multilobulated, echodense mobile mass on the atrial aspect of the anterior leaflet, associated with chordal structures. Likely calcified chordae, cannot rule out vegetation. 4. Right ventricle: The cavity size was at the upper limits of normal. Wall thickness was normal. Systolic function was normal. 5. Pulmonary arteries: Pulmonary systolic pressure was mildly increased. PA peak pressure: 38mm Hg (S). MARINA 07/20/18: No evidence of endocarditis. Summary: 1. Left ventricle: Systolic function was normal. The estimated ejection fraction was 60-65%. Wall motion was normal; there were no regional wall motion abnormalities. 2. Right ventricle: The cavity size was normal. Systolic function was normal. [facility] Medical History Hypertension (Chronic) TBI (traumatic brain injury) (Chronic) Surgical History Hx of appendectomy (Chronic) Previous section (Chronic) Family History Brother Stroke Mother Diabetes Lung cancer Father Hypertension Social History Smoking and Tabacco status: Never alcohol intake: current alcohol intake frequency: 0-2 drinks per day Alcohol type: beer and wine details: never had withdrawal or seizures substance use type: marijuana
--- NOTE | 2018-07-27 11:34 | DSE_ITS ---
Date of service: 07/27/18 Time of Service: 11:23 DS: Diagnosis Discharge Diagnosis (1) Atypical chest pain: Status: Resolved Asessment and Plan: Due to esophagitis, noncardiac, resolved. (2) Tenosynovitis of finger and hand: Status: Acute Asessment and Plan: s/p I&D; wound cx with Group A Strep (3) Hypomagnesemia: Status: Resolved (4) Leucocytosis: Status: Acute (5) Nausea & vomiting: Status: Resolved Asessment and Plan: Self-limited; thought to be due to taking medications on empty stomach and possible intolerance of Penicillin VK. Discharge Plan Disposition Patient Disposition: SNF (LEVEL 1) [facility] Condition: Improving Discharge Details Reason For Visit: TENOSYNOVITIS OF RIGHT HAND Admit Date/Time: 07/21/18 16:34 Admit Provider: Sami Perez Attending Provider: Sami Perez Primary Care Provider: Laci Aquino [facility] Course Hospital Course: Ms Carmichael is a 58 year old female with PMHx of Hypertension, TBI, alcohol abuse, who was admitted to [facility] on 07/13/18 for tenosynovitis of R hand as well as multiple small abscesses throughout her B hands. She was initially treated with vancomycin and zosyn. She was evaluated by Dr Cutler of orthopedics and taken to the OR on 07/14/18 for I&D of her R hand/thumb. Her blood cultures remained negative, but the intraoperative cultures grew Group A strep. She had a TTE which was suspicious for a vegetation, though her blood cultures were negative. MARINA was obtained in follow up on 07/20/18 and was negative for endocarditis. Her antibiotics were then tailored to Ancef and then transitioned to oral Penicillin VK. She was admitted to [facility] level 2 on 07/21/18 while awaiting a safe disposition plan. Her antibiotics were changed to ceftin on 07/23 after she developed nausea, vomiting, and symptoms of esophagitis. She has not had a recurrence of symptoms since the change of antibiotics and there was no interruption in the antibiotic course. The sutures were removed on 07/24/18, revealing a nicely healing incision on R hand. She should remain on ceftin 500 mg PO BID until her CRP normalizes. We recommend that she have the next CRP checked in 07/31/18. She is being discharged to [facility] and rehab for intensive OT. She is medically stable. She will need to follow up with Dr Cutler in 1 week. Home Meds and New Rx's Prescriptions: New acetaminophen [Tylenol] 325 mg Tablet 650 mg PO Q4H PRN PRN (Reason: fever or pain) Qty: 30 RF: 0 tramadol 50 mg Tablet 50 mg PO Q6H PRN PRNQty: 0 RF: 0 pantoprazole 40 mg Tablet,Delayed Release (Dr/Ec) 40 mg PO DAILY@0730 Qty: 0 RF: 0 docusate sodium [Colace] 100 mg Capsule 100 mg PO BID Qty: 60 RF: 0 cefuroxime axetil 500 mg Tablet 500 mg PO BID Qty: 0 RF: 0 magnesium chloride [Mag 64] 64 mg Tablet,Delayed Release (Dr/Ec) 64 mg PO BID Qty: 0 RF: 0 Continued atenolol 100 mg Tablet 100 mg PO DAILY RF: 0 amlodipine 10 mg Tablet 10 mg PO DAILY RF: 0 ergocalciferol (vitamin D2) [Vitamin D2] 50,000 unit Capsule 1.25 mg PO QWEEK RF: 0 venlafaxine 25 MG tablet 150 mg PO BID RF: 0 Discontinued losartan 100 mg Tablet 100 mg PO DAILY RF: 0 Discharge Instructions Instructions: Tenosynovitis (GEN) Additional Instructions: Continue antibiotics until told to stop by Dr Cutler. Follow up with Dr Cutler in 1 week. Labs on 07/31/18 to include CRP, CBC w/ diff, BMP, magnesium. Referrals: Blaine Cutler MD [ [facility] STAFF PHYSICIAN] - Activity:: Activity as Tolerated Equipment/Supplies:: No Equipment Needed Diet:: Low Sodium Discharge Orders Discharge Orders: Discharge Order (Routine); Ordered 07/27/18 Ordered By: Katia Bass Exam Narrative Exam Narrative: General: Middle aged female, very pleasant, sitting comfortably in bed HEENT: EOMI, MMM Heart: RRR, +FELISA Lungs: very quiet rhonchi B GI: abdomen is soft, nontender, nondistended Extremities: no e/c/c BLE's; R wrist without dressing - palmar incision healing nicely, very minimal redness noted; small abscesses on fingers and LLE completely resolved. DS: Data Vitals/I&O Vitals and I&O: Vital Signs Temperature 36.7 C 07/27/18 07:40 Temperature Source Temporal Artery Scan 07/27/18 07:40 Pulse 87 07/27/18 07:40 Pulse Rhythm Regular 07/27/18 09:29 Respiratory Rate 20 07/27/18 07:40 Respiratory Effort 07/27/18 09:29 Respiratory Depth Normal 07/27/18 09:29 Respiratory Pattern Normal 07/27/18 09:29 Blood Pressure 159/88 H 07/27/18 07:40 Pulse Oximetry 99 07/27/18 07:40 Oxygen Delivery Method Room Air 07/27/18 07:40 Oxygen Flow Rate 0 07/27/18 07:40 Pain Level 4 07/27/18 07:40 Comment 07/23/18 13:46 Intake & Output 07/26/18 07/26/18 07/27/18 11:59 23:59 11:59 Intake Total 1280 / 1280 250 / 250 Balance 1280 / 1280 250 / 250 Intake: Oral 1280 / 1280 250 / 250 Other: Urine Appearance Clear Comment Pt voiding independently in toilet. Voiding Methods Toilet MRI R hand 07/14/18: MRI examination of the hand was performed according to the usual protocol. There is marked motion artifact on all pulse sequences. The examination is nondiagnostic. On T 2 fat sat imaging there does appear to be diffuse increased signal in the region of the thenar eminence consistent with inflammatory process. Abscess neither excluded nor ruled in on this very limited examination. TTE 07/14/18: Impressions: No clear evidence of endocarditis, no significant valvular abnormality, murmur likely caused by AV sclerosis. Small mobile mass on MV, likely calcified chordae, cannot r/o vegetation. Summary: 1. Left ventricle: The cavity size was normal. Wall thickness was at the upper limits of normal. Systolic function was normal. The estimated ejection fraction was 60-65%. Wall motion was normal; there were no regional wall motion abnormalities. 2. Ascending aorta: The ascending aorta was at upper normal limits. 3. Mitral valve: There was a possible, small, multilobulated, echodense mobile mass on the atrial aspect of the anterior leaflet, associated with chordal structures. Likely calcified chordae, cannot rule out vegetation. 4. Right ventricle: The cavity size was at the upper limits of normal. Wall thickness was normal. Systolic function was normal. 5. Pulmonary arteries: Pulmonary systolic pressure was mildly increased. PA peak pressure: 38mm Hg (S). MARINA 07/20/18: No evidence of endocarditis. Summary: 1. Left ventricle: Systolic function was normal. The estimated ejection fraction was 60-65%. Wall motion was normal; there were no regional wall motion abnormalities. 2. Right ventricle: The cavity size was normal. Systolic function was normal. [facility] Medical History Hypertension (Chronic) TBI (traumatic brain injury) (Chronic) Surgical History Hx of appendectomy (Chronic) Previous section (Chronic) Family History Brother Stroke Mother Diabetes Lung cancer Father Hypertension Social History Smoking and Tabacco status: Never alcohol intake: current alcohol intake frequency: 0-2 drinks per day Alcohol type: beer and wine details: never had withdrawal or seizures substance use type: marijuana
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
== END 2018-07-27 12:04 | disposition skilled nursing facility (03) | DRG 558 ==
PROVIDERS: Nurse Practitioner; Admitting Provider Internal Medicine; PCP Internal Medicine; Visit Provider Internal Medicine
DX: M65.842 Other synovitis and tenosynovitis, left hand (principal); R07.89 Other chest pain; E83.42 Hypomagnesemia; D72.829 Elevated white blood cell count, unspecified; R11.2 Nausea with vomiting, unspecified; T36.0X5A Adverse effect of penicillins, initial encounter; I10 Essential (primary) hypertension; Z87.820 Personal history of traumatic brain injury; F10.10 Alcohol abuse, uncomplicated; Z59.1 Inadequate housing; B95.0 Streptococcus, group A, as the cause of diseases classified elsewhere
CPT/HCPCS: 36415; 80048; 97110; 97166; 97535; 99222; 99305; 99308; 99316; J1650; 83735; 84484; 85025; 86140; 93005; 93010; J2405

== ENCOUNTER 2018-07-29 14:24 | Outpatient (REF) | payer MEDICARE, MEDICAID, SELFPAY | END 2018-07-29 14:44 | LOC: LBN 14:24 | PROVIDERS: PCP Internal Medicine; Visit Provider Family Medicine | DX: R19.7 Diarrhea, unspecified (principal) | CPT/HCPCS: 87324 ==

== ENCOUNTER 2018-07-30 17:25 | Outpatient (REF) | payer MEDICARE, MEDICAID, SELFPAY | END 2018-07-30 17:45 | LOC: LBN 17:25 | PROVIDERS: PCP Internal Medicine; Visit Provider Family Medicine | DX: R50.9 Fever, unspecified (principal) | CPT/HCPCS: 87631 ==

== ENCOUNTER 2018-07-30 22:13 | Outpatient (REF) | payer MEDICARE, MEDICAID, SELFPAY | END 2018-07-30 22:33 | LOC: LBN 22:13 | PROVIDERS: PCP Internal Medicine; Visit Provider Family Medicine | DX: J11.1 Influenza due to unidentified influenza virus with other respiratory manifestations (principal) | CPT/HCPCS: 87449 ==

== ENCOUNTER 2018-08-01 11:27 | Outpatient (REF) | payer MEDICARE, MEDICAID, SELFPAY ==
[2018-08-01 11:35] LABS: Lactate-non-spesis 3.5 mmol/l (0.6-1.4)
[2018-08-01 11:46] LABS: Abs Immature Grans 0.11 k/cumm (0.0-0.09); Absolute Basophil Count 0.07 k/cumm (0.0-0.2); Absolute Eosinophil Count 0.35 k/cumm (0.0-0.7); Absolute Lymphocyte Count 2.03 k/cumm (1.2-3.4); Absolute Monocyte Count 1.66 k/cumm (0.11-0.7); Absolute Neutrophil Count 9.65 k/cumm (1.2-6.7); Anion Gap 15.4 mmol/L (3-11); BUN 9 mg/dL (7-18); Basophils % 0.5; CO2 19.6 mmol/L (21.0-32.0); CREATININE 0.97 mg/dL (0.55-1.02); Calcium 10.2 mg/dL (8.5-10.1); Chloride 99 mmol/L (98-107); Eosinophils % 2.5; Estimated GFR 58.78 (mL/min/1.73m2); Glucose 125 mg/dL (70-100); HCT 40.6 % (36.0-46.0); HGB 13.8 g/dL (12.0-15.5); Immature Grans % 0.8; Lymphocytes % 14.6; Magnesium 1.7 mg/dL (1.8-2.4); Mean Corpuscular Hemoglobin 31.3 pg (27.0-33.0); Mean Corpuscular Volume 92.1 fL (80-95); Mean Platelet Volume 10.6 fL (8.0-11.0); Neutrophils % 69.6; Potassium 3.5 mmol/L (3.5-5.1); RBC 4.41 m/cumm (4.00-5.20); RBC Distribution Width 13.3 % (11.7-14.6); Sodium 134 mmol/L (136-145); White Blood Cell Count 13.87 k/cumm (4.4-10.8)
[2018-08-01 12:05] LABS: Polychromasia Present
[2018-08-01 12:06] LABS: Platelet Count 542 x1000/uL (130-400)
[2018-08-01 12:27] LABS: ESR 44 MM/HR (0-30)
== END 2018-08-01 11:47 ==
LOC: LBN 11:27
PROVIDERS: PCP Internal Medicine; Visit Provider Family Medicine
DX: D72.829 Elevated white blood cell count, unspecified (principal); R50.9 Fever, unspecified; E83.42 Hypomagnesemia; I10 Essential (primary) hypertension; J11.1 Influenza due to unidentified influenza virus with other respiratory manifestations
CPT/HCPCS: 80048; 85652; 83605; 83735; 85025; 86140

== ENCOUNTER 2018-08-02 12:07 | Outpatient (REF) | payer MEDICARE, MEDICAID, SELFPAY ==
[2018-08-02 14:05] LABS: Anion Gap 12.1 mmol/L (3-11); BUN 6 mg/dL (7-18); C-Reactive Protein 3.82 mg/dL (0.0-0.3); CO2 20.9 mmol/L (21.0-32.0); CREATININE 0.87 mg/dL (0.55-1.02); Calcium 9.9 mg/dL (8.5-10.1); Chloride 101 mmol/L (98-107); Glucose 113 mg/dL (70-100); Magnesium 1.5 mg/dL (1.8-2.4); Potassium 4.9 mmol/L (3.5-5.1); Sodium 134 mmol/L (136-145)
[2018-08-02 14:22] LABS: HCT 39.9 % (36.0-46.0); HGB 13.4 g/dL (12.0-15.5); Mean Corp. HGB Concentration 33.6 g/dL (32.0-36.0); Mean Corpuscular Hemoglobin 31.5 pg (27.0-33.0); Mean Corpuscular Volume 93.7 fL (80-95); Mean Platelet Volume 10.6 fL (8.0-11.0); Platelet Count 602 x1000/uL (130-400); RBC 4.26 m/cumm (4.00-5.20); RBC Distribution Width 13.3 % (11.7-14.6); White Blood Cell Count 17.67 k/cumm (4.4-10.8)
[2018-08-02 14:36] LABS: Lactate-non-spesis 2.6 mmol/l (0.6-1.4)
[2018-08-02 15:41] LABS: ESR 33 MM/HR (0-30)
[2018-08-02 17:05] LABS: Abs Immature Grans 0.24 k/cumm (0.0-0.09); Absolute Basophil Count 0.09 k/cumm (0.0-0.2); Absolute Eosinophil Count 0.43 k/cumm (0.0-0.7); Absolute Lymphocyte Count 2.02 k/cumm (1.2-3.4); Absolute Monocyte Count 1.69 k/cumm (0.11-0.7); Absolute Neutrophil Count 13.05 k/cumm (1.2-6.7); Basophils % 0.5; Eosinophils % 2.5; Immature Grans % 1.4; Lymphocytes % 11.5; Monocytes % 9.6; Neutrophils % 74.5
[2018-08-02 17:59] LABS: Diff Comment Diff Reviewed; RBC Morphology Normal
== END 2018-08-02 12:27 ==
LOC: LBN 12:07
PROVIDERS: PCP Internal Medicine; Visit Provider Family Medicine
DX: J11.1 Influenza due to unidentified influenza virus with other respiratory manifestations (principal); R50.9 Fever, unspecified; D72.829 Elevated white blood cell count, unspecified
CPT/HCPCS: 80048; 85027; 85652; 83605; 83735; 85007; 86140

== ENCOUNTER 2018-08-07 12:22 | Outpatient (REF) | payer MEDICARE, MEDICAID, SELFPAY ==
[2018-08-07 13:48] LABS: Abs Immature Grans 1.51 k/cumm (0.0-0.09); HCT 40.1 % (36.0-46.0); HGB 13.1 g/dL (12.0-15.5); Mean Corp. HGB Concentration 32.7 g/dL (32.0-36.0); Mean Corpuscular Hemoglobin 31.2 pg (27.0-33.0); Mean Corpuscular Volume 95.5 fL (80-95); Mean Platelet Volume 10.3 fL (8.0-11.0); Platelet Count 585 x1000/uL (130-400); RBC Distribution Width 13.6 % (11.7-14.6); White Blood Cell Count 16.66 k/cumm (4.4-10.8)
[2018-08-07 15:00] LABS: Absolute Lymphocyte Count 4.33 k/cumm (1.2-3.4); Absolute Monocyte Count 1.17 k/cumm (0.11-0.7); Absolute Neutrophil Count 9.16 k/cumm (1.2-6.7); Atypical Lymphocytes % 4
[2018-08-07 15:01] LABS: Absolute Eosinophil Count 0.83 k/cumm (0.0-0.7); Diff Comment Manual Differential; Other Cells 0; Promyelocytes % 0 %
[2018-08-07 15:02] LABS: RBC Morphology Normal
[2018-08-07 16:13] LABS: Anion Gap 8.4 mmol/L (3-11); BUN 7 mg/dL (7-18); CO2 29.6 mmol/L (21.0-32.0); CREATININE 0.69 mg/dL (0.55-1.02); Calcium 9.2 mg/dL (8.5-10.1); Chloride 96 mmol/L (98-107); Glucose 95 mg/dL (70-100); Potassium 4.6 mmol/L (3.5-5.1); Sodium 134 mmol/L (136-145)
== END 2018-08-07 12:42 ==
LOC: LBN 12:22
PROVIDERS: PCP Internal Medicine; Visit Provider Family Medicine
DX: D72.829 Elevated white blood cell count, unspecified (principal); I10 Essential (primary) hypertension; F10.10 Alcohol abuse, uncomplicated
CPT/HCPCS: 80048; 85025

== ENCOUNTER → 2018-08-08 11:13 | Outpatient (BNVA) | payer MEDICARE, MEDICAID, SELFPAY | PROVIDERS: PCP Internal Medicine; Referring Provider Internal Medicine; Visit Provider Orthopaedic Surgery | DX: Z47.89 Encounter for other orthopedic aftercare (principal); M65.841 Other synovitis and tenosynovitis, right hand ==

== ENCOUNTER 2018-08-10 15:29 | Outpatient (CLI) | payer MEDICARE, MEDICAID, SELFPAY ==
[2018-08-10 16:00] LABS: Abs Immature Grans 1.25 k/cumm (0.0-0.09); HCT 41.6 % (36.0-46.0); HGB 13.6 g/dL (12.0-15.5); Mean Corp. HGB Concentration 32.7 g/dL (32.0-36.0); Mean Corpuscular Hemoglobin 31.2 pg (27.0-33.0); Mean Corpuscular Volume 95.4 fL (80-95); Mean Platelet Volume 8.9 fL (8.0-11.0); Platelet Count 468 x1000/uL (130-400); RBC 4.36 m/cumm (4.00-5.20); RBC Distribution Width 13.6 % (11.7-14.6)
[2018-08-10 16:29] LABS: White Blood Cell Count 25.87 k/cumm (4.4-10.8)
[2018-08-10 16:30] LABS: Absolute Eosinophil Count 0.52 k/cumm (0.0-0.7); Absolute Lymphocyte Count 4.92 k/cumm (1.2-3.4); Absolute Monocyte Count 1.29 k/cumm (0.11-0.7); Absolute Neutrophil Count 18.11 k/cumm (1.2-6.7); Atypical Lymphocytes % 5
[2018-08-10 16:31] LABS: Diff Comment Manual Differential; RBC Morphology Normal
== END 2018-08-10 15:49 ==
PROVIDERS: PCP Internal Medicine; Visit Provider Family Medicine
DX: I10 Essential (primary) hypertension (principal); K21.9 Gastro-esophageal reflux disease without esophagitis
CPT/HCPCS: 36415; 85025

== ENCOUNTER 2018-08-10 19:58 | Outpatient (REF) | payer MEDICARE, MEDICAID, SELFPAY ==
[2018-08-10 20:04] LABS: Bilirubin Negative (Negative); Blood Negative (Negative); Clarity Clear; Glucose Negative (Negative); Ketones Negative (Negative); Leukocyte Esterase Negative (Negative); Nitrite Negative (Negative); Urobilinogen 0.2 EU/dL (Up TO 0.2)
== END 2018-08-10 20:18 ==
LOC: LBN 19:58
PROVIDERS: PCP Internal Medicine; Visit Provider Family Medicine
DX: D72.829 Elevated white blood cell count, unspecified (principal); R50.9 Fever, unspecified
CPT/HCPCS: 81003

== ENCOUNTER 2018-08-11 09:05 | Outpatient (CLI) | payer MEDICARE, MEDICAID, SELFPAY ==
--- NOTE | 2018-08-11 13:35 | DI.CT_ITS ---
SYMPTOMS/DIAGNOSIS: PERSISTENT MULTIPLE STOOLS, LOW-GRADE TEMPERATURE, INCREASED WBC, ? INTRAABDOMINAL ABSCESS CT SCAN OF THE ABDOMEN AND PELVIS: CT scan of the abdomen and pelvis was performed following the uneventful administration of intravenous and oral contrast material. There are no priors for comparison. The visualized lung bases are clear. The liver is normal in size. No suspicious hepatic mass is seen. The portal, superior mesenteric and splenic veins are patent. The gallbladder is contracted. No biliary ductal dilatation is seen. No obvious stones are present. The pancreas, spleen and adrenal glands are unremarkable. The kidneys show normal and symmetric enhancement. No evidence of a solid renal mass or obstruction. There are hypodense lesions seen on the right kidney. They are too small for further characterization but likely reflect small cysts. The urinary bladder is intact. The reproductive organs are unremarkable. The abdominal aorta is of normal caliber. No aneurysmal dilatation is seen. No significant abdominal or pelvic adenopathy, ascites or pneumoperitoneum is present. The bowel shows no evidence of obstruction or inflammation. No findings to suggest an acute appendicitis are present. There is diverticulosis of the colon, but no evidence of acute diverticulitis. No pericolonic inflammatory changes are present. No acute osseous abnormality is identified. No focal fluid collection is seen in the abdomen to suggest an abscess. IMPRESSION: No evidence of an acute abdomen.
== END 2018-08-11 09:25 ==
PROVIDERS: PCP Family Medicine; Visit Provider Family Medicine
DX: R19.7 Diarrhea, unspecified (principal); R50.9 Fever, unspecified; D72.829 Elevated white blood cell count, unspecified; K57.30 Diverticulosis of large intestine without perforation or abscess without bleeding
CPT/HCPCS: 74177

== ENCOUNTER 2018-08-14 14:02 | Outpatient (REF) | payer MEDICARE, MEDICAID, SELFPAY ==
[2018-08-14 15:44] LABS: Abs Immature Grans 0.18 k/cumm (0.0-0.09); HCT 38.3 % (36.0-46.0); HGB 12.6 g/dL (12.0-15.5); Mean Corp. HGB Concentration 32.9 g/dL (32.0-36.0); Mean Corpuscular Hemoglobin 31.7 pg (27.0-33.0); Mean Corpuscular Volume 96.5 fL (80-95); Mean Platelet Volume 9.6 fL (8.0-11.0); Platelet Count 401 x1000/uL (130-400); RBC 3.97 m/cumm (4.00-5.20); RBC Distribution Width 13.6 % (11.7-14.6); White Blood Cell Count 19.33 k/cumm (4.4-10.8)
[2018-08-14 16:09] LABS: Absolute Eosinophil Count 0.39 k/cumm (0.0-0.7); Absolute Lymphocyte Count 4.83 k/cumm (1.2-3.4); Absolute Monocyte Count 0.77 k/cumm (0.11-0.7); Absolute Neutrophil Count 13.34 k/cumm (1.2-6.7); Atypical Lymphocytes % 3; Diff Comment Manual Differential; RBC Morphology Normal
[2018-08-15 11:28] LABS: Campylobacter PCR SEE COMMENTS; Salmonella PCR SEE COMMENTS; Shiga Toxin PCR SEE COMMENTS; Shigella/Enteroinvasive Ecoli SEE COMMENTS
== END 2018-08-14 14:22 ==
LOC: LBN 14:02
PROVIDERS: PCP Internal Medicine; Visit Provider Family Medicine
DX: D72.829 Elevated white blood cell count, unspecified (principal); F10.10 Alcohol abuse, uncomplicated; M65.842 Other synovitis and tenosynovitis, left hand; A04.72 Enterocolitis due to Clostridium difficile, not specified as recurrent
CPT/HCPCS: 36410; 87040; 87329; 87505; 85025; 87177

== ENCOUNTER 2018-08-17 09:45 | Outpatient (REF) | payer MEDICARE, MEDICAID, SELFPAY ==
[2018-08-17 10:09] LABS: Abs Immature Grans 0.07 k/cumm (0.0-0.09); Absolute Basophil Count 0.03 k/cumm (0.0-0.2); Absolute Eosinophil Count 0.34 k/cumm (0.0-0.7); Absolute Monocyte Count 1.14 k/cumm (0.11-0.7); Basophils % 0.2; Eosinophils % 2.7; HCT 38.4 % (36.0-46.0); HGB 12.7 g/dL (12.0-15.5); Immature Grans % 0.6; Lymphocytes % 21.3; Mean Corp. HGB Concentration 33.1 g/dL (32.0-36.0); Mean Corpuscular Hemoglobin 31.2 pg (27.0-33.0); Mean Corpuscular Volume 94.3 fL (80-95); Mean Platelet Volume 10.4 fL (8.0-11.0); Neutrophils % 66.2; Platelet Count 384 x1000/uL (130-400); RBC 4.07 m/cumm (4.00-5.20); RBC Distribution Width 13.6 % (11.7-14.6); White Blood Cell Count 12.68 k/cumm (4.4-10.8)
[2018-08-17 10:16] LABS: Absolute Neutrophil Count 8.39 k/cumm (1.2-6.7)
[2018-08-17 10:28] LABS: Anion Gap 2.4 mmol/L (3-11); BUN 13 mg/dL (7-18); CO2 27.6 mmol/L (21.0-32.0); CREATININE 0.73 mg/dL (0.55-1.02); Calcium 9.5 mg/dL (8.5-10.1); Chloride 97 mmol/L (98-107); Glucose 104 mg/dL (70-100); Sodium 127 mmol/L (136-145)
== END 2018-08-17 10:05 ==
LOC: LBN 09:45
PROVIDERS: PCP Internal Medicine; Visit Provider Family Medicine
DX: D72.829 Elevated white blood cell count, unspecified (principal); I10 Essential (primary) hypertension; A04.72 Enterocolitis due to Clostridium difficile, not specified as recurrent; K51.90 Ulcerative colitis, unspecified, without complications
CPT/HCPCS: 80048; 85025

== ENCOUNTER 2018-10-17 14:53 | Outpatient (REF) | payer MEDICARE, MEDICAID, SELFPAY ==
[2018-10-17 21:57] LABS: Abs Immature Grans 0.09 k/cumm (0.0-0.09); Absolute Lymphocyte Count 2.91 k/cumm (1.2-3.4); Absolute Monocyte Count 1.61 k/cumm (0.11-0.7); Basophils % 0.2; Eosinophils % 2.3; HCT 43.4 % (36.0-46.0); HGB 14.5 g/dL (12.0-15.5); Immature Grans % 0.4; Lymphocytes % 13.4; Mean Corp. HGB Concentration 33.4 g/dL (32.0-36.0); Mean Corpuscular Hemoglobin 31.5 pg (27.0-33.0); Mean Corpuscular Volume 94.1 fL (80-95); Mean Platelet Volume 11.2 fL (8.0-11.0); Monocytes % 7.4; Neutrophils % 76.3; Platelet Count 334 x1000/uL (130-400); RBC 4.61 m/cumm (4.00-5.20); RBC Distribution Width 14.6 % (11.7-14.6); White Blood Cell Count 21.69 k/cumm (4.4-10.8)
[2018-10-17 22:07] LABS: ALT 20 U/L (12-78); AST 18 U/L (15-37); Albumin 4.2 g/dL (3.4-5.0); Alkaline Phosphatase 136 U/L (46-116); Anion Gap 11.8 mmol/L (3-11); BUN 19 mg/dL (7-18); Bilirubin, Total 0.9 mg/dL (0.2-1.0); CO2 25.2 mmol/L (21.0-32.0); Chloride 96 mmol/L (98-107); Estimated GFR 41.92 (mL/min/1.73m2); Glucose 79 mg/dL (70-100); Lipase 97 U/L (73-393); Potassium 4.2 mmol/L (3.5-5.1); Sodium 133 mmol/L (136-145); Total Protein 7.1 g/dL (6.4-8.2)
[2018-10-17 22:39] LABS: Absolute Basophil Count 0.04 k/cumm (0.0-0.2); Absolute Neutrophil Count 16.55 k/cumm (1.2-6.7)
[2018-10-17 22:55] LABS: GGT 63 U/L (5-55)
[2018-10-17 23:11] LABS: Diff Comment Diff Reviewed
== END 2018-10-17 15:13 ==
LOC: NCHCN 14:53
PROVIDERS: PCP Internal Medicine; Visit Provider Specialist/Technologist Athletic Trainer
DX: R10.9 Unspecified abdominal pain (principal); R74.8 Abnormal levels of other serum enzymes
CPT/HCPCS: 80053; 83690; 82977; 85025

== ENCOUNTER 2018-10-18 16:34 | Inpatient (IN) | payer MEDICARE, MEDICAID, SELFPAY ==
[2018-10-18 16:34] VITALS: BP 94/61; PULSE 72; RESP 18; TEMP 36.5; O2SAT 96
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
[2018-10-18] MEDS: Dicyclomine 20 MG TAB PO (16:56)
[2018-10-18] MEDS: Normal Saline 1,000 ML 1000 ML IV ×2 (16:56→20:57)
[2018-10-18 17:06] LABS: Abs Immature Grans 0.07 k/cumm (0.0-0.09); Absolute Monocyte Count 1.47 k/cumm (0.11-0.7); Basophils % 0.1; HCT 39.4 % (36.0-46.0); HGB 13.7 g/dL (12.0-15.5); Immature Grans % 0.3; Lymphocytes % 17.4; Mean Corp. HGB Concentration 34.8 g/dL (32.0-36.0); Mean Corpuscular Hemoglobin 31.6 pg (27.0-33.0); Neutrophils % 73.2; Platelet Count 330 x1000/uL (130-400); RBC 4.33 m/cumm (4.00-5.20); RBC Distribution Width 14.5 % (11.7-14.6); White Blood Cell Count 21.04 k/cumm (4.4-10.8)
[2018-10-18 17:08] LABS: Absolute Basophil Count 0.02 k/cumm (0.0-0.2); Absolute Eosinophil Count 0.42 k/cumm (0.0-0.7); Absolute Lymphocyte Count 3.66 k/cumm (1.2-3.4); Lactate-non-spesis 1.9 mmol/l (0.6-1.4)
[2018-10-18 17:22] LABS: Ammonia 36 umol/L (11-32)
[2018-10-18 17:26] LABS: ALT 19 U/L (12-78); AST 13 U/L (15-37); Albumin 3.6 g/dL (3.4-5.0); Alkaline Phosphatase 124 U/L (46-116); Anion Gap 11.5 mmol/L (3-11); BUN 16 mg/dL (7-18); Bilirubin, Total 0.4 mg/dL (0.2-1.0); CO2 23.5 mmol/L (21.0-32.0); CREATININE 1.06 mg/dL (0.55-1.02); Chloride 93 mmol/L (98-107); Estimated GFR 53.06 (mL/min/1.73m2); Glucose 97 mg/dL (70-100); Lipase 105 U/L (73-393); Potassium 3.9 mmol/L (3.5-5.1); Sodium 128 mmol/L (136-145)
[2018-10-18] MEDS: Omnipaque 350 MG/ML 100 ML BTL IJ (18:19)
--- NOTE | 2018-10-18 18:22 | DI.CT_ITS ---
SYMPTOM/DIAGNOSIS: GENERALIZED LOW BAD PAIN CTA ABDOMEN AND PELVIS: CT angiography was performed with multi slice acquisition and multi planar and 3D reconstruction. CT angiography of the abdomen and pelvis was performed with intravenous infusion of 100 cc's of Omnipaque 350. Venous phase images were also obtained. Images obtained through the lung bases are unremarkable. Liver and spleen appear normal as does the pancreas. Gallbladder and bile ducts are CT normal. Tiny bilateral renal cortical cysts appear to be present. No evidence of urinary tract obstruction or calcification. Unremarkable appearance of the adrenals. No abdominal or pelvic adenopathy is seen. There are findings suggesting wall thickening of the sigmoid colon, question faint pericolonic fat edema. The findings are suspicious for diverticulitis versus colitis, please correlate clinically and colonoscopy may be obtained if clinically indicated. DEVELOPMENT ENG structures appear intact. Appendix is not specifically visualized but there is no evidence of appendicitis. Abdominal aorta is of normal diameter. Minimal wall calcification noted at a few sites. Celiac trunk, superior and inferior mesenteric arteries, and renal arteries are normal in appearance, no luminal narrowing. Common internal and external iliac arteries unremarkable. No abdominal wall hernia is seen. No abdominal or pelvic adenopathy. CONCLUSION: 1. No evidence of abdominal aortic aneurysm or vascular obstruction involving the major vessels. 2. Findings raising the possibility of sigmoid diverticulitis or colitis. Colonoscopy may be obtained for further evaluation if clinically appropriate.
--- NOTE | 2018-10-18 19:02 | DI.VRAD_ITS ---
EXAM: CT Angiography Abdomen and Pelvis With Contrast EXAM DATE/TIME: 10/18/2018 4:44 PM CLINICAL HISTORY: 58 years old, female; Abdominal pain; Localized; Patient HX: Patient sts pain in lower abdomen, patient had cdiff. ; Additional info: Mesentaric ischemia protocol per er doctor. TECHNIQUE: Imaging protocol: Axial computed tomographic angiography images of the abdomen and pelvis with intravenous contrast material. Coronal and sagittal reformatted images were created and reviewed. 3D rendering: MIP reconstructed images were created and reviewed. Radiation optimization: All CT scans at this facility use at least one of these dose optimization techniques: automated exposure control; mA and/or kV adjustment per patient size (includes targeted exams where dose is matched to clinical indication); or iterative reconstruction. Contrast material: OMNIPAQUE 350; Contrast volume: 100 ml; Contrast route: IV; COMPARISON: CT ABDOMEN PELVIS W 08/11/2018 1:31 PM FINDINGS: VASCULATURE: Aorta: There are mild scattered atherosclerotic calcifications of the abdominal aorta and its major branches, no abdominal aortic aneurysm or dissection. Celiac trunk and mesenteric arteries: No occlusion or significant stenosis. Renal arteries: No occlusion or significant stenosis. Right iliac arteries: No occlusion or significant stenosis. Left iliac arteries: No occlusion or significant stenosis. ABDOMEN: Liver: No mass. Gallbladder and bile ducts: Unremarkable. No calcified stones. No ductal dilation. Pancreas: Unremarkable. No mass. No ductal dilation. Spleen: Unremarkable. No splenomegaly. Adrenals: Unremarkable. No mass. Kidneys and ureters: Incidental note is made of bilateral extrarenal pelvises. No hydronephrosis. Ureters are normal in course and caliber. Subcentimeter hypodensities within the inferior right renal pole are too small to characterize, statistically most likely cysts. Stomach and bowel: Mild diverticulosis is present in the distal colon. There is mild nonfocal mural thickening of the sigmoid colon, however limited by under distention. This finding is decreased in prominence in the interval. No significant pericolonic inflammatory stranding, however with mild associated perivascular engorgement of the associated mesenteric vessels. Appendix: No evidence of appendicitis. PELVIS: Bladder: Unremarkable. No mass. Reproductive: Unremarkable as visualized. ABDOMEN and PELVIS: Intraperitoneal space: Unremarkable. No free air. No significant fluid collection. Bones/joints: No acute fracture or dislocation. Varying degrees of multilevel degenerative disk and facet changes of the spine are present.There is mild stool burden in the proximal colon with well-formed stool. No evidence of bowel obstruction. Soft tissues: Trace/small fat containing umbilical hernia. Lymph nodes: Unremarkable. No enlarged lymph nodes. IMPRESSION: 1. Mild diverticulosis of the distal colon with similar to improved it nonfocal mural thickening of the sigmoid colon. Favored to represent sequela of acute colitis, possibly diverticulitis, in the appropriate setting, however artifactual mural thickening secondary to underdistention is also on the differential. 2. No abdominal aortic aneurysm or dissection. Major branches are patent. Dictated and Authenticated by: Dionisio Ortiz MD. Ordering:CYNTHIA Solis MD
[2018-10-18] MEDS: CIPROFLOXACIN 400 MG/200 ML BAG 200 MG IVPB (19:29)
[2018-10-18] MEDS: metroNIDAZOLE 500 MG/100 ML BAG 100 MG IVPB (19:30)
[2018-10-18 19:34] VITALS: BP 101/68; PULSE 84; RESP 20; TEMP 37; O2SAT 97
[2018-10-18 20:21] VITALS: BP 114/77; PULSE 83; RESP 18; TEMP 36.7; O2SAT 97
[2018-10-18 20:27] LABS: Bilirubin Negative (Negative); Blood Negative (Negative); Clarity Clear; Glucose Negative (Negative); Ketones Negative (Negative); Leukocyte Esterase Negative (Negative); Nitrite Negative (Negative); Specific Gravity <= 1.005 (1.005-1.025); Urobilinogen 0.2 EU/dL (Up TO 0.2)
[2018-10-18 20:28] LABS: Procalcitonin < 0.1 ng/mL
[2018-10-18 20:33] VITALS: BP 101/68; PULSE 84; RESP 20; TEMP 37; O2SAT 97
[2018-10-18 20:46] LABS: *AMPHETAMINES SCREEN URINE Negative (Negative); *BARBITURATES SCREEN URINE Negative (Negative); *BENZODIAZEPINES SCREEN URINE Negative (Negative); Cannabinoids THC POSITIVE (Negative); Cocaine Screen,Urine Negative (Negative); METHADONE URINE SCREEN Negative (Negative); OPIATES URINE SCREEN Negative (Negative)
[2018-10-18 20:53] LABS: Tricyclic Antidepressants Negative (Negative)
--- NOTE | 2018-10-18 21:37 | NUR.NOTE ---
Nursing Note: Admitted in Rm 206, alert & orinted bur with odd affect behavior. Reported that she had vomitted in ER x 5, staff reported once only. 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 Drinks alcohol occasionally but smells alcohol on admission.Pt has flushy face all over the body and face. Has red spots on left under inner arm near armpit and left leg noticed. Seen pt scratching but refused a thorough assessment .Requested to have OJ but no diet order yet. NS bolus in progress. 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
--- NOTE | 2018-10-18 22:15 | W.PM.HP.N ---
Date of service: 10/18/18 Time of Service: 22:16 Assessment and Plan (1) Abdominal pain: Current visit: Yes Status: Acute bilateral lower abdominal pains w/ evidence of nonfocal colon wall thickening in the sigmoid colon; ddx includes diverticultis and colitis particularly concerned about C. difficile colitis given that her bowels have never been totally normal [facility]. I will put her on tapering doses of Vancomycin and will empirically treat her w/ iv Flagyl and Cipro pending results of her stool studies. If she is C. diff positive then we can dc her Cipro and focus on treating her for recurrence or continuation of her prior C. diff infection. We may need to give her Rifamamin or even a fecal transplant if she fails this second tapering course of Vancocin (2) Diarrhea: Current visit: Yes Status: Acute as above. (3) Essential hypertension: Current visit: No Status: Chronic continue her home meds however will need to watch her bp as it is already on the lower limits of normal. We may need to hold her amlodipine and even decrease her atenolol dose (4) Alcohol abuse: Current visit: No Status: Chronic she reports that she has not had an alcoholic drink in over a week d/t the nausea and abdominal pains. She denies any hx of acute alcohol withdrawal. However she also refused to quantify how much she drinks. Her hx of alcohol abuse is one that has been charted in the past. I will place her on CIWA monitoring but not prophylax her w/ benzodiazepines unless she shows signs of withdrawal History of Present Illness Chief Complaint: abdominal pain Narrative: 58-year-old female with a past medical history of traumatic brain injury, essential hypertension and recent hospitalization from July 21, 2018 until discharged on July 21, 2018 for treatment of tenosynovitis her right hand and bilateral hand cellulitis which is related to splinters in her fingers from handling of firewood. She also has a history of second-degree rudd on her left leg due to spilling of boiling water. Patient lives in a trailer in [facility] where she has no running water and electricity and uses wood stove for heat and for bowling of water. After she was hospitalized at [facility] for treatment of the cellulitis of her hands and she had a work-up for possible subacute bacterial endocarditis in which she underwent a TTE and MARINA. The TTE showed a potential mass on the basis of a calcified chordae on the mitral valve versus potential vegetation however the MARINA did not show vegetation. Blood cultures came back no growth. She was successfully treated with Ancef. She was eventually discharged to [facility]. While there she developed C. difficile colitis and was successfully treated with oral Vancomycin and her watery diarrhea resolved. However she now presents emergency department with complaints of 2 months of intermittent abdominal pain in the lower abdominal regions. Pain is gotten progressively worse over the last couple weeks. This has been accompanied by loose bowel movements, not watery diarrhea as she had w/ the C difficile infection but stools she describes as Tootsie rolls with mucous. She has had nausea and had one episode of vomiting today. There has been no melena nor hematochezia. She denies any rigors or fevers. In the emergency room she was evaluated by Dr. Will Cleaning where he noted that her abdominal exam showed her pain to be out of proportion to her physical findings. She had no rash and her vital signs are stable and she was afebrile. He performed a work-up that included routine labs including a CMP, CBC with differential, urinalysis, procalcitonin level, lipase, and blood lactate level. CMP demonstrated a mild hyponatremia of 128 with hypo-chloride EMEA of 93 and an anion gap of 11.5. Normal BUN of 16 creatinine 1.06. Glucose is normal at 97. LFTs were normal. Ammonia level was mildly elevated at 36. Procalcitonin is less than 0.1. Lipase was normal at 105. Blood lactate was elevated slightly at 1.9. Urine for drugs of abuse is positive for THC but otherwise negative. Stool for C. difficile toxin is pending at this time as his stool for bacterial pathogens and lactoferrin. CT scan of the abdomen and pelvis with contrast was performed to rule out ischemic colitis. CT of the abdomen and pelvis showed mild diverticulosis of the distal colon with nonfocal mural thickening of the sigmoid colon favored to represent sequelae of acute colitis possibly diverticulitis. However artifactual mural thickening secondary to under distention was also in the differential. Patient no abdominal aortic aneurysm no dissection in all the major visceral branches were patent. Treatment emergency room included IV fluids x2 L. She was given a dose of metronidazole and ciprofloxacin and Bentyl. Patient is now admitted to the hospital for treatment of colitis possible C. difficile colitis versus impending diverticulitis. Review of Systems Review of Systems All systems reviewed & are unremarkable except as noted in HPI and below Gastrointestinal Reports abdominal pain, Denies melena, Denies hematochezia, Reports loose stools, Reports nausea, Reports vomiting and Denies hematemesis [facility] Medical History Essential hypertension (Chronic) Alcohol abuse (Chronic) Hypertension (Chronic) TBI (traumatic brain injury) (Chronic) Surgical History Hx of appendectomy (Chronic) Previous section (Chronic) Family History Brother Stroke Mother Diabetes Lung cancer Father Hypertension Social History Smoking/Tobacco Use Status: Never Alcohol Intake: current Alcohol Intake frequency: 0-2 drinks per day Alcohol type: beer and wine Details: never had withdrawal or seizures Drug use: Socially Substance use type: marijuana Do you feel safe at home: Yes Do you feel safe in your relationship?: Yes Meds Home Medications Medication Instructions Recorded Confirmed Type venlafaxine 150 mg PO BID 11/06/17 10/18/18 History amlodipine 10 mg PO DAILY 07/13/18 10/18/18 History atenolol 100 mg PO DAILY 07/13/18 10/18/18 History ergocalciferol (vitamin D2) 1.25 mg PO QWEEK 07/13/18 10/18/18 History [Vitamin D2] acetaminophen [Tylenol] 650 mg PO Q4H PRN PRN #30 tab 07/27/18 10/18/18 Rx pantoprazole 40 mg PO DAILY@0730 #0 tab 07/27/18 10/18/18 Rx Allergies Allergy/AdvReac Type Severity Reaction Status Date / Time No Known Allergies Allergy Unverified 10/18/18 17:01 Exam Const General: cooperative, healthy appearing, comfortable, no acute distress and well groomed Nutritional Appearance: average body habitus Orientation: alert, awake and oriented x3 Neck Neck: normal visual inspection, full ROM, no lymphadenopathy, trachea midline, supple and no JVD Carotids: normal carotid upstroke Lymphatic: no lymphadenopathy noted Resp Effort & Inspection: normal respiratory effort and able to speak in complete sentences Auscultation: clear to auscultation bilaterally Cardio Jugular venous pressure: no JVD Palpation: normal PMI Rate: regular rate Rhythm: regular rhythm Heart Sounds: S1 normal, S2 normal and normal, physiologic split S2 Pulses: normal peripheral pulses GI Inspection: normal to inspection and non-distended Palpation: soft, no hepatosplenomegaly and tender in the LLQ and in the RLQ; with no rebound tenderness Percussion: normal to percussion Auscultation: normal bowel sounds General: No CVA tenderness Back/Spine/Pelvis Back: no CVA tenderness Cervical Spine: normal cervical lordosis Thoracic/Lumbar Spine: thoracic and lumbar spine normal to inspection Skin General skin exam: no rashes or lesions noted, elasticity normal and turgor normal Neuro General: alert, oriented x3, moves all extremities, normal light touch, pain and propioception and no focal motor deficits Cognition: normal cognition Speech: speech normal Motor: muscle tone normal throughout, strength 5/5 throughout and no movement abnormalities noted Sensory Exam: no sensory deficits noted Extrem General: normal to inspection, full ROM and normal capillary refill Psych Appearance: grossly normal and well kempt Mental Status: mental status grossly normal Speech and Movement: speech and movement normal Mood: congruent mood Affect: normal affect Attitude: cooperative Thought Process: normal Thought Content: normal Insight: insight good Judgment: judgment good Results Imaging Abdomen CT scan report/results: report reviewed CT scan - pelvis: report reviewed Labs : 10/18/18 16:49 10/18/18 16:49 Laboratory Results - last 24 hr 10/18/18 10/18/18 10/18/18 16:49 16:49 16:49 WBC RBC Hgb Hct MCV MCH MCHC RDW Plt Count MPV Immature Gran % Neutrophils % Lymphocytes % Monocytes % Eosinophils % Basophils % Absolute Neutrophils Absolute Lymphocytes Absolute Monocytes Absolute Eosinophils Absolute Basophils Sodium 128 L Potassium 3.9 Chloride 93 L Carbon Dioxide 23.5 Anion Gap 11.5 H BUN 16 Creatinine 1.06 H Estimated GFR/1.73 m2 53.06 Glucose 97 Lactate 1.9 H Calcium 9.0 Total Bilirubin 0.4 AST 13 L ALT 19 Alkaline Phosphatase 124 H Ammonia 36 H Total Protein 7.0 Albumin 3.6 Lipase 105 Procalcitonin Urine Color Urine Clarity Urine pH Ur Specific [place] Urine Protein Urine Ketones Urine Blood Urine Nitrite Urine Bilirubin Urine Urobilinogen Ur Leukocyte Esterase Urine Glucose Urine Opiates Screen Urine Methadone Screen Ur Barbiturates Screen Ur Tricyclics Screen Ur Amphetamines Screen U Benzodiazepines Scrn Urine Cocaine Screen Ur THC Screen 10/18/18 10/18/18 10/18/18 16:49 16:49 20:00 WBC 21.04 H RBC 4.33 Hgb 13.7 Hct 39.4 MCV 91.0 MCH 31.6 MCHC 34.8 RDW 14.5 Plt Count 330 MPV 10.0 Immature Gran % 0.3 Neutrophils % 73.2 Lymphocytes % 17.4 Monocytes % 7.0 Eosinophils % 2.0 Basophils % 0.1 Absolute Neutrophils 15.40 H Absolute Lymphocytes 3.66 H Absolute Monocytes 1.47 H Absolute Eosinophils 0.42 Absolute Basophils 0.02 Sodium Potassium Chloride Carbon Dioxide Anion Gap BUN Creatinine Estimated GFR/1.73 m2 Glucose Lactate Calcium Total Bilirubin AST ALT Alkaline Phosphatase Ammonia Total Protein Albumin Lipase Procalcitonin < 0.1 Urine Color Straw Urine Clarity Clear Urine pH 7.0 Ur Specific [place] <= 1.005 Urine Protein Negative Urine Ketones Negative Urine Blood Negative Urine Nitrite Negative Urine Bilirubin Negative Urine Urobilinogen 0.2 Ur Leukocyte Esterase Negative Urine Glucose Negative Urine Opiates Screen Urine Methadone Screen Ur Barbiturates Screen Ur Tricyclics Screen Ur Amphetamines Screen U Benzodiazepines Scrn Urine Cocaine Screen Ur THC Screen 10/18/18 20:00 WBC RBC Hgb Hct MCV MCH MCHC RDW Plt Count MPV Immature Gran % Neutrophils % Lymphocytes % Monocytes % Eosinophils % Basophils % Absolute Neutrophils Absolute Lymphocytes Absolute Monocytes Absolute Eosinophils Absolute Basophils Sodium Potassium Chloride Carbon Dioxide Anion Gap BUN Creatinine Estimated GFR/1.73 m2 Glucose Lactate Calcium Total Bilirubin AST ALT Alkaline Phosphatase Ammonia Total Protein Albumin Lipase Procalcitonin Urine Color Urine Clarity Urine pH Ur Specific [place] Urine Protein Urine Ketones Urine Blood Urine Nitrite Urine Bilirubin Urine Urobilinogen Ur Leukocyte Esterase Urine Glucose Urine Opiates Screen Negative Urine Methadone Screen Negative Ur Barbiturates Screen Negative Ur Tricyclics Screen Negative Ur Amphetamines Screen Negative U Benzodiazepines Scrn Negative Urine Cocaine Screen Negative Ur THC Screen Positive Last Vital Signs Temp 37 C 10/18/18 20:33 Pulse 84 10/18/18 20:33 Resp 20 10/18/18 20:33 BP 101/68 10/18/18 20:33 Pulse Ox 97 10/18/18 20:33
[2018-10-18 22:50] LABS: Lactate 1.5 mmol/L (0.6-1.4)
[2018-10-18] MEDS: Enoxaparin 40 MG/0.4 ML SYR SC (23:50)
[2018-10-18] MEDS: POTASSIUM CHLORIDE/0.9% NACL 1,000 ML 125 MEQ IV (23:50)
[2018-10-18] MEDS: Normal Saline Flush 10 ML SYR IVP (23:50)
[2018-10-18 23:55] VITALS: BP 111/75; PULSE 88; RESP 17; TEMP 37.2; O2SAT 96
[2018-10-19] MEDS: metroNIDAZOLE 500 MG/100 ML BAG 100 MG IVPB ×4 (01:44→20:05)
[2018-10-19 03:45] VITALS: BP 111/76; PULSE 86; RESP 18; TEMP 37.7; O2SAT 96
[2018-10-19 07:06] LABS: Lactate-non-spesis 0.7 mmol/l (0.6-1.4)
[2018-10-19 07:20] LABS: Abs Immature Grans 0.05 k/cumm (0.0-0.09); Absolute Basophil Count 0.03 k/cumm (0.0-0.2); Absolute Eosinophil Count 0.17 k/cumm (0.0-0.7); Absolute Lymphocyte Count 1.82 k/cumm (1.2-3.4); Absolute Neutrophil Count 10.06 k/cumm (1.2-6.7); Basophils % 0.2; Eosinophils % 1.3; HCT 42.1 % (36.0-46.0); HGB 14.3 g/dL (12.0-15.5); Immature Grans % 0.4; Mean Corpuscular Hemoglobin 31.1 pg (27.0-33.0); Mean Corpuscular Volume 91.5 fL (80-95); Monocytes % 6.9; Neutrophils % 77.2; Platelet Count 295 x1000/uL (130-400); RBC Distribution Width 14.5 % (11.7-14.6); White Blood Cell Count 13.03 k/cumm (4.4-10.8)
--- NOTE | 2018-10-19 07:33 | PDOC.CMIN ---
- If Service Date Differs Date of service: 10/19/18 Time of Service: 07:33 Care Management Initial Assess REASON FOR HOSPITALIZATION:: Abdominal pain and diarrhea PAST MEDICAL HISTORY/PAST SURGICAL HISTORY:: Medical History: Essential hypertension, Alcohol abuse, Hypertension ;TBI (traumatic brain injury). Surgical History: Hx of appendectomy. Previous section PREVIOUS FUNCTIONAL STATUS/SOCIAL/FAMILY SUPPORTS:: Lisset lives in a mobile home without running water or electricity. She has a wood stove and propane for heat and a generator for small amounts of electricity. Lisset states she has not been well for several months. She was hospitalized at [facility] at the beginning of the year and subsequently went to [facility] for a few weeks. According to her, she left too soon. She says she underestimated how difficult it would be to manage alone at home. She has a dog and a horse but was unable to care for the horse so a neighbor has been helping with that. Lisset says she has not been eating well and has not had the energy to clean the house or keep up with her chores. She lives alone but does have neighbors nearby who offer support and assistance. She also has 2 daughters but does not have a close relationship with them at this time. CURRENT FUNCTIONAL STATUS:: Lisset was sitting up in bed when CM came to visit. She states that she is still having a great deal of pain. She says her abdomen feels just like it did when she had c. difficile. She is worried about her dog who is deaf and blind and wants to return home as soon as possible. ADVANCE DIRECTIVES:: None on file at [facility] Has patient been provided with information about the portal?: No Did the patient sign up for the portal?: No CODE STATUS:: Full Code INSURANCE COVERAGE / FINANCIAL ISSUES:: Medicare / C&S. Medicaid CURRENT HOME/COMMUNITY SERVICES/EQUIPMENT:: None at this time PRIMARY CARE PHYSICIAN:: Laci Aquino POTENTIAL DISCHARGE NEEDS:: Lisset will likely need assistance when she leaves. Meals on Wheels may be beneficial as well as potential support services at home. PATIENT/FAMILY EDUCATION NEEDS:: Discharge plan, limitations, follow up plan of care and Ask Me Three ANTICIPATED BARRIERS TO DISCHARGE:: none identified at this time TRANSPORTATION:: to be determined PLAN:: Lisset is undergoing testing to determine if her clostridium difficile colitis has recurred. She is receiving both po and IV antibiotics. She will likely return home when ready and may need some support services such as Meals On Wheels. CM will continue to provide support to patient, family, care team and discharge plan of care.
[2018-10-19 07:40] LABS: Anion Gap 9.3 mmol/L (3-11); BUN 9 mg/dL (7-18); CO2 25.7 mmol/L (21.0-32.0); CREATININE 0.87 mg/dL (0.55-1.02); Calcium 9.1 mg/dL (8.5-10.1); Chloride 106 mmol/L (98-107); Glucose 104 mg/dL (70-100); Magnesium 1.6 mg/dL (1.8-2.4); Potassium 4.4 mmol/L (3.5-5.1); Sodium 141 mmol/L (136-145)
--- NOTE | 2018-10-19 07:43 | INITIAL_ITS ---
- If Service Date Differs Date of service: 10/19/18 Time of Service: 07:33 Care Management Initial Assess REASON FOR HOSPITALIZATION:: Abdominal pain and diarrhea PAST MEDICAL HISTORY/PAST SURGICAL HISTORY:: Medical History: Essential hypertension, Alcohol abuse, Hypertension ;TBI (traumatic brain injury). Surgical History: Hx of appendectomy. Previous section PREVIOUS FUNCTIONAL STATUS/SOCIAL/FAMILY SUPPORTS:: Lisset lives in a mobile home without running water or electricity. She has a wood stove and propane for heat and a generator for small amounts of electricity. Lisset states she has not been well for several months. She was hospitalized at [facility] at the beginning of the year and subsequently went to [facility] for a few weeks. According to her, she left too soon. She says she underestimated how difficult it would be to manage alone at home. She has a dog and a horse but was unable to care for the horse so a neighbor has been helping with that. Lisset says she has not been eating well and has not had the energy to clean the house or keep up with her chores. She lives alone but does have neighbors nearby who offer support and assistance. She also has 2 daughters but does not have a close relationship with them at this time. CURRENT FUNCTIONAL STATUS:: Lisset was sitting up in bed when CM came to visit. She states that she is still having a great deal of pain. She says her abdomen feels just like it did when she had c. difficile. She is worried about her dog who is deaf and blind and wants to return home as soon as possible. ADVANCE DIRECTIVES:: None on file at [facility] Has patient been provided with information about the portal?: No Did the patient sign up for the portal?: No CODE STATUS:: Full Code INSURANCE COVERAGE / FINANCIAL ISSUES:: Medicare / C&S. Medicaid CURRENT HOME/COMMUNITY SERVICES/EQUIPMENT:: None at this time PRIMARY CARE PHYSICIAN:: Laci Aquino POTENTIAL DISCHARGE NEEDS:: Lisset will likely need assistance when she leaves. Meals on Wheels may be beneficial as well as potential support services at home. PATIENT/FAMILY EDUCATION NEEDS:: Discharge plan, limitations, follow up plan of care and Ask Me Three ANTICIPATED BARRIERS TO DISCHARGE:: none identified at this time TRANSPORTATION:: to be determined PLAN:: Lisset is undergoing testing to determine if her clostridium difficile colitis has recurred. She is receiving both po and IV antibiotics. She will likely return home when ready and may need some support services such as Meals On Wheels. CM will continue to provide support to patient, family, care team and discharge plan of care.
[2018-10-19 08:02] VITALS: BP 127/94; PULSE 84; RESP 16; TEMP 37.3; O2SAT 95
[2018-10-19] MEDS: Venlafaxine 75 MG TAB 150 MG PO ×2 (08:15→20:04)
[2018-10-19] MEDS: amLODIPine 10 MG TAB PO (08:15)
[2018-10-19] MEDS: Pantoprazole 40 MG TABCR PO (08:16)
[2018-10-19] MEDS: Atenolol 50 MG TAB 100 MG PO (08:16)
[2018-10-19] MEDS: Normal Saline Flush 10 ML SYR IVP ×2 (08:17→21:39)
[2018-10-19] MEDS: MAGNESIUM SULFATE 2 GM/50 ML BAG IVPB (10:32)
[2018-10-19] MEDS: Acetaminophen 325 MG TAB PO ×2 (10:52→21:39)
--- NOTE | 2018-10-19 12:21 | W.PM.PROGNOT ---
Date of Service Date of service: 10/19/18 Time of Service: 12:21 Assessment and Plan (1) Abdominal pain: Current visit: Yes Status: Acute She continues to have significant pain across her lower abdomen. Evidence of nonfocal: Wall thickening in the sigmoid colon. With recent C. difficile colitis, this is likely ongoing C. difficile infection versus repeat infection. C. difficile PCR pending. Discontinue Cipro, continue oral vancomycin and Flagyl. Morphine for severe abdominal pain. Continue clear liquid diet for now. (2) Diarrhea: Current visit: Yes Status: Acute Continues to have multiple loose stools, currently watery and yellow. Evaluation and treatment as above. (3) Essential hypertension: Current visit: No Status: Chronic Blood pressure appropriate, 127/94 this morning. Continue home regimen with amlodipine and atenolol. Continue to monitor her pressure. (4) Alcohol abuse: Current visit: No Status: Chronic Currently scoring 3 on CIWA protocol. No signs of withdrawal in a recent hospitalization. Continue to monitor for alcohol withdrawal. (5) DVT prophylaxis: Current visit: Yes Status: Acute Subcutaneous Lovenox. (6) Discharge planning issues: Current visit: Yes Status: Acute She is a full code. She was [facility] at [facility]. She reports that she did not feel that she was ready to return home but insisted on discharge at the time. She may need rehab after her hospitalization. Consult PT. This case was discussed with Dr. Perez who is in agreement. Subjective Interval history since last seen: Lisset Abel reports that she was recently at [facility] and rehab after an extended stay here at [facility] for antibiotics. She reports that she was treated for C. difficile while at the rehab and was discharged from [facility] month ago. She reports that she continued to have loose stools at home and experience progressively worsening abdominal pain across her lower abdomen. She presented to the hospital when her abdominal pain became severe and she was having multiple loose stools per day. She reports that she had about 6 stools already today, they were soft formed with mucus but are now liquid and yellow. She reports that her abdominal pain continues to be severe across her lower abdomen. She was nauseated previously, she is not currently nauseated, no vomiting. She denies any other concerns such as shortness of breath, coughing, wheezing, chest pain, pressure, palpitations, dysuria or hematuria. She reports feeling guilty for being in the hospital again. She does not feel that she was ready to leave [facility] and rehab but insisted on going home at the time. Exam Narrative Exam Narrative: General: Awake and alert, sitting up in bed, appears comfortable, in no acute distress. HEENT: Normocephalic, atraumatic, face is flushed, EOMI, pupils equal and round, mucous membranes moist. Neck: Supple, no JVD. Respiratory: Respirations appear even and unlabored, lung sounds clear to auscultation throughout. Cardiovascular: Heart has regular rate and rhythm, no murmur appreciated. GI: Abdomen soft, nondistended, normoactive bowel sounds throughout all 4 quadrants, tender on palpation across lower abdomen. Extremities: Well-perfused, no clubbing, cyanosis or edema. Objective Objective Clinical Data: Abnormal lab results 10/18/18 10/18/18 10/18/18 Range/Units 16:49 16:49 16:49 WBC (4.4-10.8) k/cumm Absolute Neutrophils (1.2-6.7) k/cumm Absolute Lymphocytes (1.2-3.4) k/cumm Absolute Monocytes (0.11-0.7) k/cumm Sodium 128 L (136-145) mmol/L Chloride 93 L (98-107) mmol/L Anion Gap 11.5 H (3-11) mmol/L Creatinine 1.06 H (0.55-1.02) mg/dL Glucose (70-100) mg/dL Lactate 1.9 H (0.6-1.4) mmol/l Magnesium (1.8-2.4) mg/dL AST 13 L (15-37) U/L Alkaline Phosphatase 124 H (46-116) U/L Ammonia 36 H (11-32) umol/L 10/18/18 10/18/18 10/19/18 Range/Units 16:49 22:43 07:00 WBC 21.04 H (4.4-10.8) k/cumm Absolute Neutrophils 15.40 H (1.2-6.7) k/cumm Absolute Lymphocytes 3.66 H (1.2-3.4) k/cumm Absolute Monocytes 1.47 H (0.11-0.7) k/cumm Sodium (136-145) mmol/L Chloride (98-107) mmol/L Anion Gap (3-11) mmol/L Creatinine (0.55-1.02) mg/dL Glucose 104 H (70-100) mg/dL Lactate 1.5 H (0.6-1.4) mmol/l Magnesium 1.6 L (1.8-2.4) mg/dL AST (15-37) U/L Alkaline Phosphatase (46-116) U/L Ammonia (11-32) umol/L 10/19/18 Range/Units 07:00 WBC 13.03 H D (4.4-10.8) k/cumm Absolute Neutrophils 10.06 H (1.2-6.7) k/cumm Absolute Lymphocytes (1.2-3.4) k/cumm Absolute Monocytes 0.90 H (0.11-0.7) k/cumm Sodium (136-145) mmol/L Chloride (98-107) mmol/L Anion Gap (3-11) mmol/L Creatinine (0.55-1.02) mg/dL Glucose (70-100) mg/dL Lactate (0.6-1.4) mmol/l Magnesium (1.8-2.4) mg/dL AST (15-37) U/L Alkaline Phosphatase (46-116) U/L Ammonia (11-32) umol/L Vital Signs Temperature 37.3 C 10/19/18 08:02 Temperature Source Tympanic 10/19/18 08:02 Pulse 84 10/19/18 08:02 Pulse Rhythm Regular 10/18/18 23:30 Respiratory Rate 16 10/19/18 08:02 Respiratory Effort Non-Labored 10/19/18 08:34 Respiratory Depth Normal 10/19/18 08:34 Respiratory Pattern Normal 10/19/18 08:34 Blood Pressure 127/94 H 10/19/18 08:02 Blood Pressure Position Sitting 10/18/18 16:34 Pulse Oximetry 95 10/19/18 08:02 Oxygen Delivery Method Room Air 10/19/18 08:02 Oxygen Flow Rate 0 10/19/18 08:02 Pain Level 8 10/19/18 11:27 Comment 10/19/18 03:45 Intake & Output 10/18/18 10/19/18 10/19/18 23:59 11:59 23:59 Intake Total 2300 / 2300 1510.417 / 1510.417 Output Total 1250 / 1250 350 / 350 Balance 1050 / 1050 1160.417 / 1160.417 Weight 78.925 kg 72 kg Intake: IV 2300 / 2300 1070.417 / 1070.417 Oral 440 / 440 Output: Urine 1250 / 1250 350 / 350 Other: Urine Color Pale Yellow Urine Appearance Clear Clear Urine Odor Normal Normal Stool Occult Blood Negative Stool Size Small Stool Characteristics Hard Mucoid Voiding Methods Toilet Toilet Laboratory Results WBC 13.03 k/cumm (4.4-10.8) H D 10/19/18 07:00 RBC 4.60 m/cumm (4.00-5.20) 10/19/18 07:00 Hgb 14.3 g/dL (12.0-15.5) 10/19/18 07:00 Hct 42.1 % (36.0-46.0) 10/19/18 07:00 MCV 91.5 fL (80-95) 10/19/18 07:00 MCH 31.1 pg (27.0-33.0) 10/19/18 07:00 MCHC 34.0 g/dL (32.0-36.0) 10/19/18 07:00 RDW 14.5 % (11.7-14.6) 10/19/18 07:00 Plt Count 295 x1000/uL (130-400) 10/19/18 07:00 MPV 10.0 fL (8.0-11.0) 10/19/18 07:00 Immature Gran % 0.4 10/19/18 07:00 Neutrophils % 77.2 10/19/18 07:00 Lymphocytes % 14.0 10/19/18 07:00 Monocytes % 6.9 10/19/18 07:00 Eosinophils % 1.3 10/19/18 07:00 Basophils % 0.2 10/19/18 07:00 Absolute Neutrophils 10.06 k/cumm (1.2-6.7) H 10/19/18 07:00 Absolute Lymphocytes 1.82 k/cumm (1.2-3.4) 10/19/18 07:00 Absolute Monocytes 0.90 k/cumm (0.11-0.7) H 10/19/18 07:00 Absolute Eosinophils 0.17 k/cumm (0.0-0.7) 10/19/18 07:00 Absolute Basophils 0.03 k/cumm (0.0-0.2) 10/19/18 07:00 Sodium 141 mmol/L (136-145) D 10/19/18 07:00 Potassium 4.4 mmol/L (3.5-5.1) 10/19/18 07:00 Chloride 106 mmol/L (98-107) 10/19/18 07:00 Carbon Dioxide 25.7 mmol/L (21.0-32.0) 10/19/18 07:00 Anion Gap 9.3 mmol/L (3-11) 10/19/18 07:00 BUN 9 mg/dL (7-18) D 10/19/18 07:00 Creatinine 0.87 mg/dL (0.55-1.02) 10/19/18 07:00 Estimated GFR/1.73 m2 >= 60.00 (mL/min/1.73m2) 10/19/18 07:00 Glucose 104 mg/dL (70-100) H 10/19/18 07:00 Lactate 0.7 mmol/l (0.6-1.4) 10/19/18 05:35 Calcium 9.1 mg/dL (8.5-10.1) 10/19/18 07:00 Magnesium 1.6 mg/dL (1.8-2.4) L 10/19/18 07:00 Total Bilirubin 0.4 mg/dL (0.2-1.0) 10/18/18 16:49 AST 13 U/L (15-37) L 10/18/18 16:49 ALT 19 U/L (12-78) 10/18/18 16:49 Alkaline Phosphatase 124 U/L (46-116) H 10/18/18 16:49 Ammonia 36 umol/L (11-32) H 10/18/18 16:49 Total Protein 7.0 g/dL (6.4-8.2) 10/18/18 16:49 Albumin 3.6 g/dL (3.4-5.0) 10/18/18 16:49 Lipase 105 U/L (73-393) 10/18/18 16:49 Procalcitonin < 0.1 ng/mL 10/18/18 16:49 Urine Color Straw (Yellow) 10/18/18 20:00 Urine Clarity Clear 10/18/18 20:00 Urine pH 7.0 (5-8) 10/18/18 20:00 Ur Specific [place] <= 1.005 (1.005-1.025) 10/18/18 20:00 Urine Protein Negative mg/dL (Negative) 10/18/18 20:00 Urine Ketones Negative mg/dL (Negative) 10/18/18 20:00 Urine Blood Negative (Negative) 10/18/18 20:00 Urine Nitrite Negative (Negative) 10/18/18 20:00 Urine Bilirubin Negative (Negative) 10/18/18 20:00 Urine Urobilinogen 0.2 EU/dL (Up TO 0.2) 10/18/18 20:00 Ur Leukocyte Esterase Negative (Negative) 10/18/18 20:00 Urine Glucose Negative mg/dL (Negative) 10/18/18 20:00 Urine Opiates Screen Negative (Negative) 10/18/18 20:00 Urine Methadone Screen Negative (Negative) 10/18/18 20:00 Ur Barbiturates Screen Negative (Negative) 10/18/18 20:00 Ur Tricyclics Screen Negative (Negative) 10/18/18 20:00 Ur Amphetamines Screen Negative (Negative) 10/18/18 20:00 U Benzodiazepines Scrn Negative (Negative) 10/18/18 20:00 Urine Cocaine Screen Negative (Negative) 10/18/18 20:00 Ur THC Screen Positive (Negative) 10/18/18 20:00
[2018-10-19 12:26] VITALS: BP 128/88; PULSE 73; RESP 16; TEMP 37.4; O2SAT 97
[2018-10-19] MEDS: MORPHine 2 MG/ML SYR IVP ×3 (13:02→21:39)
--- NOTE | 2018-10-19 13:31 | PHARADMIT ---
Addendum entered by Lali Cannon 10/21/18 13:12: Pharmacy Note Subjective Re-current C.diff (2nd episode), declined PT today, not accurate recordings of bowel movements, not allowing nursing to view and not using toilet hat Objective VS ok, shoulder pain 01/13, CIWA zero, K+ 4.2, Mag 1.5 Assessment on Oral Vanco for C.Diff-CM making sure it's covered by insurance prior to discharge Starting oral Flagyl, Lactobacillis Protonix changed to Zantac (due to intestinal low changes) Mag 4gram IV x1 IVF's are NS w/20meq KCL @ 100ml/hr Plan possible discharge Original Note: Admission Pharmacy Clinical Review COLITIS Code Status Full Code Current Weight 72 kg Renally Cleared and Narrow Therapeutic Index Meds CRCL ~70ML/MIN QTc Value / Action Taken 465 BP Control, Fever 128/88 AFEBRILE Electrolytes reviewed OK DVT Prophylaxis ENOXAPARIN Opiate Usage / Scheduled Bowel Regimen Ordered PRN/NO Plt/SCr for Heparin / Enoxaparin 295/0.87 INR for Warfarin NA H/H stable, WBC/Bands 14.3/42.1 WBC 13.03 Antibiotic appropriateness VANCOMYCIN PO FOR RECURRENT CDIFF Cultures and Sensitivities LEUKOCYTES +, TOXIN C DIFF + Surgical ABX d/c within 24 hr NA DM control / Insulin Dosing NA Heart Failure (Check EF%) (CAILIN's, B-Block, Diuretics) NA IV to PO Switch Home Meds Reviewed OK Home Meds Not Ordered ALL ORDERED Comments
--- NOTE | 2018-10-19 16:13 | CHAPLAIN ---
Lisset and I remembered each other from when she was here in July. She was here as an inpatient, then swing bed before going to [facility] for four weeks. She said she went home too soon and wasn't able to keep up with things at home, and has been sick for a while before coming into the ER last night. She lives in a trailer without electricity and running water, but has a generator and gas for heat. Lisset loves the land she lives on but at times acknowledges that she can't keep with what needs to be done to take care of her place and herself. Her priorities have been her horse and her dog. They are being cared for by neighbors now, she said. Her sister is aware that she is here, but she hasn't told others. She has friends in [place] and the last time she was here she said she was considering moving back to [place], but would have to sell her property first. Today she said she wasn't feeling any better than when she arrived in the ER last night, but said she has learned not to wait so long to seek help.
[2018-10-19 16:25] VITALS: BP 123/89; PULSE 81; RESP 19; TEMP 37.2; O2SAT 96
[2018-10-19] MEDS: Enoxaparin 40 MG/0.4 ML SYR SC (21:38)
[2018-10-19] MEDS: POTASSIUM CHLORIDE/0.9% NACL 1,000 ML 125 MEQ IV (21:43)
[2018-10-19 23:28] LABS: Specimen Description Feces
[2018-10-20 00:34] VITALS: BP 116/69; PULSE 81; RESP 16; TEMP 37.3; O2SAT 97
[2018-10-20] MEDS: metroNIDAZOLE 500 MG/100 ML BAG 100 MG IVPB ×2 (01:38→08:14)
[2018-10-20] MEDS: POTASSIUM CHLORIDE/0.9% NACL 1,000 ML 125 MEQ IV (06:07)
[2018-10-20] MEDS: Acetaminophen 325 MG TAB PO ×2 (06:07→10:39)
[2018-10-20] MEDS: MORPHine 2 MG/ML SYR IVP ×2 (06:08→10:38)
[2018-10-20] MEDS: Normal Saline Flush 10 ML SYR IVP (06:08)
[2018-10-20 07:19] LABS: Abs Immature Grans 0.04 k/cumm (0.0-0.09); Absolute Basophil Count 0.03 k/cumm (0.0-0.2); Absolute Eosinophil Count 0.36 k/cumm (0.0-0.7); Absolute Lymphocyte Count 1.66 k/cumm (1.2-3.4); Absolute Monocyte Count 0.89 k/cumm (0.11-0.7); Absolute Neutrophil Count 10.27 k/cumm (1.2-6.7); Basophils % 0.2; Eosinophils % 2.7; HGB 14.1 g/dL (12.0-15.5); Immature Grans % 0.3; Lymphocytes % 12.5; Mean Corp. HGB Concentration 34.4 g/dL (32.0-36.0); Mean Corpuscular Hemoglobin 31.8 pg (27.0-33.0); Mean Corpuscular Volume 92.6 fL (80-95); Monocytes % 6.7; Neutrophils % 77.6; Platelet Count 313 x1000/uL (130-400); RBC 4.43 m/cumm (4.00-5.20); RBC Distribution Width 14.4 % (11.7-14.6); White Blood Cell Count 13.24 k/cumm (4.4-10.8)
[2018-10-20 07:23] LABS: Anion Gap 11.6 mmol/L (3-11); BUN 4 mg/dL (7-18); CO2 25.4 mmol/L (21.0-32.0); CREATININE 0.78 mg/dL (0.55-1.02); Calcium 9.1 mg/dL (8.5-10.1); Chloride 103 mmol/L (98-107); Glucose 122 mg/dL (70-100); Magnesium 1.5 mg/dL (1.8-2.4); Potassium 4.1 mmol/L (3.5-5.1); Sodium 140 mmol/L (136-145)
[2018-10-20 08:03] VITALS: BP 117/80; PULSE 80; RESP 16; TEMP 37.6; O2SAT 98
[2018-10-20] MEDS: Venlafaxine 75 MG TAB 150 MG PO ×2 (08:13→20:01)
[2018-10-20] MEDS: Atenolol 50 MG TAB 100 MG PO (08:13)
[2018-10-20] MEDS: Pantoprazole 40 MG TABCR PO (08:14)
[2018-10-20] MEDS: amLODIPine 10 MG TAB PO (08:14)
[2018-10-20 08:24] LABS: Result Positive
[2018-10-20] MEDS: MAGNESIUM SULFATE 2 GM/50 ML BAG IVPB (10:25)
[2018-10-20 11:06] LABS: Campylobacter PCR SEE COMMENTS; Salmonella PCR SEE COMMENTS; Shiga Toxin PCR SEE COMMENTS; Shigella/Enteroinvasive Ecoli SEE COMMENTS
[2018-10-20 11:33] VITALS: BP 120/90; PULSE 73; RESP 16; TEMP 36.9; O2SAT 95
--- NOTE | 2018-10-20 12:35 | W.PM.PROGNOT ---
Date of Service Date of service: 10/20/18 Time of Service: 12:36 Assessment and Plan (1) C. difficile colitis: Current visit: Yes Status: Acute C. Diff PCR positive. With recent C. difficile colitis, this is likely ongoing C. difficile infection versus repeat infection. C. difficile PCR positive. Cipro discontinued yesterday. Discontinue flagyl. Continue oral vancomycin. Discontinue morphine, trial norco for pain control- monitor overWith recent C. difficile colitis, this is likely ongoing C. difficile infection versus repeat infection. C. difficile PCR postive. Cipro discontinued yesterday. Discontinue flagyl. Continue oral vancomycin. Discontinue morphine, trial norco for pain control- monitor over night. Advance to regular diet as tolerated. (2) Abdominal pain: Current visit: Yes Status: Acute She continues to have pain across her lower abdomen. CT abdomen shows evidence of nonfocal wall thickening in the sigmoid colon. C.diff PCR positive. Treat as above. (3) Diarrhea: Current visit: Yes Status: Acute Continues to have multiple loose stools, remains watery. Evaluation and treatment as above. (4) Essential hypertension: Current visit: No Status: Chronic Blood pressure appropriate, 117/80 this morning. Continue home regimen with amlodipine and atenolol. Continue to monitor her pressure. (5) Alcohol abuse: Current visit: No Status: Chronic Currently scoring 2 on CIWA protocol. No signs of withdrawal on recent hospitalization. Continue to monitor for alcohol withdrawal. (6) DVT prophylaxis: Current visit: Yes Status: Acute Subcutaneous Lovenox. (7) Discharge planning issues: Current visit: Yes Status: Acute She is a full code. She was recently at [facility] and rehab after a lengthy hospitalization. She reports that she did not feel that she was ready to return home but insisted on discharge at the time. She may need rehab after her hospitalization. Continue PT. Care management is working on her discharge plan. This case was discussed with Dr. Perez who is in agreement. Subjective Interval history since last seen: Lisset Abel reports that she was recently at [facility] and rehab after an extended stay here at [facility] for antibiotics. She reports that she was treated for C. difficile while at the rehab and was [facility] from [facility]. She reports that she continued to have loose stools at home and experience progressively worsening abdominal pain across her lower abdomen. She presented to the hospital when her abdominal pain became severe and she was having multiple loose stools per day. She reports that she has had about 4 stools this morning, her stools are liquid and turning more brown than yellow today, she reports having stools every 1-2 hours. She continues to have abdominal pain across her lower abdomen for which she has been taking IV morphine. She denies any nausea or vomiting. She was able to tolerate toast today. She denies any other concerns such as shortness of breath, coughing, wheezing, chest pain, pressure, palpitations, dysuria or hematuria. Exam Narrative Exam Narrative: General: Awake and alert, sitting up in bed, appears comfortable, in no acute distress. HEENT: Normocephalic, atraumatic, face is flushed, EOMI, pupils equal and round, mucous membranes moist. Neck: Supple, no JVD. Respiratory: Respirations appear even and unlabored, lung sounds clear to auscultation throughout. Cardiovascular: Heart has regular rate and rhythm, no murmur appreciated. GI: Abdomen soft, nondistended, normal-hyperactive bowel sounds throughout all 4 quadrants, tender on palpation across lower abdomen. Extremities: Well-perfused, no clubbing, cyanosis or edema. Objective Objective Clinical Data: Abnormal lab results 10/19/18 10/20/18 10/20/18 Range/Units 03:20 06:45 06:45 WBC 13.24 H (4.4-10.8) k/cumm Absolute Neutrophils 10.27 H (1.2-6.7) k/cumm Absolute Monocytes 0.89 H (0.11-0.7) k/cumm Anion Gap 11.6 H (3-11) mmol/L BUN 4 L (7-18) mg/dL Glucose 122 H (70-100) mg/dL Magnesium 1.5 L (1.8-2.4) mg/dL Stl C.difficile Tox PCR Positive A Vital Signs Temperature 36.9 C 10/20/18 11:33 Temperature Source Tympanic 10/20/18 11:33 Pulse 73 10/20/18 11:33 Pulse Rhythm Regular 10/20/18 09:13 Respiratory Rate 16 10/20/18 11:33 Respiratory Effort 10/20/18 09:13 Respiratory Depth Normal 10/20/18 09:13 Respiratory Pattern Normal 10/20/18 09:13 Blood Pressure 120/90 10/20/18 11:33 Blood Pressure Position Sitting 10/18/18 16:34 Pulse Oximetry 95 10/20/18 11:33 Oxygen Delivery Method Room Air 10/20/18 11:33 Oxygen Flow Rate 0 10/20/18 11:33 Pain Level 8 10/20/18 10:39 Comment 10/19/18 03:45 Intake & Output 10/19/18 10/20/18 10/20/18 23:59 11:59 23:59 Intake Total 2309.583 / 3820.000 2067.917 / 2547.917 480 / 2547.917 Balance 2309.583 / 3470.000 2067.917 / 2547.917 480 / 2547.917 Weight 76 kg 76 kg Intake: IV 389.583 / 6556.069 2115.917 / 1417.917 Oral 1920 / 2360 650 / 1130 480 / 1130 Other: Urine Color Yellow Pale Yellow Urine Appearance Clear Clear Urine Odor None None Comment per patient verbalization per patient verbalization Stool Size Small Stool Characteristics Soft Liquid Formed Mucoid Voiding Methods Toilet Laboratory Results WBC 13.24 k/cumm (4.4-10.8) H 10/20/18 06:45 RBC 4.43 m/cumm (4.00-5.20) 10/20/18 06:45 Hgb 14.1 g/dL (12.0-15.5) 10/20/18 06:45 Hct 41.0 % (36.0-46.0) 10/20/18 06:45 MCV 92.6 fL (80-95) 10/20/18 06:45 MCH 31.8 pg (27.0-33.0) 10/20/18 06:45 MCHC 34.4 g/dL (32.0-36.0) 10/20/18 06:45 RDW 14.4 % (11.7-14.6) 10/20/18 06:45 Plt Count 313 x1000/uL (130-400) 10/20/18 06:45 MPV 10.0 fL (8.0-11.0) 10/20/18 06:45 Immature Gran % 0.3 10/20/18 06:45 Neutrophils % 77.6 10/20/18 06:45 Lymphocytes % 12.5 10/20/18 06:45 Monocytes % 6.7 10/20/18 06:45 Eosinophils % 2.7 10/20/18 06:45 Basophils % 0.2 10/20/18 06:45 Absolute Neutrophils 10.27 k/cumm (1.2-6.7) H 10/20/18 06:45 Absolute Lymphocytes 1.66 k/cumm (1.2-3.4) 10/20/18 06:45 Absolute Monocytes 0.89 k/cumm (0.11-0.7) H 10/20/18 06:45 Absolute Eosinophils 0.36 k/cumm (0.0-0.7) 10/20/18 06:45 Absolute Basophils 0.03 k/cumm (0.0-0.2) 10/20/18 06:45 Sodium 140 mmol/L (136-145) 10/20/18 06:45 Potassium 4.1 mmol/L (3.5-5.1) 10/20/18 06:45 Chloride 103 mmol/L (98-107) 10/20/18 06:45 Carbon Dioxide 25.4 mmol/L (21.0-32.0) 10/20/18 06:45 Anion Gap 11.6 mmol/L (3-11) H 10/20/18 06:45 BUN 4 mg/dL (7-18) L 10/20/18 06:45 Creatinine 0.78 mg/dL (0.55-1.02) 10/20/18 06:45 Estimated GFR/1.73 m2 >= 60.00 (mL/min/1.73m2) 10/20/18 06:45 Glucose 122 mg/dL (70-100) H 10/20/18 06:45 Lactate 0.7 mmol/l (0.6-1.4) 10/19/18 05:35 Calcium 9.1 mg/dL (8.5-10.1) 10/20/18 06:45 Magnesium 1.5 mg/dL (1.8-2.4) L 10/20/18 06:45 Total Bilirubin 0.4 mg/dL (0.2-1.0) 10/18/18 16:49 AST 13 U/L (15-37) L 10/18/18 16:49 ALT 19 U/L (12-78) 10/18/18 16:49 Alkaline Phosphatase 124 U/L (46-116) H 10/18/18 16:49 Ammonia 36 umol/L (11-32) H 10/18/18 16:49 Total Protein 7.0 g/dL (6.4-8.2) 10/18/18 16:49 Albumin 3.6 g/dL (3.4-5.0) 10/18/18 16:49 Lipase 105 U/L (73-393) 10/18/18 16:49 Procalcitonin < 0.1 ng/mL 10/18/18 16:49 Urine Color Straw (Yellow) 10/18/18 20:00 Urine Clarity Clear 10/18/18 20:00 Urine pH 7.0 (5-8) 10/18/18 20:00 Ur Specific [place] <= 1.005 (1.005-1.025) 10/18/18 20:00 Urine Protein Negative mg/dL (Negative) 10/18/18 20:00 Urine Ketones Negative mg/dL (Negative) 10/18/18 20:00 Urine Blood Negative (Negative) 10/18/18 20:00 Urine Nitrite Negative (Negative) 10/18/18 20:00 Urine Bilirubin Negative (Negative) 10/18/18 20:00 Urine Urobilinogen 0.2 EU/dL (Up TO 0.2) 10/18/18 20:00 Ur Leukocyte Esterase Negative (Negative) 10/18/18 20:00 Urine Glucose Negative mg/dL (Negative) 10/18/18 20:00 Stool Campylobacter PCR See comments 10/19/18 03:20 Stl C.difficile Tox PCR Positive A 10/19/18 03:20 Stool Salmonella PCR See comments 10/19/18 03:20 Stool Shigella PCR See comments 10/19/18 03:20 Urine Opiates Screen Negative (Negative) 10/18/18 20:00 Urine Methadone Screen Negative (Negative) 10/18/18 20:00 Ur Barbiturates Screen Negative (Negative) 10/18/18 20:00 Ur Tricyclics Screen Negative (Negative) 10/18/18 20:00 Ur Amphetamines Screen Negative (Negative) 10/18/18 20:00 U Benzodiazepines Scrn Negative (Negative) 10/18/18 20:00 Urine Cocaine Screen Negative (Negative) 10/18/18 20:00 Ur THC Screen Positive (Negative) 10/18/18 20:00 C.difficile Tox Source Feces 10/19/18 03:20 Shiga Toxin (PCR) See comments 10/19/18 03:20
--- NOTE | 2018-10-20 14:47 | PDOC.CMPRO ---
- If Service Date Differs Date of service: 10/20/18 Time of Service: 14:47 Care Management Progress Note S/O: CM met with Lisset at the bedside. She continues to have multiple loose bowel movements and requiring IV pain management. She is receiving oral antibiotics and IV. Her WBC has improved however continues to be elevated. She will transition to acute inpatient today while being treated and symptom management. Lisset would like to complete applications for subsidized housing, SASH and meals on wheels. She is disabled and source of income is SSI she would be eligible for disabled housing locally. She states she may be okay on her land for the summer however she will need housing for the winter. She denies a local support system, she states all her close supports live in [place]. She was able to find someone to stay with her dog. A:Lisset is a 58 year old female admitted with Colitis positive for C-Diff. P:Lisset transition to inpatient today. She has a PT consult. Anticipate she will return home with services for meals on wheels, SASH, and subsidized housing. She will plan to return home at time of discharge.
[2018-10-20] MEDS: HYDROcodone 5/Acetaminophen 325 TAB PO (15:29)
[2018-10-20 15:34] VITALS: BP 137/89; PULSE 70; RESP 18; TEMP 37; O2SAT 97
[2018-10-20] MEDS: POTASSIUM CHLORIDE/0.9% NACL 1,000 ML 100 MEQ IV (18:52)
[2018-10-20] MEDS: Enoxaparin 40 MG/0.4 ML SYR SC (21:41)
[2018-10-20 23:25] VITALS: BP 139/79; PULSE 86; RESP 17; TEMP 36.6; O2SAT 99
[2018-10-21] MEDS: HYDROcodone 5/Acetaminophen 325 TAB PO ×2 (00:19→06:17)
[2018-10-21] MEDS: POTASSIUM CHLORIDE/0.9% NACL 1,000 ML 100 MEQ IV (03:18)
[2018-10-21 03:55] VITALS: BP 128/90; PULSE 75; RESP 16; TEMP 37.3; O2SAT 95
[2018-10-21 07:13] VITALS: BP 145/81; PULSE 79; RESP 18; TEMP 37.2; O2SAT 96
[2018-10-21 07:28] LABS: Abs Immature Grans 0.05 k/cumm (0.0-0.09); Absolute Basophil Count 0.04 k/cumm (0.0-0.2); Absolute Eosinophil Count 0.42 k/cumm (0.0-0.7); Absolute Lymphocyte Count 2.37 k/cumm (1.2-3.4); Absolute Monocyte Count 0.95 k/cumm (0.11-0.7); Basophils % 0.4; Eosinophils % 3.8; HCT 42.3 % (36.0-46.0); HGB 14.2 g/dL (12.0-15.5); Immature Grans % 0.5; Lymphocytes % 21.4; Mean Corp. HGB Concentration 33.6 g/dL (32.0-36.0); Mean Corpuscular Volume 92.4 fL (80-95); Mean Platelet Volume 10.2 fL (8.0-11.0); Monocytes % 8.6; Neutrophils % 65.3; Platelet Count 314 x1000/uL (130-400); RBC 4.58 m/cumm (4.00-5.20); RBC Distribution Width 14.3 % (11.7-14.6); White Blood Cell Count 11.09 k/cumm (4.4-10.8)
[2018-10-21 07:31] LABS: Absolute Neutrophil Count 7.24 k/cumm (1.2-6.7)
[2018-10-21 07:38] LABS: Anion Gap 9.3 mmol/L (3-11); BUN 5 mg/dL (7-18); CO2 26.7 mmol/L (21.0-32.0); Calcium 9.3 mg/dL (8.5-10.1); Chloride 102 mmol/L (98-107); Glucose 83 mg/dL (70-100); Magnesium 1.5 mg/dL (1.8-2.4); Potassium 4.2 mmol/L (3.5-5.1); Sodium 138 mmol/L (136-145)
[2018-10-21] MEDS: Magnesium Oxide 400 MG TAB PO (08:31)
[2018-10-21] MEDS: Lactobacillus Acidophilus CAP 1 CAP PO ×2 (08:31→14:49)
[2018-10-21] MEDS: amLODIPine 10 MG TAB PO (08:31)
[2018-10-21] MEDS: Venlafaxine 75 MG TAB 150 MG PO (08:31)
[2018-10-21] MEDS: Atenolol 50 MG TAB 100 MG PO (08:31)
--- NOTE | 2018-10-21 08:53 | PT.INIE ---
Date of service: 10/20/18 Time of Service: 09:36 PT Notes Inpatient Physical Therapy Evaluation Date: 10/20/2018 Referring Doctor: Remedios Vera NP PT Orders: PT CONSULT: Generalized weakness, C. difficile, recent rehab stay Precautions: Fall. Contact precautions. Patient Profile/Admitting Diagnosis: 58-year-old female who presented to the ED on 10/18/2018 with chief complaints of abdominal pain. Patient has a past medical history of traumatic brain injury, essential hypertension and recent hospitalization from July 13, 2018 until discharged on July 21, 2018 for treatment of tenosynovitis of right hand and bilateral hand cellulitis which is related to splinters in her fingers from handling of firewood. She also has a history of second-degree rudd on her left leg due to spilling of boiling water. She was eventually discharged for continued rehabilitation to [facility] where she developed C. difficile colitis and was successfully treated with oral Vancomycin and her watery diarrhea resolved. At the ED on 10/18/2018 patient was diagnosed with enterocolitis with C. difficile infection. PMHX: Medical History Essential hypertension (Chronic) Alcohol abuse (Chronic) Hypertension (Chronic) TBI (traumatic brain injury) (Chronic) Surgical History Hx of appendectomy (Chronic) Previous section (Chronic) Social History/Home Situation: Patient lives in a trailer in [facility] where she has no running water and electricity and uses wood stove for heat and for bowling of water. She states she has animals that she takes care of. She was independent with all aspects of ADLs without the need for any assistive ambulatory device nor adaptive equipment. Current Functional Limitations: Need for assistance with ambulation task performance Equipment Owned/DME: None Subjective: Patient agreeable to a PT consult today. Patient states that she had a restless restless night last night because she has been using the bathroom frequently. She states that she would want to stay in the hospital for as long as she needs to to make sure that she is fully recovered to to go back home as she lives off the grid. She states she has not been eating since Tuesday. She reports pain and lower abdominal area that is intermittent. She states that she feels weak and would like to get stronger so she can tolerate going back home. Objective: General Observation: Patient seen sitting in bed at time of evaluation. Bilateral TEDs on legs. IV left daily Mental Status: Alert and oriented x3 Pain: 7/10 pain in the lower abdominal area ROM: Right Upper Extremity: Shoulder Flexion WFL. Shoulder abduction WFL. Elbow flexion WFL. Wrist flexion WFL. Functional opening and closing of hand WFL. Left Upper Extremity: Shoulder Flexion WFL. Shoulder abduction WFL. Elbow flexion WFL. Wrist flexion WFL. Functional opening and closing of hand WFL. Right Lower Extremity: Hip flexion WFL. Hip abduction WFL. Knee flexion WFL. Ankle dorsiflexion WFL. Ankle plantarflexion WFL. Left Lower Extremity: Hip flexion WFL. Hip abduction WFL. Knee flexion WFL. Ankle dorsiflexion WFL. Ankle plantarflexion WFL. Strength: Right Upper Extremity: Shoulder flexors 4+/5. Shoulder abductors 4+/5. Elbow flexors 4+5. Elbow extensors 4+/5. Bearing Maker strong. Left Upper Extremity: Shoulder flexors 4+/5. Shoulder abductors 4+/5. Elbow flexors 4+5. Elbow extensors 4+/5. Bearing Maker strong. Right Lower Extremity: Hip flexors 4/5. Hip abductors 45. Knee flexors 4/5. Knee extensors 45. Ankle dorsiflexors 4/5. Ankle plantarflexors 4/5. Left Lower Extremity:Hip flexors 4/5. Hip abductors 45. Knee flexors 4/5. Knee extensors 45. Ankle dorsiflexors 4/5. Ankle plantarflexors 4/5. Sensation: Patient reports tingling sensation on the tip of the distal phalanx of the second finger on the right. Intact as to pain and pressure to both LE Bed Mobility/Transfers: Rolling S Supine to sit S Sit to supine S Sit to stand S Stand to sit S Bed to chair S Chair to bed S Gait: Patient tolerates in room ambulation of 20 feet + 20 feet with mild discomfort in the lower abdominal area due to C. difficile infection. Patient does not need any assistive ambulatory device for short distance ambulation. Balance: Static Sitting: Normal Dynamic Sitting: Normal Static Standing: Good Dynamic Standing: Good Special Tests: Mobility Limitations Standardized Measure [facility]-PAC 6 clicks Basic Mobility Inpatient Short Form: Raw Score: 22 CMS Score: 21% deficit Informed Consent/Education: Patient instructed in purpose of PT consult and plan of care. Assessment: 58-year-old female with C. Difficile enterocolitis. Patient presents with clinical signs and symptoms consistent with current/admitting diagnoses that have resulted to mobility limitations, gait instability, generalized weakness, and impairment of motor control as demonstrated by the following impairment level findings: 1. Decreased strength to B LE major muscle groups 2. Impaired sitting/standing balance 3. Impaired activity tolerance Impairments are contributing to the following functional limitations: 1. Increased fall risk 2. Need for assistance with stair negotiation 3. Limited ability to participate in all aspects of ADLs due to decreased activity tolerance Patient is assessed as a [id number] Moderate complexity based on the following: History: 58-year-old female with significant history significant for traumatic brain injury and who lives off the [place]; previously independent with all aspects of ADLs; patient anxious about her ability to go back home in her current condition of weakness knowing that she does not have the comforts of having home appliances Examination: Underlying impairments and functional limitations as noted above Presentation:Evolving Decision Makin moderate complexity Goals: Goals X1 week 1. Supine-Sit independent 2. Sit-Supine independent 3. Sit-Stand independent 4. Stand-Sit independent 5. Bed-Chair independent 6. Chair-Bed independent 7. Independent gait on level surface without assistive ambulatory device for at least 300 feet without report of pain nor dyspnea 8. Independent stair negotiation without rails for at least 5 steps without report of pain nor dyspnea 9. Independent with home exercise program 10. Good static and dynamic standing balance/tolerance Plan of Care/Treatment Plan: 1x/day, 7 days/week x 1 week. Plan of care has been reviewed with the SUPERVISOR BLASTING providing the service under Physical Therapy direction. Initiate Physical Therapy intervention for strengthening, bed mobility, transfers, gait, stairs, balance training, use of assistive device. DISCHARGE RECOMMENDATIONS: Patient will benefit from home health PT services in order to progress mobility level using least restrictive assistive ambulatory device/using no device, assess home safety, identify additional equipment needs, and establish a functional maintenance program that will increase ability of patient to remain at home. TREATMENT CODE/TIME: 63831 for 34 minutes beginning at 9:36 AM. thank you very much for this referral. Brigida Nunes PT, DPT, CLT [facility]
[2018-10-21] MEDS: Cholestyramine/Aspartame PKT 1 EACH PO (10:05)
[2018-10-21] MEDS: MAGNESIUM SULFATE 4 GM/100 ML BAG IVPB (10:06)
[2018-10-21] MEDS: metroNIDAZOLE 500 MG TAB PO (11:21)
--- NOTE | 2018-10-21 11:36 | PT.INNT ---
Date of service: 10/21/18 Time of Service: 11:00 PT Notes pt declined treatment session today. I really dont need PT. I am fine, can move about without any troubles. I think I am going home later today.
[2018-10-21 11:37] VITALS: BP 131/81; PULSE 74; RESP 18; TEMP 36.6; O2SAT 95
--- NOTE | 2018-10-21 13:21 | DSE_ITS ---
Date of service: 10/21/18 Time of Service: 13:14 DS: Diagnosis Discharge Diagnosis (1) C. difficile colitis: Status: Acute (2) Abdominal pain: Status: Acute (3) Diarrhea: Status: Acute (4) Essential hypertension: Status: Chronic (5) Alcohol abuse: Status: Chronic (6) DVT prophylaxis: Status: Acute (7) Discharge planning issues: Status: Acute Discharge Plan Disposition Patient Disposition: HOME Condition: Improving Discharge Details Reason For Visit: COLITIS Admit Date/Time: 10/20/18 12:50 Admit Provider: Koby Bland Attending Provider: Koby Bland Primary Care Provider: Yessy Valverde Hospital Course Hospital Course: 58-year-old female with a past medical history of traumatic brain injury, essential hypertension and recent hospitalization from July 21, 2018 until discharged on July 21, 2018 for treatment of tenosynovitis her right hand and bilateral hand cellulitis which is related to splinters in her fingers from handling of firewood. She also has a history of second-degree rudd on her left leg due to spilling of boiling water. Patient lives in a trailer in [facility] where she has no running water and electricity and uses wood stove for heat and for bowling of water. After she was hospitalized at [facility] for treatment of the cellulitis of her hands and she had a work-up for possible subacute bacterial endocarditis in which she underwent a TTE and MAIRNA. The TTE showed a potential mass on the basis of a calcified chordae on the mitral valve versus potential vegetation however the MARINA did not show vegetation. Blood cultures came back no growth. She was successfully treated with Ancef. She was eventually discharged to [facility]. While there she developed C. difficile colitis and was successfully treated with oral Vancomycin and her watery diarrhea resolved. However she now presents emergency department with complaints of 2 months of intermittent abdominal pain in the lower abdominal regions. Pain is gotten progressively worse over the last couple weeks. This has been accompanied by loose bowel movements, not watery diarrhea as she had w/ the C difficile infection but stools she describes as Tootsie rolls with mucous. She has had nausea and had one episode of vomiting today. There has been no melena nor hematochezia. She denies any rigors or fevers. In the emergency room she was evaluated by Dr. Will Cleaning where he noted that her abdominal exam showed her pain to be out of proportion to her physical findings. She had no rash and her vital signs are stable and she was afebrile. He performed a work-up that included routine labs including a CMP, CBC with differential, urinalysis, procalcitonin level, lipase, and blood lactate level. CMP demonstrated a mild hyponatremia of 128 with hypo-chloride EMEA of 93 and an anion gap of 11.5. Normal BUN of 16 creatinine 1.06. Glucose is normal at 97. LFTs were normal. Ammonia level was mildly elevated at 36. Procalcitonin is less than 0.1. Lipase was normal at 105. Blood lactate was elevated slightly at 1.9. Urine for drugs of abuse is positive for THC but otherwise negative. Stool for C. difficile toxin is pending at this time as his stool for bacterial pathogens and lactoferrin. CT scan of the abdomen and pelvis with contrast was performed to rule out ischemic colitis. CT of the abdomen and pelvis showed mild diverticulosis of the distal colon with nonfocal mural thickening of the s igmoid colon favored to represent sequelae of acute colitis possibly diverticulitis. However artifactual mural thickening secondary to under distention was also in the differential. Patient no abdominal aortic aneurysm no dissection in all the major visceral branches were patent. Treatment emergency room included IV fluids x2 L. She was given a dose of metronidazole and ciprofloxacin and Bentyl. Patient is now admitted to the hospital for treatment of colitis possible C. difficile colitis versus impending diverticulitis. Today she is having frequent stool approx 10 x per day but more formed. She is c/o shoulder pain bilaterally but does endorse doing manual labor in the past couple of days working in the yard. She is on vancomycin 250 q 6 and will continue for the next 13 days. She was also started on flagyl PO and will have a 10 day course. We spoke about probiotics and eating yogurt daily along with taking questrian to help form stool. I also reccommended she stop taking omepr azole and will start her on an H2 maverick. She denies chest pain, SOB, nausea, vomiting. She is asking for something for pain so i will give her a couple of tabs of tramadol for pain. Home Meds and New Rx's Prescriptions: New Prevalite 4 gram Powder In Packet 4 gm PO BID Qty: 60 RF: 0 metronidazole 500 mg Tablet 500 mg PO Q8H Qty: 42 RF: 0 ranitidine HCl 150 mg Tablet 75 mg PO DAILY Qty: 30 RF: 0 vancomycin 250 mg Capsule 250 mg PO Q6H Qty: 52 RF: 0 acidophilus-pectin, citrus 25 million cell -100 mg Tablet 2 tab PO TID Qty: 90 RF: 0 tramadol 50 mg tablet 50 mg PO Q6H PRN (Reason: pain) Qty: 20 RF: 0 Continued atenolol 100 mg Tablet 100 mg PO DAILY RF: 0 amlodipine 10 mg Tablet 10 mg PO DAILY RF: 0 ergocalciferol (vitamin D2) [Vitamin D2] 50,000 unit Capsule 1.25 mg PO QWEEK RF: 0 acetaminophen [Tylenol] 325 mg Tablet 650 mg PO Q4H PRN PRN (Reason: fever or pain) Qty: 30 RF: 0 venlafaxine 25 MG tablet 150 mg PO BID RF: 0 Discontinued pantoprazole 40 mg Tablet,Delayed Release (Dr/Ec) 40 mg PO DAILY@0730 Qty: 0 RF: 0 Discharge Instructions Instructions: Probiotic (By mouth), Antibiotic Resistant Bacteria (GEN), Infectious Colitis (GEN) Additional Instructions: Follow up with your Primary doctor in 1 week. Stop taking omeprazole/pantaprazole, start taking Zantac Finish all antibiotics Eat 2 yogurts a day for at least 1 month. Take probiotic three times a day. Report to emergency room immediately if you start to have chest pain, shortness of breath, dizziness, bleeding, or fever. Stand Alone Forms: Nursing Discharge Form Referrals: Yessy Valverde [Primary Care Provider] - 10/27/18 2:35 pm Activity:: Activity as Tolerated Equipment/Supplies:: No Equipment Needed Diet:: As Tolerated Discharge Orders Discharge Orders: Discharge Order (Routine); Ordered 10/21/18 Ordered By: Valencia Rebolledo Exam Narrative Exam Narrative: General: Awake and alert, sitting up in bed, appears comfortable, in no acute distress. HEENT: Normocephalic, atraumatic, face is flushed, EOMI, pupils equal and round, mucous membranes moist. Neck: Supple, no JVD. Respiratory: Respirations appear even and unlabored, lung sounds clear to auscul tation throughout. Cardiovascular: Heart has regular rate and rhythm, no murmur appreciated. GI: Abdomen soft, nondistended, normal-hyperactive bowel sounds throughout all 4 quadrants, tender on palpation across lower abdomen. Extremities: Well-perfused, no clubbing, cyanosis or edema. DS: Data Vitals/I&O Vitals and I&O: Vital Signs Temperature 36.6 C 10/21/18 11:37 Temperature Source Tympanic 10/21/18 11:37 Pulse 74 10/21/18 11:37 Pulse Rhythm Regular 10/21/18 00:03 Respiratory Rate 18 10/21/18 11:37 Respiratory Effort 10/21/18 00:03 Respiratory Depth Normal 10/21/18 00:03 Respiratory Pattern Normal 10/21/18 00:03 Blood Pressure 131/81 10/21/18 11:37 Blood Pressure Position Sitting 10/18/18 16:34 Pulse Oximetry 95 10/21/18 11:37 Oxygen Delivery Method Room Air 10/21/18 11:37 Oxygen Flow Rate 0 10/21/18 11:37 Pain Level 8 10/21/18 06:17 Comment 10/21/18 03:55 Intake & Output 10/20/18 10/21/18 10/21/18 23:59 11:59 23:59 Intake Total 2252.083 / 4320.000 1400 / 1400 Output Total 300 / 300 Balance 2252.083 / 4320.000 1100 / 1100 Weight 76 kg 78.3 kg Intake: IV 752.083 / 2170.000 650 / 650 Oral 1500 / 2150 750 / 750 Output: Urine 300 / 300 Other: Urine Color Yellow Yellow Urine Appearance Clear Clear Urine Odor Normal Comment Patient up independantly, voiding multiple times throughout the day noted in hat this am; unsure of when pt voided Stool Size Moderate Moderate Stool Characteristics Liquid Soft Brown Voiding Methods Toilet Toilet Completed studies during hospitalization [Text1]: EXAM: CT Angiography Abdomen and Pelvis With Contrast EXAM DATE/TIME: 10/18/2018 4:44 PM CLINICAL HISTORY: 58 years old, female; Abdominal pain; Localized; Patient HX: Patient sts pain in lower abdomen, patient had cdiff. ; Additional info: Mesentaric ischemia protocol per er doctor. TECHNIQUE: Imaging protocol: Axial computed tomographic angiography images of the abdomen and pelvis with intravenous contrast material. Coronal and sagittal reformatted images were created and reviewed. 3D rendering: MIP reconstructed images were created and reviewed. Radiation optimization: All CT scans at this facility use at least one of these dose optimization techniques: automated exposure control; mA and/or kV adjustment per patient size (includes targeted exams where dose is matched to clinical indication); or iterative reconstruction. Contrast material: OMNIPAQUE 350; Contrast volume: 100 ml; Contrast route: IV; COMPARISON: CT ABDOMEN PELVIS W 08/11/2018 1:31 PM FINDINGS: VASCULATURE: Aorta: There are mild scattered atherosclerotic calcifications of the abdominal aorta and its major branches, no abdominal aortic aneurysm or dissection. Celiac trunk and mesenteric arteries: No occlusion or significant stenosis. Renal arteries: No occlusion or significant stenosis. Right iliac arteries: No occlusion or significant stenosis. Left iliac arteries: No occlusion or significant stenosis. ABDOMEN: Liver: No mass. Gallbladder and bile ducts: Unremarkable. No calcified stones. No ductal dilation. Pancreas: Unremarkable. No mass. No ductal dilation. Spleen: Unremarkable. No splenomegaly. Adrenals: Unremarkable. No mass. Kidneys and ureters: Incidental note is made of bilateral extrarenal pelvises. No hydronephrosis. Ureters are normal in course and caliber. Subcentimeter hypodensities within the inferior right renal pole are too small to characterize, statistically most likely cysts. Stomach and bowel: Mild diverticulosis is present in the distal colon. There is mild nonfocal mural thickening of the sigmoid colon, however limited by under distention. This finding is decreased in prominence in the interval. No significant pericolonic inflammatory stranding, however with mild associated perivascular engorgement of the associated mesenteric vessels. Appendix: No evidence of appendicitis. PELVIS: Bladder: Unremarkable. No mass. Reproductive: Unremarkable as visualized. ABDOMEN and PELVIS: Intraperitoneal space: Unremarkable. No free air. No significant fluid collection. Bones/joints: No acute fracture or dislocation. Varying degrees of multilevel degenerative disk and facet changes of the spine are present.There is mild stool burden in the proximal colon with well-formed stool. No evidence of bowel obstruction. Soft tissues: Trace/small fat containing umbilical hernia. Lymph nodes: Unremarkable. No enlarged lymph nodes. IMPRESSION: 1. Mild diverticulosis of the distal colon with similar to improved it nonfocal mural thickening of the sigmoid colon. Favored to represent sequela of acute colitis, possibly diverticulitis, in the appropriate setting, however artifactual mural thickening secondary to underdistention is also on the differential. 2. No abdominal aortic aneurysm or dissection. Major branches are patent. Labs on day of discharge: Labs from last 24 hours 10/21/18 10/21/18 06:21 06:21 WBC 11.09 H RBC 4.58 Hgb 14.2 Hct 42.3 MCV 92.4 MCH 31.0 MCHC 33.6 RDW 14.3 Plt Count 314 MPV 10.2 Immature Gran % 0.5 Neutrophils % 65.3 Lymphocytes % 21.4 Monocytes % 8.6 Eosinophils % 3.8 Basophils % 0.4 Absolute Neutrophils 7.24 H Absolute Lymphocytes 2.37 Absolute Monocytes 0.95 H Absolute Eosinophils 0.42 Absolute Basophils 0.04 Sodium 138 Potassium 4.2 Chloride 102 Carbon Dioxide 26.7 Anion Gap 9.3 BUN 5 L Creatinine 0.70 Estimated GFR/1.73 m2 >= 60.00 Glucose 83 Calcium 9.3 Magnesium 1.5 L [facility] Medical History Essential hypertension (Chronic) Alcohol abuse (Chronic) Hypertension (Chronic) TBI (traumatic brain injury) (Chronic) Surgical History Hx of appendectomy (Chronic) Previous section (Chronic) Family History Brother Stroke Mother Diabetes Lung cancer Father Hypertension Social History Smoking/Tobacco Use Status: Never Alcohol Intake: current Alcohol Intake frequency: 0-2 drinks per day Alcohol type: beer and wine Details: never had withdrawal or seizures Drug use: Socially Substance use type: marijuana Do you feel safe at home: Yes Do you feel safe in your relationship?: Yes
--- NOTE | 2018-10-21 15:04 | PDOC.CMDIS ---
- If Service Date Differs Date of service: 10/21/18 Time of Service: 15:04 LACE Index Scoring Tool - Questions: Length of Stay (in days): 4 - 6 Acuity (Admit via E.D.?): Yes E.D. Visits: 3 - Answers: Total Score: 10 Risk of Readmission: High Risk Care Management Discharge Reason for Hospitalization: Abdominal pain and diarrhea Discharge Plan: Lisset is being discharged home today on oral antibiotics to treat cdiff. CM contacted pharmacy and verified that vancomycin would be covered by insurance copay will be 1.25. CM coordinated a ride through [facility] to return home as well as obtain her prescriptions. CM faxed referrals to [facility] meals on wheels, [facility] assistance with home services and housing also to community connections to follow up applicaiton for hoursing and assistance with cleaning the home r/t recent infection of cdiff and no running water. Lisset is prepared to return home she is hopeful she will be able to find housing prior to winter months and is willing to work with community resources to identify housing. CM provided patient with housing applicaiton and will request trey follow up with her. Patient/Family Education Needs: Discharge instructions, follow up plan and referral to community resources including contact numbers for the services. Services Needed at Discharge: Home Delivered Meals
--- NOTE | 2018-10-21 15:11 | CMDISCH_ITS ---
- If Service Date Differs Date of service: 10/21/18 Time of Service: 15:04 LACE Index Scoring Tool - Questions: Length of Stay (in days): 4 - 6 Acuity (Admit via E.D.?): Yes E.D. Visits: 3 - Answers: Total Score: 10 Risk of Readmission: High Risk Care Management Discharge Reason for Hospitalization: Abdominal pain and diarrhea Discharge Plan: Lisset is being discharged home today on oral antibiotics to treat cdiff. CM contacted pharmacy and verified that vancomycin would be covered by insurance copay will be 1.25. CM coordinated a ride through [facility] to return home as well as obtain her prescriptions. CM faxed referrals to [facility] meals on wheels, [facility] assistance with home services and housing also to community connections to follow up applicaiton for hoursing and assistance with cleaning the home r/t recent infection of cdiff and no running water. Lisset is prepared to return home she is hopeful she will be able to find housing prior to winter months and is willing to work with community resources to identify housing. CM provided patient with housing applicaiton and will request trey follow up with her. Patient/Family Education Needs: Discharge instructions, follow up plan and referral to community resources including contact numbers for the services. Services Needed at Discharge: Home Delivered Meals
--- NOTE | 2018-10-23 16:56 | INDS_ITS ---
Date of service: 10/23/18 PT Notes Inpatient Physical Therapy Discharge Summary Dates: 10/23/2018 Dates of Service: 10/20/2018 only This is a clinical summary of care provided on the duration of dates listed above. No charge was made in the completion of this documentation. Referring Doctor: Remedios Vera NP PT Orders: PT CONSULT: Generalized weakness, C. difficile, recent rehab stay Precautions: Fall. Contact precautions. Patient Profile/Admitting Diagnosis: 58-year-old female who presented to the ED on 10/18/2018 with chief complaints of abdominal pain. Patient has a past medical history of traumatic brain injury, essential hypertension and recent hospitalization from July 13, 2018 until discharged on July 21, 2018 for treatment of tenosynovitis of right hand and bilateral hand cellulitis which is related to splinters in her fingers from handling of firewood. She also has a history of second-degree rudd on her left leg due to spilling of boiling water. She was eventually discharged for continued rehabilitation to [facility] where she developed C. difficile colitis and was successfully treated with oral Vancomycin and her watery diarrhea resolved. At the ED on 10/18/2018 patient was diagnosed with enterocolitis with C. difficile infection. PMHX: Medical History Essential hypertension (Chronic) Alcohol abuse (Chronic) Hypertension (Chronic) TBI (traumatic brain injury) (Chronic) Surgical History Hx of appendectomy (Chronic) Previous section (Chronic) Social History/Home Situation: Patient lives in a trailer in [facility] where she has no running water and electricity and uses wood stove for heat and for bowling of water. She states she has animals that she takes care of. She was independent with all aspects of ADLs without the need for any assistive ambulatory device nor adaptive equipment. Current Functional Limitations: Need for assistance with ambulation task performance Equipment Owned/DME: None Subjective: NT Objective: NT General Observation: NT Mental Status: NT Pain:NT ROM: Right Upper Extremity: Shoulder Flexion WFL. Shoulder abduction WFL. Elbow flexion WFL. Wrist flexion WFL. Functional opening and closing of hand WFL. Left Upper Extremity: Shoulder Flexion WFL. Shoulder abduction WFL. Elbow flexion WFL. Wrist flexion WFL. Functional opening and closing of hand WFL. Right Lower Extremity: Hip flexion WFL. Hip abduction WFL. Knee flexion WFL. Ankle dorsiflexion WFL. Ankle plantarflexion WFL. Left Lower Extremity: Hip flexion WFL. Hip abduction WFL. Knee flexion WFL. Ankle dorsiflexion WFL. Ankle plantarflexion WFL. Strength: Right Upper Extremity: Shoulder flexors 4+/5. Shoulder abductors 4+/5. Elbow flexors 4+5. Elbow extensors 4+/5. Hinging Machine Operator strong. Left Upper Extremity: Shoulder flexors 4+/5. Shoulder abductors 4+/5. Elbow flexors 4+5. Elbow extensors 4+/5. Hinging Machine Operator strong. Right Lower Extremity: Hip flexors 4/5. Hip abductors 45. Knee flexors 4/5. Knee extensors 45. Ankle dorsiflexors 4/5. Ankle plantarflexors 4/5. Left Lower Extremity:Hip flexors 4/5. Hip abductors 45. Knee flexors 4/5. Knee extensors 45. Ankle dorsiflexors 4/5. Ankle plantarflexors 4/5. Sensation: Patient reports tingling sensation on the tip of the distal phalanx of the second finger on the right. Intact as to pain and pressure to both LE Bed Mobility/Transfers: Rolling S Supine to sit S Sit to supine S Sit to stand S Stand to sit S Bed to chair S Chair to bed S Gait: Patient tolerates in room ambulation of 20 feet + 20 feet with mild discomfort in the lower abdominal area due to C. difficile infection. Patient does not need any assistive ambulatory device for short distance ambulation. Balance: Static Sitting: Normal Dynamic Sitting: Normal Static Standing: Good Dynamic Standing: Good Special Tests: Mobility Limitations Standardized Measure [facility] AM-PAC 6 clicks Basic Mobility Inpatient Short Form: Raw Score: 22 CMS Score: 21% deficit Assessment: 58-year-old female with C. Difficile enterocolitis. Patient presents with clinical signs and symptoms consistent with current/admitting diagnoses that have resulted to mobility limitations, gait instability, generalized weakness, and impairment of motor control as demonstrated by the following impairment level findings: 1. Decreased strength to B LE major muscle groups 2. Impaired sitting/standing balance 3. Impaired activity tolerance Impairments are contributing to the following functional limitations: 1. Increased fall risk 2. Need for assistance with stair negotiation 3. Limited ability to participate in all aspects of ADLs due to decreased activity tolerance Goals: Goals X1 week 1. Supine-Sit independent NOT MET 2. Sit-Supine independent NOT MET 3. Sit-Stand independent NOT MET 4. Stand-Sit independent NOT MET 5. Bed-Chair independent NOT MET 6. Chair-Bed independent NOT MET 7. Independent gait on level surface without assistive ambulatory device for at least 300 feet without report of pain nor dyspnea NOT MET 8. Independent stair negotiation without rails for at least 5 steps without report of pain nor dyspnea NOT MET 9. Independent with home exercise program NOT MET 10. Good static and dynamic standing balance/tolerance NOT MET DISCHARGE RECOMMENDATIONS: Patient will benefit from home health PT services in order to progress mobility level using least restrictive assistive ambulatory device/using no device, assess home safety, identify additional equipment needs, and establish a functional maintenance program that will increase ability of patient to remain at home. TREATMENT CODE/TIME: CA Thank you very much for this referral. Brigida Nunes PT, DPT, CLT [facility]
== END 2018-10-21 15:50 | disposition home or self-care (01) | DRG 372 ==
LOC: ER 19:53 → MS 20:13
PROVIDERS: Internal Medicine; Admitting Provider Internal Medicine; Emergency Provider Student in an Organized Health Care Education/Training Program; PCP Family Medicine; Visit Provider Internal Medicine
DX: A04.71 Enterocolitis due to Clostridium difficile, recurrent (principal); E87.1 Hypo-osmolality and hyponatremia; R10.30 Lower abdominal pain, unspecified; R19.7 Diarrhea, unspecified; F10.10 Alcohol abuse, uncomplicated; I10 Essential (primary) hypertension; Z87.820 Personal history of traumatic brain injury
CPT/HCPCS: 36415; 80048; 80053; 80307; 83690; 84145; 87329; 87505; 96361; 96374; 97162; 99223; 99232; 99239; 99285; J1650; 74174; 81003; 82140; 83605; 83630; 83735; 85025; 87324; 87798; 99284; G0378; J0744; J2270; J3475; J3490

== ENCOUNTER 2018-11-27 01:26 | Outpatient (CLI) | payer MEDICARE, MEDICAID, SELFPAY ==
--- NOTE | 2018-11-27 11:42 | DI.MAMMO_ITS ---
SYMPTOM/DIAGNOSIS: SCREENING, Z12.39 MAMMOGRAMS: Mammograms were interpreted according to the usual protocol including computer analysis with CAD system, tomosynthesis and C view imaging. The breasts are of moderate density with fairly symmetrical distribution of fibroglandular tissue. No dominant mass or clumped microcalcification is identified in either breast. Current examination is compared with previous examination of 07/2011 and allowing for differences in projection, there has been no gross interval change in appearance in comparison with the previous study. CONCLUSION: No specific evidence of malignancy at this time. Routine screening examinations are suggested at yearly intervals in this age group according to the ACS/ACR guidelines. Category 1. Breast density, Category B. MQSA ASSESSMENT OF FINDINGS: Negative. Category 1. Patient will receive a letter notifying them of these results. BI-RADS category B. There are scattered areas of fibroglandular density.
== END 2018-11-27 01:46 ==
PROVIDERS: PCP Family Medicine; Visit Provider Family Medicine
DX: Z12.31 Encounter for screening mammogram for malignant neoplasm of breast (principal)
CPT/HCPCS: 77063; 77067

== ENCOUNTER 2018-12-04 12:21 | Emergency (ER) | payer MEDICARE, MEDICAID, SELFPAY ==
[2018-12-04 12:16] VITALS: BP 107/77; PULSE 66; RESP 18; TEMP 36.8; O2SAT 100
[2018-12-04 13:39] LABS: Abs Immature Grans 0.01 k/cumm (0.0-0.09); Absolute Basophil Count 0.05 k/cumm (0.0-0.2); Absolute Lymphocyte Count 2.51 k/cumm (1.2-3.4); Absolute Neutrophil Count 5.65 k/cumm (1.2-6.7); Basophils % 0.5; Eosinophils % 1.1; HCT 41.7 % (36.0-46.0); HGB 14.4 g/dL (12.0-15.5); Immature Grans % 0.1; Lymphocytes % 27.5; Mean Corp. HGB Concentration 34.5 g/dL (32.0-36.0); Mean Corpuscular Hemoglobin 31.6 pg (27.0-33.0); Mean Corpuscular Volume 91.6 fL (80-95); Mean Platelet Volume 10.2 fL (8.0-11.0); Monocytes % 8.8; Platelet Count 266 x1000/uL (130-400); RBC 4.55 m/cumm (4.00-5.20); RBC Distribution Width 13.4 % (11.7-14.6); White Blood Cell Count 9.12 k/cumm (4.4-10.8)
[2018-12-04 13:51] LABS: ALT 31 U/L (12-78); AST 57 U/L (15-37); Albumin 3.9 g/dL (3.4-5.0); Alkaline Phosphatase 114 U/L (46-116); Anion Gap 15.7 mmol/L (3-11); BUN 8 mg/dL (7-18); CO2 23.3 mmol/L (21.0-32.0); CREATININE 0.69 mg/dL (0.55-1.02); Calcium 9.1 mg/dL (8.5-10.1); Chloride 99 mmol/L (98-107); Glucose 97 mg/dL (70-100); Potassium 3.3 mmol/L (3.5-5.1); Sodium 138 mmol/L (136-145); Total Protein 6.7 g/dL (6.4-8.2)
[2018-12-04 13:53] LABS: Magnesium 1.6 mg/dL (1.8-2.4)
--- NOTE | 2018-12-04 14:05 | ED.GENADUL_ITS ---
Discharge Plan Disposition Patient Disposition: HOME Condition: Stable Discharge Details Chief Complaint: Nausea/Vomit/Diar Clinical Impression: Diarrhea Primary Care Provider: Yessy Valverde ED Provider: Srinivas Wilson Home Meds and New Rx's Prescriptions: No Action atenolol 100 mg Tablet 100 mg PO DAILY RF: 0 amlodipine 10 mg Tablet 10 mg PO DAILY RF: 0 ergocalciferol (vitamin D2) [Vitamin D2] 50,000 unit Capsule 1.25 mg PO QWEEK RF: 0 acetaminophen [Tylenol] 325 mg Tablet 650 mg PO Q4H PRN PRN (Reason: fever or pain) Qty: 30 RF: 0 losartan 100 mg Tablet 100 mg PO DAILY RF: 0 Floranex 100 million cell Granules In Packet 1 packet PO QID RF: 0 venlafaxine 25 MG tablet 150 mg PO BID RF: 0 Discharge Instructions Additional Instructions: follow up with your primary care provider within 1-2 weeks if you have severe abdominal pain, chest pain or feel more ill return to the emergency department limit alcohol intake to 1-2 drinks daily Discharge Data Discharge Date/Time-TO BE ENTERED AT DEPARTURE: 12/04/18 17:30 Medical Decision Making <Valerie Reza MD - Last Filed: 12/12/18 20:00> Lisset Abel is a 58 y/o with history of alcohol abuse, C. difficile colitis, hypertension, depression who presented to the emergency department with multiple episodes of loose stools today. On exam patient is nontoxic-appearing, however she is slurring her speech consistent with mild alcohol intoxication. Concern for possible recurrence of C. difficile colitis, metabolic/electrolyte derangement, dehydration, other. Exam/history is not consistent with other acute emergent intra-abdominal process, sepsis, meningitis, acute emergent intracranial process. Plan for screening labs, IV fluid hydration. Will monitor and reassess. Patient walking about the emergency room without issue. Taking full lunch without issue. Labs show increased anion gap, hypokalemia, hypomagnesemia, elevated ethanol level. Will replete electrolytes, and continue IV fluid hydration. Patient has not had a bowel movement since being in the emergency department. Plan to repeat BMP for recheck of anion gap after second liter of fluid completed. Patient continues to be asymptomatic, ambulating about the emergency department without issue. Patient signed out to Dr. Wilson at time of shift change with repeat lab testing, IV fluid hydration, reassessment pending. Medical Records Medical records reviewed: Yes I reviewed the patient's medical records. <Srinivas Wilson MD - Last Filed: 12/04/18 17:22> pt remains stable, is clinically sober walking with stable gait, repeat anion gap normal. Will d/c with c diff order to bring back if diarrhea continues. Return precautions given HPI <Valerie Reza MD - Last Filed: 12/12/18 20:00> General Mode of arrival: EMS . Date/Time Provider Initiated Documentation: 12/04/18 12:28 . Limitations to Documentation: no limitations . Information obtained by: patient, RN notes reviewed and old records reviewed . HPI Narrative: Lisset Carmichael is a 58-year-old woman with a history of hypertension alcohol abuse, depression, C. difficile colitis in the past presenting to the emergency department with diarrhea. History obtained via patient and also upon record review. Patient reports that several months ago she suffered rudd to her legs and arms, which was complicated by cellulitis. Subsequent to antibiotic treatment for cellulitis she developed C. difficile colitis, which occurred 10/22. Patient reports that she had difficulty with her C. difficile treatment, and has not been compliant with her outpatient antibiotic regimen. Patient reports that she does not think she is supposed to be taking antibiotics anymore, however she never finished medications that were prescribed for her as an outpatient. Patient reports that since being diagnosed with C. difficile she has consistently had loose stool. Patient reports that today the consistency of her stool was more watery than usual, and she had at least 7 or 8 episodes. She denies fever, pain, vomiting. Has been eating and drinking as usual. Feels otherwise in her usual state of health. Related Data Home Medications Medication Instructions Recorded Confirmed venlafaxine 150 mg PO BID 11/06/17 12/04/18 amlodipine 10 mg PO DAILY 07/13/18 12/04/18 atenolol 100 mg PO DAILY 07/13/18 12/04/18 ergocalciferol (vitamin D2) 1.25 mg PO QWEEK 07/13/18 12/04/18 [Vitamin D2] acetaminophen [Tylenol] 650 mg PO Q4H PRN PRN #30 tab 07/27/18 12/04/18 Lactobacillus acidoph-L.bulgar 1 packet PO QID 12/04/18 12/04/18 [Floranex] losartan 100 mg PO DAILY 12/04/18 12/04/18 Previous Rx's Medication Instructions Recorded acetaminophen [Tylenol] 650 mg PO Q4H PRN PRN #30 tab 07/27/18 Allergies Allergy/AdvReac Type Severity Reaction Status Date / Time No Known Allergies Allergy Unverified 10/18/18 17:01 General Stated Complaint: Nausea/Vomit/Diar EDITH: 3 Review of Systems <Vlaerie Reza MD - Last Filed: 12/12/18 20:00> Review of Systems Constitutional: denies fevers Eyes: denies eye pain ENT: denies facial pain, dental pain, sore throat Cardiovascular: denies chest pain, edema Respiratory: denies SOB, cough GI: denies abdominal pain, vomiting, reports diarrhea : denies flank pain MSK: denies back pain, neck pain, arthralgias, myalgias Skin: denies rash Neuro: denies headaches, numbness, weakness PFSH <Valerie Reza MD - Last Filed: 12/12/18 20:00> Medical History Essential hypertension (Chronic) Alcohol abuse (Chronic) Hypertension (Chronic) TBI (traumatic brain injury) (Chronic) Social History Smoking/Tobacco Use Status: Never Alcohol Intake: current Alcohol Intake frequency: 3 or more drinks per day Alcohol type: beer and wine Details: never had withdrawal or seizures Drug use: Socially Substance use type: marijuana Do you feel safe at home: Yes Do you feel safe in your relationship?: Yes Exam <Valerie Reza MD - Last Filed: 12/12/18 20:00> Narrative Exam Narrative: Constitutional: well and [id number], pleasant, conversing normally HENT: head atraumatic/normocephalic/normal inspection, mucous membranes moist Eyes: conjunctiva normal, sclera normal, pupils 3mm b/l Neck: no stridor, normal ROM, trachea midline Chest: normal inspection Resp: normal work of breathing, LCTAB Cardio: normal rate, normal rhythm, no murmur appreciated GI: abdomen soft, non-tender, non-distended Back: normal inspection, no rash Skin: warm, dry, normal color, no rash Neuro: alert, not altered, grossly non-focal, normal tone Ext: no edema Psych: normal mood, normal affect, normal behavior Course <Valerie Reza MD - Last Filed: 12/12/18 20:00> Vital Signs Temperature 36.8 C 12/04/18 12:16 Pulse 66 12/04/18 12:16 Respiratory Rate 18 12/04/18 12:16 Blood Pressure 107/77 12/04/18 12:16 Pulse Oximetry 100 12/04/18 12:16 Temperature 36.8 C 12/04/18 12:16 Temperature Source Tympanic 12/04/18 12:16 Pulse 66 12/04/18 12:16 Respiratory Rate 18 12/04/18 12:16 Respiratory Effort Non-Labored 12/04/18 12:30 Blood Pressure 107/77 12/04/18 12:16 Blood Pressure Position Supine 12/04/18 12:16 Pulse Oximetry 100 12/04/18 12:16 Oxygen Delivery Method Room Air 12/04/18 12:16 Oxygen Flow Rate 0 12/04/18 12:16 Pain Level 8 12/04/18 12:16 Lab/Test Results Lab/Test Results: Laboratory Tests Range/Units 12/04/18 12:00 WBC (4.4-10.8) k/cumm 9.12 RBC (4.00-5.20) m/cumm 4.55 Hgb (12.0-15.5) g/dL 14.4 Hct (36.0-46.0) % 41.7 MCV (80-95) fL 91.6 MCH (27.0-33.0) pg 31.6 MCHC (32.0-36.0) g/dL 34.5 RDW (11.7-14.6) % 13.4 Plt Count (130-400) x1000/uL 266 MPV (8.0-11.0) fL 10.2 Immature Gran % 0.1 Neutrophils % 62.0 Lymphocytes % 27.5 Monocytes % 8.8 Eosinophils % 1.1 Basophils % 0.5 Absolute Neutrophils (1.2-6.7) k/cumm 5.65 Absolute Lymphocytes (1.2-3.4) k/cumm 2.51 Absolute Monocytes (0.11-0.7) k/cumm 0.80 H Absolute Eosinophils (0.0-0.7) k/cumm 0.10 Absolute Basophils (0.0-0.2) k/cumm 0.05 Sign Out <Valerie Reza MD - Last Filed: 12/12/18 20:00> Sign Out Data: Sign Out Comment: Patient signed out to Dr. Wilson at time of shift change with completion of IV fluid, repeat BMP, reassessment pending. Last updated by Valerie Reza MD at 12/04/18 16:41
[2018-12-04 14:11] LABS: ETHANOL BLOOD 294.6 mg/dL (<3)
[2018-12-04 14:18] LABS: Bilirubin Negative (Negative); Blood Negative (Negative); Clarity Sl Cloudy (Clear); Glucose Negative (Negative); Ketones Negative (Negative); Leukocyte Esterase Small (Negative); Nitrite Negative (Negative); Urobilinogen 0.2 EU/dL (Up TO 0.2)
[2018-12-04 14:27] LABS: C & S Indicated? No/Sq. Contamination; Epithelial Cells Many HPF (Negative)
[2018-12-04] MEDS: Potassium Chloride 20 MEQ TABCR 40 MEQ PO (15:49)
[2018-12-04] MEDS: Magnesium Oxide 400 MG TAB PO (15:49)
[2018-12-04] MEDS: Lactated Ringers 1,000 ML 1000 ML IV ×2 (15:49→16:51)
[2018-12-04 17:07] LABS: Anion Gap 10.5 mmol/L (3-11); BUN 6 mg/dL (7-18); CO2 27.5 mmol/L (21.0-32.0); CREATININE 0.68 mg/dL (0.55-1.02); Calcium 8.4 mg/dL (8.5-10.1); Chloride 104 mmol/L (98-107); Glucose 119 mg/dL (70-100); Potassium 3.5 mmol/L (3.5-5.1); Sodium 142 mmol/L (136-145)
[2018-12-04 17:53] VITALS: BP 107/77; PULSE 66; RESP 18; TEMP 36.8; O2SAT 100
== END 2018-12-04 17:30 | disposition home or self-care (01) ==
PROVIDERS: Student in an Organized Health Care Education/Training Program; Emergency Provider Emergency Medicine; PCP Family Medicine
DX: R19.7 Diarrhea, unspecified (principal); E87.6 Hypokalemia; E83.42 Hypomagnesemia; Z91.14 Patient's other noncompliance with medication regimen; I10 Essential (primary) hypertension; F10.10 Alcohol abuse, uncomplicated
CPT/HCPCS: 36415; 80048; 80053; 96360; 99283; 80320; 81003; 81015; 83735; 85025; 87324

== ENCOUNTER 2019-02-02 10:19 | Outpatient (REF) | payer MEDICARE, MEDICAID, SELFPAY ==
[2019-02-02 12:50] LABS: ALT 33 U/L (14-59); AST 27 U/L (15-37); Albumin 4.4 g/dL (3.4-5.0); Alkaline Phosphatase 138 U/L (46-116); Anion Gap 11.1 mmol/L (3-11); BUN 12 mg/dL (7-18); Bilirubin, Total 0.7 mg/dL (0.2-1.0); CO2 27.9 mmol/L (21.0-32.0); CREATININE 0.76 mg/dL (0.55-1.02); Calcium 9.7 mg/dL (8.5-10.1); Chloride 101 mmol/L (98-107); Glucose 95 mg/dL (70-100); Potassium 4.3 mmol/L (3.5-5.1); Sodium 140 mmol/L (136-145); Total Protein 7.4 g/dL (6.4-8.2)
== END 2019-02-02 10:39 ==
LOC: NCHCN 10:19
PROVIDERS: PCP Family Medicine; Visit Provider Family Medicine
DX: I10 Essential (primary) hypertension (principal)
CPT/HCPCS: 80053

== ENCOUNTER 2019-03-26 08:47 | Outpatient (CLI) | payer MEDICARE, MEDICAID, SELFPAY ==
--- NOTE | 2019-03-26 13:24 | DI.RAD_ITS ---
EXAM: XR ANKLE LT COMPLETE INDICATION: LT ANKLE PAIN, M25.572; CELLULITIS, L03.90. COMPARISON: No exams were available for comparison TECHNIQUE: 2D digital imaging was performed. FINDINGS: The bony structures are normally mineralized, joint spaces intact. Note is made of a small calcaneal spur. No soft tissue abnormality is seen.
--- NOTE | 2019-03-26 13:24 | DI.RAD_ITS ---
EXAM: XR FOOT LT COMPLETE INDICATION: LT ANKLE PAIN, M25.572; CELLULITIS, L03.90. COMPARISON: XR ANKLE LT COMPLETE from 03/26/2019 TECHNIQUE: 2D digital imaging was performed. FINDINGS: The bony structures are intact. There is no evidence of a localized area of soft tissue swelling or foreign body. No fracture or dislocation is seen.
== END 2019-03-26 09:07 ==
PROVIDERS: PCP Family Medicine; Visit Provider Family Medicine
DX: M25.572 Pain in left ankle and joints of left foot (principal); L03.116 Cellulitis of left lower limb; M77.32 Calcaneal spur, left foot
CPT/HCPCS: 73610; 73630

== ENCOUNTER 2019-05-04 12:04 | Emergency (ER) | payer MEDICARE, MEDICAID, SELFPAY ==
[2019-05-04 12:05] VITALS: BP 161/143; PULSE 111; RESP 18; TEMP 36.5; O2SAT 9
--- NOTE | 2019-05-04 12:30 | NUR.NOTE ---
Nursing Note: Ice bag x 2 and elevation with pillow of L foot provided. Pt requested and ice bath. Pt made aware this was not part of normal protocol and not encouraged when there may be a change in distal neuro perception. Pt currently smells of ETOH.
--- NOTE | 2019-05-04 12:45 | ED.GENADUL_ITS ---
Discharge Plan Disposition Patient Disposition: HOME Discharge Details Chief Complaint: Orthopedic Clinical Impression: Closed fracture of fifth metatarsal bone of left foot Primary Care Provider: Yessy Valverde ED Provider: Trey Reza Home Meds and New Rx's Prescriptions: Continued atenolol 100 mg Tablet 100 mg PO DAILY RF: 0 amlodipine 10 mg Tablet 10 mg PO DAILY RF: 0 ergocalciferol (vitamin D2) [Vitamin D2] 50,000 unit Capsule 1.25 mg PO QWEEK RF: 0 acetaminophen [Tylenol] 325 mg Tablet 650 mg PO Q4H PRN PRN (Reason: fever or pain) Qty: 30 RF: 0 Floranex 100 million cell Granules In Packet 1 packet PO QID RF: 0 venlafaxine 25 MG tablet 150 mg PO BID RF: 0 Discharge Instructions Instructions: Foot Fracture in Adults (ED) Additional Instructions: Please take ibuprofen over the counter. Take 600mg by mouth every 6 hours as needed for pain. Please use crutches and orthoshoe. Follow-up with orthopedics. Call for an appointment. Your blood pressure today was elevated. Be sure to follow-up with your primary care physician and discuss blood pressure. Return to the ER for any worsening or new concerning symptoms. Referrals: Yessy Valverde [Primary Care Provider] - Miles Gama MD [ [facility] STAFF PHYSICIAN] - Discharge Data Discharge Date/Time-TO BE ENTERED AT DEPARTURE: 05/04/19 14:18 Medical Decision Making 58-year-old female presents 4 days after mechanical fall with injury to her left foot. Foot is diffusely swollen and tender dorsolaterally. Recent ankle fracture. Ankle is also tender laterally. Neurovascular intact distally. X-ray of the left ankle reviewed and interpreted by radiology: Fifth metatarsal fracture X-ray of the left foot reviewed and interpreted by radiology: Moderately displaced mildly comminuted 5th metatarsal fracture I spoke with Dr. Gama, on-call orthopedics, who reviewed x-ray and agrees with treatment plan. Postop orthopedic shoe applied to splint. Plan for outpatient follow-up with orthopedics. HPI General Mode of arrival: EMS . Date/Time Provider Initiated Documentation: 05/04/19 12:39 . Limitations to Documentation: no limitations . Information obtained by: patient . HPI Narrative: 58-year-old female presents with chief complaint of left foot pain. Patient notes she tripped and fell 4 days ago and has had worsening pain and swelling of the foot. Pain is localized to her dorsal lateral foot and ankle. Pain is moderate and worse with ambulation and on palpation. She has been elevating her foot and applying ice and symptoms persisting. She is concerned about fracture. No other injuries during fall. Related Data Home Medications Medication Instructions Recorded Confirmed venlafaxine 150 mg PO BID 11/06/17 05/04/19 amlodipine 10 mg PO DAILY 07/13/18 05/04/19 atenolol 100 mg PO DAILY 07/13/18 05/04/19 ergocalciferol (vitamin D2) 1.25 mg PO QWEEK 07/13/18 05/04/19 [Vitamin D2] acetaminophen [Tylenol] 650 mg PO Q4H PRN PRN #30 tab 07/27/18 05/04/19 Floranex 1 packet PO QID 12/04/18 05/04/19 Previous Rx's Medication Instructions Recorded acetaminophen [Tylenol] 650 mg PO Q4H PRN PRN #30 tab 07/27/18 Allergies Allergy/AdvReac Type Severity Reaction Status Date / Time No Known Allergies Allergy Unverified 05/04/19 12:35 General Stated Complaint: Orthopedic EDITH: 3 Review of Systems Musculoskeletal Musculoskeletal: Reports as per HPI and Denies numbness Neurologic Neurologic: Denies focal weakness and Denies numbness PFSH Medical History Alcohol abuse (Chronic) Essential hypertension (Chronic) Hypertension (Chronic) TBI (traumatic brain injury) (Chronic) Surgical History Hx of appendectomy (Chronic) Previous section (Chronic) x2 Family History Brother Stroke Mother Diabetes Lung cancer nonsmoker Father Hypertension Social History Smoking/Tobacco Use Status: Never Alcohol Intake: current Alcohol Intake frequency: 3 or more drinks per day Alcohol type: beer and wine Details: never had withdrawal or seizures Drug use: Socially Substance use type: marijuana Do you feel safe at home: Yes Do you feel safe in your relationship?: Yes Exam Const General: cooperative and no acute distress Eyes Conjunctivae: normal conjunctivae Sclera: normal sclerae Cardio Rate: regular rate and not tachycardic Rhythm: regular rhythm Pulses: dorsalis pedis pulses present on the left 2+ Skin General skin exam: no rashes or lesions noted Trauma: no lacerations Neuro General: alert, awake, oriented x3 and tone normal Motor: other (Distal left foot motor intact) Sensory Exam: other (Distal left foot sensation intact) Extrem Left lower extremity: ankle Details: tenderness Location: of the lateral malleolus and swelling and foot Details: tenderness Location: of the dorsal foot and of the lateral foot, edema Location: diffusely, ecchymosis (Base of fourth and fifth toes) and motor-sensory exam Details: light-touch normal; no unusual warmth and no lacerations Course Vital Signs Vital signs: Vital Signs Temperature 36.5 C 05/04/19 12:05 Pulse 111 H 05/04/19 12:05 Respiratory Rate 18 05/04/19 12:05 Blood Pressure 161/143 H 05/04/19 12:05 Pulse Oximetry 9 L 05/04/19 12:05 Temperature 36.5 C 05/04/19 12:05 Temperature Source Skin 05/04/19 12:05 Pulse 111 H 05/04/19 12:05 Respiratory Rate 18 05/04/19 12:05 Respiratory Effort Non-Labored 05/04/19 12:29 Blood Pressure 161/143 H 05/04/19 12:05 Blood Pressure Position Sitting 05/04/19 12:05 Pulse Oximetry 9 L 05/04/19 12:05 Oxygen Delivery Method Room Air 05/04/19 12:05 Oxygen Flow Rate 0 05/04/19 12:05 Pain Level 9 05/04/19 12:29
[2019-05-04] MEDS: Ibuprofen 600 MG TAB PO (12:49)
--- NOTE | 2019-05-04 13:03 | DI.RAD_ITS ---
EXAM: XR ANKLE LT COMPLETE CLINICAL HISTORY: fall 4 days ago, pain and swelling TECHNIQUE: COMPARISON: XR FOOT LT COMPLETE from 05/04/2019 FINDINGS: Three views of the ankle and three views of foot were obtained. Is well maintained. No fracture see n involving the ankle. There is a mildly comminuted moderately displaced fracture of the midshaft of the 5th metatarsal. No additional fracture seen. IMPRESSION: Moderately displaced mildly comminuted 5th metatarsal fracture
== END 2019-05-04 14:18 | disposition home or self-care (01) ==
LOC: ER 13:44
PROVIDERS: Emergency Provider Student in an Organized Health Care Education/Training Program; PCP Family Medicine
DX: S92.352A Displaced fracture of fifth metatarsal bone, left foot, initial encounter for closed fracture (principal); W19.XXXA Unspecified fall, initial encounter; I10 Essential (primary) hypertension
CPT/HCPCS: 28470; 73610; 73630; E0114

== ENCOUNTER 2019-05-18 11:04 | Emergency (ER) | payer MEDICARE, MEDICAID, SELFPAY ==
[2019-05-18 11:13] VITALS: BP 165/114; PULSE 94; RESP 14; TEMP 36.4; O2SAT 99
[2019-05-18 11:21] LABS: Bilirubin Negative (Negative); Blood Negative (Negative); Clarity Clear (Clear); Glucose Negative (Negative); Ketones Negative (Negative); Leukocyte Esterase Trace (Negative); Nitrite Negative (Negative); Specific Gravity 1.015 (1.005-1.025); Urobilinogen 0.2 EU/dL (Up TO 0.2); pH 6.5 (5-8)
[2019-05-18 11:29] LABS: *AMPHETAMINES SCREEN URINE Negative (Negative); *BARBITURATES SCREEN URINE Negative (Negative); *BENZODIAZEPINES SCREEN URINE Negative (Negative); Cannabinoids THC POSITIVE (Negative); Cocaine Screen,Urine Negative (Negative); METHADONE URINE SCREEN Negative (Negative); OPIATES URINE SCREEN Negative (Negative)
[2019-05-18 11:32] LABS: Tricyclic Antidepressants Negative (Negative)
[2019-05-18 11:33] LABS: Bacteria Few HPF (Negative); C & S Indicated? Yes; Casts Negative LPF (Negative); Crystals Negative HPF (Negative); Epithelial Cells Few HPF (Negative); Mucus Negative (Negative); RBC Negative HPF (0-2)
--- NOTE | 2019-05-18 11:33 | ED.GENADUL_ITS ---
Discharge Plan Disposition Patient Disposition: OTHER Condition: Stable Discharge Details Chief Complaint: PsychEval Clinical Impression: Depression, Fracture of metatarsal of right foot, closed Primary Care Provider: Yessy Valverde ED Provider: Blaine Gibbs Home Meds and New Rx's Prescriptions: New venlafaxine 150 mg capsule,extended release 24hr 300 mg PO DAILY Qty: 14 RF: 0 Continued ergocalciferol (vitamin D2) [Vitamin D2] 50,000 unit Capsule 1.25 mg PO QWEEK RF: 0 acetaminophen [Tylenol] 325 mg Tablet 650 mg PO Q4H PRN PRN (Reason: fever or pain) Qty: 30 RF: 0 Floranex 100 million cell Granules In Packet 1 packet PO QID RF: 0 Acidophilus-Pectin Tablet,Chewable 2 tab PO TID RF: 0 aspirin 325 mg Tablet 325 mg PO DAILY Qty: 30 RF: 0 atenolol 100 mg Tablet 100 mg PO DAILY Qty: 30 RF: 0 ranitidine HCl 150 mg Tablet 75 mg PO DAILY 30 Days Qty: 15 RF: 0 tramadol 50 mg Tablet 50 mg PO DAILY Qty: 30 RF: 0 Discontinued venlafaxine 25 MG tablet 300 mg PO BID RF: 0 Discharge Instructions Instructions: Foot Fracture in Adults (ED), Depression (ED) Additional Instructions: You are medically stable for discharge from the emergency department. Please continue your regular medications. Wear walking boot or hard soled shoe until seen by orthopedics in follow-up for recheck of your metatarsal fractures of the right foot. The orthopedic office number is [phone]. Medical Decision Making 58-year-old female presents on referral from [facility]. She presented there today complaining of worsening depression over months time, acutely worse in the last few weeks due to of her dog, ongoing challenges with heating her home that is off grid, as well as persistent left foot pain due to metatarsal fractures at the end of April which he states seems worse since losing her walking boot. Medical screen examination including laboratory analysis performed: Labs reveal a white blood cell count of 14, hematocrit 41, platelets 266. Sodium 137, potassium 4.1, chloride 100, bicarb 25, BUN 18, creatinine 0.6. AST 19, ALT 17, TSH 0.6, urinalysis appears contaminated with trace leuk esterase, negative nitrates. U tox positive for THC. Ethyl alcohol 13 mg/dL. X-ray with persistent third, fourth, fifth metatarsal fractures on the left. This will require ongoing use of a walking boot or hard soled shoe for immobilization. Following interview with both assistant cross country coach and on-call mental health provider, patient has been accepted to [facility] in [place]. She is stable at this time and appropriate for transfer to crisis facility. They have requested 4 days worth of medications. I have prescribed her venlafaxine at 300mg once a day as she is unsure of total dose for the day, atenolol 100 mg/day, ranitidine 75 mg daily, tramadol 50 mg daily, aspirin 325 mg daily. Patient is stable and improved. We will arrange interfacility transfer. Lab Data Lab results reviewed: Yes I reviewed the patient's lab results. Labs: Laboratory Results - last 24 hr 05/18/19 05/18/19 05/18/19 11:10 11:10 11:52 WBC RBC Hgb Hct MCV MCH MCHC RDW Plt Count MPV Immature Gran % Neutrophils % Lymphocytes % Monocytes % Eosinophils % Basophils % Absolute Neutrophils Absolute Lymphocytes Absolute Monocytes Absolute Eosinophils Absolute Basophils Sodium 137 Potassium 4.1 Chloride 100 Carbon Dioxide 25.9 Anion Gap 11.1 H BUN 18 Creatinine 0.67 Estimated GFR/1.73 m2 >= 60.00 Glucose 84 Calcium 9.4 Total Bilirubin 0.6 AST 19 ALT 17 Alkaline Phosphatase 121 H Total Protein 7.7 Albumin 3.9 TSH 0.66 Urine Color Yellow Urine Clarity Clear Urine pH 6.5 Ur Specific [place] 1.015 Urine Protein Negative Urine Ketones Negative Urine Blood Negative Urine Nitrite Negative Urine Bilirubin Negative Urine Urobilinogen 0.2 Ur Leukocyte Esterase Trace H Urine RBC Negative Urine WBC 3-5 Ur Epithelial Cells Few Urine Crystals Negative Urine Bacteria Few Urine Casts Negative Urine Mucus Negative Ur Culture Indicated? Yes Urine Glucose Negative Salicylates Urine Opiates Screen Negative Urine Methadone Screen Negative Acetaminophen Ur Barbiturates Screen Negative Ur Tricyclics Screen Negative Ur Amphetamines Screen Negative U Benzodiazepines Scrn Negative Urine Cocaine Screen Negative Ur THC Screen Positive A Ethyl Alcohol 13.3 05/18/19 05/18/19 11:52 11:52 WBC 14.56 H RBC 4.36 Hgb 14.0 Hct 41.4 MCV 95.0 MCH 32.1 MCHC 33.8 RDW 13.5 Plt Count 266 MPV 9.5 Immature Gran % 0.3 Neutrophils % 78.2 Lymphocytes % 13.5 Monocytes % 6.5 Eosinophils % 1.4 Basophils % 0.1 Absolute Neutrophils 11.39 H Absolute Lymphocytes 1.97 Absolute Monocytes 0.95 H Absolute Eosinophils 0.20 Absolute Basophils 0.01 Sodium Potassium Chloride Carbon Dioxide Anion Gap BUN Creatinine Estimated GFR/1.73 m2 Glucose Calcium Total Bilirubin AST ALT Alkaline Phosphatase Total Protein Albumin TSH Urine Color Urine Clarity Urine pH Ur Specific [place] Urine Protein Urine Ketones Urine Blood Urine Nitrite Urine Bilirubin Urine Urobilinogen Ur Leukocyte Esterase Urine RBC Urine WBC Ur Epithelial Cells Urine Crystals Urine Bacteria Urine Casts Urine Mucus Ur Culture Indicated? Urine Glucose Salicylates < 2.8 L Urine Opiates Screen Urine Methadone Screen Acetaminophen < 2 L Ur Barbiturates Screen Ur Tricyclics Screen Ur Amphetamines Screen U Benzodiazepines Scrn Urine Cocaine Screen Ur THC Screen Ethyl Alcohol HPI General Mode of arrival: ambulatory . Date/Time Provider Initiated Documentation: 05/18/19 11:06 . Limitations to Documentation: no limitations . Information obtained by: patient . History of Present Illness 58 year old F presents to the emergency department with the chief complaint of Depression, thoughts of suicide, ongoing left foot pain, described as moderate, Quality is described as constant, and is localized to the left and lower extremity. Patient reports no radiation. Patient started experiencing this week(s) and it has been constant. No relieving factors improve symptom(s), No exacerbating factors reported . Patient notes other (Depressed with thoughts of committing overdose.). Patient did receive the following treatments prior to arrival, none Related Data Home Medications Medication Instructions Recorded Confirmed ergocalciferol (vitamin D2) 1.25 mg PO QWEEK 07/13/18 05/18/19 [Vitamin D2] acetaminophen [Tylenol] 650 mg PO Q4H PRN PRN #30 tab 07/27/18 05/18/19 Floranex 1 packet PO QID 12/04/18 05/18/19 Acidophilus-Pectin 2 tab PO TID 05/18/19 05/18/19 aspirin 325 mg PO DAILY #30 tab 05/18/19 atenolol 100 mg PO DAILY #30 tab 05/18/19 ranitidine HCl 75 mg PO DAILY 30 Days #15 tab 05/18/19 tramadol 50 mg PO DAILY #30 tab 05/18/19 venlafaxine 300 mg PO DAILY #14 cap 05/18/19 Previous Rx's Medication Instructions Recorded acetaminophen [Tylenol] 650 mg PO Q4H PRN PRN #30 tab 07/27/18 aspirin 325 mg PO DAILY #30 tab 05/18/19 atenolol 100 mg PO DAILY #30 tab 05/18/19 ranitidine HCl 75 mg PO DAILY 30 Days #15 tab 05/18/19 tramadol 50 mg PO DAILY #30 tab 05/18/19 venlafaxine 300 mg PO DAILY #14 cap 05/18/19 Allergies Allergy/AdvReac Type Severity Reaction Status Date / Time No Known Allergies Allergy Unverified 05/18/19 11:31 General Stated Complaint: PsychEval EDITH: 2 Review of Systems Narrative: States she has been taking her medications. No longer taking amlodipine. States rare alcohol use. 6 systems reviewed and otherwise negative [facility] Medical History Alcohol abuse (Chronic) Essential hypertension (Chronic) Hypertension (Chronic) TBI (traumatic brain injury) (Chronic) Family History Brother Stroke Mother Diabetes Lung cancer nonsmoker Father Hypertension Social History Smoking/Tobacco Use Status: Never Alcohol Intake: current Alcohol Intake frequency: 3 or more drinks per day Alcohol type: beer and wine Details: never had withdrawal or seizures Drug use: Socially Substance use type: marijuana Do you feel safe at home: No Do you feel safe in your relationship?: Yes Exam Narrative Exam Narrative: GEN: awake, alert, oriented 3. Pleasant, well groomed, interactive. HEAD: Normocephalic, atraumatic ENT: Mucous membranes moist, oropharynx unremarkable, External ear exam unremarkable EYES: PERRL, EOMI NECK: Full ROM, no KERI, no menigismus CHEST/RESP: Nontender, clear to auscultation bilateral, no wheeze/rhonchi/rales CARDIOVASCULAR: RRR, no murmur, rub gaby. 2+ Rad pulse bilateral ABDOMEN: Soft, nontender, no mass. +Bowel sounds EXT: Full ROM, lateral left foot pain with palpation, no rash Neuro: Grossly normal neurologic exam, conversant, interactive. Psych: Speech fluent, thoughts congruent, affect depressed Course Vital Signs Vital signs: Vital Signs Temperature 36.4 C L 05/18/19 11:13 Pulse 94 H 05/18/19 11:13 Respiratory Rate 14 05/18/19 11:13 Blood Pressure 165/114 H 05/18/19 11:13 Pulse Oximetry 99 05/18/19 11:13 Temperature 36.4 C L 05/18/19 11:13 Temperature Source Tympanic 05/18/19 11:13 Pulse 94 H 05/18/19 11:13 Respiratory Rate 14 05/18/19 11:13 Respiratory Effort Non-Labored 05/18/19 11:17 Blood Pressure 165/114 H 05/18/19 11:13 Blood Pressure Position Sitting 05/18/19 11:13 Pulse Oximetry 99 05/18/19 11:13 Oxygen Delivery Method Room Air 05/18/19 11:13 Oxygen Flow Rate 0 05/18/19 11:13 Pain Level 0 05/18/19 11:13 Lab/Test Results Lab/Test Results: Laboratory Tests Range/Units 05/18/19 05/18/19 11:10 11:10 Urine Color (Yellow) Yellow Urine Clarity (Clear) Clear Urine pH (5-8) 6.5 Ur Specific [place] (1.005-1.025) 1.015 Urine Protein (Negative) mg/dL Negative Urine Ketones (Negative) mg/dL Negative Urine Blood (Negative) Negative Urine Nitrite (Negative) Negative Urine Bilirubin (Negative) Negative Urine Urobilinogen (Up TO 0.2) EU/dL 0.2 Ur Leukocyte Esterase (Negative) Trace H Urine Glucose (Negative) mg/dL Negative Urine Opiates Screen (Negative) Negative Urine Methadone Screen (Negative) Negative Ur Barbiturates Screen (Negative) Negative Ur Tricyclics Screen (Negative) Negative Ur Amphetamines Screen (Negative) Negative U Benzodiazepines Scrn (Negative) Negative Urine Cocaine Screen (Negative) Negative Ur THC Screen (Negative) Positive A
--- NOTE | 2019-05-18 12:00 | DI.RAD_ITS ---
EXAM: XR FOOT LT COMPLETE INDICATION: Lateral foot pain,hx fracture NOV. COMPARISON: XR FOOT LT COMPLETE from 05/04/2019 TECHNIQUE: 2D digital imaging was performed. FINDINGS: There is a fracture at the distal metadiaphyseal region of the 3rd metatarsal. There is 1-2 millimet ers of lateral displacement of the distal fracture. There is a nondisplaced fracture involving the distal diaphysis of the 4th metatarsal bone. There is a comminuted angulated fracture of the distal diaphysis of the 5th metatarsal. These fractures appears subacute as there is mild callus formation about the fracture sites. There is soft tissue swelling of the midfoot. IMPRESSION: Subacute fractures involving the 3rd, 4th and 5th metatarsals. There has been no change in alignment of 5th metatarsal fracture compared to the prior examination. The 3rd and 4th fractures have now be come more apparent.
[2019-05-18 12:01] LABS: Abs Immature Grans 0.05 k/cumm (0.0-0.09); Absolute Lymphocyte Count 1.97 k/cumm (1.2-3.4); Basophils % 0.1; Eosinophils % 1.4; HCT 41.4 % (36.0-46.0); Immature Grans % 0.3; Lymphocytes % 13.5; Mean Corp. HGB Concentration 33.8 g/dL (32.0-36.0); Mean Corpuscular Hemoglobin 32.1 pg (27.0-33.0); Mean Platelet Volume 9.5 fL (8.0-11.0); Monocytes % 6.5; Neutrophils % 78.2; Platelet Count 266 x1000/uL (130-400); RBC 4.36 m/cumm (4.00-5.20); RBC Distribution Width 13.5 % (11.7-14.6); White Blood Cell Count 14.56 k/cumm (4.4-10.8)
[2019-05-18 12:03] LABS: Absolute Basophil Count 0.01 k/cumm (0.0-0.2); Absolute Monocyte Count 0.95 k/cumm (0.11-0.7); Absolute Neutrophil Count 11.39 k/cumm (1.2-6.7)
[2019-05-18 12:22] LABS: ALT 17 U/L (14-59); AST 19 U/L (15-37); Albumin 3.9 g/dL (3.4-5.0); Alkaline Phosphatase 121 U/L (46-116); Anion Gap 11.1 mmol/L (3-11); BUN 18 mg/dL (7-18); Bilirubin, Total 0.6 mg/dL (0.2-1.0); CO2 25.9 mmol/L (21.0-32.0); CREATININE 0.67 mg/dL (0.55-1.02); Calcium 9.4 mg/dL (8.5-10.1); Chloride 100 mmol/L (98-107); ETHANOL BLOOD 13.3 mg/dL (<3); Glucose 84 mg/dL (74-106); Potassium 4.1 mmol/L (3.5-5.1); Sodium 137 mmol/L (136-145); TSH 0.66 uIU/mL (0.36-3.74); Total Protein 7.7 g/dL (6.4-8.2)
[2019-05-18 12:41] LABS: Salicylate < 2.8 mg/dL (2.8-20.0)
[2019-05-18 12:58] LABS: Acetaminophen < 2 ug/mL (10-30)
--- NOTE | 2019-05-18 14:22 | PDOC.MHCN_ITS ---
Date of service: 05/18/19 Time of Service: 14:22 Mental Health Crisis Note Presenting Issue How did you arrive at the ED and why did you come: Lisset came ot he ER via [facility] after meeting with her counselor at her PCP office. He called for ambulance due to SI with plan and intent. Precipitating Factors Lisset endorses SI via o.d. of pills that she has the means and access to. She rated her SI on a scale of 0-10 at an 8 if she were to leave the hospital today. She denied HI. There are no signs of thought or language disorders. Disposition BEHAVIOR: Lisset is cooperative and friendly. She is seeking help and feels ready to receive it because she is scared of where he mind is going in the past year. She reports a known hx of depression. She identifies stressor's to include poor living environment right now due to her having a broken foot. She lives in a camper and heats her home with firewood and propane. She has to walk to get these fuels which has been extremely hard with a broken foot. She additionally recently lost her dog who has been her only automobile travel club counselor. Lisset feels hopeless and helpless. My life sucks. I'm fading away...disappearing and no one notices. I don't see it getting any better. She does not feel she can keep leaning on others for help and yet is at a stand still to do what she needs to, to get back on her feet. EYE CONTACT: Lisset makes good eye contact. MOOD: Her mood is sad and depressed. She presents as loosing all hope of things improving. AFFECT: Lisset's affect is tearful and emotional. APPETITE: Lisset reported that her appetite is andrew, food is gross. SLEEP(trouble falling/staying asleep: Lisset reported she wants to sleep all the time. Plan Lisset has been accepted at [facility] in [facility]. Provisional Diagnosis Depressive d/o unspecified Signature Clinician's Name/Title: Rizwana Nolan, MS Emergency Screener, [facility]
--- NOTE | 2019-05-18 16:45 | NUR.NOTE ---
Per Dr Gibbs and mental health, pt may change back into clothing. items given to pt to change without incident. Nursing Note:
--- NOTE | 2019-05-18 18:12 | NUR.NOTE ---
Addendum entered by Alicia Spring 05/18/19 18:13: Original Note: Nursing Note: Called [facility], [facility] and notified them that the patient had left. Alicia Spring.
== END 2019-05-18 18:11 | disposition other institution (70) ==
PROVIDERS: Emergency Provider Emergency Medicine; PCP Family Medicine
DX: S92.335A Nondisplaced fracture of third metatarsal bone, left foot, initial encounter for closed fracture (principal); S92.345A Nondisplaced fracture of fourth metatarsal bone, left foot, initial encounter for closed fracture; S92.355A Nondisplaced fracture of fifth metatarsal bone, left foot, initial encounter for closed fracture; X58.XXXA Exposure to other specified factors, initial encounter; F32.9 Major depressive disorder, single episode, unspecified; I10 Essential (primary) hypertension
CPT/HCPCS: 29515; 36415; 80053; 80307; 99284; 73630; 80320; 80329; 81003; 81015; 84443; 85025; 87086; L4361

== ENCOUNTER 2019-06-04 11:07 | Outpatient (CLI) | payer MEDICARE, MEDICAID, SELFPAY ==
--- NOTE | 2019-06-04 11:18 | DI.RAD_ITS ---
EXAM: XR FOOT LT COMPLETE INDICATION: f/u fracture. COMPARISON: XR FOOT LT COMPLETE from 05/18/2019 TECHNIQUE: 2D digital imaging was performed. FINDINGS: There has been no change in alignment of the fractures involving the 3rd, 4th and 5th metatarsals. T here is increased callus formation about the fracture sites consistent with interval healing. No new fractures or dislocations are present. There is soft tissue swelling about the foot.
== END 2019-06-04 11:27 ==
PROVIDERS: PCP Family Medicine; Referring Provider Family Medicine; Visit Provider Student in an Organized Health Care Education/Training Program
DX: S92.335A Nondisplaced fracture of third metatarsal bone, left foot, initial encounter for closed fracture (principal); S92.345A Nondisplaced fracture of fourth metatarsal bone, left foot, initial encounter for closed fracture; S92.355A Nondisplaced fracture of fifth metatarsal bone, left foot, initial encounter for closed fracture; M79.89 Other specified soft tissue disorders; I10 Essential (primary) hypertension; W19.XXXA Unspecified fall, initial encounter
CPT/HCPCS: 99213; 73630

== ENCOUNTER 2019-07-02 11:32 | Inpatient (IN) | payer MEDICARE, MEDICAID, SELFPAY ==
[2019-07-02] VITALS (7 sets, daily range): BP systolic 157–176; BP diastolic 95–140; PULSE 65–132; RESP 17–18; TEMP 36.8–37.1; O2SAT 96–100
[2019-07-02] MEDS: Normal Saline 1,000 ML 1000 ML IV ×2 (12:20→13:51)
[2019-07-02 12:26] LABS: Abs Immature Grans 0.04 k/cumm (0.0-0.09); Absolute Basophil Count 0.07 k/cumm (0.0-0.2); Absolute Eosinophil Count 0.14 k/cumm (0.0-0.7); Absolute Lymphocyte Count 2.76 k/cumm (1.2-3.4); Basophils % 0.6; Eosinophils % 1.2; HCT 47.7 % (36.0-46.0); HGB 15.8 g/dL (12.0-15.5); Immature Grans % 0.3 %; Lymphocytes % 24.1; Mean Corp. HGB Concentration 33.1 g/dL (32.0-36.0); Mean Corpuscular Hemoglobin 31.8 pg (27.0-33.0); Mean Platelet Volume 9.5 fL (8.0-11.0); Monocytes % 8.7; Neutrophils % 65.1; Platelet Count 415 x1000/uL (130-400); RBC 4.97 m/cumm (4.00-5.20); RBC Distribution Width 13.8 % (11.7-14.6); White Blood Cell Count 11.44 k/cumm (4.4-10.8)
[2019-07-02] MEDS: LORazepam 2 MG/ML VIAL 1 MG IVP (12:26)
[2019-07-02 12:28] LABS: Absolute Neutrophil Count 7.45 k/cumm (1.2-6.7)
[2019-07-02 12:37] LABS: *AMPHETAMINES SCREEN URINE Negative (Negative); *BARBITURATES SCREEN URINE Negative (Negative); *BENZODIAZEPINES SCREEN URINE Negative (Negative); Bilirubin Negative (Negative); Blood Negative (Negative); Cannabinoids THC POSITIVE (Negative); Clarity Clear (Clear); Cocaine Screen,Urine Negative (Negative); Glucose Negative (Negative); Ketones Negative (Negative); Leukocyte Esterase Trace (Negative); METHADONE URINE SCREEN Negative (Negative); Nitrite Negative (Negative); OPIATES URINE SCREEN Negative (Negative); Specific Gravity 1.015 (1.005-1.025); Urobilinogen 0.2 EU/dL (Up TO 0.2)
--- NOTE | 2019-07-02 12:40 | NUR.NOTE ---
patient given warm blanket and music therapy Nursing Note:
[2019-07-02 12:42] LABS: Tricyclic Antidepressants Negative (Negative)
[2019-07-02 12:44] LABS: ALT 17 U/L (14-59); AST 18 U/L (15-37); Albumin 4.5 g/dL (3.4-5.0); Alkaline Phosphatase 122 U/L (46-116); Anion Gap 11.4 mmol/L (3-11); BUN 15 mg/dL (7-18); Bilirubin, Total 0.5 mg/dL (0.2-1.0); CO2 28.6 mmol/L (21.0-32.0); CREATININE 0.78 mg/dL (0.55-1.02); Calcium 9.5 mg/dL (8.5-10.1); Chloride 100 mmol/L (98-107); ETHANOL BLOOD 40.1 mg/dL (<3); Glucose 90 mg/dL (74-106); Potassium 4.3 mmol/L (3.5-5.1); Sodium 140 mmol/L (136-145); TSH (W/Ref FT4) 1.17 uIU/mL (0.36-3.74); Total Protein 8.1 g/dL (6.4-8.2)
[2019-07-02 12:46] LABS: Bacteria Few HPF (Negative); C & S Indicated? No/Sq. Contamination; Casts Negative LPF (Negative); Crystals Negative HPF (Negative); Epithelial Cells Moderate HPF (Negative); Mucus Negative (Negative); Other Cells Few Transitional (Negative); RBC 0-2 HPF (0-2); WBC 0-2 HPF (0-5)
--- NOTE | 2019-07-02 12:51 | ED.GENADUL_ITS ---
Discharge Plan Disposition Patient Disposition: [facility] INPATIENT Condition: Good Discharge Details Chief Complaint: PsychEval Clinical Impression: At risk for suicide, Depression Admit Date/Time: 07/03/19 10:35 Admit Provider: Jesus Lopes Attending Provider: Srinivas Washington Primary Care Provider: Aidee Miranda ED Provider: Will Cleaning Hospital Course Hospital Course: 58-year-old female who was sent to the emergency room by [facility] behavioral health clinician because of depression with suicidal ideation on 07/02/2019. She apparently had an intermittent supply change to her Wellbutrin. She states that when she was able to take her Wellbutrin for a full week at a time she felt stable. Lately she has only been able to get a few doses at a time with long intervals in between where access to her medication was limited. The patient lives off the [facility] with a long on plowed driveway and has no reliable transportation. There have been issues with medication delivery and availability. In the emergency room she was hypertensive with a blood pressure of 170/120, otherwise no medical issues. She was not having any GI symptoms but because of her history of C. difficile colitis a specimen was sent and returned negative for C. difficile antigen and toxin. She was monitored for signs and symptoms of suicidal ideation and continued to feel suicidal throughout her stay. She was restarted on her usual outpatient medications. She is medically cleared for transfer to a psychiatric facility. She is being transferred to [facility]. Discharge Instructions Instructions: Depression (DC), Suicide Prevention for Adults (DC) Forms: Nursing Discharge Form Discharge Data Discharge Date/Time-TO BE ENTERED AT DEPARTURE: 07/02/19 22:10 Medical Decision Making <Valerie Reza MD - Last Filed: 07/05/19 21:14> Lisset Abel is a 58-year-old woman with a history of heavy alcohol use, hypertension, anxiety, depression who presented to the emergency department with suicidal thoughts. On exam patient is very well and nontoxic appearing. She is tachycardic. No lower extremity edema or posterior calf tenderness to pal pation. Patient has somewhat pressured speech, flight of ideas, mildly delusional thinking. No apparent hallucinations. She is calm and cooperative and oriented x3. Concern for dehydration as most likely cause for tachycardia. Concern for possible metabolic/lyte derangement. I do not suspect pulmonary embolism, myocarditis at this time. Doubt toxic ingestion. Exam/history is not consistent with sepsis, homicidality. Plan for EKG, screening labs, IV fluid hydration, mental health evaluation once medical screening completed. Patient received 2 L IV fluid, heart rate now 100. Patient with no new complaints upon reassessment. Plan for mental health evaluation. Patient signed out to Dr. Cleaning at time of shift change with mental health eval, dispo pending. Medical Records Medical records reviewed: Yes I reviewed the patient's medical records. Lab Data Lab results reviewed: Yes I reviewed the patient's lab results. Labs: Laboratory Tests Range/Units 07/02/19 07/02/19 07/02/19 12:07 12:07 12:15 WBC (4.4-10.8) k/cumm RBC (4.00-5.20) m/cumm Hgb (12.0-15.5) g/dL Hct (36.0-46.0) % MCV (80-95) fL MCH (27.0-33.0) pg MCHC (32.0-36.0) g/dL RDW (11.7-14.6) % Plt Count (130-400) x1000/uL MPV (8.0-11.0) fL Immature Gran % % Neutrophils % Lymphocytes % Monocytes % Eosinophils % Basophils % Absolute Neutrophils (1.2-6.7) k/cumm Absolute Lymphocytes (1.2-3.4) k/cumm Absolute Monocytes (0.11-0.7) k/cumm Absolute Eosinophils (0.0-0.7) k/cumm Absolute Basophils (0.0-0.2) k/cumm Sodium (136-145) mmol/L 140 Potassium (3.5-5.1) mmol/L 4.3 Chloride (98-107) mmol/L 100 Carbon Dioxide (21.0-32.0) mmol/L 28.6 Anion Gap (3-11) mmol/L 11.4 H BUN (7-18) mg/dL 15 Creatinine (0.55-1.02) mg/dL 0.78 Estimated GFR/1.73 m2 (mL/min/1.73m2) >= 60.00 Glucose (74-106) mg/dL 90 Calcium (8.5-10.1) mg/dL 9.5 Total Bilirubin (0.2-1.0) mg/dL 0.5 AST (15-37) U/L 18 ALT (14-59) U/L 17 Alkaline Phosphatase (46-116) U/L 122 H Total Protein (6.4-8.2) g/dL 8.1 Albumin (3.4-5.0) g/dL 4.5 TSH (0.36-3.74) uIU/mL 1.17 Urine Color (Yellow) Yellow Urine Clarity (Clear) Clear Urine pH (5-8) 7.0 Ur Specific Montgomery (1.005-1.025) 1.015 Urine Protein (Negative) mg/dL Negative Urine Ketones (Negative) mg/dL Negative Urine Blood (Negative) Negative Urine Nitrite (Negative) Negative Urine Bilirubin (Negative) Negative Urine Urobilinogen (Up TO 0.2) EU/dL 0.2 Ur Leukocyte Esterase (Negative) Trace H Urine RBC (0-2) HPF 0-2 Urine WBC (0-5) HPF 0-2 Ur Epithelial Cells (Negative) HPF Moderate Urine Crystals (Negative) HPF Negative Urine Bacteria (Negative) HPF Few Urine Casts (Negative) LPF Negative Urine Mucus (Negative) Negative Urine Other (Negative) Few transitional Ur Culture Indicated? No/sq. contamination Urine Glucose (Negative) mg/dL Negative Urine Opiates Screen (Negative) Negative Urine Methadone Screen (Negative) Negative Ur Barbiturates Screen (Negative) Negative Ur Tricyclics Screen (Negative) Negative Ur Amphetamines Screen (Negative) Negative U Benzodiazepines Scrn (Negative) Negative Urine Cocaine Screen (Negative) Negative Ur THC Screen (Negative) Positive A Ethyl Alcohol (<3) mg/dL 40.1 Range/Units 07/02/19 12:15 WBC (4.4-10.8) k/cumm 11.44 H RBC (4.00-5.20) m/cumm 4.97 Hgb (12.0-15.5) g/dL 15.8 H Hct (36.0-46.0) % 47.7 H MCV (80-95) fL 96.0 H MCH (27.0-33.0) pg 31.8 MCHC (32.0-36.0) g/dL 33.1 RDW (11.7-14.6) % 13.8 Plt Count (130-400) x1000/uL 415 H MPV (8.0-11.0) fL 9.5 Immature Gran % % 0.3 Neutrophils % 65.1 Lymphocytes % 24.1 Monocytes % 8.7 Eosinophils % 1.2 Basophils % 0.6 Absolute Neutrophils (1.2-6.7) k/cumm 7.45 H Absolute Lymphocytes (1.2-3.4) k/cumm 2.76 Absolute Monocytes (0.11-0.7) k/cumm 1.00 H Absolute Eosinophils (0.0-0.7) k/cumm 0.14 Absolute Basophils (0.0-0.2) k/cumm 0.07 Sodium (136-145) mmol/L Potassium (3.5-5.1) mmol/L Chloride (98-107) mmol/L Carbon Dioxide (21.0-32.0) mmol/L Anion Gap (3-11) mmol/L BUN (7-18) mg/dL Creatinine (0.55-1.02) mg/dL Estimated GFR/1.73 m2 (mL/min/1.73m2) Glucose (74-106) mg/dL Calcium (8.5-10.1) mg/dL Total Bilirubin (0.2-1.0) mg/dL AST (15-37) U/L ALT (14-59) U/L Alkaline Phosphatase (46-116) U/L Total Protein (6.4-8.2) g/dL Albumin (3.4-5.0) g/dL TSH (0.36-3.74) uIU/mL Urine Color (Yellow) Urine Clarity (Clear) Urine pH (5-8) Ur Specific [place] (1.005-1.025) Urine Protein (Negative) mg/dL Urine Ketones (Negative) mg/dL Urine Blood (Negative) Urine Nitrite (Negative) Urine Bilirubin (Negative) Urine Urobilinogen (Up TO 0.2) EU/dL Ur Leukocyte Esterase (Negative) Urine RBC (0-2) HPF Urine WBC (0-5) HPF Ur Epithelial Cells (Negative) HPF Urine Crystals (Negative) HPF Urine Bacteria (Negative) HPF Urine Casts (Negative) LPF Urine Mucus (Negative) Urine Other (Negative) Ur Culture Indicated? Urine Glucose (Negative) mg/dL Urine Opiates Screen (Negative) Urine Methadone Screen (Negative) Ur Barbiturates Screen (Negative) Ur Tricyclics Screen (Negative) Ur Amphetamines Screen (Negative) U Benzodiazepines Scrn (Negative) Urine Cocaine Screen (Negative) Ur THC Screen (Negative) Ethyl Alcohol (<3) mg/dL ECG Data Attestation: I personally reviewed and interpreted this ECG (s) as follows: Interpretation: EKG shows sinus tach at 119, normal axis, ST changes V1 and V2 consistent with prior 07/06/2016, subtle ST depression V3 through V5, no STEMI, nondiagnostic EKG <Will Cleaning DO - Last Filed: 07/02/19 21:19> Patient was signed out to me by my colleague Dr. Reza. Please refer to her documentation HPI and assessment for plan. Patient was signed out pending mental health evaluation. At this time mental health agrees that the patient would benefit from admission and placement help with her current issues. The patient remains voluntary. No beds are available tonight at outlying facilities, I did discuss the case with hospitalist , he agrees with the assessment and plan. The patient will be admitted to [facility] at this time. She remained stable. I have extensively reviewed the treatment plan with the patient. I have addressed all patient concerns at this time. I have also discussed the plan with the admitting physician and they agree with the current assessment and plan and have agreed to assume responsibility for the patient. All parties demonstrate verbal understanding and agreement with our assessment and plan at this time. HPI <Valerie Reza MD - Last Filed: 07/05/19 21:14> General Mode of arrival: EMS . Date/Time Provider Initiated Documentation: 07/02/19 11:45 . Limitations to Documentation: no limitations . Information obtained by: patient, RN notes reviewed and old records reviewed . HPI Narrative: Lisset Abel is a 58-year-old woman with a history of alcohol abuse, hypertension, depression, traumatic brain injury presenting to the emergency department with suicidal thoughts. Patient was initially seen by Dr. Amezquita as an outpatient today, who then sent patient to the emergency department for further evaluation for suicidality. Dr. Amezquita reports that patient was seen as an outpatient today for complaint of generally feeling unwell. He reported over the phone to me that patient was having suicidal thoughts, possible auditory hallucinations, and possible delusional thinking. He also reports significant socioeconomic issues including patient without transportation, patient not able to receive her meds regularly. Patient was sent from outpatient office to the emergency department by ambulance as patient did not have transportation. Patient reports to me that 1 year ago she had skin bumps and she was not sure whether they were splinters or not and cut into them at home. She subsequently developed cellulitis, was hospitalized for this, and then developed C. difficile. She states that she spent 4 weeks in rehab for this. Patient reports that since that time she has been having significant difficulties at home. She has been living alone in a friend's trailer with no electricity or running water. She has no car or other means of transportation. Patient reports that because of these difficulties she feels that life has no purpose and she does not care if she dies. She states that she is also very depressed about the doom sday clock and the fact that humanity is facing imminent extinction. Patient also states that she has a plan to kill herself either by using her gun or by taking a bunch of pills at once. Patient is key pposed to get her meds through [facility], however they do not deliver her medication, and so she goes for long stretches of time without her Wellbutrin. Patient reports that she generally feels much better when she is taking Wellbutrin. She states that she has not had her Wellbutrin for a few weeks because of this issue. Patient reports that she has a small painful bump on her left foot that is bothering her and also on her right fifth digit. She denies any other pain, fevers, vomiting, shortness of breath, cough, numbness, weakness, rash. She does note that she has had diarrhea for the past 2 days. She reports that she drinks 2 alcoholic drinks per night, states that her last drink was last night. She denies recreational drug use other than daily marijuana. She states that she has not attempted to harm herself, has not taken any medications other than as they are prescribed. Patient states that she has been eating and drinking regularly. Related Data Home Medications Medication Instructions Recorded Confirmed atenolol 100 mg PO DAILY 01/20/14 07/02/19 ergocalciferol (vitamin D2) 1.25 mg PO QWEEK 07/13/18 07/02/19 [Vitamin D2] Floranex 1 packet PO QID 12/04/18 07/02/19 Acidophilus-Pectin 2 tab PO TID 05/18/19 07/02/19 ranitidine HCl 75 mg PO DAILY 30 Days #15 tab 05/18/19 07/02/19 acetaminophen 500 mg tablet 500 mg PO Q6H PRN #90 tab 06/04/19 07/02/19 meloxicam 15 mg tablet 15 mg PO DAILY #30 tab 06/04/19 07/02/19 bupropion HCl [Wellbutrin SR] 150 mg PO BID 07/02/19 07/02/19 tramadol 50 mg PO Q6H PRN PRN 07/02/19 07/02/19 Previous Rx's Medication Instructions Recorded ranitidine HCl 75 mg PO DAILY 30 Days #15 tab 05/18/19 acetaminophen 500 mg tablet 500 mg PO Q6H PRN #90 tab 06/04/19 meloxicam 15 mg tablet 15 mg PO DAILY #30 tab 06/04/19 Allergies Allergy/AdvReac Type Severity Reaction Status Date / Time No Known Allergies Allergy Unverified 07/02/19 11:52 General Stated Complaint: PsychEval EDITH: 2 Review of Systems <Valerie Reza MD - Last Filed: 07/05/19 21:14> Narrative: Constitutional: denies fevers Eyes: denies eye pain ENT: denies ear pain, dental pain, sore throat Cardiovascular: denies chest pain Respiratory: denies SOB, cough GI: denies abdominal pain, vomiting, reports diarrhea : denies flank pain MSK: denies back pain, neck pain, arthralgias, myalgias Skin: denies rash, reports skin lesions as per HPI Neuro: denies headaches, numbness, weakness Psych: reports auditory hallucinations in the form of cricket chirping, suicidal thinking, denies hearing voices, visual hallucinations, homicidality, attempt to harm herself prior to arrival [facility] <Valerie Reza MD - Last Filed: 07/05/19 21:14> Medical History Alcohol abuse (Chronic) Essential hypertension (Chronic) Fracture of metatarsal of left foot, closed (Acute ~04/30/19) 3rd, 4th and 5th metatarsals Hypertension (Chronic) TBI (traumatic brain injury) (Chronic) Surgical History Hx of appendectomy (Chronic) Previous section (Chronic) x2 Family History Brother Stroke Mother Diabetes Lung cancer nonsmoker Father Hypertension Social History Smoking/Tobacco Use Status: Never Alcohol Intake: current Alcohol Intake frequency: 3 or more drinks per day Alcohol type: beer and wine Details: never had withdrawal or seizures Drug use: Socially Substance use type: marijuana Current gender identity: female Do you feel safe at home: No Do you feel safe in your relationship?: Yes Exam <Valerie Reza MD - Last Filed: 07/05/19 21:14> Narrative Exam Narrative: Constitutional: well and [id number], pleasant, conversing normally HENT: head atraumatic/normocephalic/normal inspection, mucous membranes somewhat dry Eyes: conjunctiva normal, sclera normal, pupils 3mm b/l Neck: no stridor, normal ROM, trachea midline Chest: normal inspection Resp: normal work of breathing, LCTAB Cardio: Tachycardic rate, normal rhythm, no murmur appreciated GI: abdomen soft, non-tender, non-distended Back: normal inspection, no rash Skin: warm, dry, normal color, no rash Neuro: alert, not altered, grossly non-focal, normal tone Ext: no edema, moving all extremities equally Psych: normal mood, normal affect, somewhat pressured speech, flight of ideas, mildly delusional thinking, no apparent hallucinations, suicidal thinking, no homicidal ideation Course <Valerie Reza MD - Last Filed: 07/05/19 21:14> Vital Signs Vital signs: Vital Signs Temperature 37.1 C 07/02/19 11:34 Pulse 132 H 07/02/19 11:34 Respiratory Rate 18 07/02/19 11:34 Blood Pressure 166/118 H 07/02/19 11:34 Pulse Oximetry 96 07/02/19 11:34 Temperature 37.1 C 07/02/19 11:34 Temperature Source Temporal Artery Scan 07/02/19 11:34 Pulse 132 H 07/02/19 11:34 Respiratory Rate 18 07/02/19 11:34 Respiratory Effort 07/02/19 11:42 Blood Pressure 166/118 H 07/02/19 11:34 Blood Pressure Position Sitting 07/02/19 11:34 Pulse Oximetry 96 07/02/19 11:34 Oxygen Delivery Method Room Air 07/02/19 11:34 Oxygen Flow Rate 0 07/02/19 11:34 Pain Level 0 07/02/19 11:34 Lab/Test Results Lab/Test Results: Laboratory Tests Range/Units 07/02/19 07/02/19 07/02/19 12:07 12:07 12:15 WBC (4.4-10.8) k/cumm RBC (4.00-5.20) m/cumm Hgb (12.0-15.5) g/dL Hct (36.0-46.0) % MCV (80-95) fL MCH (27.0-33.0) pg MCHC (32.0-36.0) g/dL RDW (11.7-14.6) % Plt Count (130-400) x1000/uL MPV (8.0-11.0) fL Immature Gran % % Neutrophils % Lymphocytes % Monocytes % Eosinophils % Basophils % Absolute Neutrophils (1.2-6.7) k/cumm Absolute Lymphocytes (1.2-3.4) k/cumm Absolute Monocytes (0.11-0.7) k/cumm Absolute Eosinophils (0.0-0.7) k/cumm Absolute Basophils (0.0-0.2) k/cumm Sodium (136-145) mmol/L 140 Potassium (3.5-5.1) mmol/L 4.3 Chloride (98-107) mmol/L 100 Carbon Dioxide (21.0-32.0) mmol/L 28.6 Anion Gap (3-11) mmol/L 11.4 H BUN (7-18) mg/dL 15 Creatinine (0.55-1.02) mg/dL 0.78 Estimated GFR/1.73 m2 (mL/min/1.73m2) >= 60.00 Glucose (74-106) mg/dL 90 Calcium (8.5-10.1) mg/dL 9.5 Total Bilirubin (0.2-1.0) mg/dL 0.5 AST (15-37) U/L 18 ALT (14-59) U/L 17 Alkaline Phosphatase (46-116) U/L 122 H Total Protein (6.4-8.2) g/dL 8.1 Albumin (3.4-5.0) g/dL 4.5 TSH (0.36-3.74) uIU/mL 1.17 Urine Color (Yellow) Yellow Urine Clarity (Clear) Clear Urine pH (5-8) 7.0 Ur Specific [place] (1.005-1.025) 1.015 Urine Protein (Negative) mg/dL Negative Urine Ketones (Negative) mg/dL Negative Urine Blood (Negative) Negative Urine Nitrite (Negative) Negative Urine Bilirubin (Negative) Negative Urine Urobilinogen (Up TO 0.2) EU/dL 0.2 Ur Leukocyte Esterase (Negative) Trace H Urine RBC (0-2) HPF 0-2 Urine WBC (0-5) HPF 0-2 Ur Epithelial Cells (Negative) HPF Moderate Urine Crystals (Negative) HPF Negative Urine Bacteria (Negative) HPF Few Urine Casts (Negative) LPF Negative Urine Mucus (Negative) Negative Urine Other (Negative) Few transitional Ur Culture Indicated? No/sq. contamination Urine Glucose (Negative) mg/dL Negative Urine Opiates Screen (Negative) Negative Urine Methadone Screen (Negative) Negative Ur Barbiturates Screen (Negative) Negative Ur Tricyclics Screen (Negative) Negative Ur Amphetamines Screen (Negative) Negative U Benzodiazepines Scrn (Negative) Negative Urine Cocaine Screen (Negative) Negative Ur THC Screen (Negative) Positive A Ethyl Alcohol (<3) mg/dL 40.1 Range/Units 07/02/19 12:15 WBC (4.4-10.8) k/cumm 11.44 H RBC (4.00-5.20) m/cumm 4.97 Hgb (12.0-15.5) g/dL 15.8 H Hct (36.0-46.0) % 47.7 H MCV (80-95) fL 96.0 H MCH (27.0-33.0) pg 31.8 MCHC (32.0-36.0) g/dL 33.1 RDW (11.7-14.6) % 13.8 Plt Count (130-400) x1000/uL 415 H MPV (8.0-11.0) fL 9.5 Immature Gran % % 0.3 Neutrophils % 65.1 Lymphocytes % 24.1 Monocytes % 8.7 Eosinophils % 1.2 Basophils % 0.6 Absolute Neutrophils (1.2-6.7) k/cumm 7.45 H Absolute Lymphocytes (1.2-3.4) k/cumm 2.76 Absolute Monocytes (0.11-0.7) k/cumm 1.00 H Absolute Eosinophils (0.0-0.7) k/cumm 0.14 Absolute Basophils (0.0-0.2) k/cumm 0.07 Sodium (136-145) mmol/L Potassium (3.5-5.1) mmol/L Chloride (98-107) mmol/L Carbon Dioxide (21.0-32.0) mmol/L Anion Gap (3-11) mmol/L BUN (7-18) mg/dL Creatinine (0.55-1.02) mg/dL Estimated GFR/1.73 m2 (mL/min/1.73m2) Glucose (74-106) mg/dL Calcium (8.5-10.1) mg/dL Total Bilirubin (0.2-1.0) mg/dL AST (15-37) U/L ALT (14-59) U/L Alkaline Phosphatase (46-116) U/L Total Protein (6.4-8.2) g/dL Albumin (3.4-5.0) g/dL TSH (0.36-3.74) uIU/mL Urine Color (Yellow) Urine Clarity (Clear) Urine pH (5-8) Ur Specific [place] (1.005-1.025) Urine Protein (Negative) mg/dL Urine Ketones (Negative) mg/dL Urine Blood (Negative) Urine Nitrite (Negative) Urine Bilirubin (Negative) Urine Urobilinogen (Up TO 0.2) EU/dL Ur Leukocyte Esterase (Negative) Urine RBC (0-2) HPF Urine WBC (0-5) HPF Ur Epithelial Cells (Negative) HPF Urine Crystals (Negative) HPF Urine Bacteria (Negative) HPF Urine Casts (Negative) LPF Urine Mucus (Negative) Urine Other (Negative) Ur Culture Indicated? Urine Glucose (Negative) mg/dL Urine Opiates Screen (Negative) Urine Methadone Screen (Negative) Ur Barbiturates Screen (Negative) Ur Tricyclics Screen (Negative) Ur Amphetamines Screen (Negative) U Benzodiazepines Scrn (Negative) Urine Cocaine Screen (Negative) Ur THC Screen (Negative) Ethyl Alcohol (<3) mg/dL Sign Out <Valerie Reza MD - Last Filed: 07/05/19 21:14> Sign Out Data: Sign Out Comment: Patient signed out to Dr. Cleaning at time of shift change with mental health evaluation, disposition pending Last updated by Valerie Reza MD at 07/02/19 17:22
--- NOTE | 2019-07-02 15:57 | CMSP_ITS ---
- If Service Date Differs Date of service: 07/02/19 Time of Service: 15:57 Care Management Safety Plan Chief Complaint: Lisset is a 58 year old female who comes to the ED via ambulance after meeting with Dr. Amezquita, her PCP at the [facility]. Dr. Amezquita reportedly sent her to the ED to be evaluated due to concerns for suicidality, possible auditory hallucinations, and possible delusional thinking. At the hospital, Lisset was found to be tachycardic. Once she has been medically cleared, she will be assessed by an [facility] screener and a disposition will be made at that time. If screener deems patient meets criteria for psychiatric stabilization, CM will facilitate interdepartmental huddle with [facility] screener for safety planning considerations and meet with patient to review [facility] policy and safety plan, establish individual wishes for treatment and maintain patient rights. In the interim; please note safety plan below to guide patient care while awaiting further assessment in the ED. SAFETY PLAN: 1. Will remain on suicide precautions and in paper clothes. 2. Will remain in room under direct supervision of one-on-one staff at all times provided by [employer], PHOTO LAB SPECIALIST, STUNNER extension course coordinator. 3. May have paper cups, plates, finger foods as well as a cardboard spoon with which to eat meals. 4. Follow [facility] Management of the Admitted Behavioral Health Patient policy. 5. Comfort bath system only. 6. No personal belongings 7. No visitors. 8. No telephone privileges at this time. 9. Due to VOLUNTARY status, if patient wishes to leave [facility], the [facility] idea worker must be contacted to evaluate patient prior to patient exiting the building. 10. If patient remains at [facility] and is moved to the [facility], television will be allowed at nursing discretion. If deemed appropriate for inpatient psychiatric care, safety plan will be established with patient, and care team, to adhere to patient goals, identify restrictions based on behavioral status, address nutrition, and determine allowed personal belongings, tools for hygiene and personal care. As well plan will determine level of activity including ambulation, level of supervision, visitors, and determine privileges based on level of acuity, behaviors and level of engagement by patient.
[2019-07-02] MEDS: Atenolol 25 MG TAB 100 MG PO (15:58)
--- NOTE | 2019-07-02 16:27 | NUR.NOTE ---
Nursing Note: Patient ate food.
--- NOTE | 2019-07-02 19:11 | NUR.NOTE ---
Nursing Note: Received report from Pam Aguila RN at this time and participated in huddle.
--- NOTE | 2019-07-02 19:39 | PDOC.MHPN2 ---
Date of service: 07/02/19 Time of Service: 18:30 Mental Health Progress Note Progress Note Progress Note: Presenting Issue: Patient presented to ED after referral from Dr. Daljit Amezquita with auditory hallucinations and SI with intent. Patient advised she wants to , and plans to take pills. She advised she didn't want to hurt herself, because shooting herself or cutting her wrists would make a mess, and she wouldn't want anyone to have to clean it up. She advised she could purchase illicit pills on the street. Precipitating Factors Patient advised she has a multitude of physical issues contributing to her anxiety, including cellulitis, C difficile, and a broken foot. She advised that she has no running water or electricity at her home, no transportation, and has no family or friends in this area. Patient advised that everyday life is taxing, and her anxiety fluctuates daily from low to unbearable. Disposition * Behavior: Patient cried as she described her home situation, and advised she feels overwhelmed mentally and physically. Patient is currently acting appropriately in her interactions with ED staff. *Eye Contact: Patient gave good eye contact, and was willing to discuss her situation at length. *Mood: Patient stated she is hopeless, and appeared anxious with a depressed mood. *Affect: Patient appeared overwhelmed, as indicated by her tearfulness and desire to not be a burden on anyone *Appetite: Patient had eaten half of a sandwich, and had had some water to drink. *Sleep(trouble falling/staying asleep): Patient didn't indicate that sleep was an issue for her. Plan(please elaborate and include that physician is consulted with plan and/or placement): A huddle with Dr. Cleaning, care management, and ED staff concluded in a concurrence that the patient is high risk and should remain hospitalized for the immediate future. Pt will remain in paper clothes, and not be allowed metal utensils. Pt can continue to use the [facility] provided tablet to listen to music and watch tv. Amber Michael [facility] Crisis Make sure that you are photocopying and submitting this to [facility] records Dept. to be scanned into chart.
--- NOTE | 2019-07-02 20:13 | CMPROGNOTE_ITS ---
Care Management Progress Note Chief Complaint: Lisset is a 58 year old female who comes to the ED via ambulance after meeting with Dr. Amezquita, her PCP at the [facility]. Dr. Amezquita reportedly sent her to the ED to be evaluated due to concerns for suicidality, possible auditory hallucinations, and possible delusional thinking. VOLUNTARY FOR INPATIENT PSYCHIATRIC STABILIZATION. Lisset has been appropriate in all interactions since arriving at [facility]; demonstrating appropriate coping and communication skills, articulated her needs and concerns and fully engaged during staff interactions. CM met with Lisset for more than an hour, addressing the barriers to stability in her home and community. She noted the outpouring of support from LARISA and COA and reported people even came to shovel her steps off. She reported Yancy marsh [employer] was able to secure propane for her tank on Tuesday evening. WILLIE (service connection), Food Stability(only one trip per mth/aging out of VCIL in July), Life [employer]ment (phone for landline, internet connection (generator getting fixed), radio (hers just broke) were all identified by Lisset as increasing her feelings of loneliness and helplessness as she is unable to connect with people and is struggling to meet her basic needs all alone in her remote home. With the compounding of her life stressors and barriers to meeting her basic needs, Lisset was unable to stabilize after returning home from [facility]. She reports she has not consistently had her medications (Wellbutrin) and has been spacing out doses because she is unable to attain them. She identified that the medication made a real difference in managing her emotions and feeling confident with managing the tasks in her life. Lisset would like to return to [facility] but verbalizes understanding of why she has been deemed in need of psychiatric stabilization. She shares that her poems talk of her plans to end her life and she has been struggling with ongoing suicidal ideation. Though not discussed with this press writer, she did relapse and had alcohol on board per urine test in the Emergency Department. Lisset is forthcoming and fully engaged with this press writer. She is voluntarily seeking placement and appropriately advocating for items to support her coping such as writing utensil and notebook and the phone to call her friend in [place] in the morning. She shows insight about the struggles she is currently dealing with and expresses hope about being able to make a plan moving forward. CM reviewed safety plan considerations with Lisset who was agreeable to plan outlined below. Huddle Participants: Silas CASH Golf Cart Assembler-reviewed post ania, Romana; SHREYA, Amber and Laruen [facility] Crisis Screeners, Dr. Cleaning and this press writer. Safety plan has been established with patient, and care team, to adhere to patient goals, identify restrictions based on behavioral status, address nutri tion, and determine allowed personal belongings, tools for hygiene and personal care. Determine level of activity including ambulation, level of supervision, visitors, and determine privileges based on behaviors and level of engagement. SAFETY PLAN: 1. Will remain on suicide precautions. In Paper Clothes. 2. Will remain under direct supervision of one-on-one staff at all times provided by [employer]; FABIÁN, RAUL director pharmacy services. 3. May have paper cups, plates, finger foods as well as a metal spoon with which to eat meals. [facility] staff will be responsible for accounting of utensils after meals. 4. Follow [facility] Management of the Admitted Behavioral Health Patient policy. 5. Shower permitted per RN discretion with escort to shower room. 6. Permitted to have patient own notebook, and pen. 7. Visitors-No visitors at this time 8. Activities: Television, remote, music tablet with wired earbuds. 9. Bathroom privileges without limitation. 10. Phone: incoming and outgoing phone calls permitted per RN discretion. 11. Due to VOLUNTARY status, if patient wishes to leave [facility], the [facility] mastic worker must be contacted to re-evaluate patient prior to patient exiting [facility]. Placement: Alexander [facility] reports bed availability at [facility]. Referrals faxed and under review. Per Lisset's wishes CM notified [facility] Crisis Screeners that Lisset is advocating for returning to [facility]. Amber reported anticipating bed placement tomorrow. Per discussion with Silas CASH Golf Cart Assembler; likely Lisset will admit to Transition Bed while awaiting placement. Lisset is currently voluntarily at [facility] and seeking inpatient admission when a bed becomes available. [facility] Frontline Cherry Pitter will continue seeking place ment. Please contact the Pocket Machine Operator Manager Automotive ([phone]) and [facility] Cherry Pitter ([phone]) for any needed changes in the Safety Plan. Safety plan has been provided to interdepartmental care team. - MH Services (Omit if N/A) Current MH Services: Psychiatric Inp (Voluntary seeking placement; Referrals faxed to [facility] and [facility])
--- NOTE | 2019-07-02 21:01 | HPE_ITS ---
Date of service: 07/02/19 Time of Service: 21:02 Assessment and Plan Assessment and plan (1) Depression: Status: Chronic Assessment and plan: Depression. Will await disposition to psych facility, prn Ativan for the moment, along with suicide precautions. HTN; Will follow back on Atenolol. May be element of withdrawal in play as well. EtOH: CIWA History of Present Illness History of Present Illness Chief Complaint: agitation Narrative: 58 female with h/o anxiety, depression, alcohol abuse. Apparently not taking meds regularly. Sent by PCP for increasing SI, hallucinations. Medically cleared, no psych bed availability, voluntary admission. In ER received 50 Atenolol for initial BP 170/120 (usually on 100 mg) and Ativan 1 mg IV. At this time patient has rambling story of a great variety of medical issues over the past year, but apparently none active at present. 1 mg IV. Denies SI at this time and states she feels safe here. Review of Systems All systems reviewed & are unremarkable except as noted in HPI and below PFSH Medical History Alcohol abuse (Chronic) Essential hypertension (Chronic) Fracture of metatarsal of left foot, closed (Acute ~04/30/19) 3rd, 4th and 5th metatarsals Hypertension (Chronic) TBI (traumatic brain injury) (Chronic) Surgical History Hx of appendectomy (Chronic) Previous section (Chronic) x2 Family History Brother Stroke Mother Diabetes Lung cancer nonsmoker Father Hypertension Social History Smoking/Tobacco Use Status: Never Alcohol Intake: current Alcohol Intake frequency: 3 or more drinks per day Alcohol type: beer and wine Details: never had withdrawal or seizures Drug use: Socially Substance use type: marijuana Current gender identity: female Do you feel safe at home: No Do you feel safe in your relationship?: Yes Meds Home Medications and Allergies Home Medications Medication Instructions Recorded Confirmed Type atenolol 100 mg PO DAILY 01/20/14 07/02/19 History ergocalciferol (vitamin D2) 1.25 mg PO QWEEK 07/13/18 07/02/19 History [Vitamin D2] Floranex 1 packet PO QID 12/04/18 07/02/19 History Acidophilus-Pectin 2 tab PO TID 05/18/19 07/02/19 History ranitidine HCl 75 mg PO DAILY 30 Days #15 tab 05/18/19 07/02/19 Rx acetaminophen 500 mg tablet 500 mg PO Q6H PRN #90 tab 06/04/19 07/02/19 Rx meloxicam 15 mg tablet 15 mg PO DAILY #30 tab 06/04/19 07/02/19 Rx bupropion HCl [Wellbutrin SR] 150 mg PO BID 07/02/19 07/02/19 History tramadol 50 mg PO Q6H PRN PRN 07/02/19 07/02/19 History venlafaxine 300 mg PO DAILY 07/02/19 07/02/19 History Allergies Allergy/AdvReac Type Severity Reaction Status Date / Time No Known Allergies Allergy Unverified 07/02/19 11:52 Exam Narrative Exam Narrative: 166/99 (verbal), 65, 18, 37.1. HEENT AT/NC; neck supple; lungs clear; heart RRR; abdomen soft and NT; extremities w/o edema; neuro ox3, somewhat pressured speech, non-focal. Results Labs Result diagrams: 07/02/19 12:15 07/02/19 12:15 Labs: Laboratory Results - last 24 hr 07/02/19 07/02/19 07/02/19 12:07 12:07 12:15 WBC RBC Hgb Hct MCV MCH MCHC RDW Plt Count MPV Immature Gran % Neutrophils % Lymphocytes % Monocytes % Eosinophils % Basophils % Absolute Neutrophils Absolute Lymphocytes Absolute Monocytes Absolute Eosinophils Absolute Basophils Sodium 140 Potassium 4.3 Chloride 100 Carbon Dioxide 28.6 Anion Gap 11.4 H BUN 15 Creatinine 0.78 Estimated GFR/1.73 m2 >= 60.00 Glucose 90 Calcium 9.5 Total Bilirubin 0.5 AST 18 ALT 17 Alkaline Phosphatase 122 H Total Protein 8.1 Albumin 4.5 TSH 1.17 Urine Color Yellow Urine Clarity Clear Urine pH 7.0 Ur Specific [place] 1.015 Urine Protein Negative Urine Ketones Negative Urine Blood Negative Urine Nitrite Negative Urine Bilirubin Negative Urine Urobilinogen 0.2 Ur Leukocyte Esterase Trace H Urine RBC 0-2 Urine WBC 0-2 Ur Epithelial Cells Moderate Urine Crystals Negative Urine Bacteria Few Urine Casts Negative Urine Mucus Negative Urine Other Few transitional Ur Culture Indicated? No/sq. contamination Urine Glucose Negative Urine Opiates Screen Negative Urine Methadone Screen Negative Ur Barbiturates Screen Negative Ur Tricyclics Screen Negative Ur Amphetamines Screen Negative U Benzodiazepines Scrn Negative Urine Cocaine Screen Negative Ur THC Screen Positive A Ethyl Alcohol 40.1 07/02/19 12:15 WBC 11.44 H RBC 4.97 Hgb 15.8 H Hct 47.7 H MCV 96.0 H MCH 31.8 MCHC 33.1 RDW 13.8 Plt Count 415 H MPV 9.5 Immature Gran % 0.3 Neutrophils % 65.1 Lymphocytes % 24.1 Monocytes % 8.7 Eosinophils % 1.2 Basophils % 0.6 Absolute Neutrophils 7.45 H Absolute Lymphocytes 2.76 Absolute Monocytes 1.00 H Absolute Eosinophils 0.14 Absolute Basophils 0.07 Sodium Potassium Chloride Carbon Dioxide Anion Gap BUN Creatinine Estimated GFR/1.73 m2 Glucose Calcium Total Bilirubin AST ALT Alkaline Phosphatase Total Protein Albumin TSH Urine Color Urine Clarity Urine pH Ur Specific [place] Urine Protein Urine Ketones Urine Blood Urine Nitrite Urine Bilirubin Urine Urobilinogen Ur Leukocyte Esterase Urine RBC Urine WBC Ur Epithelial Cells Urine Crystals Urine Bacteria Urine Casts Urine Mucus Urine Other Ur Culture Indicated? Urine Glucose Urine Opiates Screen Urine Methadone Screen Ur Barbiturates Screen Ur Tricyclics Screen Ur Amphetamines Screen U Benzodiazepines Scrn Urine Cocaine Screen Ur THC Screen Ethyl Alcohol Last Vital Signs Temp 37.1 C 07/02/19 11:34 Pulse 100 H 07/02/19 16:29 Resp 18 07/02/19 16:19 BP 170/120 H 07/02/19 16:29 Pulse Ox 100 07/02/19 16:19
--- NOTE | 2019-07-03 01:55 | NUR.NOTE ---
Nursing Note: 0000H per this RN prerogative, patient was allowed to use cellphone momentarily with RN supervision to let her daughter know she is safe in the hospital. Patient surrendered phone willingly after 25 minutes. Patient was also allowed her spring notebook and pen per her care plan.
[2019-07-03 07:47] VITALS: BP 154/101; PULSE 63; RESP 15; TEMP 37; O2SAT 98
[2019-07-03 10:00] VITALS: BP 154/109; PULSE 89; RESP 16; TEMP 36.6; O2SAT 96
--- NOTE | 2019-07-03 10:26 | CMPROGNOTE_ITS ---
Care Management Progress Note VOLUNTARY FOR INPATIENT PSYCHIATRIC STABILIZATION. Lsiset has been appropriate in all interactions since arriving at [facility]; demonstrating appropriate coping and communication skills, articulated her needs and concerns and fully engaged during staff interactions. Refer to note from 07/02/19 re: home setting life stressors and barriers to service connection. CM again requested for navigation support re: WILLIE re- activation through LARISA. CM reviewed safety plan considerations with Lisset who was agreeable to plan o utlined below. Lisset is advocating for having a book, Lisa; Service Worker and Valerie; RN requested adding to care plan. Huddle Participants: Tanya KNIGHT, Rizwana [facility]: Crisis Screener, and this service writer. Susie toure; RN, Ashtyn; SHREYACC were invited but unable to attend. Safety plan has been established with patient, and care team, to adhere to patient goals, identify restrictions based on behavioral status, address nutrition, and determine allowed personal belongings, tools for hygiene and personal care. Determine level of activity including ambulation, level of supervision, visitors, and determine privileges based on behaviors and level of engagement. SAFETY PLAN: 1. Will remain on suicide precautions. In Paper Clothes. 2. Will remain under direct supervision of one-on-one staff at all times provided by [employer]; FABIÁN, STUDIO COUCH FRAME BUILDER valve machine operator. 3. May have paper cups, plates, finger foods as well as a metal spoon with which to eat meals. [facility] staff will be responsible for accounting of utensils after meals. 4. Follow [facility] Management of the Admitted Behavioral Health Patient policy. 5. Shower permitted per RN discretion with escort to shower room. 6. Permitted to have patient own notebook, pen and books. 7. Visitors-No visitors at this time 8. Activities: Television, remote, music tablet with wired earbuds and patient's own cell phone and invoice machine operator. 9. Bathroom privileges without limitation. 10. Phone: incoming and outgoing phone calls permitted per RN discretion. 11. Due to VOLUNTARY status, if patient wishes to leave [facility], the [facility] ornamental iron worker must be contacted to re-evaluate patient prior to patient exiting the building. Placement: Referral continues to be reviewed by [facility] and [facility]. Rizwana reports no bed availability at other facilities at this time. 1430 [facility] called and requested stool assessment, activity assessment and CIWA scoring. BERNARD faxed to [facility]. Abbie reported MD would review at 1500 and then they would be in touch. 1630 BERNARD attempted to call. Rizwana [facility] called minutes later to report she was on the phone with Bruce when BERNARD called. She reported the facility did not anticipate accepting Lisset ballesteros but would be in contact tomorrow morning. Lisset is currently voluntarily at [facility] and seeking inpatient admission when a bed becomes available. [facility] Frontline Assistant Elementary Teacher will continue seeking placement. Please contact the Forestry Aide Mutuel Department Manager ([phone]) and [facility] Assistant Elementary Teacher ([phone]) for any needed changes in the Safety Plan. Safety plan has been provided to interdepartmental care team. - MH Services (Omit if N/A) Current MH Services: Psychiatric Inp (Voluntary for placement.)
--- NOTE | 2019-07-03 11:06 | W.INMHPGNOTE ---
Date of service: 07/03/19 Time of Service: 11:06 Mental Health Crisis Note Presenting Issue How did you arrive at the ED and why did you come: Kaleigh arrived to the ER yesterday via ambulance that was called by her PCP while she was there for an appointment. Precipitating Factors J endorses SI still today rating her SI on a scale of 0-10 at a 7. There are no observations of delusions today although she endorses that she is still hearing crickets. Disposition BEHAVIOR: Kaleigh states Sometimes I'm okay and sometimes I'm shitty. She is cooperative and engaged in conversation and had just had a shower. She is respectful and not a behavior issue. EYE CONTACT: Kaleigh makes good and appropriate eye contact. MOOD: Kaleigh's mood appears depressed and anxious. AFFECT: Her affect is normal mostly but very weepy at times. APPETITE: Kaleigh's appetite is good although she reports that the interest in eating is not there she is eating because she knows she should. SLEEP(trouble falling/staying asleep: Kaleigh reported only getting 3 hours of sleep last night. Plan Kaleigh is seeking a voluntary admission today. It is important that where ever she goes that [facility] is included in the d/c planning so that we can arrange for a case management appointment to assist with her day to day stressor's and try to lessen them. Signature Clinician's Name/Title: Rizwana Nolan MS, [facility] Emergency Services Clinician
[2019-07-03] MEDS: Atenolol 50 MG TAB 100 MG PO (11:20)
[2019-07-03] MEDS: buPROPion-CR 150 MG TABCR PO ×2 (11:22→20:01)
--- NOTE | 2019-07-03 13:46 | PHARADMIT ---
Admission Pharmacy Clinical Review depression Code Status Full Code Current Weight 76.204 kg Renally Cleared and Narrow Therapeutic Index Meds Crcl ~73.6 mL/min current meds okay QTc Value / Action Taken QTc 447 BP Control, Fever BP-154/109 afebrile Electrolytes reviewed within normal limits DVT Prophylaxis none Opiate Usage / Scheduled Bowel Regimen Ordered prn/none Plt/SCr for Heparin / Enoxaparin plt 415 SCr 0.78 INR for Warfarin n/a H/H stable, WBC/Bands h/h 15.8/47.7 wbc 11.44 Antibiotic appropriateness none Cultures and Sensitivities none Surgical ABX d/c within 24 hr n/a DM control / Insulin Dosing BG 90 none Heart Failure (Check EF%) (CAILIN's, B-Block, Diuretics) atenolol IV to PO Switch n/a Home Meds Reviewed multiple probiotics and antidepressants Home Meds Not Ordered acidophilus-pectin, floranex, ergocalciferol, ranitidine (75 mg dose, only 150 mg caps available in pharmacy so held as pt still has famotidine) Comments voluntary, waiting for placement CIWA ordered, pt's ETOH on admission was 40.1
--- NOTE | 2019-07-03 18:41 | PGE_ITS ---
Date of Service Date of service: 07/03/19 Time of Service: 18:42 Assessment and Plan Assessment and plan (1) Depression: Status: Chronic Assessment and plan: Patient has obvious depressive thoughts. She describes auditory hallucinations that include constant cricket sounds as well as a low humming sound that feels like impending doom. She is actively contemplating suicide. Continue on voluntary hold pending psychiatric placement. (2) Alcohol abuse: Status: Chronic Assessment and plan: Patient is known to have regular daily alcohol consumption. Continue CI [place] scoring. She is not actively withdrawing at this time. (3) Essential hypertension: Status: Chronic Assessment and plan: Blood pressures are running somewhat high. Will resume her atenolol as well as her other home meds. (4) Discharge planning issues: Status: Acute Assessment and plan: Will transition to acute inpatient admission as psychiatric bed is pending. Subjective Subjective Interval history since last seen: Patient is admitted with severe depression. She has suicidal ideation but no plans to commit suicide in the hospital or to inconvenience anyone else. She was quite graphic and slick about her overall feelings of worthlessness as well as a feeling that humanity is becoming extinct and that there is nothing left to live for. She would like a pain less . Exam Narrative Exam Narrative: On exam patient is able to ambulate around the room without dif ficulty. To use shows no evidence of any weakness or discomfort. Her face displays a full affect. She has no focal neurologic deficits. Objective Objective Clinical Data: Vital Signs Temperature 36.6 C 07/03/19 10:00 Temperature Source Tympanic 07/03/19 10:00 Pulse 89 07/03/19 10:00 Pulse Rhythm Regular 07/03/19 10:00 Respiratory Rate 16 07/03/19 10:00 Respiratory Effort Non-Labored 07/03/19 10:00 Respiratory Depth Normal 07/03/19 10:00 Respiratory Pattern Normal 07/03/19 10:00 Blood Pressure 154/109 H 07/03/19 10:00 Blood Pressure Position Sitting 07/02/19 11:34 Pulse Oximetry 96 07/03/19 10:00 Oxygen Delivery Method Room Air 07/03/19 10:00 Oxygen Flow Rate 0 07/03/19 10:00 Pain Level 0 07/02/19 11:34 Comment 07/03/19 07:47 Intake & Output 07/02/19 07/03/19 07/03/19 23:59 11:59 23:59 Intake Total 2009 240 / 640 400 / 640 Balance 2009 240 / 640 400 / 640 Weight 76.204 kg Intake: IV 2009 Oral 240 / 640 400 / 640 Other: Comment per patient Stool Size Small Stool Characteristics Soft Brown Laboratory Results WBC 11.44 k/cumm (4.4-10.8) H 07/02/19 12:15 RBC 4.97 m/cumm (4.00-5.20) 07/02/19 12:15 Hgb 15.8 g/dL (12.0-15.5) H 07/02/19 12:15 Hct 47.7 % (36.0-46.0) H 07/02/19 12:15 MCV 96.0 fL (80-95) H 07/02/19 12:15 MCH 31.8 pg (27.0-33.0) 07/02/19 12:15 MCHC 33.1 g/dL (32.0-36.0) 07/02/19 12:15 RDW 13.8 % (11.7-14.6) 07/02/19 12:15 Plt Count 415 x1000/uL (130-400) H 07/02/19 12:15 MPV 9.5 fL (8.0-11.0) 07/02/19 12:15 Immature Gran % 0.3 % 07/02/19 12:15 Neutrophils % 65.1 07/02/19 12:15 Lymphocytes % 24.1 07/02/19 12:15 Monocytes % 8.7 07/02/19 12:15 Eosinophils % 1.2 07/02/19 12:15 Basophils % 0.6 07/02/19 12:15 Absolute Neutrophils 7.45 k/cumm (1.2-6.7) H 07/02/19 12:15 Absolute Lymphocytes 2.76 k/cumm (1.2-3.4) 07/02/19 12:15 Absolute Monocytes 1.00 k/cumm (0.11-0.7) H 07/02/19 12:15 Absolute Eosinophils 0.14 k/cumm (0.0-0.7) 07/02/19 12:15 Absolute Basophils 0.07 k/cumm (0.0-0.2) 07/02/19 12:15 Sodium 140 mmol/L (136-145) 07/02/19 12:15 Potassium 4.3 mmol/L (3.5-5.1) 07/02/19 12:15 Chloride 100 mmol/L (98-107) 07/02/19 12:15 Carbon Dioxide 28.6 mmol/L (21.0-32.0) 07/02/19 12:15 Anion Gap 11.4 mmol/L (3-11) H 07/02/19 12:15 BUN 15 mg/dL (7-18) 07/02/19 12:15 Creatinine 0.78 mg/dL (0.55-1.02) 07/02/19 12:15 Estimated GFR/1.73 m2 >= 60.00 (mL/min/1.73m2) 07/02/19 12:15 Glucose 90 mg/dL (74-106) 07/02/19 12:15 Calcium 9.5 mg/dL (8.5-10.1) 07/02/19 12:15 Total Bilirubin 0.5 mg/dL (0.2-1.0) 07/02/19 12:15 AST 18 U/L (15-37) 07/02/19 12:15 ALT 17 U/L (14-59) 07/02/19 12:15 Alkaline Phosphatase 122 U/L (46-116) H 07/02/19 12:15 Total Protein 8.1 g/dL (6.4-8.2) 07/02/19 12:15 Albumin 4.5 g/dL (3.4-5.0) 07/02/19 12:15 TSH 1.17 uIU/mL (0.36-3.74) 07/02/19 12:15 Urine Color Yellow (Yellow) 07/02/19 12:07 Urine Clarity Clear (Clear) 07/02/19 12:07 Urine pH 7.0 (5-8) 07/02/19 12:07 Ur Specific [place] 1.015 (1.005-1.025) 07/02/19 12:07 Urine Protein Negative mg/dL (Negative) 07/02/19 12:07 Urine Ketones Negative mg/dL (Negative) 07/02/19 12:07 Urine Blood Negative (Negative) 07/02/19 12:07 Urine Nitrite Negative (Negative) 07/02/19 12:07 Urine Bilirubin Negative (Negative) 07/02/19 12:07 Urine Urobilinogen 0.2 EU/dL (Up TO 0.2) 07/02/19 12:07 Ur Leukocyte Esterase Trace (Negative) H 07/02/19 12:07 Urine RBC 0-2 HPF (0-2) 07/02/19 12:07 Urine WBC 0-2 HPF (0-5) 07/02/19 12:07 Ur Epithelial Cells Moderate HPF (Negative) 07/02/19 12:07 Urine Crystals Negative HPF (Negative) 07/02/19 12:07 Urine Bacteria Few HPF (Negative) 07/02/19 12:07 Urine Casts Negative LPF (Negative) 07/02/19 12:07 Urine Mucus Negative (Negative) 07/02/19 12:07 Urine Other Few transitional (Negative) 07/02/19 12:07 Ur Culture Indicated? No/sq. contamination 07/02/19 12:07 Urine Glucose Negative mg/dL (Negative) 07/02/19 12:07 Urine Opiates Screen Negative (Negative) 07/02/19 12:07 Urine Methadone Screen Negative (Negative) 07/02/19 12:07 Ur Barbiturates Screen Negative (Negative) 07/02/19 12:07 Ur Tricyclics Screen Negative (Negative) 07/02/19 12:07 Ur Amphetamines Screen Negative (Negative) 07/02/19 12:07 U Benzodiazepines Scrn Negative (Negative) 07/02/19 12:07 Urine Cocaine Screen Negative (Negative) 07/02/19 12:07 Ur THC Screen Positive (Negative) A 07/02/19 12:07 Ethyl Alcohol 40.1 mg/dL (<3) 07/02/19 12:15
[2019-07-03 21:26] VITALS: BP 159/115; PULSE 68; RESP 16; TEMP 37.2; O2SAT 95
[2019-07-03 23:50] VITALS: BP 160/116; PULSE 65; RESP 16; TEMP 36.6; O2SAT 99
[2019-07-04] MEDS: traMADol 50 MG TAB PO (00:36)
[2019-07-04 04:41] VITALS: BP 143/104
[2019-07-04 07:20] VITALS: BP 181/122; PULSE 65; RESP 18; TEMP 36.6; O2SAT 98
[2019-07-04] MEDS: Atenolol 50 MG TAB 100 MG PO (07:49)
[2019-07-04] MEDS: Meloxicam 15 MG TAB PO (07:50)
[2019-07-04] MEDS: buPROPion-CR 150 MG TABCR PO (07:50)
[2019-07-04 09:10] VITALS: BP 144/89; PULSE 67; RESP 18; O2SAT 99
--- NOTE | 2019-07-04 09:59 | W.PM.DS.N ---
Date of service: 07/04/19 Time of Service: 09:59 DS: Diagnosis Discharge Diagnosis (1) Depression: Status: Chronic Asessment and Plan: Resumed usual outpatient medications including Wellbutrin X are 150 mg twice daily. Effexor 300 mg daily was stopped at the patient's request. (2) Alcohol abuse: Status: Chronic Asessment and Plan: Monitored for signs and symptoms of withdrawal with CIWA scoring. Has not scored above 3. (3) Essential hypertension: Status: Chronic Asessment and Plan: Blood pressures have remained elevated. Restarted atenolol 100 mg daily. This may need to be uptitrated as an outpatient. Discharge Plan Disposition Patient Disposition: OTHER Condition: Good Discharge Details Chief Complaint: PsychEval Clinical Impression: At risk for suicide, Depression Reason For Visit: DEPRESSION Admit Date/Time: 07/03/19 10:35 Admit Provider: Jesus Lopes Attending Provider: Srinivas Washington Primary Care Provider: Aidee Miranda ED Provider: Will Cleaning Hospital Course Hospital Course: 58-year-old female who was sent to the emergency room by [facility] behavioral health clinician because of depression with suicidal ideation on 07/02/2019. She apparently had an intermittent supply change to her Wellbutrin. She states that when she was able to take her Wellbutrin for a full week at a time she felt stable. Lately she has only been able to get a few doses at a time with long intervals in between where access to her medication was limited. The patient [place] off the [facility] with a long on plowed driveway and has no reliable transportation. There have been issues with medication delivery and availability. In the emergency room she was hypertensive with a blood pressure of 170/120, otherwise no medical issues. She was not having any GI symptoms but because of her history of C. difficile colitis a specimen was sent and returned negative for C. difficile antigen and toxin. She was monitored for signs and symptoms of suicidal ideation and continued to feel suicidal throughout her stay. She was restarted on her usual outpatient medications. She is medically cleared for transfer to a psychiatric facility. She is being transferred to [facility]. Home Meds and New Rx's Prescriptions: Continued meloxicam 15 mg tablet 15 mg PO DAILY Qty: 30 RF: 2 acetaminophen 500 mg tablet 500 mg PO Q6H PRN (Reason: pain) Qty: 90 RF: 2 atenolol 100 MG tablet 100 mg PO DAILY RF: 0 ergocalciferol (vitamin D2) [Vitamin D2] 50,000 unit Capsule 1.25 mg PO QWEEK RF: 0 Floranex 100 million cell Granules In Packet 1 packet PO QID RF: 0 Acidophilus-Pectin Tablet,Chewable 2 tab PO TID RF: 0 ranitidine HCl 150 mg Tablet 75 mg PO DAILY 30 Days Qty: 15 RF: 0 tramadol 50 mg tablet 50 mg PO Q6H PRN PRNRF: 0 bupropion HCl [Wellbutrin SR] 150 mg Tablet Sustained-Release 12 Hr 150 mg PO BID RF: 0 Discontinued venlafaxine 150 mg Capsule,Extended Release 24hr 300 mg PO DAILY RF: 0 Discharge Instructions Instructions: Depression (DC), Suicide Prevention for Adults (DC) Activity:: Activity as Tolerated Equipment/Supplies:: No Equipment Needed Diet:: As Tolerated Discharge Orders Discharge Orders: Discharge Order (Routine); Ordered 07/04/19 Ordered By: Srinivas Washington DS: Summary Status at Discharge Functional status at discharge: independent ambulation Overall status at discharge: patient is back to baseline Mental Status: mental status grossly normal Speech and Movement: speech and movement normal Mood: congruent mood Affect: normal affect Time Spent with Patient providing and/or coordinating discharge services: Less than 30 minutes Exam Narrative Exam Narrative: Exam on the day of transfer patient is sitting up and eating breakfast in a normal manner with no subjective or objective signs of distress. Psych Mental Status: mental status grossly normal Speech and Movement: speech and movement normal Mood: congruent mood Affect: normal affect DS: Data Vitals/I&O Vitals and I&O: Vital Signs Temperature 36.6 C 07/04/19 07:20 Temperature Source Tympanic 07/04/19 07:20 Pulse 67 07/04/19 09:10 Pulse Rhythm Regular 07/04/19 01:00 Respiratory Rate 18 07/04/19 09:10 Respiratory Effort 07/04/19 01:00 Respiratory Depth Normal 07/04/19 01:00 Respiratory Pattern Normal 07/04/19 01:00 Blood Pressure 144/89 H 07/04/19 09:10 Blood Pressure Position Sitting 07/02/19 11:34 Pulse Oximetry 99 07/04/19 09:10 Oxygen Delivery Method Room Air 07/04/19 09:10 Oxygen Flow Rate 0 07/04/19 09:10 Pain Level 0 07/04/19 09:10 Comment 07/04/19 04:41 Intake & Output 07/03/19 07/03/19 07/04/19 11:59 23:59 11:59 Intake Total 240 / 640 400 / 640 480 / 480 Balance 240 / 640 400 / 640 480 / 480 Intake: Oral 240 / 640 400 / 640 480 / 480 Other: Comment voiding independently into the toilet as per patient. per patient Stool Size Small Stool Characteristics Soft Brown Voiding Methods Toilet Toilet [facility] Medical History Alcohol abuse (Chronic) Essential hypertension (Chronic) Fracture of metatarsal of left foot, closed (Acute ~04/30/19) 3rd, 4th and 5th metatarsals Hypertension (Chronic) TBI (traumatic brain injury) (Chronic) Surgical History Hx of appendectomy (Chronic) Previous section (Chronic) x2 Family History Brother Stroke Mother Diabetes Lung cancer nonsmoker Father Hypertension Social History Smoking/Tobacco Use Status: Never Alcohol Intake: current Alcohol Intake frequency: 3 or more drinks per day Alcohol type: beer and wine Details: never had withdrawal or seizures Drug use: Socially Substance use type: marijuana Current gender identity: female Do you feel safe at home: No Do you feel safe in your relationship?: Yes
--- NOTE | 2019-07-04 11:08 | PDOC.MHCN_ITS ---
Mental Health Crisis Note Presenting Issue How did you arrive at the ED and why did you come: Viral came in with SI and anxiety Disposition BEHAVIOR: Clt's behavior is cooperative. EYE CONTACT: Viral's eye contact was good. MOOD: Viral endorses that she is anxious. AFFECT: Viral said she felt scared. I met with the Senior Mechanical Technician doing to the transport and let them she was feeling anxious about the transport. Senior Mechanical Technician thanked me for giving them the heads up. APPETITE: Good SLEEP(trouble falling/staying asleep: Viral was reported sleeping a great deal. Plan Viral was picked up the Senior Mechanical Technician and she will transported today to [place].
--- NOTE | 2019-07-04 17:38 | CMDISCH_ITS ---
LACE Index Scoring Tool - Questions: Length of Stay (in days): 1 Acuity (Admit via E.D.?): Yes E.D. Visits: 6 - Answers: Total Score: 8 Risk of Readmission: Low Risk Care Management Discharge Reason for Hospitalization: Depression Discharge Plan: CM completed [address] [employer] [facility] and faxed to Sabrina Whitney at [facility] as well as provided to RenataO. Lisset will transfer to [facility] in [facility] via [facility] coordinated by [facility] and funded by [facility]. CM will continue to support Lisset in service connection when she returns to the community. Patient/Family Education Needs: Review discharge instructions, discuss Ask Me Three. Services Needed at Discharge: Psychiatric Facility ([facility]), Transportation ([facility] coordinated by [facility] and funded by [facility] ) - MH Services (Omit if N/A) Current MH Services: Psychiatric Inp ([facility])
== END 2019-07-04 11:03 | disposition other institution (70) | DRG 881 ==
LOC: ER 21:19 → MS 22:14
PROVIDERS: Student in an Organized Health Care Education/Training Program; Admitting Provider General Practice; Emergency Provider Student in an Organized Health Care Education/Training Program; PCP Physician Assistant Medical; Visit Provider Family Medicine
DX: F32.9 Major depressive disorder, single episode, unspecified (principal); R45.851 Suicidal ideations; R44.0 Auditory hallucinations; F10.10 Alcohol abuse, uncomplicated; I10 Essential (primary) hypertension; T43.296A Underdosing of other antidepressants, initial encounter; Z91.138 Patient's unintentional underdosing of medication regimen for other reason; Z75.1 Person awaiting admission to adequate facility elsewhere
CPT/HCPCS: 36415; 80053; 80307; 93005; 96361; 96374; 99222; 99232; 99238; 99285; 80320; 81003; 81015; 84443; 85025; 87324; 93010; 99218; 99284; G0378; J2060

== ENCOUNTER 2019-11-01 14:34 | Outpatient (REF) | payer MEDICARE, MEDICAID, SELFPAY ==
[2019-11-01 20:53] LABS: Abs Immature Grans 0.04 k/cumm (0.0-0.09); Absolute Basophil Count 0.02 k/cumm (0.0-0.2); Absolute Lymphocyte Count 1.42 k/cumm (1.2-3.4); Absolute Monocyte Count 1.05 k/cumm (0.11-0.7); Absolute Neutrophil Count 6.38 k/cumm (1.2-6.7); Basophils % 0.2; HCT 43.8 % (36.0-46.0); HGB 14.8 g/dL (12.0-15.5); Immature Grans % 0.4 %; Lymphocytes % 15.9; Mean Corp. HGB Concentration 33.8 g/dL (32.0-36.0); Mean Corpuscular Hemoglobin 31.2 pg (27.0-33.0); Mean Corpuscular Volume 92.2 fL (80-95); Mean Platelet Volume 10.5 fL (8.0-11.0); Monocytes % 11.8; Neutrophils % 71.7; Platelet Count 242 x1000/uL (130-400); RBC 4.75 m/cumm (4.00-5.20); RBC Distribution Width 15.1 % (11.7-14.6); White Blood Cell Count 8.91 k/cumm (4.4-10.8)
[2019-11-01 21:47] LABS: ALT 25 U/L (14-59); AST 23 U/L (15-37); Albumin 4.1 g/dL (3.4-5.0); Alkaline Phosphatase 76 U/L (46-116); Anion Gap 7.8 mmol/L (3-11); BUN 12 mg/dL (7-18); Bilirubin, Total 0.6 mg/dL (0.2-1.0); CO2 28.2 mmol/L (21.0-32.0); CREATININE 0.81 mg/dL (0.55-1.02); Calcium 9.3 mg/dL (8.5-10.1); Chloride 103 mmol/L (98-107); Glucose 91 mg/dL (74-106); Potassium 4.5 mmol/L (3.5-5.1); Sodium 139 mmol/L (136-145); Total Protein 6.5 g/dL (6.4-8.2); Vitamin B12 247 pg/mL (193-986)
== END 2019-11-01 14:54 ==
LOC: NCHCN 14:34
PROVIDERS: PCP Internal Medicine; Visit Provider Nurse Practitioner Family
DX: F10.20 Alcohol dependence, uncomplicated (principal); F32.9 Major depressive disorder, single episode, unspecified; F41.9 Anxiety disorder, unspecified; I10 Essential (primary) hypertension
CPT/HCPCS: 80053; 82607; 85025

== ENCOUNTER 2019-11-19 17:09 | Inpatient (IN) | payer MEDICARE, MEDICAID, SELFPAY ==
[2019-11-19] VITALS (32 sets, daily range): BP systolic 118–158; BP diastolic 82–107; PULSE 77–93; RESP 13–23; TEMP 36.6–37.1; O2SAT 94–99
--- NOTE | 2019-11-19 17:45 | DI.CT_ITS ---
EXAM: CT HEAD WO CLINICAL HISTORY: right sided paralysis, transient. TECHNIQUE: Imaging Protocol: Axial computed tomography images with coronal and sagittal reformatted images were created and reviewed COMPARISON: CT HEAD WITHOUT CONTRAST from 07/06/2016 FINDINGS: Ventricles and Extra axial spaces: Normal in size and morphology for the patient's age. Hemorrhage: None. Cerebral parenchyma: Mild atrophy. Mild white matter changes consistent with small vessel disease. Midline shift: None. Brainstem/Cerebellum: Normal. Calvarium: Normal. Visualized Paranasal sinuses/Mastoids: Clear. IMPRESSION: No acute abnormality. RADIATION DOSE DELIVERED: 764.44mGy.cm Total DLP 764.44mGy.cm Total DLP DATA REPOSITORY: All CT scans at this facility are submitted to the National Radiology Data Registry (NRDR) Dose Index Registry (DIR) with the [employer] (ACR). RADIATION OPTIMIZATION: All CT scans at this facility use at least one of these dose optimization te chniques: automated exposure control; mA and/or kV adjustment per patient size (includes targeted exa ms where dose is matched to clinical indication); or iterative reconstruction.
--- NOTE | 2019-11-19 17:45 | DI.RAD_ITS ---
EXAM: XR CHEST 2V PA LATERAL CLINICAL HISTORY: weakness TECHNIQUE: 2D digital imaging was performed. COMPARISON: CR CHEST 2 VIEWS PA,LAT from 07/06/2016 FINDINGS: MEDIASTINUM: Normal. HEART: Normal. PULMONARY VASCULATURE: Normal. LUNGS: Clear. PLEURAL SPACE: No pleural effusion or pneumothorax. BONE:Degenerative disc changes in the spine IMPRESSION: No acute pulmonary findings. DATA REPOSITORY: RADIATION DOSE DELIVERED:
[2019-11-19 18:01] LABS: Abs Immature Grans 0.03 k/cumm (0.0-0.09); Absolute Lymphocyte Count 1.18 k/cumm (1.2-3.4); Basophils % 0.1; HCT 43.3 % (36.0-46.0); Immature Grans % 0.2 %; Lymphocytes % 8.2; Mean Corp. HGB Concentration 34.6 g/dL (32.0-36.0); Mean Corpuscular Hemoglobin 31.8 pg (27.0-33.0); Mean Corpuscular Volume 91.7 fL (80-95); Mean Platelet Volume 10.6 fL (8.0-11.0); Monocytes % 8.5; Platelet Count 224 x1000/uL (130-400); RBC 4.72 m/cumm (4.00-5.20); RBC Distribution Width 14.7 % (11.7-14.6); White Blood Cell Count 14.41 k/cumm (4.4-10.8)
[2019-11-19 18:02] LABS: Absolute Basophil Count 0.01 k/cumm (0.0-0.2); Absolute Monocyte Count 1.22 k/cumm (0.11-0.7); Absolute Neutrophil Count 11.96 k/cumm (1.2-6.7)
--- NOTE | 2019-11-19 18:06 | ED.GENADUL_ITS ---
Discharge Plan Disposition Condition: Improving Discharge Details Chief Complaint: CVA/TIA Admit Date/Time: 11/20/19 11:43 Admit Provider: Jesus Lopes Attending Provider: Koby Bland Primary Care Provider: Daljit Amezquita ED Provider: Valerie Reza Discharge Instructions Activity:: Activity as Tolerated Equipment/Supplies:: No Equipment Needed Diet:: Normal Diet Discharge Orders Discharge Orders: Discharge Order (Routine); Ordered 11/23/19 Ordered By: Koby Bland Discharge Data Discharge Date/Time-TO BE ENTERED AT DEPARTURE: 11/19/19 20:45 Medical Decision Making Lisset Carmichael is a 59-year-old woman with history of hypertension, heavy alcohol use who presented to the emergency department with sudden onset right- sided weakness of the arm and the leg for 10 minutes once last week and again this afternoon, patient currently asymptomatic. On exam patient is well and nontoxic-appearing. Flushed appearance of her face which she reports is chronic and unchanged. Neurologic exam is nonfocal. Concern for TIA versus other. Exam/history is not consistent with sepsis, acute coronary syndrome, meningitis/encephalitis, subarachnoid hemorrhage. Plan for EKG, CT head, screening labs. Will monitor and reassess. Labs reviewed. CT head negative. Plan for admission for TIA Clinical Impression: intermittent right sided weakness Disposition: [facility] in Medical Records Medical records reviewed: Yes I reviewed the patient's medical records. Imaging Data Radiologic Study: Attestation: I personally reviewed and interpreted this imaging study as follows: Radiologist's impression: EXAM: CT HEAD WO CLINICAL HISTORY: right sided paralysis, transient. TECHNIQUE: Imaging Protocol: Axial computed tomography images with coronal and sagittal reformatted images were created and reviewed COMPARISON: CT HEAD WITHOUT CONTRAST from 07/06/2016 FINDINGS: Ventricles and Extra axial spaces: Normal in size and morphology for the patient's age. Hemorrhage: None. Cerebral parenchyma: Mild atrophy. Mild white matter changes consistent with small vessel disease. Midline shift: None. Brainstem/Cerebellum: Normal. Calvarium: Normal. Visualized Paranasal sinuses/Mastoids: Clear. IMPRESSION: No acute abnormality. Lab Data Lab results reviewed: Yes I reviewed the patient's lab results. ECG Data Attestation: I personally reviewed and interpreted this ECG (s) as follows: Interpretation: EKG shows sinus rhythm at 85, normal axis, no STEMI, nondiagnostic EKG HPI General Mode of arrival: EMS . Date/Time Provider Initiated Documentation: 11/19/19 17:45 . Limitations to Documentation: no limitations . Information obtained by: patient, RN notes reviewed and old records reviewed . HPI Narrative: Lisset Carmichael is a 59-year-old man with a history of hypertension, heavy alcohol use, depression presenting to the emergency department with right-sided weakness. Patient reports that approximately 1 week ago she had sudden onset weakness of her right arm and right leg, causing her to fall. Patient reports that she did not have any other symptoms during this episode, and weakness lasted approximately 10 minutes. Patient reports that she had been doing well without symptoms since that time until today. Patient reports that she was mowing the lawn at approximately 4:00 when she again had sudden onset of right arm and right leg weakness. Patient reports that weakness again lasted for approximately 10 minutes and resolved fully. Patient reports that she currently feels asymptomatic. She denies any further localized weakness, numbness, fever, cough, shortness of breath, vomiting, diarrhea. Patient reports that she has been eating and drinking normally. Patient reports that she drinks 2-3 alcoholic beverages per day and uses marijuana. She denies other recreational drug use. Patient denies having similar symptoms in the past. Related Data Home Medications Medication Instructions Recorded Confirmed ergocalciferol (vitamin D2) 1.25 mg PO QWEEK 07/13/18 11/24/19 [Vitamin D2] Acidophilus-Pectin 1 tab PO DAILY 05/18/19 11/24/19 acetaminophen 500 mg tablet 500 mg PO Q6H PRN #90 tab 06/04/19 11/24/19 chlorpromazine 300 mg PO HS 11/19/19 11/24/19 cyanocobalamin (vitamin B-12) 1,000 mcg PO DAILY 11/19/19 11/24/19 [Vitamin B-12] sertraline 150 mg PO DAILY 11/19/19 11/24/19 thiamine HCl (vitamin B1) [Vitamin 100 mg PO DAILY 11/19/19 11/24/19 B-1] atenolol 50 mg PO DAILY 11/20/19 11/24/19 bupropion HCl [Wellbutrin SR] 150 mg PO BID #1 tab 11/23/19 11/24/19 folic acid 1 mg PO DAILY #30 tab 11/23/19 11/24/19 magnesium gluconate 500 mg PO BID #60 tab 11/23/19 11/24/19 multivitamin [Multiple Vitamins] 1 tab PO DAILY #30 tab 11/23/19 11/24/19 Previous Rx's Medication Instructions Recorded acetaminophen 500 mg tablet 500 mg PO Q6H PRN #90 tab 06/04/19 bupropion HCl [Wellbutrin SR] 150 mg PO BID #1 tab 11/23/19 folic acid 1 mg PO DAILY #30 tab 11/23/19 magnesium gluconate 500 mg PO BID #60 tab 11/23/19 multivitamin [Multiple Vitamins] 1 tab PO DAILY #30 tab 11/23/19 Allergies Allergy/AdvReac Type Severity Reaction Status Date / Time lisinopril Allergy Mild throat Unverified 11/24/19 16:32 closed up General Stated Complaint: CVA/TIA EDITH: 2 Review of Systems Narrative: Constitutional: denies fevers Eyes: denies eye pain ENT: denies ear pain, dental pain, sore throat Cardiovascular: denies chest pain Respiratory: denies SOB, cough GI: denies abdominal pain, vomiting, diarrhea : denies flank pain MSK: denies back pain, neck pain, arthralgias, myalgias Skin: denies rash Neuro: denies headaches, numbness, reports weakness as per HPI [facility] Medical History (Updated 11/26/19 @ 12:41 by Jena Mosher MD) Alcohol abuse (Chronic) Essential hypertension (Chronic) Fracture of metatarsal of left foot, closed (Resolved ~04/30/19) 3rd, 4th and 5th metatarsals Hypertension (Chronic) TBI (traumatic brain injury) (Chronic) Surgical History Hx of appendectomy (Chronic) Previous section (Chronic) x2 Family History Brother Stroke Mother Diabetes Lung cancer nonsmoker Father Hypertension Social History Smoking/Tobacco Use Status: Never Alcohol Intake: current Alcohol Intake frequency: 3 or more drinks per day Alcohol type: beer and wine Details: never had withdrawal or seizures Drug use: Socially Substance use type: marijuana Details: patient states last alcohol beverage was prior to last admission Current gender identity: female Do you feel safe at home: No Do you feel safe in your relationship?: Yes Additional Social history: patient states she falls alot. Exam Narrative Exam Narrative: Constitutional: well and [id number], pleasant, conver sing normally HENT: head atraumatic/normocephalic, flushed face, mucous membranes moist Eyes: conjunctiva normal, sclera normal, pupils 3mm b/l Neck: no stridor, normal ROM, trachea midline Resp: normal work of breathing, LCTAB Cardio: normal rate, normal rhythm, no murmur appreciated GI: abdomen soft, non-tender, non-distended Back: normal inspection, no rash Skin: warm, dry, normal color, no rash Neuro: alert, not altered, switchboard and control room operator 2-12, motor 5/5 b/l upper and lower exts, no pronator drift, normal finger to nose, normal heel to carter, normal tone Ext: no edema Psych: normal mood, normal affect, normal behavior Course Vital Signs Vital signs: Vital Signs Temperature 37.1 C 11/19/19 17:09 Pulse 85 11/19/19 17:09 Blood Pressure 158/107 H 11/19/19 17:09 Pulse Oximetry 98 11/19/19 17:09 Temperature 37.1 C 11/19/19 17:09 Temperature Source Temporal Artery Scan 11/19/19 17:09 Pulse 82 11/19/19 17:46 Pulse 89 11/19/19 17:50 Respiratory Rate 17 11/19/19 17:50 Respiratory Effort Non-Labored 11/19/19 17:27 Respiratory Depth Normal 11/19/19 17:27 Respiratory Pattern Normal 11/19/19 17:27 Blood Pressure 155/100 H 11/19/19 17:46 Blood Pressure Mean 113 11/19/19 17:46 Blood Pressure Position Sitting 11/19/19 17:09 Pulse Oximetry 99 11/19/19 17:50 Oxygen Delivery Method Room Air 11/19/19 17:09 Oxygen Flow Rate 0 11/19/19 17:09 Pain Level 0 11/19/19 17:09 Lab/Test Results Lab/Test Results: Laboratory Tests Range/Units 11/19/19 16:55 WBC (4.4-10.8) k/cumm 14.41 H RBC (4.00-5.20) m/cumm 4.72 Hgb (12.0-15.5) g/dL 15.0 Hct (36.0-46.0) % 43.3 MCV (80-95) fL 91.7 MCH (27.0-33.0) pg 31.8 MCHC (32.0-36.0) g/dL 34.6 RDW (11.7-14.6) % 14.7 H Plt Count (130-400) x1000/uL 224 MPV (8.0-11.0) fL 10.6 Immature Gran % % 0.2 Neutrophils % 83.0 Lymphocytes % 8.2 Monocytes % 8.5 Eosinophils % 0.0 Basophils % 0.1 Absolute Neutrophils (1.2-6.7) k/cumm 11.96 H Absolute Lymphocytes (1.2-3.4) k/cumm 1.18 L Absolute Monocytes (0.11-0.7) k/cumm 1.22 H Absolute Eosinophils (0.0-0.7) k/cumm 0.00 Absolute Basophils (0.0-0.2) k/cumm 0.01
[2019-11-19 18:10] LABS: Prothrombin Time 10.5 sec (9.3-11.0)
[2019-11-19 18:16] LABS: ALT 25 U/L (14-59); AST 30 U/L (15-37); Albumin 4.4 g/dL (3.4-5.0); Alkaline Phosphatase 86 U/L (46-116); Anion Gap 9.9 mmol/L (3-11); BUN 13 mg/dL (7-18); Bilirubin, Total 0.8 mg/dL (0.2-1.0); CO2 27.1 mmol/L (21.0-32.0); CREATININE 0.86 mg/dL (0.55-1.02); Calcium 9.5 mg/dL (8.5-10.1); Chloride 99 mmol/L (98-107); Glucose 71 mg/dL (74-106); Potassium 3.9 mmol/L (3.5-5.1); Sodium 136 mmol/L (136-145); Total Protein 7.2 g/dL (6.4-8.2)
[2019-11-19 18:23] LABS: Troponin I < 0.05 ng/mL (<0.06)
--- NOTE | 2019-11-19 18:23 | DI.VRAD_ITS ---
PROCEDURE INFORMATION: Exam: CT Head Without Contrast Exam date and time: 11/19/2019 6:08 PM Age: 59 years old Clinical indication: Weakness, extremity; Patient HX: Right sided paralysis, transient TECHNIQUE: Imaging protocol: Computed tomography of the head without contrast. COMPARISON: CT HEAD WITHOUT CONTRAST 07/06/2016 9:36 PM FINDINGS: Brain: There is no acute intracranial hemorrhage, mass effect or midline shift. No large acute territorial infarct identified. There are patchy regions of hypodensity in the periventricular and subcortical white matter, likely on the basis of chronic microvascular ischemic disease. Ventricles: The ventricles and sulci are prominent in size, which is likely related to global cerebral volume loss. Bones/joints: Unremarkable. No acute fracture. Sinuses: Visualized sinuses are unremarkable. No fluid levels. Mastoid air cells: Visualized mastoid air cells are well aerated. Soft tissues: Unremarkable. IMPRESSION: No acute intracranial hemorrhage, mass effect or midline shift. Dictated and Authenticated by: Domi Nelson MD. Ordering:ORALIA Padilla MD
--- NOTE | 2019-11-19 18:25 | DI.VRAD_ITS ---
PROCEDURE INFORMATION: Exam: XR Chest, 2 Views Exam date and time: 11/19/2019 6:12 PM Age: 59 years old Clinical indication: Other: Weakness TECHNIQUE: Imaging protocol: XR of the chest Views: 2 views. COMPARISON: CR CHEST 2 VIEWS PA,LAT 07/06/2016 9:19 PM FINDINGS: Lungs: Unremarkable. No consolidation. Pleural space: Unremarkable. No pleural effusion. No pneumothorax. Heart/Mediastinum: Unremarkable. No cardiomegaly. Bones/joints: Note acute displaced rib fracture. IMPRESSION: No acute findings. Dictated and Authenticated by: Domi Nelson MD. Ordering:ORAILA Padilla MD
[2019-11-19 18:40] LABS: Bilirubin Negative (Negative); Blood Negative (Negative); Clarity Clear (Clear); Glucose Negative (Negative); Ketones Negative (Negative); Leukocyte Esterase Trace (Negative); Nitrite Negative (Negative); Urobilinogen 0.2 EU/dL (Up TO 0.2)
[2019-11-19 19:01] LABS: Bacteria Few HPF (Negative); C & S Indicated? No/Sq. Contamination; Crystals Negative HPF (Negative); Epithelial Cells Many HPF (Negative); Mucus Negative (Negative); RBC Negative HPF (0-2)
[2019-11-19 19:08] LABS: Magnesium 1.7 mg/dL (1.8-2.4)
--- NOTE | 2019-11-19 19:47 | W.PM.HP.N ---
Date of service: 11/19/19 Time of Service: 19:47 Assessment and Plan Assessment and plan (1) TIA (transient ischemic attack): Status: Acute Assessment and plan: TIA. The stereotyped spell stamps this as no doubt atherothrombotic in origin. Will begin ASA, treat HTN, check lipid profile, but begin statin in any case. Will check carotid U/S and maintain on telemetry History of Present Illness History of Present Illness Chief Complaint: transient right hemiparesis Narrative: 59 female with h/o HTN, untreated. Reports three stereotyped episode over past week, most recent today, consisting of 10 minutes of right hemiparesis. No ALBRIGHT, speech disturbance or visual change. In ER has been asymptomatic and w/u of note for neg head CT. Admitted for TIA management. Review of Systems All systems reviewed & are unremarkable except as noted in HPI and below PFSH Social History Smoking/Tobacco Use Status: Never Alcohol Intake: current Alcohol Intake frequency: 3 or more drinks per day Alcohol type: beer and wine Details: never had withdrawal or seizures Drug use: Socially Substance use type: marijuana Current gender identity: female Do you feel safe at home: No Do you feel safe in your relationship?: Yes Additional Social history: patient states she falls alot. Meds Home Medications and Allergies Home Medications Medication Instructions Recorded Confirmed Type ergocalciferol (vitamin D2) 1.25 mg PO QWEEK 07/13/18 11/19/19 History [Vitamin D2] Acidophilus-Pectin 1 tab PO DAILY 05/18/19 11/19/19 History acetaminophen 500 mg tablet 500 mg PO Q6H PRN #90 tab 06/04/19 11/19/19 Rx bupropion HCl [Wellbutrin SR] 300 mg PO BID 07/02/19 11/19/19 History chlorpromazine 300 mg PO DAILY 11/19/19 11/19/19 History cyanocobalamin (vitamin B-12) 1,000 mcg PO DAILY 11/19/19 11/19/19 History [Vitamin B-12] sertraline 150 mg PO DAILY 11/19/19 11/19/19 History thiamine HCl (vitamin B1) [Vitamin 100 mg PO DAILY 11/19/19 11/19/19 History B-1] Allergies Allergy/AdvReac Type Severity Reaction Status Date / Time No Known Allergies Allergy Unverified 11/19/19 17:17 Exam Narrative Exam Narrative: 148/102; 86; 37.1, 19, 98% RA. HEENT atraumatic; neck supple w/o bruit; lungs clear; heart RRR w/o MRHG; abdomen soft and NT; extremities w/o edema; neuro OLx3, CN PERRL, EOMI, [place] full no facial asymettry; motor 5/5; sensory intact touch; toes downgoing Results Labs Result diagrams: 11/19/19 16:55 11/19/19 16:55 Labs: Laboratory Results - last 24 hr 11/19/19 11/19/19 11/19/19 16:55 16:55 16:55 WBC 14.41 H RBC 4.72 Hgb 15.0 Hct 43.3 MCV 91.7 MCH 31.8 MCHC 34.6 RDW 14.7 H Plt Count 224 MPV 10.6 Immature Gran % 0.2 Neutrophils % 83.0 Lymphocytes % 8.2 Monocytes % 8.5 Eosinophils % 0.0 Basophils % 0.1 Absolute Neutrophils 11.96 H Absolute Lymphocytes 1.18 L Absolute Monocytes 1.22 H Absolute Eosinophils 0.00 Absolute Basophils 0.01 PT 10.5 INR 1.0 Sodium 136 Potassium 3.9 Chloride 99 Carbon Dioxide 27.1 Anion Gap 9.9 BUN 13 Creatinine 0.86 Estimated GFR/1.73 m2 >= 60.00 Glucose 71 L Calcium 9.5 Magnesium Total Bilirubin 0.8 AST 30 ALT 25 Alkaline Phosphatase 86 Troponin I < 0.05 Total Protein 7.2 Albumin 4.4 Urine Color Urine Clarity Urine pH Ur Specific [place] Urine Protein Urine Ketones Urine Blood Urine Nitrite Urine Bilirubin Urine Urobilinogen Ur Leukocyte Esterase Urine RBC Urine WBC Ur Epithelial Cells Urine Crystals Urine Bacteria Urine Mucus Ur Culture Indicated? Urine Glucose 11/19/19 11/19/19 18:08 18:25 WBC RBC Hgb Hct MCV MCH MCHC RDW Plt Count MPV Immature Gran % Neutrophils % Lymphocytes % Monocytes % Eosinophils % Basophils % Absolute Neutrophils Absolute Lymphocytes Absolute Monocytes Absolute Eosinophils Absolute Basophils PT INR Sodium Potassium Chloride Carbon Dioxide Anion Gap BUN Creatinine Estimated GFR/1.73 m2 Glucose Calcium Magnesium 1.7 L Total Bilirubin AST ALT Alkaline Phosphatase Troponin I Cancelled Total Protein Albumin Urine Color Yellow Urine Clarity Clear Urine pH 7.0 Ur Specific [place] 1.010 Urine Protein Negative Urine Ketones Negative Urine Blood Negative Urine Nitrite Negative Urine Bilirubin Negative Urine Urobilinogen 0.2 Ur Leukocyte Esterase Trace H Urine RBC Negative Urine WBC 5-10 Ur Epithelial Cells Many Urine Crystals Negative Urine Bacteria Few Urine Mucus Negative Ur Culture Indicated? No/sq. contamination Urine Glucose Negative Last Vital Signs Temp 37.1 C 11/19/19 17:09 Pulse 81 11/19/19 19:01 Resp 19 11/19/19 19:10 BP 148/102 H 11/19/19 19:01 Pulse Ox 95 11/19/19 19:10 COVID-19 Screening In the past 14 days, have you traveled [place] of [place] Had IN PERSON contact w/suspected or confirmed C-19 person: No
[2019-11-19] MEDS: Atorvastatin 40 MG TAB PO (21:41)
[2019-11-19] MEDS: Aspirin 325 MG TAB PO (21:42)
[2019-11-19] MEDS: buPROPion-CR 150 MG TABCR 300 MG PO (21:42)
[2019-11-19] MEDS: Lisinopril 10 MG TAB 5 MG PO (21:43)
[2019-11-19 22:05] LABS: Anion Gap 9.9 mmol/L (3-11); BUN 12 mg/dL (7-18); CO2 26.1 mmol/L (21.0-32.0); CREATININE 0.77 mg/dL (0.55-1.02); Chloride 101 mmol/L (98-107); Glucose 86 mg/dL (74-106); Potassium 3.4 mmol/L (3.5-5.1); Sodium 137 mmol/L (136-145)
[2019-11-20] VITALS (75 sets, daily range): BP systolic 112–175; BP diastolic 66–106; PULSE 57–141; RESP 13–26; TEMP 36.5–37.4; O2SAT 94–100
--- NOTE | 2019-11-20 | DI.MRI_ITS ---
EXAM: MR ANGIO NECK WO CLINICAL HISTORY: tia. TECHNIQUE: 2D and 3D [id number] studies were performed. COMPARISON: No exams were available for comparison FINDINGS: Common Carotid: There is motion at the level of the proximal common carotid arteries. Right: Normal. Left: Normal. External Carotid: Right: Normal. Left: Normal. Internal Carotid: Right: No significant stenosis. Left: No significant stenosis. Vertebral Artery: Left vertebral artery is dominant. Right: Normal. Left: Normal. IMPRESSION: Normal MRA of the neck. DATA REPOSITORY:
--- NOTE | 2019-11-20 | DI.US_ITS ---
EXAM: US CAROTID CLINICAL HISTORY: TIA. TECHNIQUE: Ultrasound carotids performed using grayscale, color-flow, and spectral Doppler imaging. COMPARISON: No exams were available for comparison FINDINGS: RIGHT CAROTID ARTERY: Plaque: None seen. Velocity elevation: None. LEFT CAROTID ARTERY: Plaque: Minimal. Velocity elevation: None. VERTEBRAL ARTERIES: Antegrade flow. Measurements: R Bulb: 33.1cm/s PS / 10cm/s ED R CCA: 79.1cm/s PS / 21.2cm/s ED R ECA: 63.1cm/s PS / 12.1cm/s ED R ICA Prox: 40.5cm/s PS /16.3cm/s ED R ICA Mid: 67.8cm/s PS / 28.4cm/s ED R ICA Distal: 71cm/s PS /22.6cm/s ED R Vert: 33.7cm/s PS / 8.4cm/s ED R SVR: 0.9 R DVR: 1.07 L Bulb: 39.4cm/s PS /14.7cm/s ED L CCA: 53.1cm/s PS / 11cm/s ED L ECA: 40.5cm/s PS /7.4cm/s ED L ICA Prox:41.5cm/s PS / 21cm/s ED L ICA Mid: 59.4cm/sPS / 23.1cm/s ED L ICA Distal: 66.8cm/s PS / 26.8cm/s ED L Vert: 36.8cm/s PS / 12.1cm/s ED L SVR: 1.26 L DVR: 2.44 IMPRESSION: No evidence for hemodynamically significant carotid stenosis. Criteria for Carotid Stenosis: Normal: ICA PSV <125 cm/s no plaque or intimal thickening is visible. <50% stenosis: ICA PSV <125 cm/s and plaque or intimal thickening is visible. 50-69% stenosis: ICA PSV is 125-250 cm/s and plaque is visible. >70% stenosis to near occlusion: ICA PSV >250 cm/s with visible plaque and luminal narrowing. DATA REPOSITORY:
[2019-11-20 07:20] LABS: Abs Immature Grans 0.03 k/cumm (0.0-0.09); Absolute Basophil Count 0.02 k/cumm (0.0-0.2); Absolute Lymphocyte Count 1.05 k/cumm (1.2-3.4); Absolute Monocyte Count 1.02 k/cumm (0.11-0.7); Basophils % 0.2; HGB 15.4 g/dL (12.0-15.5); Immature Grans % 0.3 %; Lymphocytes % 10.8; Mean Corp. HGB Concentration 34.2 g/dL (32.0-36.0); Mean Corpuscular Hemoglobin 31.4 pg (27.0-33.0); Mean Corpuscular Volume 91.8 fL (80-95); Mean Platelet Volume 9.9 fL (8.0-11.0); Monocytes % 10.5; Neutrophils % 78.2; Platelet Count 201 x1000/uL (130-400); RBC Distribution Width 14.8 % (11.7-14.6); White Blood Cell Count 9.72 k/cumm (4.4-10.8)
[2019-11-20] MEDS: buPROPion-CR 150 MG TABCR 300 MG PO (07:20)
[2019-11-20] MEDS: Normal Saline Flush 10 ML SYR IVP ×2 (07:20→14:51)
[2019-11-20 07:39] LABS: Calculated LDL 77 mg/dL (<100); Cholesterol 210 mg/dL (<200); HDL Cholesterol 122 mg/dL (40-60); Triglyceride 57 mg/dL (<150)
[2019-11-20] MEDS: Thiamine 100 MG TAB PO (07:40)
[2019-11-20] MEDS: Aspirin 325 MG TAB PO (07:40)
[2019-11-20] MEDS: Sertraline 50 MG TAB 150 MG PO (07:40)
[2019-11-20] MEDS: Lactobacillus Acidophilus CAP 1 CAP PO (07:40)
[2019-11-20] MEDS: Cyanocobalamin 500 MCG TAB 1000 MCG PO (07:40)
--- NOTE | 2019-11-20 07:43 | INITIAL_ITS ---
- If Service Date Differs Date of service: 11/20/19 Time of Service: 14:00 Care Management Initial Assess REASON FOR HOSPITALIZATION:: TIA PAST MEDICAL HISTORY/PAST SURGICAL HISTORY:: Alcohol abuse, essential hypertension, fracture of metatarsal of left foot closed, hypertension, TBI, appendectomy, previous section PREVIOUS FUNCTIONAL STATUS/SOCIAL/FAMILY SUPPORTS:: Lisset resides in a mobile home without running water or electricity. She has a wood stove and propane for heat and a generator for small amounts of electricity. Lisset has struggled with ongoing mental health, EVA and medical issues over the past few years. She lives alone but does have neighbors nearby who offer support and assistance. She also has two daughters but does not have a close relationship with them at this time. CURRENT FUNCTIONAL STATUS:: Lisset was being brought back from imaging. She has been medicated due to withdrawal and seizure as well as anxiety around imaging. CM continues to follow. ADVANCE DIRECTIVES:: None on file at [facility] Has patient been provided with info about the portal/API?: No Did the patient sign up for the portal?: No CODE STATUS:: Full Code INSURANCE COVERAGE / FINANCIAL ISSUES:: Medicare. Medicaid PRIMARY CARE PHYSICIAN:: Daljit Amezquita POTENTIAL DISCHARGE NEEDS:: Review of community based supports and service connection, follow up appointment with PCP. PATIENT/FAMILY EDUCATION NEEDS:: Discharge plan, limitations, follow up plan of care and Ask Me Three ANTICIPATED BARRIERS TO DISCHARGE:: None identified at this time. TRANSPORTATION:: TBD by disposition; RCT or with a friend. PLAN:: Lisset continues to have a work up for TIA at this time. CM continues to follow and support discharge planning considerations.
--- NOTE | 2019-11-20 09:45 | DI.CT_ITS ---
EXAM: CT HEAD - STROKE PROTOCOL CLINICAL HISTORY: stroke protocol. TECHNIQUE: Imaging Protocol: Axial computed tomography images with coronal and sagittal reformatted images were created and reviewed COMPARISON: No exams were available for comparison FINDINGS: Ventricles and Extra axial spaces: Normal in size and morphology for the patient's age. Hemorrhage: None. Cerebral parenchyma: Mild atrophy. No evidence of acute infarct. Midline shift: None. Brainstem/Cerebellum: Normal. Calvarium: Normal. Visualized Paranasal sinuses/Mastoids: Clear. Soft Tissues: Unremarkable. IMPRESSION: No acute intracranial process. RADIATION DOSE DELIVERED: 789.1mGy.cm Total DLP DATA REPOSITORY: All CT scans at this facility are submitted to the National Radiology Data Registry (NRDR) Dose Index Registry (DIR) with the [employer] (ACR). RADIATION OPTIMIZATION: All CT scans at this facility use at least one of these dose optimization te chniques: automated exposure control; mA and/or kV adjustment per patient size (includes targeted exa ms where dose is matched to clinical indication); or iterative reconstruction.
--- NOTE | 2019-11-20 10:25 | W.PM.PROGNOT ---
Date of Service Date of service: 11/20/19 Time of Service: 10:00 Assessment and Plan Assessment and plan (1) Alcohol withdrawal seizure: Status: Suspected Assessment and plan: This is a most likely cause of her acute transient loss of consciousness this morning associated with urinary incontinence and postictal state. She is now fully alert and oriented to person place time circumstance and shows no acute focal deficits. Patient be monitored in the intensive care unit and started on alcohol withdrawal protocol per KAYLEE while we continue work-up of potential TIAs. Patient relates a history of at least 2 possibly 3 episodes of which she has had transient right-sided weakness that lasted several minutes with no residual deficit. None of these were associated with loss of consciousness according to her and no associated facial numbness or tingling or visual disturbance. We will proceed with completion of her work-up for TIA including MRI and MRA of the brain as well as MRA of the cervical vessels as well as an echocardiogram and carotid Doppler scan. We will keep her on aspirin and atorvastatin 40 mg. I have since discontinued her Wellbutrin as this may be complicating her seizure problem. At this time I am not going to put her on antiepileptic drugs but will put her on Librium prophylactically for alcohol withdrawal along with PRN dosing of diazepam. Patient be given a banana bag and then switched to oral thiamine and folic acid and multivitamin. Qualifiers: Complication of substance-induced condition: uncomplicated Qualified Code(s): F10.230 - Alcohol dependence with withdrawal, uncomplicated (2) TIA (transient ischemic attack): Status: Suspected Assessment and plan: As above (3) Alcohol abuse: Status: Chronic Assessment and plan: As above (4) Depression: Status: Chronic Assessment and plan: Continue sertraline but discontinue Wellbutrin in light of her probable seizure Qualifiers: Depression Type: unspecified Qualified Code(s): F32.9 - Major depressive disorder, single episode, unspecified (5) Essential hypertension: Status: Chronic Assessment and plan: Resume her atenolol with close monitoring of her blood pressure. Subjective Subjective Interval history since last seen: 59-year-old female who was admitted last night with allegedly TIAs associated with right hemiparesis. She has a history of alcohol abuse and hypertension. She normally drinks 3 drinks of screwdrivers per day consisting of at least 2 shots of vodka per drink. Patient presented to the emergency department yesterday after having had her second episode in which she had sudden onset of right-sided arm and leg weakness that lasted for about 10 minutes. This happened while she was mowing the lawn yesterday. There was no associated headache fever chills or loss of consciousness. She reportedly had a similar episode a week prior to this. She does have a history of depression for which she is on Wellbutrin as well as sertraline. She had previous admission in July 02 2019 through July 04, 2019 because suicidal ideation and depression. Subsequently was transferred to [facility] for inpatient psychiatric care. Work-up in the emergency department clued routine labs EKG and noncontrast CT scan of her head as well as a chest x-ray. Chest x-ray and CT scan of her head showed no acute abnormalities. CBC showed a mild leukocytosis with no anemia no thrombocytopenia and no macrocytosis. Labs were remarkable for mild hypokalemia and hypomagnesemia. Troponin level was normal. EKG demonstrated normal sinus rhythm no acute ischemic ST or T wave changes. Patient was admitted to the medical/surgical floor on telemetry for evaluation of possible TIA. She was started on a statin as well as aspirin and orders were placed for carotid ultrasound. I since ordered an MRI and MRA of her brain and MRA of her cervical vessels as well as an echocardiogram. During team meeting this morning the patient became acutely unresponsive and telemetry monitoring demonstrated a supraventricular tachycardia that actually appears to be sinus tachycardia rate of 146 bpm this rhythm change prompted nursing staff to check on the patient with a found the patient slumped over in her chair with her eyes open but the patient was unresponsive. Patient was incontinent of urine. Patient was assisted back to bed vital signs showed stable oxygen saturation as well as hypertension systolic blood pressure in the 170-180 range and diastolic pressure 100-110 and her tachycardia decreased down into the 110s to low 100s. Patient became gradually more alert and responsive. She was oriented to place time and circumstance. She admits to drinking at least 3 mixed drinks a night but denies any prior history of acute alcohol withdrawal seizures. When I came into the room nursing staff was lifting her back into the bed and there appeared to be no tonic-clonic movement. Stat CT scan of her head was ordered and has since come back negative for any intracranial bleed. MRI and MRA scan of her brain is pending at this time is is her echocardiogram and carotid Doppler scan. Patient is been transferred to the intensive care unit for close monitoring for further seizures. She been placed on CIWA protocol and started on program dose of Librium along with PRN Valium per CIWA protocol. She has been started on folic acid multivitamin and thiamine and given IV fluids. EEG will be ordered. Exam Narrative Exam Narrative: Middle-age female with plethoric appearance to her face. HEENT is unremarkable. Neck is supple nontender no JVD normal carotid pulses no bruits no thyromegaly no cervical lymphadenopathy. Lungs are clear to auscultation. Heart regular rate and rhythm without appreciable murmur rub or gallop. Abdomen soft nontender NABS no palpable masses. Extremities without peripheral cyanosis or edema. Neurologic exam no facial asymmetry no dysarthric speech full extraocular motions intact pupils equally reactive. No numbness or tingling of her face legs or arms. She has normal hand market risk specialist strength normal arm strength normal strength with pedal pushes including dorsiflexion and plantarflexion as well as normal hip flexion and extension. Genitalia rectal exam deferred. Objective Objective Clinical Data: Abnormal lab results 11/19/19 11/19/19 11/19/19 Range/Units 06:50 16:55 16:55 WBC 14.41 H (4.4-10.8) k/cumm RDW 14.7 H (11.7-14.6) % Absolute Neutrophils 11.96 H (1.2-6.7) k/cumm Absolute Lymphocytes 1.18 L (1.2-3.4) k/cumm Absolute Monocytes 1.22 H (0.11-0.7) k/cumm Potassium (3.5-5.1) mmol/L Glucose 71 L (74-106) mg/dL Magnesium (1.8-2.4) mg/dL Total Cholesterol 210 H (<200) mg/dL Ur Leukocyte Esterase (Negative) 11/19/19 11/19/19 11/19/19 Range/Units 18:08 18:25 21:33 WBC (4.4-10.8) k/cumm RDW (11.7-14.6) % Absolute Neutrophils (1.2-6.7) k/cumm Absolute Lymphocytes (1.2-3.4) k/cumm Absolute Monocytes (0.11-0.7) k/cumm Potassium 3.4 L (3.5-5.1) mmol/L Glucose (74-106) mg/dL Magnesium 1.7 L (1.8-2.4) mg/dL Total Cholesterol (<200) mg/dL Ur Leukocyte Esterase Trace H (Negative) 11/20/19 Range/Units 06:50 WBC (4.4-10.8) k/cumm RDW 14.8 H (11.7-14.6) % Absolute Neutrophils 7.60 H (1.2-6.7) k/cumm Absolute Lymphocytes 1.05 L (1.2-3.4) k/cumm Absolute Monocytes 1.02 H (0.11-0.7) k/cumm Potassium (3.5-5.1) mmol/L Glucose (74-106) mg/dL Magnesium (1.8-2.4) mg/dL Total Cholesterol (<200) mg/dL Ur Leukocyte Esterase (Negative) Vital Signs Temperature 37 C 11/20/19 07:03 Temperature Source Tympanic 11/20/19 07:03 Pulse 83 11/20/19 07:03 Pulse Rhythm Regular 11/20/19 07:19 Pulse 84 11/19/19 20:16 Respiratory Rate 18 11/20/19 07:03 Respiratory Effort Non-Labored 11/20/19 07:19 Respiratory Depth Normal 11/20/19 07:19 Respiratory Pattern Normal 11/20/19 07:19 Blood Pressure 143/98 H 11/20/19 07:03 Blood Pressure Mean 109 11/19/19 20:16 Blood Pressure Position Sitting 11/19/19 17:09 Pulse Oximetry 97 11/20/19 07:03 Oxygen Delivery Method Room Air 11/20/19 07:03 Oxygen Flow Rate 0 11/20/19 07:03 Pain Level 0 11/20/19 07:19 Comment 11/20/19 07:19 Intake & Output 11/19/19 11/19/19 11/20/19 11:59 23:59 11:59 Intake Total 1270 / 1270 Output Total 850 / 850 Balance 420 / 420 Weight 74.843 kg Intake: Oral 1270 / 1270 Output: Urine 850 / 850 Other: Urine Color Light Rachel Urine Appearance Clear Clear Voiding Methods Toilet Laboratory Results WBC 9.72 k/cumm (4.4-10.8) D 11/20/19 06:50 RBC 4.90 m/cumm (4.00-5.20) 11/20/19 06:50 Hgb 15.4 g/dL (12.0-15.5) 11/20/19 06:50 Hct 45.0 % (36.0-46.0) 11/20/19 06:50 MCV 91.8 fL (80-95) 11/20/19 06:50 MCH 31.4 pg (27.0-33.0) 11/20/19 06:50 MCHC 34.2 g/dL (32.0-36.0) 11/20/19 06:50 RDW 14.8 % (11.7-14.6) H 11/20/19 06:50 Plt Count 201 x1000/uL (130-400) 11/20/19 06:50 MPV 9.9 fL (8.0-11.0) 11/20/19 06:50 Immature Gran % 0.3 % 11/20/19 06:50 Neutrophils % 78.2 11/20/19 06:50 Lymphocytes % 10.8 11/20/19 06:50 Monocytes % 10.5 11/20/19 06:50 Eosinophils % 0.0 11/20/19 06:50 Basophils % 0.2 11/20/19 06:50 Absolute Neutrophils 7.60 k/cumm (1.2-6.7) H 11/20/19 06:50 Absolute Lymphocytes 1.05 k/cumm (1.2-3.4) L 11/20/19 06:50 Absolute Monocytes 1.02 k/cumm (0.11-0.7) H 11/20/19 06:50 Absolute Eosinophils 0.00 k/cumm (0.0-0.7) 11/20/19 06:50 Absolute Basophils 0.02 k/cumm (0.0-0.2) 11/20/19 06:50 PT 10.5 sec (9.3-11.0) 11/19/19 16:55 INR 1.0 (0.9-1.1) 11/19/19 16:55 Sodium 137 mmol/L (136-145) 11/19/19 21:33 Potassium 3.4 mmol/L (3.5-5.1) L 11/19/19 21:33 Chloride 101 mmol/L (98-107) 11/19/19 21:33 Carbon Dioxide 26.1 mmol/L (21.0-32.0) 11/19/19 21:33 Anion Gap 9.9 mmol/L (3-11) 11/19/19 21:33 BUN 12 mg/dL (7-18) 11/19/19 21:33 Creatinine 0.77 mg/dL (0.55-1.02) 11/19/19 21:33 Estimated GFR/1.73 m2 >= 60.00 (mL/min/1.73m2) 11/19/19 21:33 Glucose 86 mg/dL (74-106) 11/19/19 21:33 Calcium 9.0 mg/dL (8.5-10.1) 11/19/19 21:33 Magnesium 1.7 mg/dL (1.8-2.4) L 11/19/19 18:08 Total Bilirubin 0.8 mg/dL (0.2-1.0) 11/19/19 16:55 AST 30 U/L (15-37) 11/19/19 16:55 ALT 25 U/L (14-59) 11/19/19 16:55 Alkaline Phosphatase 86 U/L (46-116) 11/19/19 16:55 Troponin I Cancelled 11/19/19 18:08 Total Protein 7.2 g/dL (6.4-8.2) 11/19/19 16:55 Albumin 4.4 g/dL (3.4-5.0) 11/19/19 16:55 Triglycerides 57 mg/dL (<150) 11/19/19 06:50 Total Cholesterol 210 mg/dL (<200) H 11/19/19 06:50 LDL Cholesterol, Calc 77 mg/dL (<100) 11/19/19 06:50 HDL Cholesterol 122 mg/dL (40-60) 11/19/19 06:50 Urine Color Yellow (Yellow) 11/19/19 18:25 Urine Clarity Clear (Clear) 11/19/19 18:25 Urine pH 7.0 (5-8) 11/19/19 18:25 Ur Specific [place] 1.010 (1.005-1.025) 11/19/19 18:25 Urine Protein Negative mg/dL (Negative) 11/19/19 18:25 Urine Ketones Negative mg/dL (Negative) 11/19/19 18:25 Urine Blood Negative (Negative) 11/19/19 18:25 Urine Nitrite Negative (Negative) 11/19/19 18:25 Urine Bilirubin Negative (Negative) 11/19/19 18: Urine Urobilinogen 0.2 EU/dL (Up TO 0.2) 11/19/19 18:25 Ur Leukocyte Esterase Trace (Negative) H 11/19/19 18:25 Urine RBC Negative HPF (0-2) 11/19/19 18:25 Urine WBC 5-10 HPF (0-5) 11/19/19 18:25 Ur Epithelial Cells Many HPF (Negative) 11/19/19 18:25 Urine Crystals Negative HPF (Negative) 11/19/19 18:25 Urine Bacteria Few HPF (Negative) 11/19/19 18:25 Urine Mucus Negative (Negative) 11/19/19 18:25 Ur Culture Indicated? No/sq. contamination 11/19/19 18:25 Urine Glucose Negative mg/dL (Negative) 11/19/19 18:25
--- NOTE | 2019-11-20 10:45 | RESPIRATORY ---
0950 I took over this pt from RT Laurence Vaca. Pt was on a non-rebreather at 15 Lpm, SpO2 100%, RR 18. Nursing supervisor electronic testing Remedios Dong, ICU nurse Helena Jacobs and I brought the pt down to for a stat head CT. From , we transported the pt to the ICU. Pt remained stable and responded appropriately to all questions and prompts throughout the time I was with her. Once pt was situated in the ICU and evaluated, pt was titrated to room air, maintaining SpO2 of 96%.
[2019-11-20 11:51] LABS: ALT 25 U/L (14-59); AST 30 U/L (15-37); Albumin 4.3 g/dL (3.4-5.0); Alkaline Phosphatase 87 U/L (46-116); Bilirubin, Direct 0.29 mg/dL (0.00-0.20); Bilirubin, Total 0.8 mg/dL (0.2-1.0); Total Protein 6.7 g/dL (6.4-8.2)
[2019-11-20 11:59] LABS: Troponin I < 0.05 ng/mL (<0.06)
[2019-11-20 12:09] LABS: COVID-19 RT-PCR UVMMC Result Negative (Negative)
[2019-11-20 12:12] LABS: Bilirubin Negative (Negative); Blood Negative (Negative); Clarity Sl Cloudy (Clear); Glucose Negative (Negative); Ketones Negative (Negative); Leukocyte Esterase Trace (Negative); Nitrite Negative (Negative); Urobilinogen 0.2 EU/dL (Up TO 0.2); pH 7.5 (5-8)
[2019-11-20] MEDS: diazePAM 2 MG TAB PO (12:19)
[2019-11-20] MEDS: Pantoprazole 40 MG TABCR PO (12:19)
[2019-11-20] MEDS: chlordiazePOXIDE 25 MG CAP 50 MG PO ×3 (12:19→20:12)
[2019-11-20] MEDS: Atenolol 50 MG TAB PO (12:20)
[2019-11-20] MEDS: Enoxaparin 40 MG/0.4 ML SYR SC (12:20)
[2019-11-20 12:23] LABS: Epithelial Cells Moderate HPF (Negative); Other Cells Rare Renal (Negative); RBC Negative HPF (0-2); WBC 0-2 HPF (0-5)
[2019-11-20 12:24] LABS: Bacteria Moderate HPF (Negative); C & S Indicated? No/Sq. Contamination; Casts Negative LPF (Negative); Crystals Negative HPF (Negative); Mucus Negative (Negative)
[2019-11-20 12:25] LABS: BUN 12 mg/dL (7-18); CREATININE 0.93 mg/dL (0.55-1.02); Calcium 9.1 mg/dL (8.5-10.1); Chloride 101 mmol/L (98-107); Glucose 142 mg/dL (74-106); Magnesium 1.7 mg/dL (1.8-2.4); Potassium 3.9 mmol/L (3.5-5.1); Sodium 137 mmol/L (136-145)
[2019-11-20 12:43] LABS: *AMPHETAMINES SCREEN URINE Negative (Negative); *BARBITURATES SCREEN URINE Negative (Negative); *BENZODIAZEPINES SCREEN URINE Negative (Negative); Cannabinoids THC POSITIVE (Negative); Cocaine Screen,Urine Negative (Negative); METHADONE URINE SCREEN Negative (Negative); OPIATES URINE SCREEN Negative (Negative); Tricyclic Antidepressants POSITIVE (Negative)
--- NOTE | 2019-11-20 13:15 | W.NUTRFU ---
Date of service: 11/20/19 Time of Service: 13:16 Nutritional Follow up NOTE: 59 year old female admitted with TIA. PMH: HTN. Following Heart Healthy Diet with > 75% of meal completion. Not at risk for nutritional decline at this time. Time Spent in Nutritional Counseling and Treatment: 0
--- NOTE | 2019-11-20 13:35 | DI.MRI_ITS ---
EXAM: MR BRAIN WO CLINICAL HISTORY: tia. TECHNIQUE: Multiplanar multisequence MRI of the brain was performed. CONTRAST MATERIAL: Noncontrast COMPARISON: CT CT HEAD - STROKE PROTOCOL from 11/20/2019 FINDINGS: VENTRICLES AND EXTRA AXIAL SPACES: Normal in size and morphology for the patient's age. HEMORRHAGE: None. CEREBRAL PARENCHYMA: [id number] atrophy. There are few tiny scattered high signal lesions in t he white matter, nonspecific but could be related to sequela of chronic microvascular changes. No fo cus of restricted diffusion to suggest acute infarct. No space-occupying lesion identified. MIDLINE SHIFT: None. BRAINSTEM/CEREBELLUM: Normal. CALVARIUM: Normal. VISUALIZED PARANASAL SINUSES/MASTOIDS: Clear. OTHER FINDINGS: The orbits and pituitary are unremarkable as visualized.. IMPRESSION: Mild to moderate atrophy and white matter changes which could be secondary to microvascular disease. No evidence of acute infarct.. DATA REPOSITORY:
--- NOTE | 2019-11-20 13:40 | DI.MRI_ITS ---
EXAM: MR ANGIO BRAIN WO CLINICAL HISTORY: TIA. TECHNIQUE: Multiplanar multisequence MRA of the brain was performed. COMPARISON: None. FINDINGS: Carotid Arteries: Petrous: Normal. Cavernous: Normal. Cerebral: Normal. Middle Cerebral Arteries: Right: No aneurysm or significant stenosis. Left: No aneurysm or significant stenosis. Anterior Cerebral Arteries: Right: No aneurysm or significant stenosis. Left: No aneurysm or significant stenosis. Vertebral Arteries: Right: Diminutive and atretic distally. Left: Dominant. No aneurysm or significant stenosis. . Basilar Artery: No aneurysm or significant stenosis. Small Vessels: No evidence of beading. IMPRESSION: MRA of the mo[place] of [place] is within normal limits. DATA REPOSITORY:
--- NOTE | 2019-11-20 13:41 | DI.US_ITS ---
APPROVED REPORT EXAM: Comprehensive 2D, Doppler, and color-flow Echocardiogram Patient Location: In-Patient Room/Bed: ICU Designer/Writer: Michelle Martinez RDCS (AE) Indications: TIA Other Information Study Quality: Good Conclusion Left Ventricle : The left ventricle is normal size. The left ventricular systolic function is normal. The left ventricular ejection fraction is within the normal range. There is normal left ventricular wall thickness. There is normal LV segmental wall motion. The left ventricular diastolic function is normal. LVEF is 55-60%. Right Ventricle : The right ventricle is normal size. The right ventricular systolic function is norm al. The RVSP is 25 mmHg. Atria : The left atrium size is normal. The right atrium size is normal. Valves: There are no hemodynamically significant valvular lesions Great Vessels : IVC is normal in size and collapses >50% with inspiration. Please see remainder of report for additional details. Compared to echocardiogram from 07/14/2018: There is no significant change. Wall motion Left Ventricle The left ventricle is normal size. The left ventricular systolic function is normal. The left ventric ular ejection fraction is within the normal range. There is normal left ventricular wall thickness. T here is normal LV segmental wall motion. The left ventricular diastolic function is normal. There is no ventricular septal defect visualized. LVEF is 55-60%. Right Ventricle The right ventricle is normal size. The right ventricular systolic function is normal. The RVSP is 25 mmHg. Atria The left atrium size is normal. The right atrium size is normal. The interatrial septum is intact wit h no evidence for an atrial septal defect. Aortic Valve The Aortic valve is sclerotic. Aortic valve is trileaflet. There is no aortic valvular stenosis. No a ortic regurgitation is present. Mitral Valve The mitral valve is normal in structure. There is a small echodense mass on the anterior leaflet of t he mitral valve this was seen in prior study. No evidence of mitral valve stenosis. Trace mitral regu rgitation. Tricuspid Valve The tricuspid valve is normal in structure. There is no tricuspid valve stenosis. Trace tricuspid reg urgitation. Pulmonic Valve The pulmonary valve is normal in structure. There is no pulmonic valvular stenosis. There is no pulmo bran valvular regurgitation. Great Vessels The aortic root is normal in size. The ascending aorta is mildly dilated. Aortic arch is normal in ca liber. IVC is normal in size and collapses >50% with inspiration. Pericardium There is no pericardial effusion. There is no pleural effusion. 2D Dimensions IVSD d PLAX 0.90 cm F: 0.6-1.0 LV Vol A2C d MOD 86.7 mL LVPW d PLAX 0.93 cm F: 0.6 - 1.0 LV Vol A4C d MOD 93.5 mL LVID d PLAX 5.22 cm F: 3.8 - 5.2 LA vol/ BSA A2C s A-L 27.2 mL/m2 LVDs 3.45 cm F: 2.2 - 3.5 LA vol/ BSA A4C s A-L 24.6 mL/m2 Ao Root d 3.15 cm F: 2.7 - 3.3 LA Vol/ BSA Biplane s A-L 27.1 mL/m2 RA Area A4C 14.63 cm2 LA Area A4C s MOD 17.38 cm2 RA Vol/ BSA A4C s A-L 21.6 mL/m2 LA Area A2C s MOD 17.49 cm2 Ao Asc Diam d 3.36 cm F: 2.3 - 3.1 LV EF A4C MOD 54.4 % LV EF Teichholz 61.5 % LV EF A2C MOD 57.8 % LVEF (Tam's) 56.49 % F: 54 - 74 LV EF Biplane MOD 56.5 % LV Volume 70.14 mL F: 46 - 106 SV 51.76 mL LV Volume Index 37.30 mL/m2 F: 29 - 61 SV Index 27.48 mL/m2 LV Vol Biplane MOD 91.6 mL FS 33.25 % M-Mode TAPSE 2.55 cm (M/F) >1.7 LV Diastology MV E' medial 0.068 (>0.07 m/s) E/A Ratio 1.3 LV E/e MED 13.85 (<14) MV E Vmax 0.95 (0.4-1.3 m/s) MV E' lateral 0.119 (>0.1 m/s) MV A Vmax 0.75 (0.4-1.3 m/s) LV E/e LAT 7.95 (<14) MV E/A Ratio 1.27 MV E/E' medial 13.90 MV E/E' lateral 8.00 Aortic Valve LVOT Area 3.23 cm2 AoV Area Vmax 2.46 cm2 LVOT Vmax 1.14 m/s AoV Area/ BSA (Vmax) 1.31 cm2/m2 LVOT Mean Salvador. 0.71 m/s BAYRON Mean Salvador. 2.29 cm2 LVOT Peak Grad 5.2 mmHg BAYRON Mean Salvador. Index 1.21 cm2/m2 LVOT Mean Grad 2.4 mmHg LVOT VTI 0.239 m LVOT Diam s 2.00 cm AoV Vmax 1.50 m/s Velocity Ratio 0.76 AoV Mean Salvador. 1.01 m/s AoV Peak Grad 9.0 mmHg LVOT SV 77.25 mL AoV Mean Grad 4.6 mmHg AoV VTI 0.310 m AoV Area VTI 2.49 cm2 AoV Area/ BSA (VTI) 1.32 cm/m2 Mitral Valve MV DT 162 (160-240 msec) MV PHT 47 msec MV Area PHT 4.69 cm2 Pulmonary Valve PV Vmax 0.98 (0.5-1.5 m/s) RVOT Peak Gr. 2.40 mmHg PV Peak Grad 3.9 mmHg RVOT Mean Gr. 1.15 mmHg PV Mean Grad 2.0 mmHg RVOT VTI 0.161 m PV VTI 0.193 m RVOT Vmax 0.78 m/s Tricuspid Valve TR Peak Grad 22.0 mmHg TR Vmax 2.35 m/s RA Pressure 3.00 mmHg RVSP (TR) 25.0 mmHg
--- NOTE | 2019-11-20 14:03 | NUR.NOTE ---
Nursing Note: At 1020, pt. was transferred to the ICU. At 1022, bedside report was given to Aggie Rushing RN. Responsibility of care assumed by MANAGER UTILITY at that time.
[2019-11-20] MEDS: DEXTROSE 5%-0.45% SALINE 1,000 ML 75 ML IV (14:51)
--- NOTE | 2019-11-20 14:54 | NUR.NOTE ---
Nursing Note: 1240 patient able to walk to stretcher to x1 assist to go to MRI/Echo/ultrasound. This nurse accompanied patient. Throughout the time off the unit the patient transferred x1 assist walking x1. Able to maintain steady gait with minimal assistance, pt reported no pain, dizziness, SOB or any other concerns at this time. When pt arrived back to ICU with this nurse she ambulated from stretcher to bed x1 minimal assist. Pt now in bed, VS taken, recorded and stable. Currently on phone with her sister, no concerns reported to this nurse by the patient at this time. Returned to unit at approx 1450.
--- NOTE | 2019-11-20 15:44 | RESPIRATORY ---
11/20/2019 0945-Responded to a Code Blue that was called in this pt's room. Pt was found to be unresponsive. 10 Breaths were given via BVM at 15 LPM as pt had labored breathing. A non-rebreather was placed on pt at 15 LPM . SPO2 100%. RR 18.
--- NOTE | 2019-11-20 15:56 | PHA.REVIEW ---
Pharmacy Admission Review - Admission Clinical Review lisinopril Allergy (Mild, Unverified 11/19/19 21:51) throat closed up Height 5 ft 8 in Weight 74.843 kg - Renal Dosing Renal Dosing: BUN 12 mg/dL (7-18) 11/20/19 06:50 Creatinine 0.93 mg/dL (0.55-1.02) 11/20/19 06:50 Medications needing adjustments: Reviewed (Crcl ~64.8 mL/min current meds okay) - Anticoagulation Anticoagulation: Hgb 15.4 g/dL (12.0-15.5) 11/20/19 06:50 Hct 45.0 % (36.0-46.0) 11/20/19 06:50 Plt Count 201 x1000/uL (130-400) 11/20/19 06:50 INR 1.0 (0.9-1.1) 11/19/19 16:55 Creatinine 0.93 mg/dL (0.55-1.02) 11/20/19 06:50 DVT Prohphylaxis: Reviewed Medications: Enoxaparin - Opiate Usage Evaluate Pain Scale/Pains Meds: N/A - Relevant Labs Sodium 137 mmol/L (136-145) 11/20/19 06:50 Potassium 3.9 mmol/L (3.5-5.1) 11/20/19 06:50 Chloride 101 mmol/L (98-107) 11/20/19 06:50 Magnesium 1.7 mg/dL (1.8-2.4) L 11/20/19 06:50 Electrolytes, C-Reactive P, ESR: Intervened (sent provider message about mag replacement) - DM Control DM Control: Glucose 142 mg/dL (74-106) H 11/20/19 06:50 Insulin Dosing: N/A - Heart Failure/WI Heart Failure/WI: Troponin I < 0.05 ng/mL (<0.06) 11/20/19 11:25 EF%, CAILIN's, B-Blockers, Diuretics: Reviewed (atenolol) - BP Control BP Control: Blood Pressure [Right Arm] 142/95 Blood Pressure 126/88 Blood Pressure 154/105 Blood Pressure 129/81 Blood Pressure 149/93 If elevated: N/A - Qtc Review If Elevated: N/A (QTc 471 has chlorpromazine ordered) - IV to PO Switch IV Medications: N/A - Home Meds Home Med List reviewed: Intervened (pts own meds brought in- fixed home med list (added atenolol and fixed dose of bupropion). Bupropion may decrease the metabolism of chlorpromazine. Consider an alternative for one of the meds or decreased dosing to avoid toxicity.) Relevent Home Meds Not ordered & why?: bupropion (discontinued due to seizure per progress note), ergocalciferol - Current meds Current Medication Order Review: Intervened (discontinued duplicate med order and one time med order (one dose was given). Fixed bupropion dose to match home med list (okay by provider).) - Comments Comments/Follow Ups: Watch BG (has IVF w/ dextrose), mag levels, and for QT prolonging meds or meds that may increase seizure risk. Pt's own chlorpromazine in pharmacy, please send up daily.
[2019-11-20] MEDS: MULTIVITAMIN 10 ML, THIAMINE 100 MG, FOLIC ACID 1 MG in DEXTROSE 5%-0.45% SALINE 1,000 ML 75 ML IV (16:20)
[2019-11-20] MEDS: Atorvastatin 40 MG TAB PO (20:12)
[2019-11-21] VITALS (32 sets, daily range): BP systolic 101–155; BP diastolic 75–100; PULSE 51–81; RESP 12–22; TEMP 36.3–37.4; O2SAT 97–98
[2019-11-21] MEDS: DEXTROSE 5%-0.45% SALINE 1,000 ML 75 ML IV (02:32)
[2019-11-21 07:02] LABS: HCT 42.3 % (36.0-46.0); HGB 14.2 g/dL (12.0-15.5); Mean Corp. HGB Concentration 33.6 g/dL (32.0-36.0); Mean Corpuscular Hemoglobin 31.1 pg (27.0-33.0); Mean Corpuscular Volume 92.8 fL (80-95); Mean Platelet Volume 10.2 fL (8.0-11.0); Platelet Count 200 x1000/uL (130-400); RBC 4.56 m/cumm (4.00-5.20); RBC Distribution Width 15.1 % (11.7-14.6); White Blood Cell Count 9.95 k/cumm (4.4-10.8)
[2019-11-21 07:19] LABS: ALT 20 U/L (14-59); AST 21 U/L (15-37); Albumin 3.7 g/dL (3.4-5.0); Alkaline Phosphatase 74 U/L (46-116); Anion Gap 9.6 mmol/L (3-11); BUN 10 mg/dL (7-18); Bilirubin, Direct 0.19 mg/dL (0.00-0.20); Bilirubin, Total 0.6 mg/dL (0.2-1.0); CO2 25.4 mmol/L (21.0-32.0); CREATININE 0.75 mg/dL (0.55-1.02); Chloride 103 mmol/L (98-107); Glucose 90 mg/dL (74-106); Magnesium 1.6 mg/dL (1.8-2.4); Potassium 3.8 mmol/L (3.5-5.1); Sodium 138 mmol/L (136-145); Total Protein 6.1 g/dL (6.4-8.2)
[2019-11-21] MEDS: Folic Acid 1 MG TAB PO (08:51)
[2019-11-21] MEDS: Cyanocobalamin 500 MCG TAB 1000 MCG PO (08:51)
[2019-11-21] MEDS: Multivitamin TAB 1 TAB PO (08:51)
[2019-11-21] MEDS: Enoxaparin 40 MG/0.4 ML SYR SC (08:51)
[2019-11-21] MEDS: Thiamine 100 MG TAB PO (08:51)
[2019-11-21] MEDS: Sertraline 50 MG TAB 150 MG PO (08:52)
[2019-11-21] MEDS: Lactobacillus Acidophilus CAP 1 CAP PO (08:52)
[2019-11-21] MEDS: Atenolol 50 MG TAB PO (08:53)
[2019-11-21] MEDS: Pantoprazole 40 MG TABCR PO (08:53)
[2019-11-21] MEDS: chlordiazePOXIDE 25 MG CAP 50 MG PO (08:53)
[2019-11-21] MEDS: Aspirin 325 MG TAB PO (08:53)
[2019-11-21 09:16] LABS: Prolactin 96.6 ng/mL (See Table)
--- NOTE | 2019-11-21 10:03 | PDOC.CMPRO ---
Care Management Progress Note S/O: Lisset continues to be closely monitored at this time, she had an EEG today, and was transferred back to the Med/Surg floor. Lisset reported returning home in August from [facility] [place]. She reports she has been working at [employer] and has bought a car. She is hopeful she can secure an apartment at [facility] and reports she has completed the application. CM continues to follow. A: 59 year old female admitted to [facility] for TIA, Alcohol withdrawal seizure P: Anticipate Lisset will return home when ready per MD. She will reconnect with community based supports and transport via [facility] or via private vehicle with a friend, CM continues to follow.
--- NOTE | 2019-11-21 11:50 | W.PM.PROGNOT ---
Date of Service Date of service: 11/21/19 Time of Service: 11:50 Assessment and Plan Assessment and plan (1) Alcohol withdrawal seizure: Status: Suspected Assessment and plan: Discontinue IV fluids. Continue IV thiamine and multivitamin and folic acid. Continue Librium at a tapered dose and monitor her per CIWA scale with PRN dosing of Valium. Patient can be transferred out of intensive care unit to the medical/surgical floor without telemetry Qualifiers: Complication of substance-induced condition: uncomplicated Qualified Code(s): F10.230 - Alcohol dependence with withdrawal, uncomplicated (2) Alcohol abuse: Status: Chronic Assessment and plan: As above. Will need referral for outpatient alcohol counseling such as AA (3) TIA (transient ischemic attack): Status: Ruled-out Assessment and plan: Negative MRI and MRA of the brain as well as negative carotid ultrasound and echocardiogram. No further work-up planned other than the EEG (4) Depression: Status: Chronic Assessment and plan: Continue sertraline but discontinue Wellbutrin in light of her probable seizure Qualifiers: Depression Type: unspecified Qualified Code(s): F32.9 - Major depressive disorder, single episode, unspecified (5) Essential hypertension: Status: Chronic Assessment and plan: Resume her atenolol with close monitoring of her blood pressure. Subjective Subjective Interval history since last seen: Patient is doing better from her alcohol withdrawal. Her CIWA score is 0. She has been more lethargic but awakens easily. I going to decrease her scheduled doses of Librium from 50 mg 4 times daily down to 25 mg 4 times daily. She has had no further seizures since she is been started on the Librium. Her EEG is pending at this time. Work-up for TIA was negative including MRI and MRA of the brain as well as carotid duplex scan and echocardiogram. 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 Exam Narrative Exam Narrative: Middle-age female lying in bed semi-amaro position she is somewhat sleepy but easily aroused and seems to be oriented to person place time circumstance. Lungs are clear to auscultation Heart regular rate and rhythm. Abdomen soft and nontender. Neurologic exam is grossly intact no focal motor or sensory deficits. She has no tremors no fasciculations Objective Objective Clinical Data: Abnormal lab results 11/20/19 11/20/1920 Range/Units 06:50 06:50 11:30 RDW (11.7-14.6) % Glucose 142 H (74-106) mg/dL Magnesium 1.7 L (1.8-2.4) mg/dL Conjugated Bilirubin 0.29 H (0.00-0.20) mg/dL Total Protein (6.4-8.2) g/dL Urine Protein (Negative) mg/dL Ur Leukocyte Esterase (Negative) Ur Tricyclics Screen Positive A (Negative) Ur THC Screen Positive A (Negative) 11/20/19 11/21/19 11/21/19 Range/Units 11:30 06:20 06:20 RDW 15.1 H (11.7-14.6) % Glucose (74-106) mg/dL Magnesium 1.6 L (1.8-2.4) mg/dL Conjugated Bilirubin (0.00-0.20) mg/dL Total Protein 6.1 L (6.4-8.2) g/dL Urine Protein 30 H (Negative) mg/dL Ur Leukocyte Esterase Trace H (Negative) Ur Tricyclics Screen (Negative) Ur THC Screen (Negative) Vital Signs Temperature 36.8 C 11/21/19 08:34 Temperature Source Temporal Artery Scan 11/21/19 08:34 Pulse 75 11/21/19 09:01 Pulse Rhythm Regular 11/20/19 07:19 Pulse 77 11/21/19 09:01 Respiratory Rate 14 11/21/19 09:01 Respiratory Effort Non-Labored 11/21/19 08:34 Respiratory Depth Normal 11/21/19 08:34 Respiratory Pattern Normal 11/21/19 08:34 Blood Pressure 123/77 11/21/19 09:01 Blood Pressure Mean 89 11/21/19 09:01 Blood Pressure Position Sitting 11/21/19 04:34 Pulse Oximetry 96 11/20/19 20:27 Oxygen Delivery Method Room Air 11/21/19 04:34 Oxygen Flow Rate 0 11/21/19 04:34 Pain Level 0 11/21/19 08:34 Comment 11/20/19 07:19 Intake & Output 11/20/19 11/20/19 11/21/19 11:59 23:59 11:59 Intake Total 1270 / 2943.75 1673.75 / 2943.75 1642.5 / 1642.5 Output Total 850 / 1350 500 / 1350 1400 / 1400 Balance 420 / 1593.75 1173.75 / 1593.75 242.5 / 242.5 Weight 74.843 kg 74.8 kg Intake: IV 1073.75 / 1073.75 422.5 / 422.5 Oral 1270 / 1870 600 / 1870 1220 / 1220 Output: Urine 850 / 1350 500 / 1350 1400 / 1400 Other: Urine Color Yellow Yellow Yellow Urine Appearance Sediment Sediment Clear Comment solitario patent draining clear yellow urine Solitario in place Stool Size Large Stool Characteristics Soft Formed Brown Voiding Methods Toilet Laboratory Results WBC 9.95 k/cumm (4.4-10.8) 11/21/19 06:20 RBC 4.56 m/cumm (4.00-5.20) 11/21/19 06:20 Hgb 14.2 g/dL (12.0-15.5) 11/21/19 06:20 Hct 42.3 % (36.0-46.0) 11/21/19 06:20 MCV 92.8 fL (80-95) 11/21/19 06:20 MCH 31.1 pg (27.0-33.0) 11/21/19 06:20 MCHC 33.6 g/dL (32.0-36.0) 11/21/19 06:20 RDW 15.1 % (11.7-14.6) H 11/21/19 06:20 Plt Count 200 x1000/uL (130-400) 11/21/19 06:20 MPV 10.2 fL (8.0-11.0) 11/21/19 06:20 Immature Gran % 0.3 % 11/20/19 06:50 Neutrophils % 78.2 11/20/19 06:50 Lymphocytes % 10.8 11/20/19 06:50 Monocytes % 10.5 11/20/19 06:50 Eosinophils % 0.0 11/20/19 06:50 Basophils % 0.2 11/20/19 06:50 Absolute Neutrophils 7.60 k/cumm (1.2-6.7) H 11/20/19 06:50 Absolute Lymphocytes 1.05 k/cumm (1.2-3.4) L 11/20/19 06:50 Absolute Monocytes 1.02 k/cumm (0.11-0.7) H 11/20/19 06:50 Absolute Eosinophils 0.00 k/cumm (0.0-0.7) 11/20/19 06:50 Absolute Basophils 0.02 k/cumm (0.0-0.2) 11/20/19 06:50 PT 10.5 sec (9.3-11.0) 11/19/19 16:55 INR 1.0 (0.9-1.1) 11/19/19 16:55 Sodium 138 mmol/L (136-145) 11/21/19 06:20 Potassium 3.8 mmol/L (3.5-5.1) 11/21/19 06:20 Chloride 103 mmol/L (98-107) 11/21/19 06:20 Carbon Dioxide 25.4 mmol/L (21.0-32.0) 11/21/19 06:20 Anion Gap 9.6 mmol/L (3-11) 11/21/19 06:20 BUN 10 mg/dL (7-18) 11/21/19 06:20 Creatinine 0.75 mg/dL (0.55-1.02) 11/21/19 06:20 Estimated GFR/1.73 m2 >= 60.00 (mL/min/1.73m2) 11/21/19 06:20 Glucose 90 mg/dL (74-106) D 11/21/19 06:20 Calcium 9.0 mg/dL (8.5-10.1) 11/21/19 06:20 Phosphorus 3.0 mg/dL (2.6-4.7) 11/21/19 06:20 Magnesium 1.6 mg/dL (1.8-2.4) L 11/21/19 06:20 Total Bilirubin 0.6 mg/dL (0.2-1.0) 11/21/19 06:20 Conjugated Bilirubin 0.19 mg/dL (0.00-0.20) 11/21/19 06:20 AST 21 U/L (15-37) 11/21/19 06:20 ALT 20 U/L (14-59) 11/21/19 06:20 Alkaline Phosphatase 74 U/L (46-116) 11/21/19 06:20 Troponin I < 0.05 ng/mL (<0.06) 11/20/19 11:25 Total Protein 6.1 g/dL (6.4-8.2) L 11/21/19 06:20 Albumin 3.7 g/dL (3.4-5.0) 11/21/19 06:20 Triglycerides 57 mg/dL (<150) 11/19/19 06:50 Total Cholesterol 210 mg/dL (<200) H 11/19/19 06:50 LDL Cholesterol, Calc 77 mg/dL (<100) 11/19/19 06:50 HDL Cholesterol 122 mg/dL (40-60) 11/19/19 06:50 Urine Color Yellow (Yellow) 11/20/19 11:30 Urine Clarity Sl cloudy (Clear) 11/20/19 11:30 Urine pH 7.5 (5-8) 11/20/19 11:30 Ur Specific [place] 1.020 (1.005-1.025) 11/20/19 11:30 Urine Protein 30 mg/dL (Negative) H 11/20/19 11:30 Urine Ketones Negative mg/dL (Negative) 11/20/19 11:30 Urine Blood Negative (Negative) 11/20/19 11:30 Urine Nitrite Negative (Negative) 11/20/19 11:30 Urine Bilirubin Negative (Negative) 11/20/19 11:30 Urine Urobilinogen 0.2 EU/dL (Up TO 0.2) 11/20/19 11:30 Ur Leukocyte Esterase Trace (Negative) H 11/20/19 11:30 Urine RBC Negative HPF (0-2) 11/20/19 11:30 Urine WBC 0-2 HPF (0-5) 11/20/19 11:30 Ur Epithelial Cells Moderate HPF (Negative) 11/20/19 11:30 Urine Crystals Negative HPF (Negative) 11/20/19 11:30 Urine Bacteria Moderate HPF (Negative) 11/20/19 11:30 Urine Casts Negative LPF (Negative) 11/20/19 11:30 Urine Mucus Negative (Negative) 11/20/19 11:30 Urine Other Rare renal (Negative) 11/20/19 11:30 Ur Culture Indicated? No/sq. contamination 11/20/19 11:30 Urine Glucose Negative mg/dL (Negative) 11/20/19 11:30 Urine Opiates Screen Negative (Negative) 11/20/19 11:30 Urine Methadone Screen Negative (Negative) 11/20/19 11:30 Ur Barbiturates Screen Negative (Negative) 11/20/19 11:30 Ur Tricyclics Screen Positive (Negative) A 11/20/19 11:30 Ur Amphetamines Screen Negative (Negative) 11/20/19 11:30 U Benzodiazepines Scrn Negative (Negative) 11/20/19 11:30 Urine Cocaine Screen Negative (Negative) 11/20/19 11:30 Ur THC Screen Positive (Negative) A 11/20/19 11:30 Ethyl Alcohol Cancelled 11/20/19 11:25 COVID-19 PCR Negative (Negative) 11/19/19 20:33 Nasopharyn COVID-19 PCR Not Applicable 11/19/19 20:33 Ref Test Perform Site [facility] 11/19/19 20:33
--- NOTE | 2019-11-21 16:34 | PDOC.EEG_ITS ---
Neurology EEG EEG: [facility] Department of Neurology INPATIENT EEG REPORT Date of Recordin11/21/19 Interpreting Physician: Dr. Raquel Sidhu Reason for study: Ms. Abel is a 59 year-old woman admitted for acute 10min episodes of right hemiparesis who subsequently had a seizure while inpatient, thought to be due to ETOH withdrawal. Current Medications: Current Medications Acetaminophen (Tylenol) 500 mg PO Q6H PRN PRN PRN Reason: pain Acidophilus/Pectin (Acidophilus) 1 cap PO DAILY [facility] Last Admin: 11/21/19 08:52 Dose: 1 cap Documented by: Aspirin () 325 mg PO DAILY [facility] Last Admin: 11/21/19 08:53 Dose: 325 mg Documented by: Atenolol (Tenormin) 50 mg PO DAILY [facility] Last Admin: 11/21/19 08:53 Dose: 50 mg Documented by: Atorvastatin Calcium (Lipitor) 40 mg PO QPM [facility] Last Admin: 11/20/19 20:12 Dose: 40 mg Documented by: Chlordiazepoxide HCl (Librium) 25 mg PO QID [facility] Last Admin: 11/21/19 15:15 Dose: Not Given Documented by: Cyanocobalamin (Vitamin B-12) 1,000 mcg PO DAILY [facility] Last Admin: 11/21/19 08:51 Dose: 1,000 mcg Documented by: Diazepam (Valium Injection) 0 mg IVP DIRECTED PRN Dimethicone/Zinc Oxide (Rebecca Protect Cream) 0 gm TP PRN PRN Enoxaparin Sodium (Lovenox) 40 mg SC DAILY [facility] Last Admin: 11/21/19 08:51 Dose: 40 mg Documented by: Folic Acid (Folate) 1 mg PO DAILY [facility] Stop: 11/27/19 08:31 Last Admin: 11/21/19 08:51 Dose: 1 mg Documented by: IV Miscellaneous Supplies () 1 each IV DIRECTED [facility] Multivitamins () 1 tab PO DAILY [facility] Stop: 11/27/19 08:31 Last Admin: 11/21/19 08:51 Dose: 1 tab Documented by: Oxazepam (Serax) 0 mg PO DIRECTED PRN Last Admin: 11/20/19 15:57 Dose: 15 mg Documented by: Pantoprazole Sodium (Protonix) 40 mg PO DAILY@0730 [facility] Last Admin: 11/21/19 08:53 Dose: 40 mg Documented by: Chlorpromazine 50 Mg (Tabs) 6 each PO HS [facility] Last Admin: 11/20/19 20:13 Dose: 6 each Documented by: Sertraline HCl (Zoloft) 150 mg PO DAILY [facility] Last Admin: 11/21/19 08:52 Dose: 150 mg Documented by: Sodium Chloride (Saline Flush 10 Ml Syringe) 0 ml IVP PRN PRN Last Admin: 11/20/19 14:51 Dose: 20 ml Documented by: Thiamine HCl () 100 mg PO DAILY [facility] Last Admin: 11/21/19 08:51 Dose: 100 mg Documented by: METHODS: A 21 channel digitized electroencephalogram was performed in the [facility] Med/Surg Floor or ICU. The 10/20 international system of electrode placement was used and bipolar and referential electrode montages were recorded. In addition to EEG the patient was monitored for EKG and lateral/vertical eye movements. Activation procedures of photic stimulation and hyperventilation were performed if applicable. Video was used during activation procedures and during events where applicable. The duration of the recording was 30 minutes. DESCRIPTION OF EEG: The patient was noted to be awake,drowsy, and asleep during the recording. During maximal wakefulness a 9-Hz posterior background rhythm was present which was well-modulated, symmetrical, reactive to eye opening, and of moderate voltage. With eye opening the background activity changed to a low voltage mixture of alpha, beta, and occasional theta range frequencies. Faster frequencies were present in the bilateral anterior head regions. There was a normal anterior-posterior voltage gradient. During drowsiness, there was attenuation of the posterior dominant background rhythm and vertex waves. Stage II sleep was present with symmetrical sleep spindles, K-complexes, and vertex waves. There was excessive diffuse beta activity throughout the recording consistent with medication affect from benzodiazepines. Activating Procedures: Photic stimulation was performed which produced a symmetrical posterior driving response at various flash frequencies. Hyperventilation was performed with moderate effort and produced no physiological slowing of the background. EKG: EKG revealed normal sinus rhythm. INTERPRETATION: This EEG is normal during the awake and sleep states as well as during photic stimulation and hyperventilation. PRIOR EEG: none CLINICAL CORRELATION: No focal regions of cerebral dysfunction or epileptiform activity was present. Epilepsy remains a clinical diagnosis and a normal EEG does not rule out epilepsy. Clinical correlation is advised. Raquel Sidhu MD
[2019-11-21] MEDS: chlordiazePOXIDE 25 MG CAP PO ×2 (17:48→20:04)
[2019-11-21] MEDS: Normal Saline Flush 10 ML SYR IVP (17:49)
[2019-11-21] MEDS: Atorvastatin 40 MG TAB PO (20:04)
[2019-11-22] VITALS (9 sets, daily range): BP systolic 102–134; BP diastolic 62–81; PULSE 60–77; RESP 15–18; TEMP 36–36.9; O2SAT 96–98
--- NOTE | 2019-11-22 01:59 | NUR.NOTE ---
pt got herself oob and was incontinent of urine from right side of bed to commode, then voided on commode. stated she forgot where she wasNursing Note:
--- NOTE | 2019-11-22 09:21 | PGE_ITS ---
Date of Service Date of service: 11/22/19 Time of Service: 09:21 Assessment and Plan Assessment and plan (1) Alcohol withdrawal seizure: Status: Suspected Assessment and plan: IV fluids were discontinued yesterday she continues to do well taking oral medications and eating and drinking. We are tapering down her Librium dose. EEG showed no epileptogenic activity. Plan is for her to go home in the morning if no further adverse events with tapering off her Librium. Qualifiers: Complication of substance-induced condition: uncomplicated Qualified Code(s): F10.230 - Alcohol dependence with withdrawal, uncomplicated (2) Alcohol abuse: Status: Chronic Assessment and plan: As above. Will need referral for outpatient alcohol counseling such as AA (3) Depression: Status: Chronic Assessment and plan: Continue sertraline but discontinue Wellbutrin in light of her probable seizure Qualifiers: Depression Type: unspecified Qualified Code(s): F32.9 - Major depressive disorder, single episode, unspecified (4) Essential hypertension: Status: Chronic Assessment and plan: Resume her atenolol with close monitoring of her blood pressure. Subjective Subjective Interval history since last seen: Continues to improve. No further seizures. She is much more alert and oriented today not feeling lethargic. She slept well last night. Today were to decrease her Librium dose down to 25 mg p.o. 3 times daily and if she continues to score low on her CIWA scale with no rebound signs of alcohol withdrawal or seizures I will discharge her home in the morning. Exam Narrative Exam Narrative: Middle-age female who is alert and oriented person place time circumstance. HEENT is unremarkable. Lungs are clear to auscultation. Heart is regular rate and rhythm. Abdomen soft and nontender. Neuro exam she is alert and oriented to person place time circumstance. She has no tremors. No asterixis. Objective Objective Clinical Data: Vital Signs Temperature 36.6 C 11/22/19 04:00 Temperature Source Temporal Artery Scan 11/22/19 04:00 Pulse 64 11/22/19 04:00 Pulse Rhythm Regular 11/20/19 07:19 Pulse 71 11/21/19 13:00 Respiratory Rate 16 11/22/19 04:00 Respiratory Effort 11/22/19 04:00 Respiratory Depth Normal 11/22/19 04:00 Respiratory Pattern Normal 11/22/19 04:00 Blood Pressure 134/62 11/22/19 04:00 Blood Pressure Mean 86 11/22/19 04:00 Blood Pressure Position Supine 11/22/19 04:00 Pulse Oximetry 97 11/22/19 04:00 Oxygen Delivery Method Room Air 11/22/19 04:00 Oxygen Flow Rate 0 11/22/19 04:00 Pain Level 0 11/22/19 04:00 Comment 11/20/19 07:19 Intake & Output 11/21/19 11/21/19 11/22/19 11:59 23:59 11:59 Intake Total 1642.5 / 2632.5 990 / 2632.5 240 / 240 Output Total 1400 / 3100 1700 / 3100 500 / 500 Balance 242.5 / -467.5 -710 / -467.5 -260 / -260 Weight 74.8 kg 75.8 kg Intake: IV 422.5 / 432.5 10 / 432.5 Oral 1220 / 2200 980 / 2200 240 / 240 Output: Urine 1400 / 3100 1700 / 3100 500 / 500 Other: Urine Color Yellow Yellow Straw Urine Appearance Clear Clear Clear Urine Odor Strong Comment [place] in place HNV yet voiding clear, lali, strong smelling urine on commode. Stool Size Large Stool Characteristics Soft Formed Brown Voiding Methods Bedside Commode Incontinent Laboratory Results WBC 9.95 k/cumm (4.4-10.8) 11/21/19 06:20 RBC 4.56 m/cumm (4.00-5.20) 11/21/19 06:20 Hgb 14.2 g/dL (12.0-15.5) 11/21/19 06:20 Hct 42.3 % (36.0-46.0) 11/21/19 06:20 MCV 92.8 fL (80-95) 11/21/19 06:20 MCH 31.1 pg (27.0-33.0) 11/21/19 06:20 MCHC 33.6 g/dL (32.0-36.0) 11/21/19 06:20 RDW 15.1 % (11.7-14.6) H 11/21/19 06:20 Plt Count 200 x1000/uL (130-400) 11/21/19 06:20 MPV 10.2 fL (8.0-11.0) 11/21/19 06:20 Immature Gran % 0.3 % 11/20/19 06:50 Neutrophils % 78.2 11/20/19 06:50 Lymphocytes % 10.8 11/20/19 06:50 Monocytes % 10.5 11/20/19 06:50 Eosinophils % 0.0 11/20/19 06:50 Basophils % 0.2 11/20/19 06:50 Absolute Neutrophils 7.60 k/cumm (1.2-6.7) H 11/20/19 06:50 Absolute Lymphocytes 1.05 k/cumm (1.2-3.4) L 11/20/19 06:50 Absolute Monocytes 1.02 k/cumm (0.11-0.7) H 11/20/19 06:50 Absolute Eosinophils 0.00 k/cumm (0.0-0.7) 11/20/19 06:50 Absolute Basophils 0.02 k/cumm (0.0-0.2) 11/20/19 06:50 PT 10.5 sec (9.3-11.0) 11/19/19 16:55 INR 1.0 (0.9-1.1) 11/19/19 16:55 Sodium 138 mmol/L (136-145) 11/21/19 06:20 Potassium 3.8 mmol/L (3.5-5.1) 11/21/19 06:20 Chloride 103 mmol/L (98-107) 11/21/19 06:20 Carbon Dioxide 25.4 mmol/L (21.0-32.0) 11/21/19 06:20 Anion Gap 9.6 mmol/L (3-11) 11/21/19 06:20 BUN 10 mg/dL (7-18) 11/21/19 06:20 Creatinine 0.75 mg/dL (0.55-1.02) 11/21/19 06:20 Estimated GFR/1.73 m2 >= 60.00 (mL/min/1.73m2) 11/21/19 06:20 Glucose 90 mg/dL (74-106) D 11/21/19 06:20 Calcium 9.0 mg/dL (8.5-10.1) 11/21/19 06:20 Phosphorus 3.0 mg/dL (2.6-4.7) 11/21/19 06:20 Magnesium 1.6 mg/dL (1.8-2.4) L 11/21/19 06:20 Total Bilirubin 0.6 mg/dL (0.2-1.0) 11/21/19 06:20 Conjugated Bilirubin 0.19 mg/dL (0.00-0.20) 11/21/19 06:20 AST 21 U/L (15-37) 11/21/19 06:20 ALT 20 U/L (14-59) 11/21/19 06:20 Alkaline Phosphatase 74 U/L (46-116) 11/21/19 06:20 Troponin I < 0.05 ng/mL (<0.06) 11/20/19 11:25 Total Protein 6.1 g/dL (6.4-8.2) L 11/21/19 06:20 Albumin 3.7 g/dL (3.4-5.0) 11/21/19 06:20 Triglycerides 57 mg/dL (<150) 11/19/19 06:50 Total Cholesterol 210 mg/dL (<200) H 11/19/19 06:50 LDL Cholesterol, Calc 77 mg/dL (<100) 11/19/19 06:50 HDL Cholesterol 122 mg/dL (40-60) 11/19/19 06:50 Prolactin 96.6 ng/mL (See Table) 11/20/19 11:25 Urine Color Yellow (Yellow) 11/20/19 11:30 Urine Clarity Sl cloudy (Clear) 11/20/19 11:30 Urine pH 7.5 (5-8) 11/20/19 11:30 Ur Specific [place] 1.020 (1.005-1.025) 11/20/19 11:30 Urine Protein 30 mg/dL (Negative) H 11/20/19 11:30 Urine Ketones Negative mg/dL (Negative) 11/20/19 11:30 Urine Blood Negative (Negative) 11/20/19 11:30 Urine Nitrite Negative (Negative) 11/20/19 11:30 Urine Bilirubin Negative (Negative) 11/20/19 11:30 Urine Urobilinogen 0.2 EU/dL (Up TO 0.2) 11/20/19 11:30 Ur Leukocyte Esterase Trace (Negative) H 11/20/19 11:30 Urine RBC Negative HPF (0-2) 11/20/19 11:30 Urine WBC 0-2 HPF (0-5) 11/20/19 11:30 Ur Epithelial Cells Moderate HPF (Negative) 11/20/19 11:30 Urine Crystals Negative HPF (Negative) 11/20/19 11:30 Urine Bacteria Moderate HPF (Negative) 11/20/19 11:30 Urine Casts Negative LPF (Negative) 11/20/19 11:30 Urine Mucus Negative (Negative) 11/20/19 11:30 Urine Other Rare renal (Negative) 11/20/19 11:30 Ur Culture Indicated? No/sq. contamination 11/20/19 11:30 Urine Glucose Negative mg/dL (Negative) 11/20/19 11:30 Urine Opiates Screen Negative (Negative) 11/20/19 11:30 Urine Methadone Screen Negative (Negative) 11/20/19 11:30 Ur Barbiturates Screen Negative (Negative) 11/20/19 11:30 Ur Tricyclics Screen Positive (Negative) A 11/20/19 11:30 Ur Amphetamines Screen Negative (Negative) 11/20/19 11:30 U Benzodiazepines Scrn Negative (Negative) 11/20/19 11:30 Urine Cocaine Screen Negative (Negative) 11/20/19 11:30 Ur THC Screen Positive (Negative) A 11/20/19 11:30 Ethyl Alcohol Cancelled 11/20/19 11:25 COVID-19 PCR Negative (Negative) 11/19/19 20:33 Nasopharyn COVID-19 PCR Not Applicable 11/19/19 20:33 Ref Test Perform Site [facility] 11/19/19 20:33
[2019-11-22] MEDS: Pantoprazole 40 MG TABCR PO (09:40)
[2019-11-22] MEDS: Aspirin 325 MG TAB PO (09:40)
[2019-11-22] MEDS: Multivitamin TAB 1 TAB PO (09:40)
[2019-11-22] MEDS: Folic Acid 1 MG TAB PO (09:40)
[2019-11-22] MEDS: Cyanocobalamin 500 MCG TAB 1000 MCG PO (09:40)
[2019-11-22] MEDS: Sertraline 50 MG TAB 150 MG PO (09:41)
[2019-11-22] MEDS: Thiamine 100 MG TAB PO (09:41)
[2019-11-22] MEDS: Enoxaparin 40 MG/0.4 ML SYR SC (09:41)
[2019-11-22] MEDS: Lactobacillus Acidophilus CAP 1 CAP PO (09:41)
[2019-11-22] MEDS: Atenolol 50 MG TAB PO (09:41)
[2019-11-22] MEDS: chlordiazePOXIDE 25 MG CAP PO ×3 (09:42→20:20)
--- NOTE | 2019-11-22 09:42 | PDOC.CMPRO ---
Care Management Progress Note S/O: Lisset continues to be closely monitored at this time. CM called [facility] and left a message for Mary Amarijocelyn regarding Lisset's request to move up her move-in date. Lisset is interested in being connected with a recovery agent, virtual EVA support meetings and to continue working with Vera Whitney; CM will send discharge recommendations upon discharge. Lisset continues to present with low affect, but reported feeling better. She is critical of information regarding possible CM continues to follow. A: 59 year old female admitted to [facility] for TIA, Alcohol withdrawal seizure P: Anticipate Lisset will return home when ready per MD. She is currently working at [employer] in [place] and driving her own vehicle. She is hopeful she can secure an apartment at the [facility] and reports she has completed the application with Vera Whitney at [facility]. She will reconnect with community based supports and transport via [facility] or via private vehicle with a friend, CM continues to follow.
[2019-11-22] MEDS: Magnesium Gluconate 500 MG TAB PO ×2 (09:44→20:20)
[2019-11-22] MEDS: MAGNESIUM SULFATE 2 GM/50 ML BAG IVPB (09:44)
[2019-11-22] MEDS: Normal Saline Flush 10 ML SYR IVP ×2 (09:44→21:22)
--- NOTE | 2019-11-22 16:01 | CHAPLAIN ---
Lisset and I know each other from her previous admissions. She said she is currently working at [employer] in [place], in a job she doesn't like. She said she was having TIAs and didn't know why she was struggling to walk, mow the lawn, move around her place without falling, and then couldn't get up. She called 911 after her last fall, and she crawled back into her home to make the call. Lisset is comfortable here and said she is getting some rest.
[2019-11-22] MEDS: Atorvastatin 40 MG TAB PO (20:20)
[2019-11-23 04:41] VITALS: BP 135/89; PULSE 63; RESP 18; TEMP 36.2; O2SAT 99
[2019-11-23 06:39] LABS: Platelet Count 208 x1000/uL (130-400)
[2019-11-23 07:54] LABS: Anion Gap 9.7 mmol/L (3-11); BUN 15 mg/dL (7-18); CO2 27.3 mmol/L (21.0-32.0); CREATININE 0.83 mg/dL (0.55-1.02); Calcium 9.5 mg/dL (8.5-10.1); Chloride 102 mmol/L (98-107); Glucose 89 mg/dL (74-106); Magnesium 1.7 mg/dL (1.8-2.4); Potassium 4.7 mmol/L (3.5-5.1); Sodium 139 mmol/L (136-145)
[2019-11-23 08:00] VITALS: BP 109/77; PULSE 76; RESP 14; TEMP 37.1; O2SAT 97
[2019-11-23] MEDS: Normal Saline Flush 10 ML SYR IVP (08:48)
[2019-11-23] MEDS: Enoxaparin 40 MG/0.4 ML SYR SC (08:49)
[2019-11-23] MEDS: Sertraline 50 MG TAB 150 MG PO (08:51)
[2019-11-23] MEDS: Magnesium Gluconate 500 MG TAB PO (08:51)
[2019-11-23] MEDS: Cyanocobalamin 500 MCG TAB 1000 MCG PO (08:52)
[2019-11-23] MEDS: Pantoprazole 40 MG TABCR PO (08:52)
[2019-11-23] MEDS: Lactobacillus Acidophilus CAP 1 CAP PO (08:52)
[2019-11-23] MEDS: Atenolol 50 MG TAB PO (08:54)
[2019-11-23] MEDS: Multivitamin TAB 1 TAB PO (08:54)
[2019-11-23] MEDS: Folic Acid 1 MG TAB PO (08:54)
[2019-11-23] MEDS: chlordiazePOXIDE 25 MG CAP PO (08:55)
[2019-11-23] MEDS: Thiamine 100 MG TAB PO (08:55)
--- NOTE | 2019-11-23 09:00 | W.PM.DS.N ---
Date of service: 11/23/19 Time of Service: 09:00 DS: Diagnosis Discharge Diagnosis (1) Alcohol withdrawal seizure: Status: Resolved Asessment and Plan: Patient w/ acute seizure on the morning after her admission. No witnessed tonic/clonic activity but found to be incontinent of urine and post ictal when nurse was called into the room to evaluate acute tachycardia (sinus) and stat prolactin level was obtained and found to be elevated at 96. Subsequent EEG was obtained and found to be normal. Workup for her alleged TIA included MRI and MRA of brain, carotid US and echocardiogram. All were normal. Patient was not treated w/ any anti-epileptic drugs but was put on tapering doses of librium for acute alcohol withdrawal. (2) Alcohol abuse: Status: Chronic Asessment and Plan: Patient did very well w/ tapering librium doses beginning at 50 mg qid and tapered each day down to 50 mg TID and then finally down to 25 mg TID. Over the past couple days she has been scoring 0 to 2 on her CIWA scoring and not needing any supplemental Ativan. At this point she can be discharged home for follow up with her PCP. She is advised to avoid drinking any alcohol as this will increase her risk for seizures and accidents. It was recommended to her that she follow up with an outpatient support group such as Alcoholics Anonymous. Case management met with the patient and indicated that the patient will connect w/ her community based supports through her PCP. (3) Depression: Status: Chronic Asessment and Plan: Patient was kept on her chlorpromazine and her Sertraline while hospitalized but her Wellbutrin was stopped. However, upon review of the literature, the risk of seizures w/ use of Wellbutrin is only w/ higher doses above 450 mg per day. However the patient should remain off Tramadol d/t increased risk of seizures. (4) Essential hypertension: Status: Chronic Asessment and Plan: no change in her meds Discharge Plan Disposition Patient Disposition: HOME Condition: Improving Discharge Details Chief Complaint: CVA/TIA Reason For Visit: ALCOHOL WITHDRAWAL SEIZURE Admit Date/Time: 11/20/19 11:43 Admit Provider: Jesus Lopes Attending Provider: Koby Bland Primary Care Provider: Daljit Amezquita ED Provider: Valerie Reza Hospital Course Hospital Course: 59-year-old female with a history of alcohol abuse and essential hypertension who presented with recurrent symptoms of sudden onset of weakness right arm and right leg causing her to fall. First episode was a week prior to admission and second episode happened while she was mowing the lawn on the day of admission. Symptoms resolved after about 10 minutes. Patient was admitted for rule out of TIA. Work-up for the TIA included initial CT scan of the head without contrast that was ordered through the emergency department and showed no acute abnormalities. Chest x-ray on admission showed no acute pulmonary findings. Patient was admitted placed on telemetry ordered aspirin and atorvastatin. She had no cardiac dysrhythmias. Subsequent morning after admission a rapid response event was called on her because she became tachycardic and was found to be unresponsive but never lost her blood pressure or pulse. Heart rate was in the 140s to 150s sinus tachycardia and she was hypertensive initially it was thought she might have a stroke but she was found to be incontinent of urine and actually turned out to be post ictal. She regained consciousness within minutes of the event. She was sent for repeat CT scan of her head to rule out a cerebral bleed or stroke and no acute intracranial process was seen. She was transferred to the intensive care unit where she was put on CIWA protocol and started on program doses of Librium along with PRN doses of Ativan. The rest of her stroke work-up was completed including carotid ultrasound and echocardiogram as well as MRI and MRA of the brain. Carotid ultrasound showed no evidence for hemodynamically significant stenosis. MRI of the brain showed mild to moderate atrophy with white matter changes secondary to microvascular disease but no evidence of acute infarct. MRA of the brain showed intact [place] and normal carotid arteries. Basilar artery and vertebral arteries showed no significant stenosis. The right vertebral artery was diminutive and atretic distally. The left basilar artery was dominant and had no stenosis or aneurysm. Echocardiogram was performed and showed normal left ventricular systolic function and size with an ejection fraction of 55 to 60% right ventricular size and function was normal with a normal RVSP of 25 mm. There is no atrial enlargement and no significant valvular disease. Over the next 4 days the chlordiazepoxide dose was gradually tapered while we continue to monitor her CIWA scores. And over the last 2 days her CIWA scores range from 0-2 and on the day of discharge she was 0-1. Her Wellbutrin was discontinued during her hospitalization out of concerns that may have contributed to her seizure however upon review of the literature is felt that at her current dose Wellbutrin 150 mg twice a day this is unlikely to cause a seizure. However her previous use of tramadol may have contributed to her alcohol withdrawal seizures. An EEG was performed and was a normal awake and sleep state study including during photic stimulation and hyperventilation. Other pertinent studies include labs that demonstrated hypokalemia which was corrected with both IV and oral potassium. Hypomagnesemia which was treated with oral and IV magnesium supplementation. Lipid profile which showed a mildly elevated total cholesterol of 210 but a normal LDL of 77 and a high HDL of 122. For that reason I have not continued the atorvastatin upon discharge. Her white cell count on admission was elevated at 14,000 but then normalized to 9900. She had no anemia. Prolactin level which was drawn at the time of her seizure was elevated at 96.6 confirming that she had a seizure at the time of the rapid response. Normal in postmenopausal females is 1.8 to 20.3 ng/mL. At this point she is medically stable and has been advised that she needs to refrain from further alcohol use particularly with her psychiatric medications. As long she refrains from drinking I do not feel that she has an increased risk for seizures given the normal EEG and then normal MRI of the brain. 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 Urine for drugs of abuse was obtained but unfortunately was not obtained until after she had been admitted and therefore blood alcohol level was not measured. Her urine screen for drugs of abuse was positive for tricyclic antidepressants however she has a known use of chlorpromazine for her psychiatric issues. Her TH screen was positive. Benzodiazepine screen was negative but this was obtained prior to initiation of Librium. Condition on discharge is markedly improved. She should follow-up with her primary care provider within 1 to 2 weeks. I did not put a driving restrictions as it is felt that she is not at increased risk of seizure as long as she refrains from alcohol. She had no further seizure episodes throughout her hospital course. Home Meds and New Rx's Prescriptions: New multivitamin [Multiple Vitamins] Tablet 1 tab PO DAILY Qty: 30 RF: 0 folic acid 1 mg Tablet 1 mg PO DAILY Qty: 30 RF: 0 magnesium gluconate 27 mg magnesium (500 mg) Tablet 500 mg PO BID Qty: 60 RF: 0 bupropion HCl [Wellbutrin SR] 150 mg tablet sustained-release 12 hr 150 mg PO BID Qty: 1 RF: 0 Continued acetaminophen 500 mg tablet 500 mg PO Q6H PRN (Reason: pain) Qty: 90 RF: 2 ergocalciferol (vitamin D2) [Vitamin D2] 50,000 unit Capsule 1.25 mg PO QWEEK RF: 0 sertraline 100 mg Tablet 150 mg PO DAILY RF: 0 cyanocobalamin (vitamin B-12) [Vitamin B-12] 1,000 mcg Tablet 1,000 mcg PO DAILY RF: 0 thiamine HCl (vitamin B1) [Vitamin B-1] 100 mg Tablet 100 mg PO DAILY RF: 0 chlorpromazine 50 mg Tablet 300 mg PO HS RF: 0 atenolol 50 mg tablet 50 mg PO DAILY RF: 0 Acidophilus-Pectin Tablet,Chewable 1 tab PO DAILY RF: 0 Discontinued bupropion HCl [Wellbutrin SR] 150 mg Tablet Sustained-Release 12 Hr 150 mg PO BID RF: 0 Discharge Instructions Instructions: Nonepileptic Seizures (DC), Alcohol Withdrawal (DC) Additional Instructions: Follow-up with your primary care provider within 1 to 2 weeks. Refrain from any further alcohol use as this will increase your risk for further seizures as well as potential accidents includings motor vehicle accidents. Furthermore your antidepressant medications side effects can be worsened by concomitant use of alcohol. Stand Alone Forms: Nursing Discharge Form Referrals: Yessy Valverde [ [facility] STAFF PHYSICIAN] - 12/05/19 2:15 pm Activity:: Activity as Tolerated Equipment/Supplies:: No Equipment Needed Diet:: Normal Diet Discharge Orders Discharge Orders: Discharge Order (Routine); Ordered 11/23/19 Ordered By: Koby Bland DS: Summary Status at Discharge Functional status at discharge: independent ambulation Overall status at discharge: patient is back to baseline Mental Status: mental status grossly normal Speech and Movement: speech and movement normal Mood: congruent mood Affect: normal affect Exam Psych Mental Status: mental status grossly normal Speech and Movement: speech and movement normal Mood: congruent mood Affect: normal affect DS: Data Vitals/I&O Vitals and I&O: Vital Signs Temperature 37.1 C 11/23/19 08:00 Temperature Source Tympanic 11/23/19 08:00 Pulse 76 11/23/19 08:00 Pulse Rhythm Regular 11/23/19 03:30 Pulse 71 11/21/19 13:00 Respiratory Rate 14 11/23/19 08:00 Respiratory Effort Non-Labored 11/23/19 03:30 Respiratory Depth Normal 11/23/19 03:30 Respiratory Pattern Normal 11/23/19 03:30 Blood Pressure 109/77 11/23/19 08:00 Blood Pressure Mean 75 11/22/19 15:26 Blood Pressure Position Supine 11/22/19 04:00 Pulse Oximetry 97 11/23/19 08:00 Oxygen Delivery Method Room Air 11/23/19 08:00 Oxygen Flow Rate 0 11/23/19 08:00 Pain Level 0 11/23/19 08:00 Comment 11/22/19 09:00 Intake & Output 11/22/19 11/22/19 11/23/19 11:59 23:59 11:59 Intake Total 1000 / 1820 820 / 1820 10 / 10 Output Total 800 / 1300 500 / 1300 1050 / 1050 Balance 200 / 520 320 / 520 -1040 / -1040 Weight 75.8 kg 74.6 kg Intake: IV 10 80 70 / 80 10 / 10 Oral 990 / 1740 750 / 1740 Output: Urine 800 / 1300 500 / 1300 1050 / 1050 Other: Urine Color Straw Yellow Straw Urine Appearance Clear Clear Clear Urine Odor Strong Comment voiding clear, lali, strong smelling urine on commode. Voiding Methods Bedside Commode Toilet Toilet Incontinent Data Completed and Pending Labs on day of discharge: Labs from last 24 hours 11/23/19 11/23/19 06:15 06:15 Plt Count 208 Sodium 139 Potassium 4.7 D Chloride 102 Carbon Dioxide 27.3 Anion Gap 9.7 BUN 15 Creatinine 0.83 Estimated GFR/1.73 m2 >= 60.00 Glucose 89 Calcium 9.5 Magnesium 1.7 L PFSH Medical History Alcohol abuse (Chronic) Essential hypertension (Chronic) Fracture of metatarsal of left foot, closed (Acute ~04/30/19) 3rd, 4th and 5th metatarsals Hypertension (Chronic) TBI (traumatic brain injury) (Chronic) Surgical History Hx of appendectomy (Chronic) Previous section (Chronic) x2 Family History Brother Stroke Mother Diabetes Lung cancer nonsmoker Father Hypertension Social History Smoking/Tobacco Use Status: Never Alcohol Intake: current Alcohol Intake frequency: 3 or more drinks per day Alcohol type: beer and wine Details: never had withdrawal or seizures Drug use: Socially Substance use type: marijuana Current gender identity: female Do you feel safe at home: No Do you feel safe in your relationship?: Yes Additional Social history: patient states she falls alot.
[2019-11-23] MEDS: Aspirin 325 MG TAB PO (09:07)
--- NOTE | 2019-11-23 13:38 | CMDISCH_ITS ---
LACE Index Scoring Tool - Questions: Length of Stay (in days): 4 - 6 Acuity (Admit via E.D.?): Yes E.D. Visits: 5 - Answers: Total Score: 11 Risk of Readmission: High Risk Care Management Discharge Reason for Hospitalization: TIA Discharge Plan: Lisset will return home when ready per MD. She is currently working at [employer] in [place] and driving her own vehicle. She is hopeful she can secure an apartment at the [facility] and reports she has completed the application with Vera Whitney at [facility]. [facility] as well as the [employer]; Bharati. She will transport via [facility]. CM coordinated transport and notified team of timing. Patient/Family Education Needs: Review discharge instructions, discuss Ask Me Three. Services Needed at Discharge: Transportation (professional athletes coach, natural resources instructor referrals. )
--- NOTE | 2019-11-23 13:38 | PDOC.CMDIS ---
LACE Index Scoring Tool - Questions: Length of Stay (in days): 4 - 6 Acuity (Admit via E.D.?): Yes E.D. Visits: 5 - Answers: Total Score: 11 Risk of Readmission: High Risk Care Management Discharge Reason for Hospitalization: TIA Discharge Plan: Lisset will return home when ready per MD. She is currently working at [employer] in [place] and driving her own vehicle. She is hopeful she can secure an apartment at the [facility] and reports she has completed the application with Vera Whitney at [facility]. She will reconnect with community based supports as well as the Geochemical Laboratory Technician; Bharati. She will transport via [facility]. CM coordinated transport and notified team of timing. Patient/Family Education Needs: Review discharge instructions, discuss Ask Me Three. Services Needed at Discharge: Transportation (baseball coach, water resources business segment leader referrals. )
== END 2019-11-23 13:38 | disposition home or self-care (01) | DRG 57 ==
LOC: ER 19:14 → MS 20:58 → ICU 11-20 10:18 → MS 11-22 19:09
PROVIDERS: Admitting Provider General Practice; Emergency Provider Student in an Organized Health Care Education/Training Program; PCP Internal Medicine; Visit Provider Internal Medicine
DX: G81.91 Hemiplegia, unspecified affecting right dominant side (principal); F10.230 Alcohol dependence with withdrawal, uncomplicated; I10 Essential (primary) hypertension; F32.9 Major depressive disorder, single episode, unspecified; R56.9 Unspecified convulsions; E87.6 Hypokalemia
CPT/HCPCS: 36415; 70544; 70547; 80048; 80053; 80061; 80076; 80307; 85027; 93005; 93306; 95819; 99222; 99232; 99233; 99238; 99285; 99291; J1650; U0003; 70450; 70551; 71046; 80320; 81003; 81015; 83735; 84100; 84146; 84484; 85025; 85049; 85610; 93010; 93880; 99218; J3360

== ENCOUNTER → 2019-11-21 15:00 | Outpatient (BNVA) | payer MEDICARE, MEDICAID, SELFPAY | PROVIDERS: PCP Internal Medicine; Referring Provider Internal Medicine; Visit Provider Psychiatry & Neurology Neurology | DX: R69 Illness, unspecified (principal) | CPT/HCPCS: 95819 ==

== ENCOUNTER → 2019-11-22 07:39 | Outpatient (BNVA) | payer MEDICARE, MEDICAID, SELFPAY | PROVIDERS: PCP Internal Medicine; Referring Provider Internal Medicine; Visit Provider Psychiatry & Neurology Neurology | DX: R69 Illness, unspecified (principal) ==

== ENCOUNTER 2019-11-24 16:34 | Inpatient (IN) | payer MEDICARE, MEDICAID, SELFPAY ==
[2019-11-24 16:28] VITALS: BP 113/77; PULSE 72; RESP 16; TEMP 36.7; O2SAT 98
--- NOTE | 2019-11-24 16:52 | W.ED.GENAD ---
Discharge Plan Disposition Patient Disposition: [facility] INPATIENT Condition: Stable Discharge Details Chief Complaint: GenMedical Clinical Impression: Generalized weakness Admit Date/Time: 11/24/19 18:53 Admit Provider: Koby Bland Attending Provider: Koby Bland Primary Care Provider: Daljit Amezquita ED Provider: Adenike Gonzalez Discharge Data Discharge Date/Time-TO BE ENTERED AT DEPARTURE: 11/24/19 19:45 Medical Decision Making <Adenike Gonzalez - Last Filed: 11/24/19 22:48> 59-year-old female presents the ED complaining of generalized weakness. Patient states that she is barely able to get to the bathroom, has a shuffling gait. Patient was discharged from the hospital yesterday with diagnosis of alcohol withdrawal seizure, alcohol abuse, depression, essential hypertension. She was given a Librium taper while in the hospital and discharged with no change to her current home medications, which patient states that she has been taking as directed. Patient did have a negative MRI, MRA of the brain, and carotid ultrasound for TIA/CVA work-up. Patient denies falls, nausea vomiting diarrhea, chest pain or shortness of breath. Patient is alert and oriented x3 upon initial exam. She does have generalized weakness to her bilateral lower extremities. She does follow commands. No extremity tremors noted. Cranial nerves II through XII are intact. [id number] bilateral lower extremities intact. EOMs intact, no nystagmus. Patient denies drinking any alcohol since being discharged. Patient does have a history of alcohol abuse, hypertension, traumatic brain injury. His surgical history includes appendectomy and . 1700: Observed patient ambulating with minimal assistance by [employer] operations staff officer up to the bathroom. RN notified me that she did use the wall to stabilize herself and had a shuffling gait. 1729: Patient was incontinent of urine in the bathroom due to being unable to get her pants off in time, urine is very strong smelling consistent possibly with urinary tract infection. At this time work-up ordered including CBC, CMP, magnesium, 1 liter normal saline urinalysis, and ethyl alcohol level. 1504: Upon patient reevaluation IV is infusing, still labs are still pending at this time. There is a very strong smelling UTI type smell noted. Patient denies dysuria or frequency. Upon questioning about meds patient has a blister pack with her normal home meds, which she states that she took this morning. Patient possibly may need to be readmitted due to being a bounce back and may benefit from rehab facility stay. Differential diagnosis includes Wernicke's encephalopathy, dehydration, electrolyte balance, UTI. 1836: Spoke with Dr. Islas regarding patient case in details and request to admit due to patient's increased weakness, risk for falls, and possible need for discharge to rehabilitation.. He accepted her for admission. Dr. Bland recommends high-dose thiamine 500 mg IV every 8 hours which was ordered. 1924: Urinalysis came back with positive leukocytes, 20-50 WBCs cultures pending at this time, ceftriaxone 1 g IV piggyback ordered to cover for UTI. <Trey Reza MD - Last Filed: 11/25/19 09:55> Patient seen, examined, and discussed with RUFINA Gonzalez. I agree with treatment plan as discussed/documented. HPI <Adenike Gonzalez - Last Filed: 11/24/19 22:48> General Mode of arrival: EMS. Date/Time Provider Initiated Documentation: 11/24/19 16:51. Limitations to Documentation: no limitations. Information obtained by: patient. HPI Narrative: 1-year-old female presents the ED complaining of generalized weakness. Patient states that she is barely able to get to the bathroom, has a shuffling gait. Patient was discharged from the hospital yesterday with diagnosis of alcohol withdrawal seizure, alcohol abuse, depression, essential hypertension. She was given a Librium taper while in the hospital and discharged with no change to her current home medications, which patient states that she has been taking as directed. Patient did have a negative MRI, MRA of the brain, and carotid ultrasound for TIA/CVA work-up. Patient denies falls, nausea vomiting diarrhea, chest pain or shortness of breath. Patient is alert and oriented x3 upon initial exam. She does have generalized weakness to her bilateral lower extremities. She does follow commands. No extremity tremors noted. Cranial nerves II through XII are intact. [id number] bilateral lower extremities intact. EOMs intact, no nystagmus. Patient denies drinking any alcohol since being discharged. Patient does have a history of alcohol abuse, hypertension, traumatic brain injury. His surgical history includes appendectomy and Related Data Home Medications Medication Instructions Recorded Confirmed ergocalciferol (vitamin D2) 1.25 mg PO QWEEK 07/13/18 11/24/19 [Vitamin D2] Acidophilus-Pectin 1 tab PO DAILY 05/18/19 11/24/19 acetaminophen 500 mg tablet 500 mg PO Q6H PRN #90 tab 06/04/19 11/24/19 chlorpromazine 300 mg PO HS 11/19/19 11/24/19 cyanocobalamin (vitamin B-12) 1,000 mcg PO DAILY 11/19/19 11/24/19 [Vitamin B-12] sertraline 150 mg PO DAILY 11/19/19 11/24/19 thiamine HCl (vitamin B1) [Vitamin 100 mg PO DAILY 11/19/19 11/24/19 B-1] atenolol 50 mg PO DAILY 11/20/19 11/24/19 bupropion HCl [Wellbutrin SR] 150 mg PO BID #1 tab 11/23/19 11/24/19 folic acid 1 mg PO DAILY #30 tab 11/23/19 11/24/19 magnesium gluconate 500 mg PO BID #60 tab 11/23/19 11/24/19 multivitamin [Multiple Vitamins] 1 tab PO DAILY #30 tab 11/23/19 11/24/19 Previous Rx's Medication Instructions Recorded acetaminophen 500 mg tablet 500 mg PO Q6H PRN #90 tab 06/04/19 bupropion HCl [Wellbutrin SR] 150 mg PO BID #1 tab 11/23/19 folic acid 1 mg PO DAILY #30 tab 11/23/19 magnesium gluconate 500 mg PO BID #60 tab 11/23/19 multivitamin [Multiple Vitamins] 1 tab PO DAILY #30 tab 11/23/19 Allergies Allergy/AdvReac Type Severity Reaction Status Date / Time lisinopril Allergy Mild throat Unverified 11/24/19 16:32 closed up General Stated Complaint: GenMedical EDITH: 3 Review of Systems <Adenike Gonzalez - Last Filed: 11/24/19 22:48> Narrative: Constitutional: Negative for weight loss, alert and oriented, well groomed, normal body habitus, appears comfortable. HEENT: Denies trauma, headaches, blurry vision, nasal discharge, sore throat, trouble swallowing. Chest: Denies chest pain, palpitations, irregular rhythm, hypertension. Respiratory: Denies Shortness of breath, cough, hemoptysis. GI: Denies abdominal pain, nausea, vomiting, diarrhea, constipation. : Denies dysuria, hematuria, flank pain, rectal bleeding. Neuro: Denies dizziness, blurry vision, weakness, syncope, headache or facial numbness. Hematologic: Denies easy bruising, intolerance to heat or cold, hair loss. PFSH <Adenike Gonzalez - Last Filed: 11/24/19 22:48> Medical History (Updated 11/25/19 @ 08:07 by Koby Bland) Alcohol abuse (Chronic) Essential hypertension (Chronic) Fracture of metatarsal of left foot, closed (Resolved ~04/30/19) 3rd, 4th and 5th metatarsals Hypertension (Chronic) TBI (traumatic brain injury) (Chronic) Surgical History Hx of appendectomy (Chronic) Previous section (Chronic) x2 Family History Brother Stroke Mother Diabetes Lung cancer nonsmoker Father Hypertension Social History Smoking/Tobacco Use Status: Never Alcohol Intake: current Alcohol Intake frequency: 3 or more drinks per day Alcohol type: beer and wine Details: never had withdrawal or seizures Drug use: Socially Substance use type: marijuana Details: patient states last alcohol beverage was prior to last admission Current gender identity: female Do you feel safe at home: No Do you feel safe in your relationship?: Yes Additional Social history: patient states she falls alot. Exam <Adenike Gonzalez - Last Filed: 11/24/19 22:48> Narrative Exam Narrative: Constitutional: Alert and oriented x3. Appears stated age. Normal body habitus. Head: Normocephalic, no trauma. Eyes: Pupils PERRLA, Red reflex noted, EOM's intact. Eyelids symmetrical without lesions, discharge, or swelling. ENT: Bilateral TM's WNL, External ear normal to inspection, no mastoid TTP, swelling, or erythema, Nasal turbinates WNL, no nasal discharge. Normal dentition, Posterior pharynx WNL, no exudate. Chest: RRR, Normal S1, S2, distal pulses intact. Resp: Lungs clear to auscultation bilaterally, no wheezes, rales, or rhonchi. Musculoskeletal: She has 3 out of 5 strength noted to bilateral lower extremities. Generalized weakness no focal neuro deficits noted. Skin: No suspicious rashes or lesions. Capillary refill less than 2 sec. Neurologic: Cranial nerves II-XII intact. Alert and oriented, no nystagmus, flat affect, shuffling gait ataxic gait., Hematologic/Lymphatic: No ecchymosis, no lymphadenopathy. Course <Adenike Buckeye - Last Filed: 11/24/19 22:48> Vital Signs Vital signs: Vital Signs Temperature 36.7 C 11/24/19 16:28 Pulse 72 11/24/19 16:28 Respiratory Rate 16 11/24/19 16:28 Blood Pressure 113/77 11/24/19 16:28 Pulse Oximetry 98 11/24/19 16:28 Temperature 36.7 C 11/24/19 16:28 Temperature Source Skin 11/24/19 16:28 Pulse 72 11/24/19 16:28 Respiratory Rate 16 11/24/19 16:28 Respiratory Effort 11/24/19 16:32 Blood Pressure 113/77 11/24/19 16:28 Blood Pressure Position Supine 11/24/19 16:28 Pulse Oximetry 98 11/24/19 16:28 Oxygen Delivery Method Room Air 11/24/19 16:28 Oxygen Flow Rate 0 11/24/19 16:28 Pain Level 6 11/24/19 16:28 Comment 11/24/19 16:28
[2019-11-24] MEDS: Normal Saline 1,000 ML 1000 ML IV (17:36)
[2019-11-24 17:52] LABS: Abs Immature Grans 0.07 k/cumm (0.0-0.09); Absolute Basophil Count 0.01 k/cumm (0.0-0.2); Absolute Lymphocyte Count 1.52 k/cumm (1.2-3.4); Absolute Monocyte Count 1.17 k/cumm (0.11-0.7); Absolute Neutrophil Count 8.36 k/cumm (1.2-6.7); Basophils % 0.1; HCT 44.5 % (36.0-46.0); HGB 15.1 g/dL (12.0-15.5); Immature Grans % 0.6 %; Lymphocytes % 13.7; Mean Corp. HGB Concentration 33.9 g/dL (32.0-36.0); Mean Corpuscular Hemoglobin 31.4 pg (27.0-33.0); Mean Corpuscular Volume 92.5 fL (80-95); Mean Platelet Volume 10.1 fL (8.0-11.0); Monocytes % 10.5; Neutrophils % 75.1; Platelet Count 175 x1000/uL (130-400); RBC 4.81 m/cumm (4.00-5.20); RBC Distribution Width 14.9 % (11.7-14.6); White Blood Cell Count 11.13 k/cumm (4.4-10.8)
[2019-11-24 18:01] LABS: ALT 29 U/L (14-59); AST 29 U/L (15-37); Alkaline Phosphatase 83 U/L (46-116); Anion Gap 8.3 mmol/L (3-11); BUN 15 mg/dL (7-18); Bilirubin, Total 0.6 mg/dL (0.2-1.0); CO2 27.7 mmol/L (21.0-32.0); CREATININE 0.93 mg/dL (0.55-1.02); Calcium 9.2 mg/dL (8.5-10.1); Chloride 100 mmol/L (98-107); Glucose 75 mg/dL (74-106); Magnesium 1.8 mg/dL (1.8-2.4); Potassium 4.5 mmol/L (3.5-5.1); Sodium 136 mmol/L (136-145); Total Protein 6.8 g/dL (6.4-8.2)
[2019-11-24 18:21] LABS: ETHANOL BLOOD < 3.0 mg/dL (<3)
[2019-11-24 18:47] LABS: Bilirubin Negative (Negative); Blood Negative (Negative); Clarity Clear (Clear); Glucose Negative (Negative); Ketones Negative (Negative); Leukocyte Esterase Moderate (Negative); Nitrite Negative (Negative); Specific Gravity 1.015 (1.005-1.025); Urobilinogen 0.2 EU/dL (Up TO 0.2)
[2019-11-24 19:04] VITALS: BP 107/74; PULSE 76; RESP 18; TEMP 36.8; O2SAT 96
[2019-11-24 19:04] LABS: Bacteria Moderate HPF (Negative); C & S Indicated? Yes; Casts Negative LPF (Negative); Crystals Negative HPF (Negative); Epithelial Cells Negative HPF (Negative); Mucus Negative (Negative); Other Cells Negative (Negative); RBC Negative HPF (0-2); WBC 20-50 HPF (0-5)
[2019-11-24] MEDS: THIAMINE 500 MG in Normal Saline 100 ML 200 MG IVPB (19:17)
[2019-11-24 19:31] LABS: *AMPHETAMINES SCREEN URINE Negative (Negative); *BARBITURATES SCREEN URINE Negative (Negative); *BENZODIAZEPINES SCREEN URINE POSITIVE (Negative); Cannabinoids THC Negative (Negative); Cocaine Screen,Urine Negative (Negative); METHADONE URINE SCREEN Negative (Negative); OPIATES URINE SCREEN Negative (Negative)
[2019-11-24 19:36] LABS: Tricyclic Antidepressants POSITIVE (Negative)
[2019-11-24] MEDS: cefTRIAXone 1 GM/50 ML BAG IVPB (20:00)
[2019-11-24 20:08] VITALS: BP 122/84; PULSE 69; RESP 18; TEMP 37.1; O2SAT 98
--- NOTE | 2019-11-24 21:37 | W.PM.HP.N ---
Date of service: 11/24/19 Time of Service: 21:38 Assessment and Plan Assessment and plan (1) Generalized weakness: Status: Acute Assessment and plan: I suspect her symptoms are related to her medications for her depression or bipolar disorder or what ever her psychiatric diagnosis. She is on chlorpromazine which can cause a parkinsonian type reaction. Her symptoms fit that of parkinsonism with flat affect, lack of emotion, slow shuffling gait, masked facies. I am going to discontinue her chlorpromazine. However, I will keep her on her current dose of her other antidepressants including her Sertraline and Wellbutrin. She probably did not have an alcohol withdrawal seizure during her last admission but likely had a seizure d/t combination of high dose Wellbutrin 300 mg bid (and maybe was taking more if she was taking her old Rx along with the new Rx). However, I do not think that at her current dose of Wellbutrin 150 mg bid, that this is likely to cause her seizures and since she is being taken off her chlorpromazine, I do not want to withdraw all of her antidepressants at once. I think that a neurology consultation is needed and probably a psychiatry consult as well. I have consulted physical therapy and occupational therapy to evaluate and treat her generalized weakness. I do not think that her symptoms nor the timing of her symptoms fit that of multiple sclerosis but do fit that of drug induced Parkinsonism. Furthermore, her MRI brain did not show any MS plaques and isolated spinal cord plaques would not fit all of her symptoms. (2) Depression: Status: Chronic Assessment and plan: dc chlorpromazine as outlined above. cont. Wellbutrin at lower dose and Sertraline. As I listed above, I think that a psychiatry consult would be helpful in managing her psychiatric meds. Qualifiers: Depression Type: unspecified Qualified Code(s): F32.9 - Major depressive disorder, single episode, unspecified (3) Alcohol abuse: Status: Chronic Assessment and plan: At present she does not appear to be in withdrawal and as she was home less than 24 hours, I do not think that she needs to go through alcohol withdrawal assessment again. (4) Essential hypertension: Status: Chronic Assessment and plan: cont. her atenol as at home. History of Present Illness History of Present Illness Chief Complaint: generalized weakness shuffling my feet like an old lady Narrative: 59-year-old female with a history of alcohol abuse and unspecified psychiatric disorder possibly bipolar who was recently hospitalized at [facility] for symptoms that were initially attributed to a TIA but in fact was ruled out for stroke or TIA. She had a complete work-up for cerebrovascular disease including CTA of the head and neck, MRI of the brain, MRA of the brain, echocardiogram. During her hospitalization she had an episode that was felt to be consistent with alcohol withdrawal seizure although she had no prior history of seizures. That episode was manifested by acute level of decreased consciousness with urinary incontinence with a postictal state that lasted for about 20 to 30 minutes. Subsequent work-up including EEG was negative. She was placed on tapering doses of Librium over the next couple days and did well and was discharged home. She was only home for 1 day when she said that she was experience generalized weakness and her legs were giving out on her. She says for the last 2 weeks she has been walking with a slow shuffle gait like an old lady. She is having trouble performing ADLs because of unable to initiate activity. She feels like she is walking around in a fog. She states that she used to cry at the drop of a hat and use to laugh and now she cannot even initiate those emotions. She was hospitalized in a psychiatric hospital back in July after she been hospitalized at [facility] the end of June for depression and alcohol abuse. She believes she was in [facility] at that time of her hospitalization in July. Since that time she has been on chlorpromazine 300 mg nightly in addition to her Wellbutrin 150 mg twice a day and sertraline 150 mg daily. 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 She has had no bowel incontinence and except when she could not get to the bathroom in time in the emergency room she is not been incontinent of urine with the exception of her episode during the last admission in which it was felt that she had a seizure. Work-up this admission included a CMP and magnesium level and CBC that were all unremarkable. Urine toxicology screen for drugs of abuse were positive for try cyclic antidepressants and benzodiazepines. Urinalysis showed moderate amount of leukocyte Estrace and 20-50 white cells and moderate bacteria. She was started on Rocephin 1 g IV in the emergency room for presumptive UTI. Pharmacist is reviewed her medication list and it appears that the patient had 2 different prescriptions for Wellbutrin. Her original prescription that she been taking dating back to June 2019 was 150 mg twice a day but more recently at the end of October the dose has been increased to 300 mg twice a day. In retrospect it looks like her alleged alcohol withdrawal seizure was probably medication induced. Review of Systems All systems reviewed & are unremarkable except as noted in HPI and below Constitutional Constitutional: Reports weakness Eyes Eyes: Denies loss of vision ENT Ears, Nose, Mouth, and Throat: Reports disequilibrium Musculoskeletal Musculoskeletal: Reports abnormal gait and Denies numbness Neurologic Neurologic: Reports abnormal movements, Denies abnormal speech, Reports abnormal gait, Denies burning sensations, Denies confusion, Reports lack of coordination, Denies localized weakness, Denies loss of vision, Denies numbness, Denies restless legs, Denies convulsions, Denies sensory deficit, Denies paresthesias, Denies tremor(s), Reports disequilibrium and Reports weakness Psychiatric Psychiatric: Denies confusion and Reports anhedonia PFSH Medical History Alcohol abuse (Chronic) Essential hypertension (Chronic) Fracture of metatarsal of left foot, closed (Acute ~04/30/19) 3rd, 4th and 5th metatarsals Hypertension (Chronic) TBI (traumatic brain injury) (Chronic) Surgical History Hx of appendectomy (Chronic) Previous section (Chronic) x2 Family History Brother Stroke Mother Diabetes Lung cancer nonsmoker Father Hypertension Social History Smoking/Tobacco Use Status: Never Alcohol Intake: current Alcohol Intake frequency: 3 or more drinks per day Alcohol type: beer and wine Details: never had withdrawal or seizures Drug use: Socially Substance use type: marijuana Details: patient states last alcohol beverage was prior to last admission Current gender identity: female Do you feel safe at home: No Do you feel safe in your relationship?: Yes Additional Social history: patient states she falls alot. Meds Home Medications and Allergies Home Medications Medication Instructions Recorded Confirmed Type ergocalciferol (vitamin D2) 1.25 mg PO QWEEK 07/13/18 11/24/19 History [Vitamin D2] Acidophilus-Pectin 1 tab PO DAILY 05/18/19 11/24/19 History acetaminophen 500 mg tablet 500 mg PO Q6H PRN #90 tab 06/04/19 11/24/19 Rx chlorpromazine 300 mg PO HS 11/19/19 11/24/19 History cyanocobalamin (vitamin B-12) 1,000 mcg PO DAILY 11/19/19 11/24/19 History [Vitamin B-12] sertraline 150 mg PO DAILY 11/19/19 11/24/19 History thiamine HCl (vitamin B1) [Vitamin 100 mg PO DAILY 11/19/19 11/24/19 History B-1] atenolol 50 mg PO DAILY 11/20/19 11/24/19 History bupropion HCl [Wellbutrin SR] 150 mg PO BID #1 tab 11/23/19 11/24/19 Rx folic acid 1 mg PO DAILY #30 tab 11/23/19 11/24/19 Rx magnesium gluconate 500 mg PO BID #60 tab 11/23/19 11/24/19 Rx multivitamin [Multiple Vitamins] 1 tab PO DAILY #30 tab 11/23/19 11/24/19 Rx Allergies Allergy/AdvReac Type Severity Reaction Status Date / Time lisinopril Allergy Mild throat Unverified 11/24/19 16:32 closed up Exam Narrative Exam Narrative: Patient exhibits a slow shuffling gait with paucity of initiation of movement. She has a masked facies and flat affect. Otherwise she is alert and oriented person place time circumstance. Normal facial mimetic muscle movement. Full extraocular motion intact. 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 Normal strength in both lower extremities with hip flexion extension as well as dorsiflexion plantarflexion of the feet as well as knee extension. Sensory exam is intact to light touch and pain over the face arms and legs and feet. Babinski reflexes absent bilaterally Gait is slow and shuffling with very short steps and she had trouble initiating her movements. She had no cogwheel rigidity No tremors present Results Labs Result diagrams: 11/24/19 17:30 11/24/19 17:30 Labs: Laboratory Results - last 24 hr 11/24/19 11/24/19 11/24/19 17:30 17:30 18:33 WBC 11.13 H RBC 4.81 Hgb 15.1 Hct 44.5 MCV 92.5 MCH 31.4 MCHC 33.9 RDW 14.9 H Plt Count 175 MPV 10.1 Immature Gran % 0.6 Neutrophils % 75.1 Lymphocytes % 13.7 Monocytes % 10.5 Eosinophils % 0.0 Basophils % 0.1 Absolute Neutrophils 8.36 H Absolute Lymphocytes 1.52 Absolute Monocytes 1.17 H Absolute Eosinophils 0.00 Absolute Basophils 0.01 Sodium 136 Potassium 4.5 Chloride 100 Carbon Dioxide 27.7 Anion Gap 8.3 BUN 15 Creatinine 0.93 Estimated GFR/1.73 m2 >= 60.00 Glucose 75 Calcium 9.2 Magnesium 1.8 Total Bilirubin 0.6 AST 29 ALT 29 Alkaline Phosphatase 83 Total Protein 6.8 Albumin 4.0 Urine Color Yellow Urine Clarity Clear Urine pH 7.0 Ur Specific [place] 1.015 Urine Protein Negative Urine Ketones Negative Urine Blood Negative Urine Nitrite Negative Urine Bilirubin Negative Urine Urobilinogen 0.2 Ur Leukocyte Esterase Moderate H Urine RBC Negative Urine WBC 20-50 H Ur Epithelial Cells Negative Urine Crystals Negative Urine Bacteria Moderate Urine Casts Negative Urine Mucus Negative Urine Other Negative Ur Culture Indicated? Yes Urine Glucose Negative Urine Opiates Screen Urine Methadone Screen Ur Barbiturates Screen Ur Tricyclics Screen Ur Amphetamines Screen U Benzodiazepines Scrn Urine Cocaine Screen Ur THC Screen Ethyl Alcohol < 3.0 11/24/19 18:33 WBC RBC Hgb Hct MCV MCH MCHC RDW Plt Count MPV Immature Gran % Neutrophils % Lymphocytes % Monocytes % Eosinophils % Basophils % Absolute Neutrophils Absolute Lymphocytes Absolute Monocytes Absolute Eosinophils Absolute Basophils Sodium Potassium Chloride Carbon Dioxide Anion Gap BUN Creatinine Estimated GFR/1.73 m2 Glucose Calcium Magnesium Total Bilirubin AST ALT Alkaline Phosphatase Total Protein Albumin Urine Color Urine Clarity Urine pH Ur Specific [place] Urine Protein Urine Ketones Urine Blood Urine Nitrite Urine Bilirubin Urine Urobilinogen Ur Leukocyte Esterase Urine RBC Urine WBC Ur Epithelial Cells Urine Crystals Urine Bacteria Urine Casts Urine Mucus Urine Other Ur Culture Indicated? Urine Glucose Urine Opiates Screen Negative Urine Methadone Screen Negative Ur Barbiturates Screen Negative Ur Tricyclics Screen Positive A Ur Amphetamines Screen Negative U Benzodiazepines Scrn Positive A Urine Cocaine Screen Negative Ur THC Screen Negative Ethyl Alcohol Last Vital Signs Temp 37.1 C 11/24/19 20:08 Pulse 69 11/24/19 20:08 Resp 18 11/24/19 20:08 BP 122/84 11/24/19 20:08 Pulse Ox 98 11/24/19 20:08 COVID-19 Screening In the past 14 days, have you traveled outside of [place]?: NO Had IN PERSON contact w/suspected or confirmed C-19 person: No
[2019-11-24] MEDS: Enoxaparin 40 MG/0.4 ML SYR SC (22:51)
[2019-11-24] MEDS: chlorproMAZINE 25 MG TAB 150 MG PO (22:52)
[2019-11-24 23:40] VITALS: BP 112/77; PULSE 63; RESP 17; TEMP 36; O2SAT 97
[2019-11-25] MEDS: THIAMINE 500 MG in Normal Saline 100 ML 200 MG IVPB ×3 (02:55→20:05)
[2019-11-25] MEDS: Normal Saline Flush 10 ML SYR IVP ×2 (02:55→12:49)
[2019-11-25 05:20] VITALS: BP 133/87; PULSE 60; RESP 17; TEMP 36; O2SAT 99
[2019-11-25] MEDS: Folic Acid 1 MG TAB PO (08:10)
[2019-11-25] MEDS: Magnesium Gluconate 500 MG TAB PO ×2 (08:10→20:05)
[2019-11-25] MEDS: Thiamine 100 MG TAB PO (08:10)
[2019-11-25] MEDS: Cyanocobalamin 500 MCG TAB 1000 MCG PO (08:10)
[2019-11-25] MEDS: Atenolol 50 MG TAB PO (08:10)
[2019-11-25] MEDS: Sertraline 50 MG TAB 150 MG PO (08:10)
[2019-11-25] MEDS: Multivitamin TAB 1 TAB PO (08:10)
[2019-11-25] MEDS: buPROPion-CR 150 MG TABCR PO (08:10)
[2019-11-25] MEDS: Lactobacillus Acidophilus CAP 1 CAP PO (08:10)
[2019-11-25 08:12] LABS: Abs Immature Grans 0.06 k/cumm (0.0-0.09); Absolute Basophil Count 0.02 k/cumm (0.0-0.2); Absolute Lymphocyte Count 1.75 k/cumm (1.2-3.4); Absolute Monocyte Count 0.97 k/cumm (0.11-0.7); Basophils % 0.2; HCT 44.2 % (36.0-46.0); Immature Grans % 0.7 %; Lymphocytes % 20.1; Mean Corp. HGB Concentration 33.9 g/dL (32.0-36.0); Mean Corpuscular Hemoglobin 31.7 pg (27.0-33.0); Mean Corpuscular Volume 93.4 fL (80-95); Mean Platelet Volume 10.3 fL (8.0-11.0); Monocytes % 11.1; Neutrophils % 67.9; Platelet Count 196 x1000/uL (130-400); RBC 4.73 m/cumm (4.00-5.20); RBC Distribution Width 14.9 % (11.7-14.6)
[2019-11-25 08:20] LABS: Anion Gap 7.7 mmol/L (3-11); BUN 14 mg/dL (7-18); CO2 28.3 mmol/L (21.0-32.0); CREATININE 0.81 mg/dL (0.55-1.02); Calcium 9.1 mg/dL (8.5-10.1); Chloride 103 mmol/L (98-107); Glucose 96 mg/dL (74-106); Magnesium 1.8 mg/dL (1.8-2.4); Potassium 4.4 mmol/L (3.5-5.1); Sodium 139 mmol/L (136-145)
[2019-11-25 08:30] VITALS: BP 135/93; PULSE 74; RESP 18; TEMP 35.4; O2SAT 96
--- NOTE | 2019-11-25 10:23 | PT.INIE ---
Date of service: 11/25/19 Time of Service: 10:23 PT Notes Visit Reasons: GENERALIZED WEAKNESS Physical Therapy Inpatient Initial Evaluation Date: 11/25/2019 Referring Doctor: Koby Bland MD PT Orders: PT CONSULT: Fall Safety Assessment Precautions: Fall. Standard. Activity as tolerated. Patient Profile/Admitting Diagnosis: Lisset is a 59-year-old female who presented to the ED on 11/24/2019 with chief compliant of generalized muscle weakness. Per chart review, she was at the ED on 11/23/2019 with diagnosis of ETOH withrawal, ETOH abuse, depression, and HTN but was discharged same day. It was suspected that said weakness may be attributable to her current psych medications which result to parkinsonian-type signs and symptoms. Referral to physical therapy was received today to assess for safety of mobility ADL performance. PMHX: Medical History Alcohol abuse (Chronic) Essential hypertension (Chronic) Fracture of metatarsal of left foot, closed (Acute ~04/30/19) 3rd, 4th and 5th metatarsals Hypertension (Chronic) TBI (traumatic brain injury) (Chronic) Surgical History Hx of appendectomy (Chronic) Previous section (Chronic) x2 Social History/Home Situation: Lisset lives alone in a private home with 2 steps to enter with rails on B sides. Prior to admission, she is able to mange on her own without the need for an assistive ambulatory device nor adaptive equipment. 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 Equipment Owned/DME: None Subjective: Lisset feels that her weakness may be due to the paills she has been taken. She states that her walking is a lot different now and that she just keeps on falling. She states that she has fallen more than 5 times in the past 6 months. She does not know yet when she can go home. Objective: General Observation: Decreased eye blinking. Affect flat. Bradykinesic. Appears lethargic. Speech slow. Mental Status: Oriented as to person, place and time Pain: None reported ROM: Right Upper Extremity: Shoulder Flexion WFL. Shoulder abduction WFL. Elbow flexion WFL. Wrist flexion WFL. Opening and closing of hand WFL. Left Upper Extremity: Shoulder Flexion WFL. Shoulder abduction WFL. Elbow flexion WFL. Wrist flexion WFL. Opening and closing of hand WFL. Right Lower Extremity: Hip flexion WFL. Hip abduction WFL. Knee flexion WFL. Ankle dorsiflexion WFL. Ankle plantarflexion WFL. Left Lower Extremity: Hip flexion WFL. Hip abduction WFL. Knee flexion WFL. Ankle dorsiflexion WFL. Ankle plantarflexion WFL. Strength: Right Upper Extremity: Shoulder flexors 3+/5. Shoulder abductors 3+/5. Elbow flexors 3+/5. Elbow extensors 3+5. Eddy Current Inspector weak but functional. Left Upper Extremity: Shoulder flexors 5/5. Shoulder abductors 5/5. Elbow flexors 5/5. Elbow extensors 5/5. Eddy Current Inspector strong. Right Lower Extremity: Hip flexors 4-/5. Hip abductors 4-/5. Knee flexors 4-/5. Knee extensors 4-/5. Ankle dorsiflexors 4-/5. Ankle plantarflexors 4-/5. Left Lower Extremity: Hip flexors 4-/5. Hip abductors 4-/5. Knee flexors 4-/5. Knee extensors 4-/5. Ankle dorsiflexors 4-/5. Ankle plantarflexors 4-/5. Sensation: Intact as to pain and pressure on bilateral lower extremities. Bed Mobility/Transfers: Supine to sit SBA Sit to supine SBA Sit to stand SBA Stand to sit SBA Bed to chair SBA Chair to bed SBA Gait: Lisset tolerated 200 feet + 100 feet of level surface ambulation using FWW. Steps initially discontinuous, shuffled but was able to correct on command and then shuffles back as she gets tired. Marquita decreased. Step height and length decreased. Trunk flexion increased. Patient tolerated up and down six 4-inch steps and four 6-inch steps while holding onto B rails with SBA. Balance: Static Sitting: Normal Dynamic Sitting: Normal Static Standing: Fair Dynamic Standing: Fair Special Tests: Mobility Limitations Standardized Measure [facility] 6 clicks Basic Mobility Inpatient Short Form: Raw Score: 20 CMS Score: 36% deficit 4-stage balance test: Unable to safely maitain feet together, semi-tandem, full tandem, and one-legged stance for 10 seconds indicating high fall risk. 30-second chair rise: 6 reps indicating weak B LE and at risk for falls. Informed Consent/Education: Patient instructed in purpose of PT consult and plan of care. Assessment: Lisset demonstrates functional mobility decline resulting to a need for FWW for all mobility ADL perfornace, balance impairment, strength deficits and unsteadiness of gait resulting from possible adverse reaction from psych medications as indicated by ED MD, admitting diagnosis, and co-morbid conditions as above Patient presents with clinical signs and symptoms consistent with current/admitting diagnoses that have resulted to mobility limitations, gait instability, generalized weakness, and impairment of motor control as demonstrated by the following impairment level findings: 1. Decreased strength to B LE major muscle groups 2. Impaired sitting/standing balance 3. Impaired activity tolerance Impairments are contributing to the following functional limitations: 1. Dependent bed mobility skills 2. Increased dependence with transfers 3. Inability to safely ambulate without assistive device and physical assistance 4. Increase completion time for mobility ADL performance 5. Increased fall risk 6. Inability to negotiate steps alone safely Patient is assessed as a 43245 complexity based on the following: History: 59-year-old female with impairment level findings, functional limitations, and past medical history as indicated above Examination: Demonstrable impairment in strength, balance, and mobility level with underlying impairments and functional limitations as documented above Presentation:Evolving Decision Makin moderate complexity Goals: Goals X1 week 1. Supine-Sit independent 2. Sit-Supine independent 3. Sit-Stand independent 4. Stand-Sit independent 5. Bed-Chair independent 6. Chair-Bed independent 7. Independent gait on level surface with use of least restrictive device for at least 300 feet without report of pain nor dyspnea 8. Independent stair negotiation while holding onto bilateral rails for at least 5 steps without report of pain nor dyspnea 9. Independent with home exercise program 10. Good static and dynamic standing balance/tolerance Plan of Care/Treatment Plan: 1-2x/day, 7 days/week x 1 week. Plan of care has been reviewed with the TOPPER PRESS OPERATOR providing the service under Physical Therapy direction. Initiate Physical Therapy intervention for strengthening, bed mobility, transfers, gait, stairs, balance training, use of assistive device. PT Intervention: Session today consisted of initial PT evaluation and education/training on mobility ADL performance using FWW. DISCHARGE RECOMMENDATIONS: Needs FWW. Patient will benefit from home health PT services in order to progress mobility level using least restrictive assistive ambulatory device, assess home safety, identify additional equipment needs, and establish a functional maintenance program that will increase ability of patient to remain at home. TREATMENT CODE/TIME: 55765 x 32 minutes beginning at 10:23 AM. Thank you very much for this referral. Brigida Nunes PT, DPT, CLT [facility] [place], [place]
[2019-11-25 11:53] VITALS: BP 108/73; PULSE 64; RESP 18; TEMP 36.4; O2SAT 99
--- NOTE | 2019-11-25 14:42 | W.PM.PROGNOT ---
Date of Service Date of service: 11/25/19 Time of Service: 14:42 Assessment and Plan Assessment and plan (1) Generalized weakness: Status: Acute Assessment and plan: improved overnight with medication adjustment. awaiting neurology consultation, consider psychiatric evaluation on Tuesday if needed. continue PT/OT and monitoring. continue to hold chlorpromazine and wellbutrin at 150 mg po bid (2) Depression: Status: Chronic Assessment and plan: continue wellbutrin and sertraline. Qualifiers: Depression Type: unspecified Qualified Code(s): F32.9 - Major depressive disorder, single episode, unspecified (3) Alcohol abuse: Status: Chronic Assessment and plan: no symptoms of withdrawal, continue high dose thiamine (4) Essential hypertension: Status: Chronic Assessment and plan: blood pressures are controlled. continue to monitor. continue atenolol. case and care of plan discussed with DR Bass who is in agreement Subjective Subjective Patient reports: feels better, tolerating liquids well and tolerating a regular diet Exam Const General: cooperative, comfortable, no acute distress, frail appearing and ill appearing chronically Nutritional Appearance: average body habitus Orientation: alert, awake and oriented x3 Limitations: altered mental status [facility] Head: normal to inspection, normocephalic and atraumatic Ears: hearing grossly normal bilaterally Mouth: oral mucosae normal, lip normal (smile symmetrical ), tongue normal and moist mucous membranes Resp Effort & Inspection: normal respiratory effort Auscultation: clear to auscultation bilaterally Cardio Rate: regular rate Rhythm: regular rhythm GI Inspection: normal to inspection Palpation: soft Auscultation: normal bowel sounds General: other (post void bladder scan shows no residual) Neuro General: patient alert, patient awake, patient oriented x3 and moves all extremities Cognition: normal cognition Speech: speech normal Gait: shuffling and staggering (to the right slightly) Motor: muscle tone normal throughout Extrem General: normal to inspection and no pedal edema Objective Objective Clinical Data: Abnormal lab results 11/24/19 11/24/19 11/24/19 Range/Units 17:30 18:33 18:33 WBC 11.13 H (4.4-10.8) k/cumm RDW 14.9 H (11.7-14.6) % Absolute Neutrophils 8.36 H (1.2-6.7) k/cumm Absolute Monocytes 1.17 H (0.11-0.7) k/cumm Ur Leukocyte Esterase Moderate H (Negative) Urine WBC 20-50 H (0-5) HPF Ur Tricyclics Screen Positive A (Negative) U Benzodiazepines Scrn Positive A (Negative) 11/25/19 Range/Units 08:00 WBC (4.4-10.8) k/cumm RDW 14.9 H (11.7-14.6) % Absolute Neutrophils (1.2-6.7) k/cumm Absolute Monocytes 0.97 H (0.11-0.7) k/cumm Ur Leukocyte Esterase (Negative) Urine WBC (0-5) HPF Ur Tricyclics Screen (Negative) U Benzodiazepines Scrn (Negative) Vital Signs Temperature 36.4 C L 11/25/19 11:53 Temperature Source Tympanic 11/25/19 11:53 Pulse 64 11/25/19 11:53 Pulse Rhythm Regular 11/25/19 08:48 Respiratory Rate 18 11/25/19 11:53 Respiratory Effort Non-Labored 11/25/19 08:48 Respiratory Depth Normal 11/25/19 08:48 Respiratory Pattern Normal 11/25/19 08:48 Blood Pressure 108/73 11/25/19 11:53 Blood Pressure Position Supine 11/24/19 16:28 Pulse Oximetry 99 11/25/19 11:53 Oxygen Delivery Method Room Air 11/25/19 11:53 Oxygen Flow Rate 0 11/25/19 11:53 Pain Level 0 11/25/19 11:53 Comment 11/24/19 20:08 Intake & Output 11/24/19 11/25/19 11/25/19 23:59 11:59 23:59 Intake Total 365 / 365 355 / 595 240 / 595 Output Total 400 / 400 500 / 1800 1300 / 1800 Balance -35 / -35 -145 / -1205 -1060 / -1205 Weight 75.8 kg 75.8 kg Intake: IV 125 / 125 105 / 105 Oral 240 / 240 250 / 490 240 / 490 Output: Urine 400 / 400 500 / 1800 1300 / 1800 Other: Urine Color Straw Yellow Yellow Urine Appearance Clear Clear Clear Urine Odor Strong Normal Comment voids in the tiolet Voiding Methods Toilet Toilet Toilet Laboratory Results WBC 8.70 k/cumm (4.4-10.8) 11/25/19 08:00 RBC 4.73 m/cumm (4.00-5.20) 11/25/19 08:00 Hgb 15.0 g/dL (12.0-15.5) 11/25/19 08:00 Hct 44.2 % (36.0-46.0) 11/25/19 08:00 MCV 93.4 fL (80-95) 11/25/19 08:00 MCH 31.7 pg (27.0-33.0) 11/25/19 08:00 MCHC 33.9 g/dL (32.0-36.0) 11/25/19 08:00 RDW 14.9 % (11.7-14.6) H 11/25/19 08:00 Plt Count 196 x1000/uL (130-400) 11/25/19 08:00 MPV 10.3 fL (8.0-11.0) 11/25/19 08:00 Immature Gran % 0.7 % 11/25/19 08:00 Neutrophils % 67.9 11/25/19 08:00 Lymphocytes % 20.1 11/25/19 08:00 Monocytes % 11.1 11/25/19 08:00 Eosinophils % 0.0 11/25/19 08:00 Basophils % 0.2 11/25/19 08:00 Absolute Neutrophils 5.90 k/cumm (1.2-6.7) 11/25/19 08:00 Absolute Lymphocytes 1.75 k/cumm (1.2-3.4) 11/25/19 08:00 Absolute Monocytes 0.97 k/cumm (0.11-0.7) H 11/25/19 08:00 Absolute Eosinophils 0.00 k/cumm (0.0-0.7) 11/25/19 08:00 Absolute Basophils 0.02 k/cumm (0.0-0.2) 11/25/19 08:00 Sodium 139 mmol/L (136-145) 11/25/19 08:00 Potassium 4.4 mmol/L (3.5-5.1) 11/25/19 08:00 Chloride 103 mmol/L (98-107) 11/25/19 08:00 Carbon Dioxide 28.3 mmol/L (21.0-32.0) 11/25/19 08:00 Anion Gap 7.7 mmol/L (3-11) 11/25/19 08:00 BUN 14 mg/dL (7-18) 11/25/19 08:00 Creatinine 0.81 mg/dL (0.55-1.02) 11/25/19 08:00 Estimated GFR/1.73 m2 >= 60.00 (mL/min/1.73m2) 11/25/19 08:00 Glucose 96 mg/dL (74-106) 11/25/19 08:00 Calcium 9.1 mg/dL (8.5-10.1) 11/25/19 08:00 Magnesium 1.8 mg/dL (1.8-2.4) 11/25/19 08:00 Total Bilirubin 0.6 mg/dL (0.2-1.0) 11/24/19 17:30 AST 29 U/L (15-37) 11/24/19 17:30 ALT 29 U/L (14-59) 11/24/19 17:30 Alkaline Phosphatase 83 U/L (46-116) 11/24/19 17:30 Total Protein 6.8 g/dL (6.4-8.2) 11/24/19 17:30 Albumin 4.0 g/dL (3.4-5.0) 11/24/19 17:30 Urine Color Yellow (Yellow) 11/24/19 18:33 Urine Clarity Clear (Clear) 11/24/19 18:33 Urine pH 7.0 (5-8) 11/24/19 18:33 Ur Specific [place] 1.015 (1.005-1.025) 11/24/19 18:33 Urine Protein Negative mg/dL (Negative) 11/24/19 18:33 Urine Ketones Negative mg/dL (Negative) 11/24/19 18:33 Urine Blood Negative (Negative) 11/24/19 18:33 Urine Nitrite Negative (Negative) 11/24/19 18:33 Urine Bilirubin Negative (Negative) 11/24/19 18:33 Urine Urobilinogen 0.2 EU/dL (Up TO 0.2) 11/24/19 18:33 Ur Leukocyte Esterase Moderate (Negative) H 11/24/19 18:33 Urine RBC Negative HPF (0-2) 11/24/19 18:33 Urine WBC 20-50 HPF (0-5) H 11/24/19 18:33 Ur Epithelial Cells Negative HPF (Negative) 11/24/19 18:33 Urine Crystals Negative HPF (Negative) 11/24/19 18:33 Urine Bacteria Moderate HPF (Negative) 11/24/19 18:33 Urine Casts Negative LPF (Negative) 11/24/19 18:33 Urine Mucus Negative (Negative) 11/24/19 18:33 Urine Other Negative (Negative) 11/24/19 18:33 Ur Culture Indicated? Yes 11/24/19 18:33 Urine Glucose Negative mg/dL (Negative) 11/24/19 18:33 Urine Opiates Screen Negative (Negative) 11/24/19 18:33 Urine Methadone Screen Negative (Negative) 11/24/19 18:33 Ur Barbiturates Screen Negative (Negative) 11/24/19 18:33 Ur Tricyclics Screen Positive (Negative) A 11/24/19 18:33 Ur Amphetamines Screen Negative (Negative) 11/24/19 18:33 U Benzodiazepines Scrn Positive (Negative) A 11/24/19 18:33 Urine Cocaine Screen Negative (Negative) 11/24/19 18:33 Ur THC Screen Negative (Negative) 11/24/19 18:33 Ethyl Alcohol < 3.0 mg/dL (<3) 11/24/19 17:30
[2019-11-25 15:55] VITALS: BP 129/87; PULSE 66; RESP 17; TEMP 36.4; O2SAT 98
[2019-11-25] MEDS: cefTRIAXone 1 GM/50 ML BAG IV (16:10)
[2019-11-25 19:34] VITALS: BP 122/87; PULSE 71; RESP 18; TEMP 36.8; O2SAT 96
[2019-11-25] MEDS: Enoxaparin 40 MG/0.4 ML SYR SC (20:06)
[2019-11-26 00:22] VITALS: BP 124/85; PULSE 61; RESP 16; TEMP 36.8; O2SAT 98
[2019-11-26] MEDS: THIAMINE 500 MG in Normal Saline 100 ML 200 MG IVPB ×3 (04:15→20:11)
[2019-11-26] MEDS: Normal Saline Flush 10 ML SYR IVP ×4 (04:15→20:15)
[2019-11-26 04:27] VITALS: BP 130/86; PULSE 66; RESP 16; TEMP 36.4; O2SAT 98
[2019-11-26 07:21] LABS: Anion Gap 6.4 mmol/L (3-11); BUN 13 mg/dL (7-18); CO2 30.6 mmol/L (21.0-32.0); CREATININE 0.91 mg/dL (0.55-1.02); Calcium 9.4 mg/dL (8.5-10.1); Chloride 102 mmol/L (98-107); Glucose 86 mg/dL (74-106); Magnesium 1.8 mg/dL (1.8-2.4); Potassium 4.7 mmol/L (3.5-5.1); Sodium 139 mmol/L (136-145)
--- NOTE | 2019-11-26 07:58 | PHA.REVIEW ---
Pharmacy Admission Review - Admission Clinical Review (Last Updated 11/25/19 @ 08:07 by Koby Bland) Generalized weakness (Acute) lisinopril Allergy (Mild, Unverified 11/24/19 16:32) throat closed up Height 5 ft 8 in Weight 75.8 kg - Renal Dosing Renal Dosing: BUN 13 mg/dL (7-18) 11/26/19 06:35 Creatinine 0.91 mg/dL (0.55-1.02) 11/26/19 06:35 Medications needing adjustments: Reviewed (est CrCl~6.3mL/min Meds-OK) - Anticoagulation Anticoagulation: Hgb 15.0 g/dL (12.0-15.5) 11/25/19 08:00 Hct 44.2 % (36.0-46.0) 11/25/19 08:00 Plt Count 196 x1000/uL (130-400) 11/25/19 08:00 Creatinine 0.91 mg/dL (0.55-1.02) 11/26/19 06:35 Medications: Enoxaparin - Opiate Usage Evaluate Pain Scale/Pains Meds: N/A Scheduled Bowel Reg ordered if on Opiates?: Yes - Relevant Labs Sodium 139 mmol/L (136-145) 11/26/19 06:35 Potassium 4.7 mmol/L (3.5-5.1) 11/26/19 06:35 Chloride 102 mmol/L (98-107) 11/26/19 06:35 Magnesium 1.8 mg/dL (1.8-2.4) 11/26/19 06:35 - DM Control DM Control: Glucose 86 mg/dL (74-106) 11/26/19 06:35 Insulin Dosing: N/A - Heart Failure/ND EF%, CAILIN's, B-Blockers, Diuretics: Reviewed (Atenolol,) - BP Control BP Control: Blood Pressure 130/86 Blood Pressure 124/85 - Qtc Review If Elevated: Reviewed (Qtc-471 on November 19 2019, on Zoloft) - IV to PO Switch IV Medications: Reviewed (receiving igh dose Thiamine and Rocephin (for suspected UTI)) - Home Meds Home Med List reviewed: Reviewed (Ordered) - Comments Comments/Follow Ups: Patient is awaiting Neurology consult and may experience ETOH withdrawal. likens her symptoms to Parkinson's like possibly due to Cglorpromzine side effect.
[2019-11-26 08:15] VITALS: BP 111/64; PULSE 64; RESP 14; TEMP 36.3; O2SAT 99
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
[2019-11-26] MEDS: Sertraline 50 MG TAB 150 MG PO (08:52)
[2019-11-26] MEDS: Magnesium Gluconate 500 MG TAB PO ×2 (08:52→20:11)
[2019-11-26] MEDS: Atenolol 50 MG TAB PO (08:52)
[2019-11-26] MEDS: Thiamine 100 MG TAB PO (08:53)
[2019-11-26] MEDS: Multivitamin TAB 1 TAB PO (08:53)
[2019-11-26] MEDS: Cyanocobalamin 500 MCG TAB 1000 MCG PO (08:53)
[2019-11-26] MEDS: Lactobacillus Acidophilus CAP 1 CAP PO (08:53)
[2019-11-26] MEDS: Folic Acid 1 MG TAB PO (08:53)
--- NOTE | 2019-11-26 09:58 | INITIAL_ITS ---
- If Service Date Differs Date of service: 11/26/19 Time of Service: 10:48 Care Management Initial Assess REASON FOR HOSPITALIZATION:: Generalized Weakness PAST MEDICAL HISTORY/PAST SURGICAL HISTORY:: Alcohol abuse, essential hypertension, fracture of metatarsal of left foot closed, hypertension, TBI, appendectomy, previous section PREVIOUS FUNCTIONAL STATUS/SOCIAL/FAMILY SUPPORTS:: Lisset resides alone in a mobile home without running water or electricity in [place], [place]. 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 She sold her home, and moved to [place] to [place] on the land she currently lives on. She made the decision to move to [place] with her former significant other. Lisset has been struggling on the land to meet her basic needs for a few years. She has a wood stove and propane for heat and an unreliable generator for small amounts of electricity. Lisset has struggled with ongoing mental health, EVA and medical issues over the past few years. She lives alone but does have neighbors nearby who offer support and assistance. Lisset has a good support network in [place] but with the distance, she stays in contact via email and phone. She also has two daughters Kory who she connects with periodically. Lisset had a few different inpatient admissions over the past year and a half; including a SNF stay at [facility] and a psychiatric stabilization at [facility] from the end of 2018 to August of 2019. She has had many med changes at [facility] and since returning to the community, but is in a more stable situation then previously; currently working at [employer] in [place] and driving her own car as well. She is currently independent in the community with ADLs. CURRENT FUNCTIONAL STATUS:: Lisset shares that she is struggling with low affect and not feeling anything. She attributes this to her medication changes. ADVANCE DIRECTIVES:: None on file at [facility] Has patient been provided with info about the portal/API?: No Did the patient sign up for the portal?: No CODE STATUS:: Full Code INSURANCE COVERAGE / FINANCIAL ISSUES:: Medicare. Medicaid PRIMARY CARE PHYSICIAN:: Yessy Valverde-[facility] POTENTIAL DISCHARGE NEEDS:: Review of community based supports and service connection, follow up appointment with PCP. ANTICIPATED BARRIERS TO DISCHARGE:: None identified at this time. TRANSPORTATION:: RCT PLAN:: Dr. Bass and Dr. Mosher reviewed current medications; anticipate Dr. Bass will outreach to [facility] SOLUTIONS MANAGER to discuss tapering of medications. Lisset will be observed with medication changes and will likely return home when ready per MD. Readmission - Within the Past 30 Days Yes or No: Y - Date of First Admission Date of 1st Admission: 11/20/19 - Date of this Admission Date of Admission: 11/24/19 This admission was: Through ED - Ask the Care Team Members: What do you think caused the patient to be readmitted: Community based medication regime. - ED visits How many ED visits in the past 12 months: 6 - Assessment for Readmission Summary of readmission circumstances, based upon interviews: Medication reconciliation revealed concern for medication side effects such as seizure and Parkinsonism shuffle; per Dr. Bass and Dr. Mosher. Appears previously assumed symptoms could of been caused by medications; not alcohol as determined. Medication information was reportedly incomplete during the previous admission, and the discrepancy was found with re-admission due to availability of medication bottles.
[2019-11-26] MEDS: buPROPion-XL 150 MG TABCR PO (10:09)
--- NOTE | 2019-11-26 10:49 | PDOC.CMPRO ---
Care Management Progress Note S/O: Lisset was sitting up in her chair, pleasant in interaction. She reviewed the details of her re-admission with good insight and reported concerns that her medication changes could be causing her symptoms. She shared hopes that she could regain her strength and return home to her previous baseline functioning. CM offered support around MD letter for her employer, if needed. CM continues to follow. A: 59 year old female admitted to [facility] 11/24/19 for Generalized weakness; found to be r/t medication changes. P: Lisset will have her medications adjusted per MD, anticipate she will return home after a period of observation. No additional services anticipated at this time. Lisset will transport via [facility]. CM continues to follow.
--- NOTE | 2019-11-26 12:29 | W.PSYCHCONSU ---
Date of service: 11/26/19 Time of Service: 08:40 History of Present Illness History of Present Illness Chief Complaint: psychomotor retardation Narrative: Dr. Katia Bass requested psychiatric consultation for Lisset Abel for possible medication adverse effects leading to previous seizure event and for current psychomotor retardation. In team meeting this morning her history was reviewed that patient was admitted to [facility] last week and observed to have a seizure, presumed to be alcohol related in spite of low CiWA score. Although her medication history reports her home bupropion dose as 150mg bid, the bottle brought in by [facility] states Bupropion XL 300mg once twice daily prescribed by Emilee Cobb, geographic area intelligence officer at [facility]. Patient is also reporting to the team that she feels slowed and numb on thorazine, started during recent psychiatric admission to [facility], and would like to stop it, and has felt better since thorazine was held during this visit. Bupropion has also been held pending decision about medication management. I informed that team that I am likely aware of this patient as Emilee Cobb, whom I supervise, had contacted me recently about tapering someone off thorazine. Today patient informed team that she did not want to continue both sertraline and bupropion as patient believes this dulls her emotions except fear. Team also asked me for alternatives to sleep aids if thorazine is discontinued. Assessment and Plan Assessment and plan (1) Psychomotor retardation: Status: Acute Assessment and plan: Lisset Monahan is a 59 year old female admitted to [facility] 2 days ago with complaints of increased weakness and psychomotor retardation. Recommendations: - obtain diagnostic and treatment and discharge information from [facility] - consider discussing referral to [facility] as her functional needs seem to make any medication management in the outpatient setting risky. - continue to hold the thorazine per patient preference as the target diagnoses/symptoms are not clear and likely is causing significant side effects. - continue sertraline 150mg for now as patient is expressing concern of adverse effects on mood of the combination of sertraline and bupropion. If patient is really desiring to stop the sertraline she could choose to continue bupropion XL 150mg every morning, or hold all medications. - I have reached out to Emilee Cobb regarding the dosing of bupropion XL which was most likely a prescribing mistake (EMR related?) and to discuss medication management after discharge from [facility]. - past seizure event could have been due to hyperdosing of bupropion rather than EtOH related? Further correlation of medication and timing of events is needed. - for sleep, consider trazodone 50mg. I will check in with the team again in morning meeting on Monday 11/27 and will be available to see patient [id number] or by video on 11/27 of 11/28 if indicated. Thank you for including me in [facility] care. [facility] Medical History (Updated 11/26/19 @ 12:41 by Jena Mosher MD) Alcohol abuse (Chronic) Essential hypertension (Chronic) Fracture of metatarsal of left foot, closed (Resolved ~04/30/19) 3rd, 4th and 5th metatarsals Hypertension (Chronic) TBI (traumatic brain injury) (Chronic) Surgical History Hx of appendectomy (Chronic) Previous section (Chronic) x2 Family History Brother Stroke Mother Diabetes Lung cancer nonsmoker Father Hypertension Social History Smoking/Tobacco Use Status: Never Alcohol Intake: current Alcohol Intake frequency: 3 or more drinks per day Alcohol type: beer and wine Details: never had withdrawal or seizures Drug use: Socially Substance use type: marijuana Details: patient states last alcohol beverage was prior to last admission Current gender identity: female Do you feel safe at home: No Do you feel safe in your relationship?: Yes Additional Social history: patient states she falls alot. Results Last Vital Signs Temp 36.3 C L 11/26/19 08:15 Pulse 64 11/26/19 08:15 Resp 14 11/26/19 08:15 BP 111/64 11/26/19 08:15 Pulse Ox 99 11/26/19 08:15 Labs Result diagrams: 11/25/19 08:00 11/26/19 06:35 Labs: Laboratory Results - last 24 hr 11/26/19 06:35 Sodium 139 Potassium 4.7 Chloride 102 Carbon Dioxide 30.6 Anion Gap 6.4 BUN 13 Creatinine 0.91 Estimated GFR/1.73 m2 >= 60.00 Glucose 86 Calcium 9.4 Magnesium 1.8
[2019-11-26 12:32] VITALS: BP 116/82; PULSE 65; RESP 17; TEMP 36.3; O2SAT 98
--- NOTE | 2019-11-26 13:10 | PT.INTREAT ---
Date of service: 11/27/19 Time of Service: 13:10 PT Notes Visit Reasons: GENERALIZED WEAKNESS Physical Therapy Inpatient treatment Note Date: 11/26/2019 Precautions: Fall. Standard. Activity as tolerated. Subjective: Lisset states that she feels better and is happy that she is able to smile now a lot better. She hopes that she can continue to get better with medication adjustments being underway. She states that she would want to do more with therapy eventually so she can get stronger. Objective: General Observation: Eye blinking improved. Affect less flat. Movement speed very much improved. Appears more awake. Speech much improved. Mental Status: Oriented as to person, place, and time Pain: None reported Bed Mobility/Transfers: Supine to sit supervision Sit to supine supervision Sit to stand supervision Stand to sit supervision Bed to chair supervision Chair to bed supervision Gait: Lisset tolerated 300 feet + 250 feet of level surface ambulation using FWW with SBA. Gait pattern very much improved, no longer shuffled. Marquita significantly improved. Step height and length improved. Trunk much more erect. Patient tolerated up and down six 4-inch steps and four 6-inch steps while holding onto B rails with 2.5 ankle weight on B legs with SBA. Balance: Static Sitting: Normal Dynamic Sitting: Normal Static Standing: Fair Dynamic Standing: Fair Assessment: Step height and length increased. Marquita improved. Posture better. Affect very much improved. Patient will continue to benefit from skilled PT services in order to regain premorbid independent level. DISCHARGE RECOMMENDATIONS: Needs FWW. Patient will benefit from home health PT services in order to progress mobility level using least restrictive assistive ambulatory device, assess home safety, identify additional equipment needs, and establish a functional maintenance program that will increase ability of patient to remain at home. TREATMENT CODE/TIME: 19815 x 25minutes, 72309 x 17 minutes beginning at 13:10 PM.
--- NOTE | 2019-11-26 13:32 | PGE_ITS ---
Date of Service Date of service: 11/26/19 Time of Service: 13:32 Assessment and Plan Assessment and plan (1) Generalized weakness: Start date: 11/26/19 Start time: 14:05 Status: Acute Assessment and plan: improved overnight with medication adjustment. neurology recommends antiplatelet and cardiac monitoring with follow up in office s outpatient, consider psychiatry recommends continuing wellbutrin stopping sertraline if patient does not want to continue and trazadone for sleep. continue PT/OT and monitoring. (2) Depression: Start date: 11/26/19 Start time: 14:07 Status: Chronic Assessment and plan: continue wellbutrin Qualifiers: Depression Type: unspecified Qualified Code(s): F32.9 - Major depressive disorder, single episode, unspecified (3) Alcohol abuse: Start date: 11/26/19 Start time: 14:07 Status: Chronic Assessment and plan: no symptoms of withdrawal, continue high dose thiamine (4) Essential hypertension: Start date: 11/26/19 Start time: 14:08 Status: Chronic Assessment and plan: blood pressures are controlled. continue to monitor. continue atenolol. case and care of plan discussed with Dr. Bass who is in agreement Subjective Subjective Patient reports: no new complaints Interval history since last seen: feeling better today than yesterday. states today that she is still feeling like she has no emotion just fear. spoke with dr. torres, she recommends stopping sertraline 150 mg, trazodone for sleep. Will d/c sertraline and continue wellbutrin. Dr. Sidhu recommends antiplatelet and cardiac monitoring with outpatient follow up as she is high risk for afib. Will start on Aspirin po. Exam Narrative Exam Narrative: Patient exhibits a slow shuffling gait with paucity of initiation of movement that is improving. She has a masked facies and flat affect. Otherwise she is alert and oriented person place time circumstance. Normal facial mimetic muscle movement. Full extraocular motion intact. 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 Normal strength in both lower extremities with hip flexion extension as well as dorsiflexion plantarflexion of the feet as well as knee extension. Sensory exam is intact to light touch and pain over the face arms and legs and feet. Babinski reflexes absent bilaterally Gait is slow and shuffling with very short steps and she had trouble initiating her movements. She had no cogwheel rigidity No tremors present LSC, no rales, or wheezing RRR no murmur Objective Objective Clinical Data: Vital Signs Temperature 36.3 C L 11/26/19 12:32 Temperature Source Tympanic 11/26/19 12:32 Pulse 65 11/26/19 12:32 Pulse Rhythm Regular 11/26/19 09:00 Respiratory Rate 17 11/26/19 12:32 Respiratory Effort Non-Labored 11/26/19 09:00 Respiratory Depth Normal 11/26/19 09:00 Respiratory Pattern Normal 11/26/19 09:00 Blood Pressure 116/82 11/26/19 12:32 Blood Pressure Position Supine 11/24/19 16:28 Pulse Oximetry 98 11/26/19 12:32 Oxygen Delivery Method Room Air 11/26/19 12:32 Oxygen Flow Rate 0 11/26/19 12:32 Pain Level 0 11/25/19 19:34 Comment 11/24/19 20:08 Intake & Output 11/25/19 11/26/19 11/26/19 23:59 11:59 23:59 Intake Total 1040 / 1395 535 / 535 Output Total 1300 / 1800 1300 / 1300 Balance -260 / -405 -765 / -765 Weight 75.8 kg Intake: IV 260 / 365 115 / 115 Oral 780 / 1030 420 / 420 Output: Urine 1300 / 1800 1300 / 1300 Other: Urine Color Yellow Yellow Urine Appearance Clear Clear Urine Odor Strong Comment Pt voided not hat in the toliet, urine not observed. Voiding Methods Toilet Toilet Laboratory Results WBC 8.70 k/cumm (4.4-10.8) 11/25/19 08:00 RBC 4.73 m/cumm (4.00-5.20) 11/25/19 08:00 Hgb 15.0 g/dL (12.0-15.5) 11/25/19 08:00 Hct 44.2 % (36.0-46.0) 11/25/19 08:00 MCV 93.4 fL (80-95) 11/25/19 08:00 MCH 31.7 pg (27.0-33.0) 11/25/19 08:00 MCHC 33.9 g/dL (32.0-36.0) 11/25/19 08:00 RDW 14.9 % (11.7-14.6) H 11/25/19 08:00 Plt Count 196 x1000/uL (130-400) 11/25/19 08:00 MPV 10.3 fL (8.0-11.0) 11/25/19 08:00 Immature Gran % 0.7 % 11/25/19 08:00 Neutrophils % 67.9 11/25/19 08:00 Lymphocytes % 20.1 11/25/19 08:00 Monocytes % 11.1 11/25/19 08:00 Eosinophils % 0.0 11/25/19 08:00 Basophils % 0.2 11/25/19 08:00 Absolute Neutrophils 5.90 k/cumm (1.2-6.7) 11/25/19 08:00 Absolute Lymphocytes 1.75 k/cumm (1.2-3.4) 11/25/19 08:00 Absolute Monocytes 0.97 k/cumm (0.11-0.7) H 11/25/19 08:00 Absolute Eosinophils 0.00 k/cumm (0.0-0.7) 11/25/19 08:00 Absolute Basophils 0.02 k/cumm (0.0-0.2) 11/25/19 08:00 Sodium 139 mmol/L (136-145) 11/26/19 06:35 Potassium 4.7 mmol/L (3.5-5.1) 11/26/19 06:35 Chloride 102 mmol/L (98-107) 11/26/19 06:35 Carbon Dioxide 30.6 mmol/L (21.0-32.0) 11/26/19 06:35 Anion Gap 6.4 mmol/L (3-11) 11/26/19 06:35 BUN 13 mg/dL (7-18) 11/26/19 06:35 Creatinine 0.91 mg/dL (0.55-1.02) 11/26/19 06:35 Estimated GFR/1.73 m2 >= 60.00 (mL/min/1.73m2) 11/26/19 06:35 Glucose 86 mg/dL (74-106) 11/26/19 06:35 Calcium 9.4 mg/dL (8.5-10.1) 11/26/19 06:35 Magnesium 1.8 mg/dL (1.8-2.4) 11/26/19 06:35 Total Bilirubin 0.6 mg/dL (0.2-1.0) 11/24/19 17:30 AST 29 U/L (15-37) 11/24/19 17:30 ALT 29 U/L (14-59) 11/24/19 17:30 Alkaline Phosphatase 83 U/L (46-116) 11/24/19 17:30 Total Protein 6.8 g/dL (6.4-8.2) 11/24/19 17:30 Albumin 4.0 g/dL (3.4-5.0) 11/24/19 17:30 Urine Color Yellow (Yellow) 11/24/19 18:33 Urine Clarity Clear (Clear) 11/24/19 18:33 Urine pH 7.0 (5-8) 11/24/19 18:33 Ur Specific [place] 1.015 (1.005-1.025) 11/24/19 18:33 Urine Protein Negative mg/dL (Negative) 11/24/19 18:33 Urine Ketones Negative mg/dL (Negative) 11/24/19 18:33 Urine Blood Negative (Negative) 11/24/19 18:33 Urine Nitrite Negative (Negative) 11/24/19 18:33 Urine Bilirubin Negative (Negative) 11/24/19 18:33 Urine Urobilinogen 0.2 EU/dL (Up TO 0.2) 11/24/19 18:33 Ur Leukocyte Esterase Moderate (Negative) H 11/24/19 18:33 Urine RBC Negative HPF (0-2) 11/24/19 18:33 Urine WBC 20-50 HPF (0-5) H 11/24/19 18:33 Ur Epithelial Cells Negative HPF (Negative) 11/24/19 18:33 Urine Crystals Negative HPF (Negative) 11/24/19 18:33 Urine Bacteria Moderate HPF (Negative) 11/24/19 18:33 Urine Casts Negative LPF (Negative) 11/24/19 18:33 Urine Mucus Negative (Negative) 11/24/19 18:33 Urine Other Negative (Negative) 11/24/19 18:33 Ur Culture Indicated? Yes 11/24/19 18:33 Urine Glucose Negative mg/dL (Negative) 11/24/19 18:33 Urine Opiates Screen Negative (Negative) 11/24/19 18:33 Urine Methadone Screen Negative (Negative) 11/24/19 18:33 Ur Barbiturates Screen Negative (Negative) 11/24/19 18:33 Ur Tricyclics Screen Positive (Negative) A 11/24/19 18:33 Ur Amphetamines Screen Negative (Negative) 11/24/19 18:33 U Benzodiazepines Scrn Positive (Negative) A 11/24/19 18:33 Urine Cocaine Screen Negative (Negative) 11/24/19 18:33 Ur THC Screen Negative (Negative) 11/24/19 18:33 Ethyl Alcohol < 3.0 mg/dL (<3) 11/24/19 17:30
[2019-11-26 15:25] VITALS: BP 118/84; PULSE 71; RESP 18; TEMP 36.4; O2SAT 96
[2019-11-26] MEDS: cefTRIAXone 1 GM/50 ML BAG IV (15:37)
[2019-11-26 19:15] VITALS: BP 122/87; PULSE 71; RESP 17; TEMP 36; O2SAT 95
[2019-11-26] MEDS: Enoxaparin 40 MG/0.4 ML SYR SC (20:11)
[2019-11-26] MEDS: traZODone 50 MG TAB PO (21:29)
[2019-11-27] VITALS (7 sets, daily range): BP systolic 103–129; BP diastolic 70–86; PULSE 64–72; RESP 17–18; TEMP 36.1–36.8; O2SAT 96–100
[2019-11-27] MEDS: THIAMINE 500 MG in Normal Saline 100 ML 200 MG IVPB ×2 (03:56→11:33)
[2019-11-27] MEDS: Normal Saline Flush 10 ML SYR IVP ×3 (03:57→15:45)
[2019-11-27 07:38] LABS: HCT 47.7 % (36.0-46.0); Mean Corp. HGB Concentration 33.5 g/dL (32.0-36.0); Mean Corpuscular Hemoglobin 31.1 pg (27.0-33.0); Mean Corpuscular Volume 92.8 fL (80-95); Mean Platelet Volume 10.2 fL (8.0-11.0); Platelet Count 230 x1000/uL (130-400); RBC 5.14 m/cumm (4.00-5.20); RBC Distribution Width 14.6 % (11.7-14.6); White Blood Cell Count 8.56 k/cumm (4.4-10.8)
[2019-11-27] MEDS: Cyanocobalamin 500 MCG TAB 1000 MCG PO (07:44)
[2019-11-27] MEDS: buPROPion-XL 150 MG TABCR PO (07:44)
[2019-11-27] MEDS: Multivitamin TAB 1 TAB PO (07:44)
[2019-11-27] MEDS: Magnesium Gluconate 500 MG TAB PO ×2 (07:44→19:43)
[2019-11-27] MEDS: Folic Acid 1 MG TAB PO (07:45)
[2019-11-27] MEDS: Aspirin 81 MG CHEW CH (07:45)
[2019-11-27] MEDS: Atenolol 50 MG TAB PO (07:45)
[2019-11-27] MEDS: Thiamine 100 MG TAB PO (07:45)
[2019-11-27] MEDS: Lactobacillus Acidophilus CAP 1 CAP PO (07:45)
[2019-11-27 08:01] LABS: Anion Gap 9.7 mmol/L (3-11); BUN 15 mg/dL (7-18); CO2 27.3 mmol/L (21.0-32.0); CREATININE 0.89 mg/dL (0.55-1.02); Calcium 9.7 mg/dL (8.5-10.1); Chloride 103 mmol/L (98-107); Glucose 86 mg/dL (74-106); Potassium 4.3 mmol/L (3.5-5.1); Sodium 140 mmol/L (136-145)
--- NOTE | 2019-11-27 09:15 | OT.INTREAT ---
Date of service: 11/27/19 Time of Service: 07:45 Occupational Therapy Notes Occupational Therapy Inpatient Treatment Note Date: 11/27/19 PRECAUTIONS: Fall, Standard, FULL SUBJECTIVE: Pt was sitting in chair when OT arrived. She is agreeable to OT session and reports that she is starting to feel stronger. OBJECTIVE: PAIN: no c/o pain FUNCTIONAL MOBILITY Sit-stand: (I)_ Stand-sit: (I) Bed-Chair: (S) FWW Chair-bed: (S) FWW BATHING: standing at sink with FWW Upper Body: (I) face, (B) UE and abdomen with min vc for dynamic balance. Lower Body: NT DRESSING: Upper Extremity: NT Lower Extremity: (I) don and doffing (B) socks in the seated position ASSESSMENT/PLAN: Pts (B) UE she reports as weak. PT has given her a therapeutic exercises to address this. OT will work with pt on fine motor and functional (I) in standing position for ADLs. TREATMENT CODES/TIME: 18047, 10 minutes (07:45) Annette Preston OTR/[facility]
--- NOTE | 2019-11-27 11:00 | W.PM.PROGNOT ---
Date of Service Date of service: 11/27/19 Time of Service: 11:00 Assessment and Plan Assessment and plan (1) Generalized weakness: Status: Acute Assessment and plan: continues to slowly improve on new medication adjustment. EEG on November 20 shows no focal regions of cerebral dysfunction or epileptiform activity present. continue PT/OT and monitoring. continue to hold chlorpromazine and wellbutrin at 150 mg po bid (2) Depression: Status: Chronic Assessment and plan: continue wellbutrin and sertraline. Qualifiers: Depression Type: unspecified Qualified Code(s): F32.9 - Major depressive disorder, single episode, unspecified (3) Alcohol abuse: Status: Chronic Assessment and plan: no symptoms of withdrawal, continue high dose thiamine (4) Essential hypertension: Status: Chronic Assessment and plan: blood pressures are controlled. continue to monitor. continue atenolol. (5) Discharge planning issues: Status: Resolved Assessment and plan: case management following. anticipate a discharge to home tomorrow. case and care of plan discussed with DR Bass who is in agreement Subjective Subjective Patient reports: no new complaints, feels better, tolerating liquids well and tolerating a regular diet Interval history since last seen: working with physical therapy. hemodynamically stable. Exam Const General: cooperative, comfortable, no acute distress, frail appearing and ill appearing chronically Nutritional Appearance: average body habitus Orientation: alert, awake and oriented x3 Limitations: altered mental status HENMT Head: normal to inspection, normocephalic and atraumatic Ears: hearing grossly normal bilaterally Mouth: oral mucosae normal, lip normal (smile symmetrical ), tongue normal and moist mucous membranes Resp Effort & Inspection: normal respiratory effort Auscultation: clear to auscultation bilaterally Cardio Rate: regular rate Rhythm: regular rhythm GI Inspection: normal to inspection Palpation: soft Auscultation: normal bowel sounds General: other (post void bladder scan shows no residual) Neuro General: patient alert, patient awake, patient oriented x3 and moves all extremities Cognition: normal cognition Speech: speech normal Gait: shuffling and staggering (to the right slightly) Motor: muscle tone normal throughout Extrem General: normal to inspection and no pedal edema Objective Objective Clinical Data: Abnormal lab results 11/27/19 Range/Units 07:20 Hgb 16.0 H (12.0-15.5) g/dL Hct 47.7 H (36.0-46.0) % Vital Signs Temperature 36.8 C 11/27/19 07:26 Temperature Source Temporal Artery Scan 11/27/19 07:26 Pulse 64 11/27/19 07:26 Pulse Rhythm Regular 11/27/19 08:40 Respiratory Rate 18 11/27/19 07:26 Respiratory Effort Non-Labored 11/27/19 08:40 Respiratory Depth Normal 11/27/19 08:40 Respiratory Pattern Normal 11/27/19 08:40 Blood Pressure 116/85 11/27/19 07:26 Blood Pressure Position Supine 11/24/19 16:28 Pulse Oximetry 98 11/27/19 07:26 Oxygen Delivery Method Room Air 11/27/19 07:26 Oxygen Flow Rate 0 11/27/19 07:26 Pain Level 0 11/27/19 07:26 Comment 11/24/19 20:08 Intake & Output 11/26/19 11/26/19 11/27/19 11:59 23:59 11:59 Intake Total 535 / 985 450 / 985 360 / 360 Output Total 1300 / 1750 450 / 1750 1650 / 1650 Balance -765 / -765 0 / -765 -1290 / -1290 Weight 75.8 kg 74.4 kg Intake: IV 115 / 325 210 / 325 Oral 420 / 660 240 / 660 360 / 360 Output: Urine 1300 / 1750 450 / 1750 1650 / 1650 Other: Urine Color Yellow Yellow Light Rachel Urine Appearance Clear Clear Clear Urine Odor Strong Normal Comment Pt voided not hat in the toliet, urine not observed. Voiding Methods Toilet Toilet Toilet Laboratory Results WBC 8.56 k/cumm (4.4-10.8) 11/27/19 07:20 RBC 5.14 m/cumm (4.00-5.20) 11/27/19 07:20 Hgb 16.0 g/dL (12.0-15.5) H 11/27/19 07:20 Hct 47.7 % (36.0-46.0) H 11/27/19 07:20 MCV 92.8 fL (80-95) 11/27/19 07:20 MCH 31.1 pg (27.0-33.0) 11/27/19 07:20 MCHC 33.5 g/dL (32.0-36.0) 11/27/19 07:20 RDW 14.6 % (11.7-14.6) 11/27/19 07:20 Plt Count 230 x1000/uL (130-400) 11/27/19 07:20 MPV 10.2 fL (8.0-11.0) 11/27/19 07:20 Immature Gran % 0.7 % 11/25/19 08:00 Neutrophils % 67.9 11/25/19 08:00 Lymphocytes % 20.1 11/25/19 08:00 Monocytes % 11.1 11/25/19 08:00 Eosinophils % 0.0 11/25/19 08:00 Basophils % 0.2 11/25/19 08:00 Absolute Neutrophils 5.90 k/cumm (1.2-6.7) 11/25/19 08:00 Absolute Lymphocytes 1.75 k/cumm (1.2-3.4) 11/25/19 08:00 Absolute Monocytes 0.97 k/cumm (0.11-0.7) H 11/25/19 08:00 Absolute Eosinophils 0.00 k/cumm (0.0-0.7) 11/25/19 08:00 Absolute Basophils 0.02 k/cumm (0.0-0.2) 11/25/19 08:00 Sodium 140 mmol/L (136-145) 11/27/19 07:20 Potassium 4.3 mmol/L (3.5-5.1) 11/27/19 07:20 Chloride 103 mmol/L (98-107) 11/27/19 07:20 Carbon Dioxide 27.3 mmol/L (21.0-32.0) 11/27/19 07:20 Anion Gap 9.7 mmol/L (3-11) 11/27/19 07:20 BUN 15 mg/dL (7-18) 11/27/19 07:20 Creatinine 0.89 mg/dL (0.55-1.02) 11/27/19 07:20 Estimated GFR/1.73 m2 >= 60.00 (mL/min/1.73m2) 11/27/19 07:20 Glucose 86 mg/dL (74-106) 11/27/19 07:20 Calcium 9.7 mg/dL (8.5-10.1) 11/27/19 07:20 Magnesium 1.8 mg/dL (1.8-2.4) 11/26/19 06:35 Total Bilirubin 0.6 mg/dL (0.2-1.0) 11/24/19 17:30 AST 29 U/L (15-37) 11/24/19 17:30 ALT 29 U/L (14-59) 11/24/19 17:30 Alkaline Phosphatase 83 U/L (46-116) 11/24/19 17:30 Total Protein 6.8 g/dL (6.4-8.2) 11/24/19 17:30 Albumin 4.0 g/dL (3.4-5.0) 11/24/19 17:30 Urine Color Yellow (Yellow) 11/24/19 18:33 Urine Clarity Clear (Clear) 11/24/19 18:33 Urine pH 7.0 (5-8) 11/24/19 18:33 Ur Specific [place] 1.015 (1.005-1.025) 11/24/19 18:33 Urine Protein Negative mg/dL (Negative) 11/24/19 18:33 Urine Ketones Negative mg/dL (Negative) 11/24/19 18:33 Urine Blood Negative (Negative) 11/24/19 18:33 Urine Nitrite Negative (Negative) 11/24/19 18:33 Urine Bilirubin Negative (Negative) 11/24/19 18:33 Urine Urobilinogen 0.2 EU/dL (Up TO 0.2) 11/24/19 18:33 Ur Leukocyte Esterase Moderate (Negative) H 11/24/19 18:33 Urine RBC Negative HPF (0-2) 11/24/19 18:33 Urine WBC 20-50 HPF (0-5) H 11/24/19 18:33 Ur Epithelial Cells Negative HPF (Negative) 11/24/19 18:33 Urine Crystals Negative HPF (Negative) 11/24/19 18:33 Urine Bacteria Moderate HPF (Negative) 11/24/19 18:33 Urine Casts Negative LPF (Negative) 11/24/19 18:33 Urine Mucus Negative (Negative) 11/24/19 18:33 Urine Other Negative (Negative) 11/24/19 18:33 Ur Culture Indicated? Yes 11/24/19 18:33 Urine Glucose Negative mg/dL (Negative) 11/24/19 18:33 Urine Opiates Screen Negative (Negative) 11/24/19 18:33 Urine Methadone Screen Negative (Negative) 11/24/19 18:33 Ur Barbiturates Screen Negative (Negative) 11/24/19 18:33 Ur Tricyclics Screen Positive (Negative) A 11/24/19 18:33 Ur Amphetamines Screen Negative (Negative) 11/24/19 18:33 U Benzodiazepines Scrn Positive (Negative) A 11/24/19 18:33 Urine Cocaine Screen Negative (Negative) 11/24/19 18:33 Ur THC Screen Negative (Negative) 11/24/19 18:33 Ethyl Alcohol < 3.0 mg/dL (<3) 11/24/19 17:30
--- NOTE | 2019-11-27 11:35 | W.NUTRFU ---
Date of service: 11/27/19 Time of Service: 11:35 Nutritional Follow up NOTE: 59 year old female readmitted after d/c last week. Admitted with shuffling gate. PMH: ETOH withdrawl, HTN. Following regular diet with adequate intake. BMI wnl for age. Meds include thiamin, MVI and folic acid repletion. Skin intact, no concerns swallowing. Not at risk for nutritional decline at this time. Time Spent in Nutritional Counseling and Treatment: 0
[2019-11-27] MEDS: cefTRIAXone 1 GM/50 ML BAG IV (15:45)
--- NOTE | 2019-11-27 16:01 | CMPROGNOTE_ITS ---
Care Management Progress Note S/O: Lisset had a much more active affect today, noted by her smiling and weeping. She shared concerns about returning home while feeling her medications are not yet managed, with having such drastic changes recently. She shared concerns around her emotional response as she has been numb and emotion-less and is now feeling weepy and overwhelmed. CM faxed referrals to facilities and called [facility] who reported they were closed for construction for thirty days. CM continues to follow. CM called LARISA with Lisset; Josee agreed to review local options and provided an overview of current barriers including wait lists and Lisset's affordable budget. CM called multiple assisted living facilities though none reported availability. A: 59 year old female admitted to [facility] 11/24/19 for Generalized weakness; found to be r/t medication changes. P: Lisset will have her medications adjusted per MD, anticipate she will return home after a period of [id number] to Psychiatric Stabilization. No additional services anticipated at this time. Lisset will transport via [facility]. CM continues to follow.
--- NOTE | 2019-11-27 17:30 | PT.INTREAT ---
Date of service: 11/27/19 PT Notes Visit Reasons: GENERALIZED WEAKNESS Physical Therapy Inpatient Treatment Note Date: 11/27/2019 Precautions: Fall. Standard. Activity as tolerated. Subjective: Niurka is agreeable with being made independent in her room after today's session. She voices that she is more confident about not needing the FWW after today's activity. She does not know yet when and where she is headed once she gets discharged from this hospital. Objective: General Observation: Eye blinking improved. Affect less flat. Movement speed very much improved. Appears more awake. Speech much improved. Mental Status: Oriented as to person, place, and time Pain: None reported Bed Mobility/Transfers: Supine to sit independent Sit to supine independent Sit to stand independent Stand to sit independent Bed to chair independent Chair to bed supervision Gait: Lisset tolerated 1,040 feet of level surface ambulation without an assistive device with supervision only from PT. Cues provided to increase bilateral arm swinging. No shuffling seen.. Marquita significantly improved. Step height and length improved. Trunk much more erect. Patient tolerated up and down 12 4-inch steps and eight 6-inch steps while holding onto B rails with 2.5 ankle weight on B legs with SBA. THERA EX: Tolerated NuStep bike system with resistant 8 for a duration of 10 minutes with 2.5 ankle weights without any difficulty nor SOB. Balance: Static Sitting: Normal Dynamic Sitting: Normal Static Standing: Fair Dynamic Standing: Fair Assessment: Step height and length increased. Marquita improved. Posture erect. Affect very much improved. Lisset is made independent in her room without any assistive device as of today. Patient will continue to benefit from skilled PT services in order to regain premorbid independent level. DISCHARGE RECOMMENDATIONS: Needs FWW. Patient will benefit from home health PT services in order to progress mobility level using least restrictive assistive ambulatory device, assess home safety, identify additional equipment needs, and establish a functional maintenance program that will increase ability of patient to remain at home. TREATMENT CODE/TIME: 48811 x 1 unit, 59381 x 1 unit.
[2019-11-27] MEDS: Enoxaparin 40 MG/0.4 ML SYR SC (19:43)
[2019-11-27] MEDS: traZODone 50 MG TAB PO (21:05)
[2019-11-28 03:15] VITALS: BP 117/76; PULSE 60; RESP 16; TEMP 36.3; O2SAT 96
[2019-11-28 07:40] VITALS: BP 137/90; PULSE 67; RESP 17; TEMP 37; O2SAT 99
[2019-11-28] MEDS: Thiamine 100 MG TAB PO (08:05)
[2019-11-28] MEDS: buPROPion-XL 150 MG TABCR PO (08:05)
[2019-11-28] MEDS: Magnesium Gluconate 500 MG TAB PO ×2 (08:05→20:28)
[2019-11-28] MEDS: Lactobacillus Acidophilus CAP 1 CAP PO (08:06)
[2019-11-28] MEDS: Folic Acid 1 MG TAB PO (08:06)
[2019-11-28] MEDS: Atenolol 50 MG TAB PO (08:06)
[2019-11-28] MEDS: Cyanocobalamin 500 MCG TAB 1000 MCG PO (08:06)
[2019-11-28] MEDS: Aspirin 81 MG CHEW CH (08:06)
[2019-11-28] MEDS: Multivitamin TAB 1 TAB PO (08:06)
[2019-11-28] MEDS: Sertraline 50 MG TAB 150 MG PO (08:58)
--- NOTE | 2019-11-28 09:04 | PSYCO_ITS ---
Date of service: 11/28/19 Time of Service: 08:40 Assessment and Plan Assessment and plan (1) Psychomotor retardation: Status: Acute Assessment and plan: Lisset Carmichael is a 59 year old female admitted to [facility] 2 days ago with complaints of increased weakness and psychomotor retardation improving with stopping thorazine but still with major depressive symptoms and now requesting voluntary inpatient psychiatric hospitalization. I clarified with Emilee Cobb, RUFINA, psychiatric provider at [facility] who saw her once after discharge from [facility] that Reza ORDERED per her note bupropion XL 300mg once daily. If patient's script was different, or if patient misunderstood and took differently than what the script was, then this was an error. Recommendations: - agree with voluntary inpatient psychiatric hospitalization due to failure to thrive in the community for management of acute depressive symptoms with unsuccessful treatment with thorazine on discharge from [facility] where she stayed for a month and was recently discharge. - obtain discharge summary from [facility] to clarify diagnoses and reason for thorazine prescription. - continue to discontinue thorazine - information is unclear what patient wants with her other antidepressants. I would restart them only as she wishes, for example, if she wishes to restart sertraline 150mg once daily AND bupropion XL 150mg once daily, that is fine. Less medication is also fine at this point if she prefers. - trazodone for sleep prn if patient wishes. I discussed the above recommendations with the team today in morning meeting and reviewed her chart. I did not see the patient [id number]. If acute psy chiatric assessment for med management is necessary before she finds placement at inpatient psychiatric facility or before she is discharge home, I am happy to do so. Thank you for including me in Lisset Abel' care. [facility] Medical History (Updated 11/26/19 @ 12:41 by Jena Mosher MD) Alcohol abuse (Chronic) Essential hypertension (Chronic) Fracture of metatarsal of left foot, closed (Resolved ~04/30/19) 3rd, 4th and 5th metatarsals Hypertension (Chronic) TBI (traumatic brain injury) (Chronic) Surgical History Hx of appendectomy (Chronic) Previous section (Chronic) x2 Family History Brother Stroke Mother Diabetes Lung cancer nonsmoker Father Hypertension Social History Smoking/Tobacco Use Status: Never Alcohol Intake: current Alcohol Intake frequency: 3 or more drinks per day Alcohol type: beer and wine Details: never had withdrawal or seizures Drug use: Socially Substance use type: marijuana Details: patient states last alcohol beverage was prior to last admission Current gender identity: female Do you feel safe at home: No Do you feel safe in your relationship?: Yes Additional Social history: patient states she falls alot. Results Last Vital Signs Temp 37.0 C 11/28/19 07:40 Pulse 67 11/28/19 07:40 Resp 17 11/28/19 07:40 BP 137/90 11/28/19 07:40 Pulse Ox 99 11/28/19 07:40 Labs Result diagrams: 11/27/19 07:20 11/27/19 07:20
--- NOTE | 2019-11-28 11:13 | OT.INTREAT ---
Date of service: 11/28/19 Time of Service: 07:20 Occupational Therapy Notes Occupational Therapy Inpatient Treatment Note Date: 11/28/19 PRECAUTIONS: Fall, Standard, FULL SUBJECTIVE: Pt was sitting in bed when OT arrived. She states that the plan is for her to go to [facility] for assessment of her psych medication. OBJECTIVE: PAIN: no c/o pain FUNCTIONAL MOBILITY Rolling L/R: (I) Supine-sit: (I)_ Sit-stand: SBA no assistive device Stand-sit: SBA no assistive device Bed-Chair: SBA BATHING: Upper Body: Standing at sink (I) with washing face Lower Body: NT DRESSING: Upper Extremity: (I) don and doffing hospital gown Lower Extremity: (I) with don and doffing pants and socks GROOMING: standing at sink (I) brushing hair TOILETING: Device: toilet Assist: (I) PLAN: Pt is presenting stronger with increased functional activity tolerance each day. She is able to demonstrate with min vc provided and no LOB with her ADL/IADL routines. TREATMENT CODES/TIME: 52897, 15 minutes (07:20) Annette Preston, OTR/L [facility]
[2019-11-28 11:19] VITALS: BP 128/87; PULSE 61; RESP 12; TEMP 36.7; O2SAT 99
--- NOTE | 2019-11-28 13:09 | PDOC.CMPRO ---
Care Management Progress Note S/O: Lisset was sitting up in her chair when CM met with her. She is ambulating independently throughout the hallways of MED/SURG. She is interested in going to inpatient psychiatric stabilization to permit medication changes under observation. She was screened by mental health who determined she meets criteria for psychiatric admission. CM faxed referrals to , [facility], [facility], and [facility]. Lisset identified feeling emotionally overwhelmed and scared to return home without feeling stable on her medications. CM continues to follow. A: 59 year old female admitted to [facility] 11/24/19 for Generalized weakness; found to be r/t medication changes. P: Lisset is voluntary for inpatient psychiatric stabilization. She has been screened by [facility] Crisis Screener who determined she meets criteria for placement. CM will continue to support admission efforts. Lisset is COVID negative; [facility] and will await determination. CM continues to follow.
[2019-11-28 13:11] LABS: COVID-19 RT-PCR UVMMC Result Negative (Negative)
--- NOTE | 2019-11-28 13:59 | W.INMHPGNOTE ---
Date of service: 11/28/19 Time of Service: 13:59 Mental Health Crisis Note Presenting Issue How did you arrive at the ED and why did you come: It is unclear if Lisset drove herself or was brought to the ER herself. She is there however, due to severe reactions to either or according to her H&P done on 6. relating to possible double doses of Welbutrin and or current dose of Thorazine. Precipitating Factors Currently Lisset reports I don't want to but I don't want to live like this anymore. She reports that she has the means to o.d. if she can not get better. Lisset is not showing any signs of delusions. Disposition BEHAVIOR: Lisset is alert and oriented today and is engaged and cooperative through out the assessment. She denied having any natural supports. She is pleasant to speak with. Thoughts are organized and clear. EYE CONTACT: Lisset makes good eye contact. MOOD: Lisset presents as depressed. AFFECT: Lisset is tearful and affect is flat most of the time with the occassional smile. APPETITE: Lisset reported that her appetite is normal. SLEEP(trouble falling/staying asleep: Lisset reported her sleep is sketchy now since the Thorazine was d/c stating that that medication is like using a sledge hammer on a fly. Plan Lisset is interested in a psychiatric admission to restabilize her medications. She is afraid of going home and doing it as she has no supports to ensure she is safe. Will make referral as available. Signature Clinician's Name/Title: Rizwana Nolan MS, [facility] Emergency Services Clinician
--- NOTE | 2019-11-28 16:00 | PTTR_ITS ---
Date of service: 11/28/19 Time of Service: 16:00 PT Notes Visit Reasons: GENERALIZED WEAKNESS Physical Therapy Inpatient Treatment Note Date: 11/28/2019 Precautions: Fall. Standard. Activity as tolerated. Subjective: Angie reports that she may go to the [facility] once medically cleared to do so from this hospital. She is excited about being made independent in the hallway as well for all ambulation tasks. She would like to continue to progress her exercise intensity while here so that she can regain her full prior level of function. Objective: General Observation: Eye blinking improved. Affect less flat. Movement speed very much improved. Mental Status: Oriented as to person, place, time, time and purpose Pain: None reported Bed Mobility/Transfers: Supine to sit independent Sit to supine independent Sit to stand independent Stand to sit independent Bed to chair independent Chair to bed independent Gait: Lisset tolerated 1,300 feet of level surface ambulation without an assistive device with supervision only from PT. Adequate blateral arm swinging noted. No gait pattern issues seen. Marquita significantly improved. Step height and length improved. Trunk much more erect. THERA EX: Tolerated Intention TechnologyStep bike system with resistant 8 for a duration of 20 minutes with 2.5 ankle weights without any difficulty nor SOB. NEURO RE-ED: Patient tolerated stepping exercises using Dura[employer] step up device with right leg up and right leg down x10 reps, left leg up and left leg down x10 reps while holding onto one rail. Patient tolerated progression of stepping exercises blue balance foam and DuraGym step up device with right leg up and right leg down x10 reps and left leg up in left leg down x10 reps while holding onto one rail. Finally patient was able to manage same devices with same number of repetitions without the need to hold onto any rail with supervision of PT. Balance: Static Sitting: Normal Dynamic Sitting: Normal Static Standing: Good Dynamic Standing: Good Assessment: Patient has been made independent in her room and in the hallway without an assistive ambulatory device as of today. Nurse was updated regarding said recommendation. Patient will continue to benefit from skilled physical therapy services for continued strengthening and balance progression. We will plan on progressing ambulation skills over variable/uneven ground/floor surfaces tomorrow. DISCHARGE RECOMMENDATIONS: No equipment needs at this time. Patient will benefit from home health PT services in order to progress mobility level using least restrictive assistive ambulatory device, assess home safety, identify additional equipment needs, and establish a functional maintenance program that will increase ability of patient to remain at home. TREATMENT CODE/TIME: Session 1??41231 x15 minutes, 9711 2 x 19 minutes beginning at 9:40 AM. Session 2??[id number] 0 x 25 minutes beginning at 16:00 PM.
[2019-11-28 16:27] VITALS: BP 116/82; PULSE 74; RESP 14; TEMP 36.7
[2019-11-28] MEDS: Normal Saline Flush 10 ML SYR IVP (16:40)
[2019-11-28] MEDS: cefTRIAXone 1 GM/50 ML BAG IV (16:41)
--- NOTE | 2019-11-28 17:16 | W.PM.PROGNOT ---
Date of Service Date of service: 11/28/19 Time of Service: 17:16 Assessment and Plan Assessment and plan (1) Generalized weakness: Status: Acute Assessment and plan: continues to slowly improve on new medication adjustment. EEG on November 20 shows no focal regions of cerebral dysfunction or epileptiform activity present. continue PT/OT and monitoring. continue wellbutrin at 150 mg po daily, trazdone 50 mg at HS and recommendation by Dr Mosher of Sertraline 150 mg po daily (2) Depression: Status: Chronic Assessment and plan: continue wellbutrin and sertraline. Qualifiers: Depression Type: unspecified Qualified Code(s): F32.9 - Major depressive disorder, single episode, unspecified (3) Alcohol abuse: Status: Chronic Assessment and plan: no symptoms of withdrawal, continue high dose thiamine (4) Essential hypertension: Status: Chronic Assessment and plan: blood pressures are controlled. continue to monitor. continue atenolol. (5) Discharge planning issues: Status: Resolved Assessment and plan: case management following. anticipate a discharge to home tomorrow. case and care of plan discussed with Dr Bass who is in agreement Subjective Subjective Patient reports: no new complaints Interval history since last seen: working with physical therapy. hemodynamically stable. Exam Const General: cooperative, comfortable, no acute distress, frail appearing and ill appearing chronically Nutritional Appearance: average body habitus Orientation: alert, awake and oriented x3 Limitations: altered mental status HENMT Head: normal to inspection, normocephalic and atraumatic Ears: hearing grossly normal bilaterally Mouth: oral mucosae normal, lip normal (smile symmetrical ), tongue normal and moist mucous membranes Resp Effort & Inspection: normal respiratory effort Auscultation: clear to auscultation bilaterally Cardio Rate: regular rate Rhythm: regular rhythm GI Inspection: normal to inspection Palpation: soft Auscultation: normal bowel sounds General: other (post void bladder scan shows no residual) Neuro General: patient alert, patient awake, patient oriented x3 and moves all extremities Cognition: normal cognition Speech: speech normal Gait: shuffling and staggering (to the right slightly) Motor: muscle tone normal throughout Extrem General: normal to inspection and no pedal edema Objective Objective Clinical Data: Vital Signs Temperature 36.7 C 11/28/19 16:27 Temperature Source Tympanic 11/28/19 16:27 Pulse 74 11/28/19 16:27 Pulse Rhythm Regular 11/28/19 07:23 Respiratory Rate 14 11/28/19 16:27 Respiratory Effort Non-Labored 11/28/19 07:23 Respiratory Depth Normal 11/28/19 07:23 Respiratory Pattern Normal 11/28/19 07:23 Blood Pressure 116/82 11/28/19 16:27 Blood Pressure Position Supine 11/24/19 16:28 Pulse Oximetry 99 11/28/19 11:19 Oxygen Delivery Method Room Air 11/28/19 16:27 Oxygen Flow Rate 0 11/28/19 16:27 Pain Level 0 11/28/19 16:27 Comment 11/24/19 20:08 Intake & Output 11/27/19 11/28/19 11/28/19 23:59 11:59 23:59 Intake Total 1115 / 1580 485 / 725 240 / 725 Output Total 500 / 2150 Balance 615 / -570 485 / 725 240 / 725 Weight 72.6 kg Intake: IV 155 / 260 5 / 5 Oral 960 / 1320 480 / 720 240 / 720 Output: Urine 500 / 2150 Other: Urine Color Dark Rachel Urine Appearance Clear Clear Urine Odor None Comment Patient voiding independently. Patient voiding frequently. No bladder scan performed. Voiding Methods Toilet Toilet Toilet Laboratory Results WBC 8.56 k/cumm (4.4-10.8) 11/27/19 07:20 RBC 5.14 m/cumm (4.00-5.20) 11/27/19 07:20 Hgb 16.0 g/dL (12.0-15.5) H 11/27/19 07:20 Hct 47.7 % (36.0-46.0) H 11/27/19 07:20 MCV 92.8 fL (80-95) 11/27/19 07:20 MCH 31.1 pg (27.0-33.0) 11/27/19 07:20 MCHC 33.5 g/dL (32.0-36.0) 11/27/19 07:20 RDW 14.6 % (11.7-14.6) 11/27/19 07:20 Plt Count 230 x1000/uL (130-400) 11/27/19 07:20 MPV 10.2 fL (8.0-11.0) 11/27/19 07:20 Immature Gran % 0.7 % 11/25/19 08:00 Neutrophils % 67.9 11/25/19 08:00 Lymphocytes % 20.1 11/25/19 08:00 Monocytes % 11.1 11/25/19 08:00 Eosinophils % 0.0 11/25/19 08:00 Basophils % 0.2 11/25/19 08:00 Absolute Neutrophils 5.90 k/cumm (1.2-6.7) 11/25/19 08:00 Absolute Lymphocytes 1.75 k/cumm (1.2-3.4) 11/25/19 08:00 Absolute Monocytes 0.97 k/cumm (0.11-0.7) H 11/25/19 08:00 Absolute Eosinophils 0.00 k/cumm (0.0-0.7) 11/25/19 08:00 Absolute Basophils 0.02 k/cumm (0.0-0.2) 11/25/19 08:00 Sodium 140 mmol/L (136-145) 11/27/19 07:20 Potassium 4.3 mmol/L (3.5-5.1) 11/27/19 07:20 Chloride 103 mmol/L (98-107) 11/27/19 07:20 Carbon Dioxide 27.3 mmol/L (21.0-32.0) 11/27/19 07:20 Anion Gap 9.7 mmol/L (3-11) 11/27/19 07:20 BUN 15 mg/dL (7-18) 11/27/19 07:20 Creatinine 0.89 mg/dL (0.55-1.02) 11/27/19 07:20 Estimated GFR/1.73 m2 >= 60.00 (mL/min/1.73m2) 11/27/19 07:20 Glucose 86 mg/dL (74-106) 11/27/19 07:20 Calcium 9.7 mg/dL (8.5-10.1) 11/27/19 07:20 Magnesium 1.8 mg/dL (1.8-2.4) 11/26/19 06:35 Total Bilirubin 0.6 mg/dL (0.2-1.0) 11/24/19 17:30 AST 29 U/L (15-37) 11/24/19 17:30 ALT 29 U/L (14-59) 11/24/19 17:30 Alkaline Phosphatase 83 U/L (46-116) 11/24/19 17:30 Total Protein 6.8 g/dL (6.4-8.2) 11/24/19 17:30 Albumin 4.0 g/dL (3.4-5.0) 11/24/19 17:30 Urine Color Yellow (Yellow) 11/24/19 18:33 Urine Clarity Clear (Clear) 11/24/19 18:33 Urine pH 7.0 (5-8) 11/24/19 18:33 Ur Specific [place] 1.015 (1.005-1.025) 11/24/19 18:33 Urine Protein Negative mg/dL (Negative) 11/24/19 18:33 Urine Ketones Negative mg/dL (Negative) 11/24/19 18:33 Urine Blood Negative (Negative) 11/24/19 18:33 Urine Nitrite Negative (Negative) 11/24/19 18:33 Urine Bilirubin Negative (Negative) 11/24/19 18:33 Urine Urobilinogen 0.2 EU/dL (Up TO 0.2) 11/24/19 18:33 Ur Leukocyte Esterase Moderate (Negative) H 11/24/19 18:33 Urine RBC Negative HPF (0-2) 11/24/19 18:33 Urine WBC 20-50 HPF (0-5) H 11/24/19 18:33 Ur Epithelial Cells Negative HPF (Negative) 11/24/19 18:33 Urine Crystals Negative HPF (Negative) 11/24/19 18:33 Urine Bacteria Moderate HPF (Negative) 11/24/19 18:33 Urine Casts Negative LPF (Negative) 11/24/19 18:33 Urine Mucus Negative (Negative) 11/24/19 18:33 Urine Other Negative (Negative) 11/24/19 18:33 Ur Culture Indicated? Yes 11/24/19 18:33 Urine Glucose Negative mg/dL (Negative) 11/24/19 18:33 Urine Opiates Screen Negative (Negative) 11/24/19 18:33 Urine Methadone Screen Negative (Negative) 11/24/19 18:33 Ur Barbiturates Screen Negative (Negative) 11/24/19 18:33 Ur Tricyclics Screen Positive (Negative) A 11/24/19 18:33 Ur Amphetamines Screen Negative (Negative) 11/24/19 18:33 U Benzodiazepines Scrn Positive (Negative) A 11/24/19 18:33 Urine Cocaine Screen Negative (Negative) 11/24/19 18:33 Ur THC Screen Negative (Negative) 11/24/19 18:33 Ethyl Alcohol < 3.0 mg/dL (<3) 11/24/19 17:30 COVID-19 PCR Negative (Negative) 11/27/19 21:38 Nasopharyn COVID-19 PCR Not Applicable 11/27/19 21:38 Ref Test Perform Site [facility] lab 11/27/19 21:38
[2019-11-28 19:56] VITALS: BP 127/89; PULSE 73; RESP 19; TEMP 36.5; O2SAT 97
[2019-11-28] MEDS: Enoxaparin 40 MG/0.4 ML SYR SC (20:28)
[2019-11-28] MEDS: traZODone 50 MG TAB PO (21:40)
[2019-11-28 23:21] VITALS: BP 135/87; PULSE 65; RESP 18; TEMP 36.7; O2SAT 99
[2019-11-29 03:32] VITALS: BP 118/77; PULSE 63; RESP 18; TEMP 36.7; O2SAT 97
[2019-11-29 07:30] VITALS: BP 129/89; PULSE 66; RESP 12; TEMP 36.4; O2SAT 100
--- NOTE | 2019-11-29 07:47 | NUR.NOTE ---
Nursing Note: 0745: pt reports to OT, Annette Preston, that she is feeling suicidal. this RN goes to speak with pt to assess suicidal thoughts. pt reporting the medicine has worn off, without the thorazine I cannot sleep and I am feeling all these bad feelings. I am sad and I don't want to live like this anymore. I have got to get my shit together. I need to go back to [facility], I liked it there and they were able to help me and the meds worked for awhile but they are not working anymore. RN spends time with pt discussing her thoughts of how she might harm herself; pt states she would overdose with medication so she didn't have to live like this anymore. pt expressing thoughts of sadness surrounding living situation, discusses generator, living off the grid, receiving a computer from her sister that she has been unable to connect to the internet because of her living situation. discussion of going to local housing; pt states the lists are just so long, I won't ever get in anywhere that I can afford. 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 pt again brings up placement in a behavioral health rehab and mentions the desire to go to [facility] and that she would be ok with being in the LBGTQ unit as her daughter is transgender. pt agrees to safety contract with this RN while she is hospitalized to not harm herself. pt states she feels safe here and would not do anything to harm herself while here and just wants some help. discussion of importance of group therapy as she participated in while in [facility]; pt states the important things to her are medications, group therapy and having a psychiatrist for medication management. RN reports pt statements to CC Reny Miller. continue to monitor.
[2019-11-29] MEDS: Sertraline 50 MG TAB 150 MG PO (08:08)
[2019-11-29] MEDS: buPROPion-XL 150 MG TABCR PO (08:08)
[2019-11-29] MEDS: Thiamine 100 MG TAB PO (08:09)
[2019-11-29] MEDS: Atenolol 50 MG TAB PO (08:09)
[2019-11-29] MEDS: Folic Acid 1 MG TAB PO (08:09)
[2019-11-29] MEDS: Magnesium Gluconate 500 MG TAB PO ×2 (08:09→20:02)
[2019-11-29] MEDS: Cyanocobalamin 500 MCG TAB 1000 MCG PO (08:09)
[2019-11-29] MEDS: Multivitamin TAB 1 TAB PO (08:09)
[2019-11-29] MEDS: Aspirin 81 MG CHEW CH (08:09)
[2019-11-29] MEDS: Lactobacillus Acidophilus CAP 1 CAP PO (08:09)
--- NOTE | 2019-11-29 09:41 | OTTR_ITS ---
Date of service: 11/29/19 Time of Service: 07:15 Occupational Therapy Notes Occupational Therapy Inpatient Treatment Note Date: 11/29/19 PRECAUTIONS: Fall, Standard, FULL SUBJECTIVE: Pt was sitting in chair when OT arrived. She states that she really wants to go to the [facility] but has mixed feelings on this. She states that she is weaning of her psych medication but she is starting to have increased suicidal thoughts. She reports that she is not sure what is better not feeling anything or feeling all these emotions that she would like to harm herself. OT does discuss this with pts RN post session. Pt throughout session was laughing and able to answer questions appropriately. She states that she just feels overwhelmed. OBJECTIVE: PAIN: no c.o pain FUNCTIONAL MOBILITY Sit-stand: (I) Stand-sit: (I) Bed-Chair: (S) Chair-bed: (S) BATHING: Upper Body: In bathroom she was able to wash her face and (B) UE (I). No vc provided with (S) for static standing balance. Lower Body: Pt denies and reports that she showered last evening DRESSING: Pt was fully dressed when OT arrived. She was willing to demonstrate her functional (I) with dressing. Upper Extremity: (I) don and doff personal shirt with good technique Lower Extremity: (I) don and doff pants and (B) socks ASSESSMENT/PLAN: Pt functionally demonstrates ideal (I) in her ADL/IADL routines. OT is planning to discharge pt from skilled OT services 11/29. Pt was receptive to performance of ADLs and an active participant in OT session. She does state throughout session she is having suicidal thoughts. TREATMENT CODES/TIME: [id number], 15 minutes (07:15) Annette Preston OTR/[facility]
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
[2019-11-29 11:56] VITALS: BP 135/90; PULSE 64; RESP 12; TEMP 37.6; O2SAT 99
--- NOTE | 2019-11-29 15:20 | CMPROGNOTE_ITS ---
Care Management Progress Note S/O: Lisset was sitting up in her chair, adult coloring and watching television when CM met with her. She is ambulating independently throughout the hallways of MED/SURG. She remains interested and voluntary for inpatient psychiatric stabilization to permit medication changes under observation. She was screened by mental health who determined she continues to meet criteria for psychiatric admission. CM faxed updated clinicals to , and [facility] and continues to follow. A: 59 year old female admitted to [facility] 11/24/19 for Generalized weakness; found to be r/t medication changes. P: Lisset is voluntary for inpatient psychiatric stabilization. She has been screened by [facility] Crisis Screener who determined she continues to meet criteria for placement. CM will continue to support admission efforts.
[2019-11-29 15:40] VITALS: BP 120/84; PULSE 70; RESP 18; TEMP 37.6; O2SAT 98
[2019-11-29] MEDS: cefTRIAXone 1 GM/50 ML BAG IV (15:45)
[2019-11-29] MEDS: Normal Saline Flush 10 ML SYR IVP (15:46)
--- NOTE | 2019-11-29 17:11 | PGE_ITS ---
Date of Service Date of service: 11/29/19 Time of Service: 17:12 Assessment and Plan Assessment and plan (1) Depression: Status: Chronic Assessment and plan: continue wellbutrin and sertraline. patient does not feel safe to go home. awaiting inpatient psychiatric bed. Qualifiers: Depression Type: unspecified Qualified Code(s): F32.9 - Major depressive disorder, single episode, unspecified (2) Generalized weakness: Status: Acute Assessment and plan: continues to slowly improve on new medication adjustment. EEG on November 20 shows no focal regions of cerebral dysfunction or epileptiform activity present. continue PT/OT and monitoring. continue wellbutrin at 150 mg po daily, trazdone 50 mg at HS and recommendation by Dr Mosher of Sertraline 150 mg po daily (3) Alcohol abuse: Status: Chronic Assessment and plan: no symptoms of withdrawal, continue high dose thiamine (4) Essential hypertension: Status: Chronic Assessment and plan: blood pressures are controlled. continue to monitor. continue atenolol. (5) Discharge planning issues: Status: Resolved Assessment and plan: case management following. anticipate a discharge to inpatient psychiatry. case and care of plan discussed with Dr Bass who is in agreement Subjective Subjective Interval history since last seen: is reporting suicidal ideation now. medically stable. Exam Const General: cooperative, comfortable, no acute distress, frail appearing and ill appearing chronically Nutritional Appearance: average body habitus Orientation: alert, awake and oriented x3 Limitations: altered mental status HENMT Head: normal to inspection, normocephalic and atraumatic Ears: hearing grossly normal bilaterally Mouth: oral mucosae normal, lip normal (smile symmetrical ), tongue normal and moist mucous membranes Resp Effort & Inspection: normal respiratory effort Auscultation: clear to auscultation bilaterally Cardio Rate: regular rate Rhythm: regular rhythm GI Inspection: normal to inspection Palpation: soft Auscultation: normal bowel sounds General: other (post void bladder scan shows no residual) Neuro General: patient alert, patient awake, patient oriented x3 and moves all extremities Cognition: normal cognition Speech: speech normal Gait: shuffling and staggering (to the right slightly) Motor: muscle tone normal throughout Extrem General: normal to inspection and no pedal edema Objective Objective Clinical Data: Vital Signs Temperature 37.6 C H 11/29/19 15:40 Temperature Source Tympanic 11/29/19 15:40 Pulse 70 11/29/19 15:40 Pulse Rhythm Regular 11/29/19 15:18 Respiratory Rate 18 11/29/19 15:40 Respiratory Effort Non-Labored 11/29/19 15:18 Respiratory Depth Normal 11/29/19 15:18 Respiratory Pattern Normal 11/29/19 15:18 Blood Pressure 120/84 11/29/19 15:40 Blood Pressure Position Supine 11/24/19 16:28 Pulse Oximetry 98 11/29/19 15:40 Oxygen Delivery Method Room Air 11/29/19 15:40 Oxygen Flow Rate 0 11/29/19 15:40 Pain Level 0 11/29/19 15:40 Comment 11/24/19 20:08 Intake & Output 11/28/19 11/29/19 11/29/19 23:59 11:59 23:59 Intake Total 290 / 775 240 / 480 240 / 480 Output Total 500 / 500 Balance 290 / 775 -260 / -20 240 / -20 Weight 73.5 kg Intake: IV 50 / 55 Oral 240 / 720 240 / 480 240 / 480 Output: Urine 500 / 500 Other: Urine Color Yellow Urine Appearance Clear Clear Urine Odor Normal Comment independent to go to the toilet. Patient voids independently and empties hat. Voiding Methods Toilet Laboratory Results WBC 8.56 k/cumm (4.4-10.8) 11/27/19 07:20 RBC 5.14 m/cumm (4.00-5.20) 11/27/19 07:20 Hgb 16.0 g/dL (12.0-15.5) H 11/27/19 07:20 Hct 47.7 % (36.0-46.0) H 11/27/19 07:20 MCV 92.8 fL (80-95) 11/27/19 07:20 MCH 31.1 pg (27.0-33.0) 11/27/19 07:20 MCHC 33.5 g/dL (32.0-36.0) 11/27/19 07:20 RDW 14.6 % (11.7-14.6) 11/27/19 07:20 Plt Count 230 x1000/uL (130-400) 11/27/19 07:20 MPV 10.2 fL (8.0-11.0) 11/27/19 07:20 Immature Gran % 0.7 % 11/25/19 08:00 Neutrophils % 67.9 11/25/19 08:00 Lymphocytes % 20.1 11/25/19 08:00 Monocytes % 11.1 11/25/19 08:00 Eosinophils % 0.0 11/25/19 08:00 Basophils % 0.2 11/25/19 08:00 Absolute Neutrophils 5.90 k/cumm (1.2-6.7) 11/25/19 08:00 Absolute Lymphocytes 1.75 k/cumm (1.2-3.4) 11/25/19 08:00 Absolute Monocytes 0.97 k/cumm (0.11-0.7) H 11/25/19 08:00 Absolute Eosinophils 0.00 k/cumm (0.0-0.7) 11/25/19 08:00 Absolute Basophils 0.02 k/cumm (0.0-0.2) 11/25/19 08:00 Sodium 140 mmol/L (136-145) 11/27/19 07:20 Potassium 4.3 mmol/L (3.5-5.1) 11/27/19 07:20 Chloride 103 mmol/L (98-107) 11/27/19 07:20 Carbon Dioxide 27.3 mmol/L (21.0-32.0) 11/27/19 07:20 Anion Gap 9.7 mmol/L (3-11) 11/27/19 07:20 BUN 15 mg/dL (7-18) 11/27/19 07:20 Creatinine 0.89 mg/dL (0.55-1.02) 11/27/19 07:20 Estimated GFR/1.73 m2 >= 60.00 (mL/min/1.73m2) 11/27/19 07:20 Glucose 86 mg/dL (74-106) 11/27/19 07:20 Calcium 9.7 mg/dL (8.5-10.1) 11/27/19 07:20 Magnesium 1.8 mg/dL (1.8-2.4) 11/26/19 06:35 Total Bilirubin 0.6 mg/dL (0.2-1.0) 11/24/19 17:30 AST 29 U/L (15-37) 11/24/19 17:30 ALT 29 U/L (14-59) 11/24/19 17:30 Alkaline Phosphatase 83 U/L (46-116) 11/24/19 17:30 Total Protein 6.8 g/dL (6.4-8.2) 11/24/19 17:30 Albumin 4.0 g/dL (3.4-5.0) 11/24/19 17:30 Urine Color Yellow (Yellow) 11/24/19 18:33 Urine Clarity Clear (Clear) 11/24/19 18:33 Urine pH 7.0 (5-8) 11/24/19 18:33 Ur Specific [place] 1.015 (1.005-1.025) 11/24/19 18:33 Urine Protein Negative mg/dL (Negative) 11/24/19 18:33 Urine Ketones Negative mg/dL (Negative) 11/24/19 18:33 Urine Blood Negative (Negative) 11/24/19 18:33 Urine Nitrite Negative (Negative) 11/24/19 18:33 Urine Bilirubin Negative (Negative) 11/24/19 18:33 Urine Urobilinogen 0.2 EU/dL (Up TO 0.2) 11/24/19 18:33 Ur Leukocyte Esterase Moderate (Negative) H 11/24/19 18:33 Urine RBC Negative HPF (0-2) 11/24/19 18:33 Urine WBC 20-50 HPF (0-5) H 11/24/19 18:33 Ur Epithelial Cells Negative HPF (Negative) 11/24/19 18:33 Urine Crystals Negative HPF (Negative) 11/24/19 18:33 Urine Bacteria Moderate HPF (Negative) 11/24/19 18:33 Urine Casts Negative LPF (Negative) 11/24/19 18:33 Urine Mucus Negative (Negative) 11/24/19 18:33 Urine Other Negative (Negative) 11/24/19 18:33 Ur Culture Indicated? Yes 11/24/19 18:33 Urine Glucose Negative mg/dL (Negative) 11/24/19 18:33 Urine Opiates Screen Negative (Negative) 11/24/19 18:33 Urine Methadone Screen Negative (Negative) 11/24/19 18:33 Ur Barbiturates Screen Negative (Negative) 11/24/19 18:33 Ur Tricyclics Screen Positive (Negative) A 11/24/19 18:33 Ur Amphetamines Screen Negative (Negative) 11/24/19 18:33 U Benzodiazepines Scrn Positive (Negative) A 11/24/19 18:33 Urine Cocaine Screen Negative (Negative) 11/24/19 18:33 Ur THC Screen Negative (Negative) 11/24/19 18:33 Ethyl Alcohol < 3.0 mg/dL (<3) 11/24/19 17:30 COVID-19 PCR Negative (Negative) 11/27/19 21:38 Nasopharyn COVID-19 PCR Not Applicable 11/27/19 21:38 [facility] 11/27/19 21:38
[2019-11-29 18:58] VITALS: BP 131/87; PULSE 72; RESP 18; TEMP 36.1; O2SAT 98
[2019-11-29] MEDS: Enoxaparin 40 MG/0.4 ML SYR SC (20:02)
[2019-11-29] MEDS: traZODone 50 MG TAB PO (21:34)
[2019-11-30] VITALS (7 sets, daily range): BP systolic 119–153; BP diastolic 83–99; PULSE 66–72; RESP 16–19; TEMP 35.9–37.1; O2SAT 95–100
[2019-11-30 06:56] LABS: HCT 47.1 % (36.0-46.0); HGB 16.2 g/dL (12.0-15.5); Mean Corp. HGB Concentration 34.4 g/dL (32.0-36.0); Mean Corpuscular Hemoglobin 31.5 pg (27.0-33.0); Mean Corpuscular Volume 91.6 fL (80-95); Mean Platelet Volume 10.5 fL (8.0-11.0); Platelet Count 242 x1000/uL (130-400); RBC 5.14 m/cumm (4.00-5.20); RBC Distribution Width 14.2 % (11.7-14.6); White Blood Cell Count 8.18 k/cumm (4.4-10.8)
[2019-11-30] MEDS: buPROPion-XL 150 MG TABCR PO (07:45)
[2019-11-30] MEDS: Sertraline 50 MG TAB 150 MG PO (07:45)
[2019-11-30] MEDS: Multivitamin TAB 1 TAB PO (07:46)
[2019-11-30] MEDS: Atenolol 50 MG TAB PO (07:46)
[2019-11-30] MEDS: Aspirin 81 MG CHEW CH (07:46)
[2019-11-30] MEDS: Folic Acid 1 MG TAB PO (07:46)
[2019-11-30] MEDS: Magnesium Gluconate 500 MG TAB PO ×2 (07:46→19:53)
[2019-11-30] MEDS: Thiamine 100 MG TAB PO (07:46)
[2019-11-30] MEDS: Cyanocobalamin 500 MCG TAB 1000 MCG PO (07:46)
[2019-11-30] MEDS: Lactobacillus Acidophilus CAP 1 CAP PO (07:47)
--- NOTE | 2019-11-30 08:53 | NUR.NOTE ---
Nursing Note: 810am Per patient she denies any suicidal ideation. No thoughts of wanting to hurt herself this morning. RAUL Keane
[2019-11-30] MEDS: Ergocalciferol 50000 UNITS CAP PO (09:50)
--- NOTE | 2019-11-30 10:00 | CMPROGNOTE_ITS ---
Care Management Progress Note S/O: Lisset was sitting up in her chair, adult coloring and watching television when CM met with her. She is ambulating independently throughout the hallways of MED/SURG. She remains interested and voluntary for inpatient psychiatric stabilization to permit medication changes under observation. She was screened by mental health who determined she continues to meet criteria for psychiatric admission. Per RN, [facility] [place] requesting more information; Valerie RN reviewed case needs and notified CM. Sigrid of PT reports Lisset is back to her baseline, and will be discharged from PT today. CM faxed updated clinicals to , and [facility] and continues to follow. A: 59 year old female admitted to [facility] 11/24/19 for Generalized weakness; found to be r/t medication changes. P: Lisset is voluntary for inpatient psychiatric stabilization. She has been screened by [facility] Crisis Screener who determined she continues to meet criteria for placement. Per provider, no CPSO or safety plan required due to RN safety contract and patient presentation; cooperative and forthcoming with SI symptoms. CM will continue to support admission efforts.
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
[2019-11-30] MEDS: cefTRIAXone 1 GM/50 ML BAG IV (15:16)
--- NOTE | 2019-11-30 15:27 | PGE_ITS ---
Date of Service Date of service: 11/30/19 Time of Service: 15:27 Assessment and Plan Assessment and plan (1) Suicidal ideation: Status: Acute Assessment and plan: will place on suicide precautions with a safety plan while awaiting inpatient placement. (2) Urinary tract infection: Status: Acute Assessment and plan: finished a 5 day course of IV ceftriaxone to treat a pansensitive e coli UTI, no further symptoms. (3) Depression: Status: Chronic Assessment and plan: decompensating, will continue wellbutrin and sertraline. patient does not feel safe to go home. awaiting inpatient psychiatric bed. she is Qualifiers: Depression Type: unspecified Qualified Code(s): F32.9 - Major depressive disorder, single episode, unspecified (4) Generalized weakness: Status: Acute Assessment and plan: back to baseline. EEG on November 20 shows no focal regions of cerebral dysfunction or epileptiform activity present. discharged from PT/OT. (5) Alcohol abuse: Status: Chronic Assessment and plan: no symptoms of withdrawal, continue high dose thiamine (6) Essential hypertension: Status: Chronic Assessment and plan: blood pressures are controlled. continue to monitor. continue atenolol. (7) Discharge planning issues: Status: Resolved Assessment and plan: case management following. anticipate a discharge to inpatient psychiatry when bed available, referrals placed. case and care of plan discussed with Dr Bass who is in agreement Subjective Subjective Interval history since last seen: patient continues to remain medically stable but is more tearful and depressed, yesterday she did voice thoughts of suicidal ideation with no plan but stated that she would attempt if she was discharged to home. she is eating and drinking, back to her baseline otherwise. she has been up ambulating in the halls, gait steady. she is cleared by PT. Exam Const General: cooperative, comfortable, no acute distress, frail appearing and ill appearing chronically Nutritional Appearance: average body habitus Orientation: alert, awake and oriented x3 Limitations: altered mental status HENMT Head: normal to inspection, normocephalic and atraumatic Ears: hearing grossly normal bilaterally Mouth: oral mucosae normal, lip normal (smile symmetrical ), tongue normal and moist mucous membranes Resp Effort & Inspection: normal respiratory effort Auscultation: clear to auscultation bilaterally Cardio Rate: regular rate Rhythm: regular rhythm GI Inspection: normal to inspection Palpation: soft Auscultation: normal bowel sounds General: other (post void bladder scan shows no residual) Neuro General: patient alert, patient awake, patient oriented x3 and moves all extremities Cognition: normal cognition Speech: speech normal Gait: shuffling and staggering (to the right slightly) Motor: muscle tone normal throughout Extrem General: normal to inspection and no pedal edema Objective Objective Clinical Data: Abnormal lab results 11/30/19 Range/Units 06:02 Hgb 16.2 H (12.0-15.5) g/dL Hct 47.1 H (36.0-46.0) % Vital Signs Temperature 37.1 C 11/30/19 15:23 Temperature Source Tympanic 11/30/19 15:23 Pulse 72 11/30/19 15:23 Pulse Rhythm Regular 11/30/19 07:10 Respiratory Rate 19 11/30/19 15:23 Respiratory Effort Non-Labored 11/30/19 07:10 Respiratory Depth Normal 11/30/19 07:10 Respiratory Pattern Normal 11/30/19 07:10 Blood Pressure 119/84 11/30/19 15:23 Blood Pressure Position Supine 11/24/19 16:28 Pulse Oximetry 98 11/30/19 15:23 Oxygen Delivery Method Room Air 11/30/19 15:23 Oxygen Flow Rate 0 11/30/19 15:23 Pain Level 0 11/30/19 15:23 Comment 11/24/19 20:08 Intake & Output 11/29/19 11/30/19 11/30/19 23:59 11:59 23:59 Intake Total 290 / 530 700 / 1420 720 / 1420 Balance 290 / 30 700 / 1420 720 / 1420 Weight 73.7 kg Intake: IV 50 / 50 Oral 240 / 480 700 / 1420 720 / 1420 Other: Urine Appearance Clear Clear Comment Patient voids independently in to the toilet. Patient voids independently in to the toilet. Voiding Methods Toilet Toilet Laboratory Results WBC 8.18 k/cumm (4.4-10.8) 11/30/19 06:02 RBC 5.14 m/cumm (4.00-5.20) 11/30/19 06:02 Hgb 16.2 g/dL (12.0-15.5) H 11/30/19 06:02 Hct 47.1 % (36.0-46.0) H 11/30/19 06:02 MCV 91.6 fL (80-95) 11/30/19 06:02 MCH 31.5 pg (27.0-33.0) 11/30/19 06:02 MCHC 34.4 g/dL (32.0-36.0) 11/30/19 06:02 RDW 14.2 % (11.7-14.6) 11/30/19 06:02 Plt Count 242 x1000/uL (130-400) 11/30/19 06:02 MPV 10.5 fL (8.0-11.0) 11/30/19 06:02 Immature Gran % 0.7 % 11/25/19 08:00 Neutrophils % 67.9 11/25/19 08:00 Lymphocytes % 20.1 11/25/19 08:00 Monocytes % 11.1 11/25/19 08:00 Eosinophils % 0.0 11/25/19 08:00 Basophils % 0.2 11/25/19 08:00 Absolute Neutrophils 5.90 k/cumm (1.2-6.7) 11/25/19 08:00 Absolute Lymphocytes 1.75 k/cumm (1.2-3.4) 11/25/19 08:00 Absolute Monocytes 0.97 k/cumm (0.11-0.7) H 11/25/19 08:00 Absolute Eosinophils 0.00 k/cumm (0.0-0.7) 11/25/19 08:00 Absolute Basophils 0.02 k/cumm (0.0-0.2) 11/25/19 08:00 Sodium 140 mmol/L (136-145) 11/27/19 07:20 Potassium 4.3 mmol/L (3.5-5.1) 11/27/19 07:20 Chloride 103 mmol/L (98-107) 11/27/19 07:20 Carbon Dioxide 27.3 mmol/L (21.0-32.0) 11/27/19 07:20 Anion Gap 9.7 mmol/L (3-11) 11/27/19 07:20 BUN 15 mg/dL (7-18) 11/27/19 07:20 Creatinine 0.89 mg/dL (0.55-1.02) 11/27/19 07:20 Estimated GFR/1.73 m2 >= 60.00 (mL/min/1.73m2) 11/27/19 07:20 Glucose 86 mg/dL (74-106) 11/27/19 07:20 Calcium 9.7 mg/dL (8.5-10.1) 11/27/19 07:20 Magnesium 1.8 mg/dL (1.8-2.4) 11/26/19 06:35 Total Bilirubin 0.6 mg/dL (0.2-1.0) 11/24/19 17:30 AST 29 U/L (15-37) 11/24/19 17:30 ALT 29 U/L (14-59) 11/24/19 17:30 Alkaline Phosphatase 83 U/L (46-116) 11/24/19 17:30 Total Protein 6.8 g/dL (6.4-8.2) 11/24/19 17:30 Albumin 4.0 g/dL (3.4-5.0) 11/24/19 17:30 Urine Color Yellow (Yellow) 11/24/19 18:33 Urine Clarity Clear (Clear) 11/24/19 18:33 Urine pH 7.0 (5-8) 11/24/19 18:33 Ur Specific [place] 1.015 (1.005-1.025) 11/24/19 18:33 Urine Protein Negative mg/dL (Negative) 11/24/19 18:33 Urine Ketones Negative mg/dL (Negative) 11/24/19 18:33 Urine Blood Negative (Negative) 11/24/19 18:33 Urine Nitrite Negative (Negative) 11/24/19 18:33 Urine Bilirubin Negative (Negative) 11/24/19 18:33 Urine Urobilinogen 0.2 EU/dL (Up TO 0.2) 11/24/19 18:33 Ur Leukocyte Esterase Moderate (Negative) H 11/24/19 18:33 Urine RBC Negative HPF (0-2) 11/24/19 18:33 Urine WBC 20-50 HPF (0-5) H 11/24/19 18:33 Ur Epithelial Cells Negative HPF (Negative) 11/24/19 18:33 Urine Crystals Negative HPF (Negative) 11/24/19 18:33 Urine Bacteria Moderate HPF (Negative) 11/24/19 18:33 Urine Casts Negative LPF (Negative) 11/24/19 18:33 Urine Mucus Negative (Negative) 11/24/19 18:33 Urine Other Negative (Negative) 11/24/19 18:33 Ur Culture Indicated? Yes 11/24/19 18:33 Urine Glucose Negative mg/dL (Negative) 11/24/19 18:33 Urine Opiates Screen Negative (Negative) 11/24/19 18:33 Urine Methadone Screen Negative (Negative) 11/24/19 18:33 Ur Barbiturates Screen Negative (Negative) 11/24/19 18:33 Ur Tricyclics Screen Positive (Negative) A 11/24/19 18:33 Ur Amphetamines Screen Negative (Negative) 11/24/19 18:33 U Benzodiazepines Scrn Positive (Negative) A 11/24/19 18:33 Urine Cocaine Screen Negative (Negative) 11/24/19 18:33 Ur THC Screen Negative (Negative) 11/24/19 18:33 Ethyl Alcohol < 3.0 mg/dL (<3) 11/24/19 17:30 COVID-19 PCR Negative (Negative) 11/27/19 21:38 Nasopharyn COVID-19 PCR Not Applicable 11/27/19 21:38 Ref Test [facility]form Site [facility] 11/27/19 21:38
--- NOTE | 2019-11-30 16:27 | W.INMHPGNOTE ---
Date of service: 11/30/19 Time of Service: 16:27 Mental Health Crisis Note Presenting Issue How did you arrive at the ED and why did you come: The patient is seen for a follow-up assessment via telehealth for ICU admit on 11/26 with C/C of medication management issues and emotional dysregulation. Precipitating Factors The patient reports significant emotional dysregulation in relation to medication issues (Thorazine) following D/C from [facility] 07/26 - 08/23. She is A/Ox4, immediate memory intact but reports difficulty recalling circumstances of ICU admit earlier in the week. Eye contact is good and patient is responsive throughout assessment with speech that is clear, normal volume and tone. No latency of response. Mood is reported as sad with affect that is flat. No evidence of delusions, hallucinations (A/V/O/S) or psychotic thought process. She denies current SI/HI, intent or plan. Thought process is future oriented. Insight and judgment are fair. She states that I'm sad and afraid all the time. I've been wanting to get my medication changed for 3 months and have been ignored. I need to be competent and stable and right now my head doesn't feel right. No other reported issues. Disposition BEHAVIOR: Patient was calm and appropriate in all interactions. EYE CONTACT: Good MOOD: Sad AFFECT: Flat APPETITE: No reported issues. SLEEP(trouble falling/staying asleep: The patient reports sleep disturbance since change in medication earlier in the week. Plan The patient continues to await voluntary placement for mood stabilization and medication management. As of 4:30p, [facility] has no availability and [facility] is still reviewing documentation. The patient will remain at [facility] pending suitable discharge location. Signature Clinician's Name/Title: Neel Geronimo [facility] Clinician
--- NOTE | 2019-11-30 17:35 | PDOC.CMSAFE ---
- If Service Date Differs Date of service: 11/30/19 Time of Service: 17:40 Care Management Safety Plan Safety plan has been established with patient, and care team, to adhere to patient goals, identify restrictions based on behavioral status, address nutrition, and determine allowed personal belongings, tools for hygiene and personal care. Determine level of activity including ambulation, level of supervision, visitors, and determine privileges based on behaviors and level of engagement. SAFETY PLAN: 1. Will remain on suicide precautions. Permitted to wear her own clothing. 2. Will remain under direct supervision of one-on-one staff at all times provided by [employer]; FABIÁN, SCIENCE INSTRUCTOR inpatient services director in transition area. 3. May have regular tray and utensils with which to eat meals. [facility] staff will be responsible for accounting of utensils after meals. 4. Follow [facility] Management of the Admitted Behavioral Health Patient policy. 5. Shower permitted per RN discretion with escort to shower room. 6. Permitted to have patient own notebook, art materials, belongings and pen at RN discretion. 7. Visitors-No visitors at this time 8. Activities: Television, remote, music tablet with wired earbuds. 9. Bathroom privileges without limitation. 10. Phone: patient permitted to have her own cell phone, tablet, laptop, etc. 11. Due to VOLUNTARY status, if patient wishes to leave [facility], the [facility] greenhouse worker must be contacted to re-evaluate patient prior to patient exiting the building. Placement: [facility] reports no bed availability at this time. Referrals faxed and under review. Due to increased support required for Lisset to regulate her emotions, Lisset will admit to Transition Bed while awaiting placement,[facility] and safety plan ordered by provider. Lisset is currently voluntarily at [facility] and seeking inpatient admission when a bed becomes available. [facility] Frontline Information Systems Coordinator will continue seeking placement. Please contact the [employer] Professional Services Consultant ([phone]) and [facility] Information Systems Coordinator ([phone]) for any needed changes in the Safety Plan. Safety plan has been provided to interdepartmental care team.
[2019-11-30] MEDS: Enoxaparin 40 MG/0.4 ML SYR SC (19:53)
[2019-11-30] MEDS: traZODone 50 MG TAB PO (21:49)
[2019-12-01 05:22] VITALS: BP 134/92; PULSE 70; RESP 16; TEMP 36.4; O2SAT 99
--- NOTE | 2019-12-01 09:02 | PDOC.CMSAFE ---
- If Service Date Differs Date of service: 12/01/19 Time of Service: 09:02 Care Management Safety Plan Safety plan 12/01/19 Safety plan has been established with patient, and care team, to adhere to patient goals, identify restrictions based on behavioral status, address nutrition, and determine allowed personal belongings, tools for hygiene and personal care. Determine level of activity including ambulation, level of supervision, visitors, and determine privileges based on behaviors and level of engagement. SAFETY PLAN: 1. Will remain on suicide precautions. Permitted to wear her own clothing. 2. Will remain under direct supervision of one-on-one staff at all times provided by [employer]; FABIÁN, ASSOCIATE OF SCIENCE IN NURSING equipment operator/laborer in transition area. 3. May have regular tray and utensils with which to eat meals. [facility] staff will be responsible for accounting of utensils after meals. 4. Follow [facility] Management of the Admitted Behavioral Health Patient policy. 5. Shower permitted per RN discretion with escort to shower room. 6. Permitted to have patient own notebook, art materials, belongings and pen at RN discretion. 7. Visitors-No visitors at this time 8. Activities: Television, remote, music tablet with wired earbuds. 9. Bathroom privileges without limitation. 10. Phone: patient permitted to have her own cell phone, tablet, laptop, etc. 11. Due to VOLUNTARY status, if patient wishes to leave [facility], the [facility] post tensioning ironworker helper must be contacted to re-evaluate patient prior to patient exiting the building.
[2019-12-01] MEDS: Folic Acid 1 MG TAB PO (09:04)
[2019-12-01] MEDS: Cyanocobalamin 500 MCG TAB 1000 MCG PO (09:04)
[2019-12-01] MEDS: Lactobacillus Acidophilus CAP 1 CAP PO (09:04)
[2019-12-01] MEDS: buPROPion-XL 150 MG TABCR PO (09:04)
[2019-12-01] MEDS: Thiamine 100 MG TAB PO (09:04)
[2019-12-01] MEDS: Sertraline 50 MG TAB 150 MG PO (09:05)
[2019-12-01] MEDS: Magnesium Gluconate 500 MG TAB PO (09:05)
[2019-12-01] MEDS: Atenolol 50 MG TAB PO (09:05)
[2019-12-01] MEDS: Aspirin 81 MG CHEW CH (09:05)
[2019-12-01] MEDS: Multivitamin TAB 1 TAB PO (09:05)
--- NOTE | 2019-12-01 11:10 | W.INMHPGNOTE ---
Date of service: 12/01/19 Time of Service: 11:10 Mental Health Crisis Note Presenting Issue How did you arrive at the ED and why did you come: Client arrived at [facility] on 11/24/19 due to med complications. Client was seen by mental health on 11/28/19 and been awaiting inpatient placement. Precipitating Factors Client reports no SI or HI at this time. Client reports feeling terrible and wanting to get her meds in order. Disposition BEHAVIOR: unremarkable EYE CONTACT: good MOOD: depressed, tearful AFFECT: normal APPETITE: non existent SLEEP(trouble falling/staying asleep: moderatly well sleep Plan Client is still wanting inpatient treatment but would like to go home while she waits for a bed to become available. Spoke with care management and discussed the possibility of client being discharged as she awaits placement. Signature Clinician's Name/Title: Jaelyn Che [facility] Emergency Clinician
--- NOTE | 2019-12-01 11:26 | W.PM.PROGNOT ---
Date of Service Date of service: 12/01/19 Time of Service: 11: Assessment and Plan Assessment and plan (1) Suicidal ideation: Start date: 12/01/19 Start time: 11:29 Status: Resolved Assessment and plan: No Suicidal at this time. She has no intent to harm her self. She is waiting for placement for voluntary services. she is in transition room at this time. (2) Urinary tract infection: Start date: 12/01/19 Start time: 11:30 Status: Resolved Assessment and plan: finished a 5 day course of IV ceftriaxone to treat a pansensitive e coli UTI, no further symptoms. (3) Depression: Start date: 12/01/19 Start time: 11:30 Status: Chronic Assessment and plan: decompensating, today she is expressing being in the hospital is adding to her depression. She has been on her medication for some time now and does not feel it is working effectively. Will reach out to psych if she is still here on Tuesday about patient concerns. Qualifiers: Depression Type: unspecified Qualified Code(s): F32.9 - Major depressive disorder, single episode, unspecified (4) Generalized weakness: Start date: 12/01/19 Start time: 11:32 Status: Acute Assessment and plan: back to baseline. EEG on November 20 shows no focal regions of cerebral dysfunction or epileptiform activity present. discharged from PT/OT. (5) Alcohol abuse: Start date: 12/01/19 Start time: 11:32 Status: Chronic Assessment and plan: no symptoms of withdrawal, continue high dose thiamine (6) Essential hypertension: Start date: 12/01/19 Start time: 11:32 Status: Chronic Assessment and plan: blood pressures are controlled. continue to monitor. continue atenolol. (7) Discharge planning issues: Start date: 12/01/19 Start time: 11:32 Status: Resolved Assessment and plan: case management following. anticipate a discharge to inpatient psychiatry when bed available, referrals placed. case and care of plan discussed with Dr Brown who is in agreement Subjective Subjective Patient reports: other Interval history since last seen: Feeling depressed, sad, flat. Does not feel antidepressants are working. She is not having thoughts of harming herself. She is trying to sell her house and land and feels being in the hospital is also making her moods worse. She feels that being at home would help her but does not feel she will get the medication transition and management she wants. She feels that no one is listening as she does not feel that any medications are working and she is still continuing to take them. Will reach out to psych if she is still here Tuesday for changes to medication. She will need close follow up. She may also benefit from a change from wellbutrin given seizure activity. Exam Const General: cooperative, comfortable, no acute distress, frail appearing and ill appearing chronically Nutritional Appearance: average body habitus Orientation: alert, awake and oriented x3 Limitations: altered mental status HENDC Head: normal to inspection, normocephalic and atraumatic Ears: hearing grossly normal bilaterally Mouth: oral mucosae normal, lip normal (smile symmetrical ), tongue normal and moist mucous membranes Resp Effort & Inspection: normal respiratory effort Auscultation: clear to auscultation bilaterally Cardio Rate: regular rate Rhythm: regular rhythm GI Inspection: normal to inspection Palpation: soft Auscultation: normal bowel sounds General: other (post void bladder scan shows no residual) Neuro General: patient alert, patient awake, patient oriented x3 and moves all extremities Cognition: normal cognition Speech: speech normal Gait: shuffling and staggering (to the right slightly) Motor: muscle tone normal throughout Extrem General: normal to inspection and no pedal edema Objective Objective Clinical Data: Vital Signs Temperature 36.4 C L 12/01/19 05:22 Temperature Source Tympanic 11/30/19 23:42 Pulse 70 12/01/19 05:22 Pulse Rhythm Regular 12/01/19 03:03 Respiratory Rate 16 12/01/19 05:22 Respiratory Effort Non-Labored 12/01/19 03:03 Respiratory Depth Normal 12/01/19 03:03 Respiratory Pattern Normal 12/01/19 03:03 Blood Pressure 134/92 H 12/01/19 05:22 Blood Pressure Position Supine 11/24/19 16:28 Pulse Oximetry 99 12/01/19 05:22 Oxygen Delivery Method Room Air 12/01/19 05:22 Oxygen Flow Rate 0 12/01/19 05:22 Pain Level 0 12/01/19 05:22 Comment 11/30/19 20:05 Intake & Output 11/30/19 11/30/19 12/01/19 11:59 23:59 11:59 Intake Total 700 / 1660 960 / 1660 250 / 250 Balance 700 / 1660 960 / 1660 250 / 250 Weight 73.7 kg Intake: Oral 700 / 1660 960 / 1660 250 / 250 Other: Urine Color Yellow Yellow Urine Appearance Clear Clear Clear Comment Patient voids independently in to the toilet. Per patient rate. Per patient rate. Voiding Methods Toilet Toilet Toilet Laboratory Results WBC 8.18 k/cumm (4.4-10.8) 11/30/19 06:02 RBC 5.14 m/cumm (4.00-5.20) 11/30/19 06:02 Hgb 16.2 g/dL (12.0-15.5) H 11/30/19 06:02 Hct 47.1 % (36.0-46.0) H 11/30/19 06:02 MCV 91.6 fL (80-95) 11/30/19 06:02 MCH 31.5 pg (27.0-33.0) 11/30/19 06:02 MCHC 34.4 g/dL (32.0-36.0) 11/30/19 06:02 RDW 14.2 % (11.7-14.6) 11/30/19 06:02 Plt Count 242 x1000/uL (130-400) 11/30/19 06:02 MPV 10.5 fL (8.0-11.0) 11/30/19 06:02 Immature Gran % 0.7 % 11/25/19 08:00 Neutrophils % 67.9 11/25/19 08:00 Lymphocytes % 20.1 11/25/19 08:00 Monocytes % 11.1 11/25/19 08:00 Eosinophils % 0.0 11/25/19 08:00 Basophils % 0.2 11/25/19 08:00 Absolute Neutrophils 5.90 k/cumm (1.2-6.7) 11/25/19 08:00 Absolute Lymphocytes 1.75 k/cumm (1.2-3.4) 11/25/19 08:00 Absolute Monocytes 0.97 k/cumm (0.11-0.7) H 11/25/19 08:00 Absolute Eosinophils 0.00 k/cumm (0.0-0.7) 11/25/19 08:00 Absolute Basophils 0.02 k/cumm (0.0-0.2) 11/25/19 08:00 Sodium 140 mmol/L (136-145) 11/27/19 07:20 Potassium 4.3 mmol/L (3.5-5.1) 11/27/19 07:20 Chloride 103 mmol/L (98-107) 11/27/19 07:20 Carbon Dioxide 27.3 mmol/L (21.0-32.0) 11/27/19 07:20 Anion Gap 9.7 mmol/L (3-11) 11/27/19 07:20 BUN 15 mg/dL (7-18) 11/27/19 07:20 Creatinine 0.89 mg/dL (0.55-1.02) 11/27/19 07:20 Estimated GFR/1.73 m2 >= 60.00 (mL/min/1.73m2) 11/27/19 07:20 Glucose 86 mg/dL (74-106) 11/27/19 07:20 Calcium 9.7 mg/dL (8.5-10.1) 11/27/19 07:20 Magnesium 1.8 mg/dL (1.8-2.4) 11/26/19 06:35 Total Bilirubin 0.6 mg/dL (0.2-1.0) 11/24/19 17:30 AST 29 U/L (15-37) 11/24/19 17:30 ALT 29 U/L (14-59) 11/24/19 17:30 Alkaline Phosphatase 83 U/L (46-116) 11/24/19 17:30 Total Protein 6.8 g/dL (6.4-8.2) 11/24/19 17:30 Albumin 4.0 g/dL (3.4-5.0) 11/24/19 17:30 Urine Color Yellow (Yellow) 11/24/19 18:33 Urine Clarity Clear (Clear) 11/24/19 18:33 Urine pH 7.0 (5-8) 11/24/19 18:33 Ur Specific [place] 1.015 (1.005-1.025) 11/24/19 18:33 Urine Protein Negative mg/dL (Negative) 11/24/19 18:33 Urine Ketones Negative mg/dL (Negative) 11/24/19 18:33 Urine Blood Negative (Negative) 11/24/19 18:33 Urine Nitrite Negative (Negative) 11/24/19 18:33 Urine Bilirubin Negative (Negative) 11/24/19 18:33 Urine Urobilinogen 0.2 EU/dL (Up TO 0.2) 11/24/19 18:33 Ur Leukocyte Esterase Moderate (Negative) H 11/24/19 18:33 Urine RBC Negative HPF (0-2) 11/24/19 18:33 Urine WBC 20-50 HPF (0-5) H 11/24/19 18:33 Ur Epithelial Cells Negative HPF (Negative) 11/24/19 18:33 Urine Crystals Negative HPF (Negative) 11/24/19 18:33 Urine Bacteria Moderate HPF (Negative) 11/24/19 18:33 Urine Casts Negative LPF (Negative) 11/24/19 18:33 Urine Mucus Negative (Negative) 11/24/19 18:33 Urine Other Negative (Negative) 11/24/19 18:33 Ur Culture Indicated? Yes 11/24/19 18:33 Urine Glucose Negative mg/dL (Negative) 11/24/19 18:33 Urine Opiates Screen Negative (Negative) 11/24/19 18:33 Urine Methadone Screen Negative (Negative) 11/24/19 18:33 Ur Barbiturates Screen Negative (Negative) 11/24/19 18:33 Ur Tricyclics Screen Positive (Negative) A 11/24/19 18:33 Ur Amphetamines Screen Negative (Negative) 11/24/19 18:33 U Benzodiazepines Scrn Positive (Negative) A 11/24/19 18:33 Urine Cocaine Screen Negative (Negative) 11/24/19 18:33 Ur THC Screen Negative (Negative) 11/24/19 18:33 Ethyl Alcohol < 3.0 mg/dL (<3) 11/24/19 17:30 COVID-19 PCR Negative (Negative) 11/27/19 21:38 Nasopharyn COVID-19 PCR Not Applicable 11/27/19 21:38 Ref Test Perform Site [facility] lab 11/27/19 21:38
--- NOTE | 2019-12-01 13:35 | CMDISCH_ITS ---
- If Service Date Differs Date of service: 12/01/19 Time of Service: 13:35 LACE Index Scoring Tool - Questions: Length of Stay (in days): 7 - 13 Acuity (Admit via E.D.?): Yes Care Management Discharge Reason for Hospitalization: Generalized Weakness Discharge Plan: Lisset prefers to be discharged home today and follow up as outpatient with [facility]. She denies that she is suicidal and expresses her frustration with repeating this information over and over. She states she is feeling hopeless in her current informaiton and feels that being in the transition area is making it much worse. She states I am depressed about my situation, but I dont want to she denies any plan to do self harm. She states she has been struggling with her outpatient services for months now and that her depression and anxiety have not been managed well. She states she wants to see a psychiatric provider that is willing to manage her medications and follow closely during changes. CM reviewed this plan with [facility] and she will be referred to tractor trailer operator on Tuesday CM has requested an appointment this week for close follow up. Lisset states she feels safe being discharged. CM will contact patient on Tuesday to ensure that an appointment is scheduled with [facility], she will continue to meet with Handy Hatfield her outpatient therapist. CM has provided her with information to contact CM over the weekend and [facility] number to contact crisis if needed. SEISMOMETER OPERATOR agrees with the discharge plan. CM to contact [facility] and coordinate transportation home. Patient/Family Education Needs: Discharge plan, limitations and follow up including information to contact [facility] and [facility] CM with questions or concerns. Services Needed at Discharge: Transportation - MH Services (Omit if N/A) Current MH Services: [facility]
--- NOTE | 2019-12-01 13:47 | DSE_ITS ---
Date of service: 12/01/19 Time of Service: 13:48 DS: Diagnosis Discharge Diagnosis (1) Suicidal ideation: Start date: 12/01/19 Start time: 13:48 Status: Resolved Asessment and Plan: NO SI or intent to harm. Patient was awaiting bed for voluntary services however feels she would be better off at home. (2) Urinary tract infection: Start date: 12/01/19 Start time: 13:49 Status: Resolved Asessment and Plan: received 5 days ceftriaxone (3) Depression: Start date: 12/01/19 Start time: 13:49 Status: Chronic Asessment and Plan: decompensating, today she is expressing being in the hospital is adding to her depression. She has been on her medication for some time now and does not feel it is working effectively. She will need close follow up with [facility] for further management of medication (4) Generalized weakness: Start date: 12/01/19 Start time: 13:50 Status: Resolved Asessment and Plan: back to baseline, discharged from PT likely in setting of thorazine use causing parkinsonim symptoms (5) Alcohol abuse: Start date: 12/01/19 Start time: 13:51 Status: Chronic Asessment and Plan: Continue alcohol abstinence. (6) Essential hypertension: Start date: 12/01/19 Start time: 13:53 Status: Chronic Asessment and Plan: continue atenolol Discharge Plan Disposition Patient Disposition: HOME Condition: Stable Discharge Details Chief Complaint: GenMedical Clinical Impression: Generalized weakness Reason For Visit: GENERALIZED WEAKNESS Admit Date/Time: 11/24/19 18:53 Admit Provider: Koby Bland Attending Provider: Koby Bland Primary Care Provider: Daljit Amezquita ED Provider: [facility] Hospital Course Hospital Course: 59-year-old female with a history of alcohol abuse and unspecified psychiatric disorder possibly bipolar who was recently hospitalized at [facility] for symptoms that were initially attributed to a TIA but in fact was ruled out for stroke or TIA. She had a complete work-up for cerebrovascular disease including CTA of the head and neck, MRI of the brain, MRA of the brain, echocardiogram. During her hospitalization she had an episode that was felt to be consistent with alcohol withdrawal seizure although she had no prior history of seizures. That episode was manifested by acute level of decreased consciousness with urinary incontinence with a postictal state that lasted for about 20 to 30 minutes. Subsequent work-up including EEG was negative. She was placed on tapering doses of Librium over the next couple days and did well and was discharged home. She was only home for 1 day when she said that she was experiencing generalized weakness and her legs were giving out on her. She says for the last 2 weeks she has been walking with a slow shuffle gait like an old lady. She is having trouble performing ADLs because of unable to initiate activity. She feels like she is walking around in a fog. She states that she used to cry at the drop of a hat and use to laugh and now she cannot even initiate those emotions. She was hospitalized in a psychiatric hospital back in July after she been hospitalized at [facility] the end of June for depression and alcohol abuse. Since that time she has been on chlorpromazine 300 mg nightly in addition to her Wellbutrin 150 mg twice a day and sertraline 150 mg daily. Pharmacist review of her medication list appears that the patient had 2 different prescriptions for Wellbutrin. Her original prescription that she been taking dating back to June 2019 was 150 mg twice a day but more recently at the end of October the dose has been increased to 300 mg twice a day. In retrospect it looks like her alleged alcohol withdrawal seizure was probably medication induced. She was admitted to /s for further management of her symptoms. Over course of treatment selam was dcd with weakness resolving returning back to baseline. deemed her voluntary as she was not suicidal or homicidal. Initially she wanted placement for her medication management. She feels strongly that wellbutrin and zoloft are not working. She can not have any emotions, her affect is flat and she would like to try different medications, however being in the hospital is depressing her more than if she were at home. She would like to sell her land and move back to [place]. She agrees to outpatient follow up with [facility] human services for further management of her depression and medications. She will continue wellbutrin with follow up for possible transition to a different antidepressant as this does not appear to be working for her. She denies CP, SOB, N/V/D. Home Meds and New Rx's Prescriptions: New aspirin 81 mg Tablet,Chewable 81 mg CH DAILY Qty: 30 RF: 0 Continued acetaminophen 500 mg tablet 500 mg PO Q6H PRN (Reason: pain) Qty: 90 RF: 2 ergocalciferol (vitamin D2) [Vitamin D2] 50,000 unit Capsule 1.25 mg PO QWEEK RF: 0 sertraline 100 mg Tablet 150 mg PO DAILY RF: 0 cyanocobalamin (vitamin B-12) [Vitamin B-12] 1,000 mcg Tablet 1,000 mcg PO DAILY RF: 0 thiamine HCl (vitamin B1) [Vitamin B-1] 100 mg Tablet 100 mg PO DAILY RF: 0 atenolol 50 mg tablet 50 mg PO DAILY RF: 0 multivitamin [Multiple Vitamins] Tablet 1 tab PO DAILY Qty: 30 RF: 0 folic acid 1 mg Tablet 1 mg PO DAILY Qty: 30 RF: 0 magnesium gluconate 27 mg magnesium (500 mg) Tablet 500 mg PO BID Qty: 60 RF: 0 Acidophilus-Pectin Tablet,Chewable 1 tab PO DAILY RF: 0 Discontinued chlorpromazine 50 mg Tablet 300 mg PO HS RF: 0 bupropion HCl [Wellbutrin SR] 150 mg tablet sustained-release 12 hr 150 mg PO BID Qty: 1 RF: 0 Discharge Instructions Instructions: Depression (DC), Help Prevent Suicide (DC), Anxiety (DC), Alcohol Dependence (DC), Alcohol Use Disorder (DC) Additional Instructions: Take wellbutrin 150 mg daily until follow up with [facility] will contact you by Tuesday if not care management will call you DO NOT DRINK ALCOHOL Do not take more than 150 mg wellbutrin twice a day Activity:: Activity as Tolerated Equipment/Supplies:: No Equipment Needed Diet:: As Tolerated Discharge Orders Discharge Orders: Discharge Order (Routine); Ordered 12/01/19 Ordered By: Valencia Rebolledo DS: Summary Status at Discharge Functional status at discharge: independent ambulation Overall status at discharge: patient is back to baseline Mental Status: mental status grossly normal and other Speech and Movement: speech and movement normal Mood: other Affect: indifferent and blunted Exam Narrative Exam Narrative: She has a masked facies and flat affect. Otherwise she is alert and oriented person place time circumstance. Normal facial mimetic muscle movement. Full extraocular motion intact. 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 Normal strength in both lower extremities with hip flexion extension as well as dorsiflexion plantarflexion of the feet as well as knee extension. Sensory exam is intact to light touch and pain over the face arms and legs and feet. Babinski reflexes absent bilaterally No tremors present LSC, no rales, or wheezing RRR no murmur Psych Mental Status: mental status grossly normal and other Speech and Movement: speech and movement normal Mood: other Affect: indifferent and blunted DS: Data Vitals/I&O Vitals and I&O: Vital Signs Temperature 36.4 C L 12/01/19 05:22 Temperature Source Tympanic 11/30/19 23:42 Pulse 70 12/01/19 05:22 Pulse Rhythm Regular 12/01/19 11:56 Respiratory Rate 16 12/01/19 05:22 Respiratory Effort Non-Labored 12/01/19 11:56 Respiratory Depth Normal 12/01/19 11:56 Respiratory Pattern Normal 12/01/19 11:56 Blood Pressure 134/92 H 12/01/19 05:22 Blood Pressure Position Supine 11/24/19 16:28 Pulse Oximetry 99 12/01/19 05:22 Oxygen Delivery Method Room Air 12/01/19 05:22 Oxygen Flow Rate 0 12/01/19 05:22 Pain Level 0 12/01/19 05:22 Comment 11/30/19 20:05 Intake & Output 11/30/19 12/01/19 12/01/19 23:59 11:59 23:59 Intake Total 960 / 1660 750 / 750 Balance 960 / 1660 750 / 750 Intake: Oral 960 / 1660 750 / 750 Other: Urine Color Yellow Yellow Urine Appearance Clear Clear Comment Per patient rate. patient is indpendant in the room Voiding Methods Toilet Toilet [facility] Medical History Alcohol abuse (Chronic) Essential hypertension (Chronic) Fracture of metatarsal of left foot, closed (Resolved ~04/30/19) 3rd, 4th and 5th metatarsals Hypertension (Chronic) TBI (traumatic brain injury) (Chronic) Surgical History Hx of appendectomy (Chronic) Previous section (Chronic) x2 Family History Brother Stroke Mother Diabetes Lung cancer nonsmoker Father Hypertension Social History Smoking/Tobacco Use Status: Never Alcohol Intake: current Alcohol Intake frequency: 3 or more drinks per day Alcohol type: beer and wine Details: never had withdrawal or seizures Drug use: Socially Substance use type: marijuana Details: patient states last alcohol beverage was prior to last admission Current gender identity: female Do you feel safe at home: No Do you feel safe in your relationship?: Yes Additional Social history: patient states she falls alot.
--- NOTE | 2019-12-01 14:36 | PDOC.MHCN_ITS ---
Date of service: 11/29/19 Time of Service: 15:36 Mental Health Crisis Note Presenting Issue How did you arrive at the ED and why did you come: The individual was at [facility] inpatient when we zoomed. Precipitating Factors The clt was still had issues pertaining to some psychotic disturbance. She doesn't want to hurt herself but voices are still present and she doesn't think she'd be able to maintain her personal safety in an unsecured environment. Presently, all psych units are current filled. The clt is willing to stay at [facility] until a voluntary placement in a psych unit is obtained. I discussed this the care trainer. Disposition BEHAVIOR: Clt was cooperative EYE CONTACT: Eye contact was good MOOD: Her mood was pleasant with little expression. AFFECT: Fairly flat affect. APPETITE: good SLEEP(trouble falling/staying asleep: Sleep was fair. Plan The clt was very appreciative of the nursing staff. The clt will stay at [facility] under voluntary status.
--- NOTE | 2019-12-05 14:17 | PT.INDS ---
Date of service: 12/05/19 Time of Service: 14:18 PT Notes Visit Reasons: GENERALIZED WEAKNESS Inpatient Physical Therapy Discharge Summary Dates: 12/05/2019 Dates of Service: 11/25/2019 through 11/29/2019 This is a clinical summary of care provided on the duration of dates listed above. No charge was made in the completion of this documentation. Referring Doctor: Koby Bland MD PT Orders: PT CONSULT: Fall Safety Assessment Precautions: Fall. Standard. Activity as tolerated. Patient Profile/Admitting Diagnosis: Lisset is a 59-year-old female who presented to the ED on 11/24/2019 with chief compliant of generalized muscle weakness. Per chart review, she was at the ED on 11/23/2019 with diagnosis of ETOH withrawal, ETOH abuse, depression, and HTN but was discharged same day. It was suspected that said weakness may be attributable to her current psych medications which result to parkinsonian-type signs and symptoms. Referral to physical therapy was received today to assess for safety of mobility ADL performance. PMHX: Medical History Alcohol abuse (Chronic) Essential hypertension (Chronic) Fracture of metatarsal of left foot, closed (Acute ~04/30/19) 3rd, 4th and 5th metatarsals Hypertension (Chronic) TBI (traumatic brain injury) (Chronic) Surgical History Hx of appendectomy (Chronic) Previous section (Chronic) x2 Social History/Home Situation: Lisset lives alone in a private home with 2 steps to enter with rails on B sides. Prior to admission, she is able to mange on her own without the need for an assistive ambulatory device nor adaptive equipment. 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 Equipment Owned/DME: None Subjective: Lisset was willing to have a second session in the afternoon but Nurse Galvan clarified that she is transferring to the psych unit. Objective: General Observation: No lines. Mental Status: Oriented as to person, place, and time Pain: None reported ROM: Right Upper Extremity: Shoulder Flexion WFL. Shoulder abduction WFL. Elbow flexion WFL. Wrist flexion WFL. Opening and closing of hand WFL. Left Upper Extremity: Shoulder Flexion WFL. Shoulder abduction WFL. Elbow flexion WFL. Wrist flexion WFL. Opening and closing of hand WFL. Right Lower Extremity: Hip flexion WFL. Hip abduction WFL. Knee flexion WFL. Ankle dorsiflexion WFL. Ankle plantarflexion WFL. Left Lower Extremity: Hip flexion WFL. Hip abduction WFL. Knee flexion WFL. Ankle dorsiflexion WFL. Ankle plantarflexion WFL. Strength: Right Upper Extremity: Shoulder flexors 5/5. Shoulder abductors 5/5. Elbow flexors 5/5. Elbow extensors 5/5. Equipment Maintenance Engineer strong. Left Upper Extremity: Shoulder flexors 5/5. Shoulder abductors 5/5. Elbow flexors 5/5. Elbow extensors 5/5. Equipment Maintenance Engineer strong. Right Lower Extremity: Hip flexors 5/5. Hip abductors 5/5. Knee flexors 5/5. Knee extensors 5/5. Ankle dorsiflexors 5/5. Ankle plantarflexors 5/5. Left Lower Extremity: Hip flexors 5/5. Hip abductors 5/5. Knee flexors 5/5. Knee extensors 5/5. Ankle dorsiflexors 5/5. Ankle plantarflexors 5/5. Sensation: Intact as to pain and pressure on bilateral lower extremities. Bed Mobility/Transfers: Supine to sit independent Sit to supine independent Sit to stand independent Stand to sit independent Bed to chair independent Chair to bed independent Gait: Lisset tolerated 1300 feet of level surface ambulation without an assistive ambulatory device. Normal heel?toe gait pattern seen with adequate bilateral reciprocal arm swing. Balance: Static Sitting: Normal Dynamic Sitting: Normal Static Standing: Good Dynamic Standing: Good Assessment: Lisset has met all goals listed below. Per nurse Cole, she is to be transferred to the hospital psych [facility] this afternoon. Goals: Goals X1 week 1. Supine-Sit independent MET 2. Sit-Supine independent MET 3. Sit-Stand independent MET 4. Stand-Sit independent MET 5. Bed-Chair independent MET 6. Chair-Bed independent MET 7. Independent gait on level surface with use of least restrictive device for at least 300 feet without report of pain nor dyspnea MET 8. Independent stair negotiation while holding onto bilateral rails for at least 5 steps without report of pain nor dyspnea MET 9. Independent with home exercise program MET 10. Good static and dynamic standing balance/tolerance MET DISCHARGE RECOMMENDATIONS: Transfer to the psych unit this afternoon. TREATMENT CODE/TIME: [place] Thank you very much for this referral. Brigida Nunes PT, DPT, CLT [facility] [place], [place]
== END 2019-12-01 15:35 | disposition home or self-care (01) | DRG 881 ==
LOC: ER 19:14 → MS 19:48
PROVIDERS: Nurse Practitioner Family; Admitting Provider Internal Medicine; Emergency Provider Registered Nurse Emergency; PCP Internal Medicine; Visit Provider Internal Medicine
DX: R53.1 Weakness (principal); F32.9 Major depressive disorder, single episode, unspecified; R45.851 Suicidal ideations; N39.0 Urinary tract infection, site not specified; F45.9 Somatoform disorder, unspecified; F10.10 Alcohol abuse, uncomplicated; I10 Essential (primary) hypertension; B96.20 Unspecified Escherichia coli [E. coli] as the cause of diseases classified elsewhere; Z71.3 Dietary counseling and surveillance
CPT/HCPCS: 36415; 80048; 80053; 80307; 85027; 87077; 96361; 96365; 97110; 97112; 97162; 97166; 97530; 97535; 99223; 99233; 99239; 99285; 99309; J1650; NC; U0003; 80320; 81003; 81015; 83735; 85025; 87086; 87186; 93005; 93010; 99284; J0696

== ENCOUNTER → 2019-11-26 08:08 | Outpatient (BNVA) | payer MEDICARE, MEDICAID, SELFPAY | PROVIDERS: PCP Internal Medicine; Referring Provider Internal Medicine; Visit Provider Psychiatry & Neurology Neurology | DX: R69 Illness, unspecified (principal) ==

== ENCOUNTER 2019-12-13 09:36 | Outpatient (REF) | payer MEDICARE, MEDICAID, SELFPAY ==
[2019-12-15 11:42] LABS: C Difficile PCR Positive (Negative); Campylobacter PCR Negative (Negative); Salmonella PCR Negative (Negative); Shiga Toxin PCR Negative (Negative); Shigella/Enteroinvasive Ecoli Negative (Negative)
== END 2019-12-13 09:56 ==
LOC: NCHCN 09:36
PROVIDERS: PCP Family Medicine; Visit Provider Physician Assistant
DX: R19.7 Diarrhea, unspecified (principal)
CPT/HCPCS: 87329; 87505; 87324; 87798

== ENCOUNTER 2020-02-07 09:03 | Outpatient (REF) | payer MEDICARE, MEDICAID, SELFPAY ==
[2020-02-12 10:11] LABS: Misc Referral (VDH) See Comments
== END 2020-02-07 09:23 ==
LOC: NCHCN 09:03
PROVIDERS: PCP Family Medicine; Visit Provider Family Medicine
DX: R19.7 Diarrhea, unspecified (principal)
CPT/HCPCS: 87324

== ENCOUNTER 2020-02-27 09:42 | Outpatient (REF) | payer MEDICARE, MEDICAID, SELFPAY ==
--- NOTE | 2020-02-27 09:30 | PAPFT_PTH ---
PATIENT: YUSEF AGEE LOC: [facility] U#:[id number] AGE/SX: 59/F ROOM: RE02/27/[address]: Yessy Valverde : 1960 BED: DIS: 02/27/2020 SPEC #: [id number] RECD: 02/28/20 12:51 STATUS: ZENAIDA REDwayne #: [id number] WES: 02/27/20 09:[address]: Yessy Valverde DEPT: [facility] Cytology RECD BY: Sandra Walsh Tissues: 1 - CX/ENDOCX FOR PAP SMEARS Procedures: PAP THIN PREP/[facility] Screening HPV DNA PROBE Comments: [id number]
== END 2020-02-27 10:02 ==
LOC: NCHCN 09:42
PROVIDERS: PCP Family Medicine; Visit Provider Family Medicine
DX: Z12.4 Encounter for screening for malignant neoplasm of cervix (principal); Z11.51 Encounter for screening for human papillomavirus (HPV)
CPT/HCPCS: 88142; 87624